=== PATIENT | male | born 1940 | race Caucasian/White ===

== ENCOUNTER 2020-05-03 16:42 | Inpatient (IN) | payer MEDICARE, SELFPAY ==
[2020-05-03] VITALS (8 sets, daily range): BP systolic 108–130; BP diastolic 54–67; PULSE 71–89; RESP 14–21; TEMP 37.1–37.6; O2SAT 90–99; BMI 26.6
--- NOTE | 2020-05-03 17:12 | W.ED.GENADLT ---
Documented by User: Matthew Schofield DO 05/03/20 18:02 HPI - General Adult General: Chief complaint: General Medical Stated complaint: kidney problems Time Seen by Provider: 05/03/20 17:11 History of Present Illness: HPI narrative: 80-year-old male presents the emergency room after seeing his primary care doctor today. He was seen a few days ago after a tick bite at an urgent care and started on clindamycin presumably for concern of staph infection in his groin. When he was seen in follow-up today he developed some diarrhea according his primary care doctor and he had also developed a large indurated area in the groin. They had ultrasounded it it looks solid did not see any fluid-filled hyperechoic mass or anything that looks like an abscess. Lab work done at his doctor's office showed an increased creatinine. Patient has had a little bit of shortness of breath but denies fever. He also had a diarrhea after he started the clindamycin. Patient also commented that he starting to get chest pain. Dr. Khan and mention to me he was getting shortness of breath but he evidently had not set anything about chest pain to miss to Dr. Khan. Patient has a known history of coronary artery disease he states that now since the swelling began in his groin if he walks several 100 feet he will begin to get chest pain associated with shortness of breath and feeling very clammy if he stops it will go away within 5 minutes. That had not been going on prior to this whole episode starting. Not having any chest pain while sitting at rest. Onset (ago): day(s) Location: lower extremity Associated symptoms: Reports chest pain and nausea; Deny dyspnea, malaise, rash or vomiting Review of Systems Const: Denies: fever(s), chills, body aches, change in appetite, fatigue or malaise ENMT: Denies: throat pain, ear or mastoid pain, nasal discharge or nasal congestion Card: Reports: chest pain and dyspnea on exertion; Denies: edema or orthopnea Resp: Denies: dyspnea, productive cough or non-productive cough GI: Reports: nausea; Denies: abdominal pain, vomiting, hematemesis, coffee ground emesis, diarrhea, constipation, bloating, hematochezia or melena : Denies: flank pain, dysuria, urinary frequency or urinary urgency Skin/Breast: Denies: rash or pruritus PFSH ED PFSH: Medical History (Updated 05/03/20 @ 22:40 by Leland Ram DO) Asthma Coronary artery disease stent years ago, here, maker Diabetes mellitus Hypertension Legionella infection 2008 Lung cancer chemotherapy and radiation, 1993 Surgical History (Updated 05/03/20 @ 17:34 by Matthew Schofield DO) History of arthroplasty of right knee 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 Family History (Updated 05/03/20 @ 22:12 by Ines Moreira MD) Brother Cancer brother Father Cancer Social History (Updated 05/03/20 @ 22:12 by Ines Moreira MD) Smoking and tobacco status: never smoked Alcohol intake: never Substance/Drug Use: never Household members: none Physical Exam Const: COMMON NORMALS: no acute distress GENERAL APPEARANCE: cooperative and comfortable ORIENTATION/CONSCIOUSNESS: Yes awake, Yes oriented to person, Yes oriented to place and Yes oriented to time HENMT: COMMON NORMALS: normocephalic, atraumatic, hearing grossly normal bilaterally, external ears normal, EAC's normal, TM's normal bilaterally, Normal nasal mucous membranes and turbinates present, moist oral mucous membranes and oropharynx normal HEAD & SCALP: normocephalic and atraumatic NOSE: Normal nasal mucous membranes and turbinates present EXTERNAL EAR: Yes external ears normal EXTERNAL AUDITORY CANAL: EAC's normal TYMPANIC MEMBRANE: TM's normal bilaterally Eye: COMMON NORMALS: Equal, round and reactive pupils present, EOMs intact bilaterally, conjunctivae normal and no scleral icterus CONJUNCTIVA: Yes conjunctivae normal PUPIL: Yes Equal, round and reactive pupils present Neck/C-Spine: COMMON NORMALS: full ROM, no lymphadenopathy, supple and no JVD Lymph: LYMPHATIC: no lymphadenopathy noted and no lymphedema noted Resp: COMMON NORMALS: normal respiratory effort, No retractions, No use of accessory muscles and clear to auscultation bilaterally AUSCULTATION: clear to auscultation bilaterally Cardio: COMMON NORMALS: no JVD, regular rate, regular rhythm and No murmurs present (Cardio) RATE: regular rate RHYTHM: regular rhythm GI: COMMON NORMALS: Soft to palpation and No hepatosplenomegaly present AUSCULTATION: Yes normoactive bowel sounds PALPATION: Yes Soft to palpation, No Tenderness to palpation present (GI), No Guarding due to palpation present (GI) and Yes No hepatosplenomegaly present : OTHER: Mass amount of swelling in the prepubic fat pad on the right extending into the right groin there is edematous changes. It is indurated and woody there is really little erythema. There is no skin breakdown. There is no drainage. It is exquisitely tender to touch. Extremity: COMMON NORMALS: normal to inspection, capillary refill normal, no clubbing, cyanosis or edema, no calf tenderness and no pedal edema Neuro: SENSORIUM/ORIENTATION: Yes oriented to person, Yes oriented to place and Yes oriented to time Skin: COMMON NORMALS: no rashes or lesions noted GENERAL SKIN EXAM: no rashes or lesions noted Course Vital Signs: Vital signs: Vital Signs Temperature 99.6 F 05/03/20 16:53 Pulse Rate 89 05/03/20 22:37 Respiratory Rate 21 H 05/03/20 22:37 Blood Pressure 108/62 05/03/20 22:37 Pulse Oximetry 92 05/03/20 22:37 MDM - General Adult MDM Narrative: Medical decision making narrative: Care transferred to Dr. Ram at change of shift. Please see his notes for final diagnosis and disposition. Lab Data: Labs: Lab Results 05/03/20 05/03/20 05/03/20 Range/Units 17:30 17:30 17:30 WBC 12.1 H (4.0-10.0) 10^3/ uL RBC 3.42 L (4.1-5.3) 10^6/u L Hgb 10.7 L (11.7-16.6) g/dL Hct 33.0 L (42.0-52.0) % MCV 96.5 H (80-94) fL MCH 31.3 (28.0-34.0) pg MCHC 32.4 (30.0-36.0) g/dL RDW 13.4 (12.1-15.1) % Plt Count 194 (130-400) 10^3/c mm MPV 10.8 H (7.4-10.4) fL Neut % (Auto) 82.0 % Lymph % (Auto) 8.0 % [place] % (Auto) 7.1 % Eos % (Auto) 2.0 % Baso % (Auto) 0.2 % Neut # (Auto) 9.9 H (1.8-7.7) 10^3/u L Lymph # (Auto) 1.0 (0.8-4.8) 10^3/u L [place] # (Auto) 0.9 (0.2-0.9) 10^3/u L Eos # (Auto) 0.2 (0.0-0.8) 10^3/u L Baso # (Auto) 0.0 (0.0-0.1) 10^3/u L Nucleated RBC % (a uto) 0 % Nucleated RBCs # 0.0 /100WBC Sodium 135 L (136-145) mmol/L Potassium 4.7 (3.5-5.1) mmol/L Chloride 97 L (98-107) mmol/L Carbon Dioxide 26 (22-29) mmol/L Anion Gap 16.7 (5-19) BUN 30 H (8-23) mg/dL Creatinine 2.0 H (0.7-1.2) mg/dL Glucose 217 H (65-115) mg/dL Calculated Osmolal ity 284 L (285-295) mOsm/k g Lactate 1.0 (0.5-2.2) mmol/L Calcium 10.0 (8.5-10.5) mg/dL Total Bilirubin 0.8 (0.15-1.2) mg/dL AST 11 (0-40) U/L ALT 8 (0-41) U/L Alkaline Phosphata se 79 (40-130) IU/L Creatine Kinase 64 (39-308) U/L Troponin T Baselin e (0-15) ng/L Troponin T 120 Min [place] (0-15) ng/L Delta Troponin T (0-10) ABS# Total Protein 7.0 (6.6-8.7) g/dL Albumin 4.0 (3.5-5.2) g/dL Globulin 3.0 (1.3-4.6) g/dL 05/03/20 05/03/20 Range/Units 17:30 19:00 WBC (4.0-10.0) 10^3/ uL RBC (4.1-5.3) 10^6/u L Hgb (11.7-16.6) g/dL Hct (42.0-52.0) % MCV (80-94) fL MCH (28.0-34.0) pg MCHC (30.0-36.0) g/dL RDW (12.1-15.1) % Plt Count (130-400) 10^3/c mm MPV (7.4-10.4) fL Neut % (Auto) % Lymph % (Auto) % [place] % (Auto) % Eos % (Auto) % Baso % (Auto) % Neut # (Auto) (1.8-7.7) 10^3/u L Lymph # (Auto) (0.8-4.8) 10^3/u L [place] # (Auto) (0.2-0.9) 10^3/u L Eos # (Auto) (0.0-0.8) 10^3/u L Baso # (Auto) (0.0-0.1) 10^3/u L Nucleated RBC % (a uto) % Nucleated RBCs # /100WBC Sodium (136-145) mmol/L Potassium (3.5-5.1) mmol/L Chloride (98-107) mmol/L Carbon Dioxide (22-29) mmol/L Anion Gap (5-19) BUN (8-23) mg/dL Creatinine (0.7-1.2) mg/dL Glucose (65-115) mg/dL Calculated Osmolal ity (285-295) mOsm/k g Lactate (0.5-2.2) mmol/L Calcium (8.5-10.5) mg/dL Total Bilirubin (0.15-1.2) mg/dL AST (0-40) U/L ALT (0-41) U/L Alkaline Phosphata se (40-130) IU/L Creatine Kinase (39-308) U/L Troponin T Baselin e 16 H (0-15) ng/L Troponin T 120 Min [place] 13.56 (0-15) ng/L Delta Troponin T -2.44 L (0-10) ABS# Total Protein (6.6-8.7) g/dL Albumin (3.5-5.2) g/dL Globulin (1.3-4.6) g/dL Discharge Plan Discharge Patient Disposition: Admitted As Inpatient Admit Provider: Ines Moreira Clinical Impression: Cellulitis of groin, right Condition: Stable Coding Level of Care Code ED 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 for 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 Fwd 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 Documented by User: Leland Ram DO 05/03/20 22:40 HPI - General Adult General: Chief complaint: General Medical Stated complaint: kidney problems Time Seen by Provider: 05/03/20 17:11 PFSH ED PFSH: Medical History (Updated 05/03/20 @ 22:40 by Leland Ram DO) Asthma Coronary artery disease stent years ago, here, maker Diabetes mellitus Hypertension Legionella infection 2007 Lung cancer chemotherapy and radiation, 1993 Surgical History (Updated 05/03/20 @ 17:34 by Matthew Schofield DO) History of arthroplasty of right knee 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 Family History (Updated 05/03/20 @ 22:12 by Ines Moreira MD) Brother Cancer brother Father Cancer Social History (Updated 05/03/20 @ 22:12 by Ines Moreira MD) Smoking and tobacco status: never smoked Alcohol intake: never Substance/Drug Use: never Household members: none Course Vital Signs: Vital signs: Vital Signs Temperature 99.6 F 05/03/20 16:53 Pulse Rate 89 05/03/20 22:37 Respiratory Rate 21 H 05/03/20 22:37 Blood Pressure 108/62 05/03/20 22:37 Pulse Oximetry 92 05/03/20 22:37 MDM - General Adult MDM Narrative: Medical decision making narrative: 80-year-old male with pain and swelling in his right groin. He was checked out to me by Dr. Schofield. White blood cell count of 12.1. Hemoglobin 10.7. No abscess by CT. There is localized swelling and induration consistent with cellulitis. He has been placed on Levaquin, vancomycin, and oral doxy in the ER. Tick titers have been sent. He will be given IV fluid, as he has had a significant bump in his creatinine. He will be admitted for treatment of cellulitis. Lab Data: Labs: Lab Results 05/03/20 05/03/20 05/03/20 Range/Units 17:30 17:30 17:30 WBC 12.1 H (4.0-10.0) 10^3/ uL RBC 3.42 L (4.1-5.3) 10^6/u L Hgb 10.7 L (11.7-16.6) g/dL Hct 33.0 L (42.0-52.0) % MCV 96.5 H (80-94) fL MCH 31.3 (28.0-34.0) pg MCHC 32.4 (30.0-36.0) g/dL RDW 13.4 (12.1-15.1) % Plt Count 194 (130-400) 10^3/c mm MPV 10.8 H (7.4-10.4) fL Neut % (Auto) 82.0 % Lymph % (Auto) 8.0 % [place] % (Auto) 7.1 % Eos % (Auto) 2.0 % Baso % (Auto) 0.2 % Neut # (Auto) 9.9 H (1.8-7.7) 10^3/u L Lymph # (Auto) 1.0 (0.8-4.8) 10^3/u L [place] # (Auto) 0.9 (0.2-0.9) 10^3/u L Eos # (Auto) 0.2 (0.0-0.8) 10^3/u L Baso # (Auto) 0.0 (0.0-0.1) 10^3/u L Nucleated RBC % (a uto) 0 % Nucleated RBCs # 0.0 /100WBC Sodium 135 L (136-145) mmol/L Potassium 4.7 (3.5-5.1) mmol/L Chloride 97 L (98-107) mmol/L Carbon Dioxide 26 (22-29) mmol/L Anion Gap 16.7 (5-19) BUN 30 H (8-23) mg/dL Creatinine 2.0 H (0.7-1.2) mg/dL Glucose 217 H (65-115) mg/dL Calculated Osmolal ity 284 L (285-295) mOsm/k g Lactate 1.0 (0.5-2.2) mmol/L Calcium 10.0 (8.5-10.5) mg/dL Total Bilirubin 0.8 (0.15-1.2) mg/dL AST 11 (0-40) U/L ALT 8 (0-41) U/L Alkaline Phosphata se 79 (40-130) IU/L Creatine Kinase 64 (39-308) U/L Troponin T Baselin e (0-15) ng/L Troponin T 120 Min [place] (0-15) ng/L Delta Troponin T (0-10) ABS# Total Protein 7.0 (6.6-8.7) g/dL Albumin 4.0 (3.5-5.2) g/dL Globulin 3.0 (1.3-4.6) g/dL 05/03/20 05/03/20 Range/Units 17:30 19:00 WBC (4.0-10.0) 10^3/ uL RBC (4.1-5.3) 10^6/u L Hgb (11.7-16.6) g/dL Hct (42.0-52.0) % MCV (80-94) fL MCH (28.0-34.0) pg MCHC (30.0-36.0) g/dL RDW (12.1-15.1) % Plt Count (130-400) 10^3/c mm MPV (7.4-10.4) fL Neut % (Auto) % Lymph % (Auto) % [place] % (Auto) % Eos % (Auto) % Baso % (Auto) % Neut # (Auto) (1.8-7.7) 10^3/u L Lymph # (Auto) (0.8-4.8) 10^3/u L [place] # (Auto) (0.2-0.9) 10^3/u L Eos # (Auto) (0.0-0.8) 10^3/u L Baso # (Auto) (0.0-0.1) 10^3/u L Nucleated RBC % (a uto) % Nucleated RBCs # /100WBC Sodium (136-145) mmol/L Potassium (3.5-5.1) mmol/L Chloride (98-107) mmol/L Carbon Dioxide (22-29) mmol/L Anion Gap (5-19) BUN (8-23) mg/dL Creatinine (0.7-1.2) mg/dL Glucose (65-115) mg/dL Calculated Osmolal ity (285-295) mOsm/k g Lactate (0.5-2.2) mmol/L Calcium (8.5-10.5) mg/dL Total Bilirubin (0.15-1.2) mg/dL AST (0-40) U/L ALT (0-41) U/L Alkaline Phosphata se (40-130) IU/L Creatine Kinase (39-308) U/L Troponin T Baselin e 16 H (0-15) ng/L Troponin T 120 Min [place] 13.56 (0-15) ng/L Delta Troponin T -2.44 L (0-10) ABS# Total Protein (6.6-8.7) g/dL Albumin (3.5-5.2) g/dL Globulin (1.3-4.6) g/dL Discharge Plan Discharge Patient Disposition: Admitted As Inpatient Admit Provider: Ines Moreira Clinical Impression: Cellulitis of groin, right Condition: Stable Coding Level of Care Code ED 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 for Chg Fwd 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
--- NOTE | 2020-05-03 17:24 | CTR_ITS ---
PROCEDURE INFORMATION: Exam: CT Abdomen And Pelvis With Contrast Exam date and time: 05/03/2020 6:35 PM Age: 80 years old Clinical indication: Patient HX: C/O body aches, L groin lump ? tick bite, and diarrhea; Additional info: Pelvic mass/swelling TECHNIQUE: Imaging protocol: Computed tomography of the abdomen and pelvis with intravenous contrast. Radiation optimization: All CT scans at this facility use at least one of these dose optimization techniques: automated exposure control; mA and/or kV adjustment per patient size (includes targeted exams where dose is matched to clinical indication); or iterative reconstruction. Contrast material: VISI 320; Contrast volume: 95 ml; Contrast route: INTRAVENOUS (IV); COMPARISON: No relevant prior studies available. RADIATION DOSE METRICS: Total DLP (mGy-cm): 907.08 FINDINGS: Liver: Unremarkable. No mass. Gallbladder and bile ducts: Normal. No calcified stones. No ductal dilation. Pancreas: Mild atrophy of the pancreas. No visible pancreatic ductal ectasia. Partial fatty replacement of the pancreas. Spleen: Normal. No splenomegaly. Adrenals: Normal. No mass. Kidneys and ureters: Normal. No hydronephrosis. Stomach and bowel: Diverticulosis coli but without evidence of acute diverticulitis. Markedly redundant colon. Nonobstructive bowel pattern. No visible evidence of adynamic or reactive ileus. Mild diffuse mucosal thickening of the visualized distal esophagus which may be secondary to chronic esophagitis. Appendix: The appendix is visualized appears noninflamed. Intraperitoneal space: Unremarkable. No free air. No significant fluid collection. Vasculature: Limited assessment lung bases reveals evidence of coronary artery disease. No visible pericardial effusion. No visible active interstitial or alveolar airspace disease within the field of view. The abdominal aorta is nonaneurysmal but demonstrates moderately advanced arterial sclerotic disease. Lymph nodes: No visible generalized lymphadenopathy. Bladder: Unremarkable as visualized. Reproductive: Unremarkable as visualized. Bones/joints: No visible active or acute osseous pathology. Age-appropriate degenerative disease. Mild scoliosis. Soft tissues: Examination reveals moderate right inguinal soft tissue edema. No underlying visible organized loculated fluid collection to suggest the presence of a abscess, seroma, or hematoma. Potential for cellulitis. No visible associated right inguinal lymphadenopathy/lymphadenitis. CT/CT abdomen pelvis w con* [id number] IMPRESSION: 1. Examination reveals moderate right inguinal soft tissue edema. No underlying visible organized loculated fluid collection to suggest the presence of a abscess, seroma, or hematoma. Potential for cellulitis. 2. No visible associated right inguinal lymphadenopathy/lymphadenitis. 3. Potential mild chronic esophagitis. Radiation Dose CTDIVOL = (mGy): DLP = 907.08 (mGy-cm)
--- NOTE | 2020-05-03 17:25 | ECG_ITS ---
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 Measurements Intervals [place] Rate: 75 P: 8 MI: 168 QRS: 11 QRSD: 90 T: 47 QT: 350 QTc: 392 Interpretive Statements SINUS RHYTHM No previous ECG available for comparison Electronically Signed On 05-03-2020 21:43:46 CDT by Breana Craft M.D. [id number]
[2020-05-03 17:42] LABS: Basophils % 0.2 %; Eosinophils # 0.2 10^3/uL (0.0-0.8); Hemoglobin 10.7 g/dL (11.7-16.6); Mean Corpuscular HGB Conc 32.4 g/dL (30.0-36.0); Mean Corpuscular Hemoglobin 31.3 pg (28.0-34.0); Mean Corpuscular Volume 96.5 fL (80-94); Mean Platelet Volume 10.8 fL (7.4-10.4); Monocytes # 0.9 10^3/uL (0.2-0.9); Monocytes % 7.1 %; Neutrophils # 9.9 10^3/uL (1.8-7.7); Nucleated Red Blood Cells % 0 %; Platelet Count 194 10^3/cmm (130-400); Red Blood Count 3.42 10^6/uL (4.1-5.3); Red Cell Distribution Width 13.4 % (12.1-15.1); White Blood Count 12.1 10^3/uL (4.0-10.0)
[2020-05-03] MEDS: sodium chloride 0.9% 1,000 ML 999 ML IV (18:01)
[2020-05-03] MEDS: morphine 4 mg/mL SDV 1 mL IVP ×2 (18:02→23:03)
[2020-05-03] MEDS: ondansetron 2 mg/ML SDV 2 mL 4 MG IVP (18:02)
[2020-05-03 18:18] LABS: Alanine Aminotransferase 8 U/L (0-41); Alkaline Phosphatase 79 IU/L (40-130); Anion Gap 16.7 (5-19); Aspartate Amino Transferase 11 U/L (0-40); Blood Urea Nitrogen 30 mg/dL (8-23); Carbon Dioxide 26 mmol/L (22-29); Chloride 97 mmol/L (98-107); Creatine Phosphokinase 64 U/L (39-308); Glucose 217 mg/dL (65-115); Osmolality Calculated 284 mOsm/kg (285-295); Potassium 4.7 mmol/L (3.5-5.1); Sodium 135 mmol/L (136-145); Total Bilirubin 0.8 mg/dL (0.15-1.2)
[2020-05-03 18:19] LABS: Troponin(5th) Baseline 16 ng/L (0-15)
[2020-05-03] MEDS: vancomycin 1,000 MG in sodium chloride 0.9% 250 ML 250 MG IV (18:30)
[2020-05-03] MEDS: iodixanol 320 mg/mL 100mL Btl IV (18:48)
--- NOTE | 2020-05-03 19:25 | ECG_ITS ---
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 Measurements Intervals [place] Rate: 78 P: 36 UT: 180 QRS: 1 QRSD: 97 T: 57 QT: 337 QTc: 385 Interpretive Statements SINUS RHYTHM NONSPECIFIC T-WAVE ABNORMALITY Compared to ECG 05/03/2020 17:33:43 T-wave abnormality now present Electronically Signed On 05-04-2020 16:56:04 CDT by Pedro Kaur M.D. [id number]
[2020-05-03] MEDS: HYDROmorphone 1 mg/mL INJ 1 mL IVP (19:37)
[2020-05-03 19:59] LABS: Troponin 5 2HR 13.56 ng/L (0-15)
[2020-05-03 20:02] LABS: Troponin 5 2HR Delta -2.44 ABS# (0-10)
[2020-05-03] MEDS: levofloxacin-dextrose 5 % 500 MG/100 ML PREMIX 100 MG IV (20:18)
--- NOTE | 2020-05-03 21:32 | PM.HP ---
Providers/Chief Complaint Admitting Physician: Ines Moreira MD Primary Care Provider: Gerry Khan MD Chief Complaint: kidney problems History of Present Illness Son Cisneros Sr is a 80 year old male who presented to the emergency room with chief complaint of pain and swelling in his groin. Around a week or so ago, he had gone [place] the race track in [place]. He was not feeling well while he was there. The following day he found a tick on himself right in his suprapubic area. He dug it out with a needle that he burned and soaked in alcohol. Over the next few days, patient started having pain in his shoulders, headaches, general malaise and slowly increasing pain and swelling in his groin. He was seen at walk-in clinic on Sunday and was given a prescription for clindamycin. Patient himself thought he might of developed a hernia. Pain was becoming progressively more significant. He was hurting so bad Sunday and Sunday that he was having dry heaves. Denies any reported fevers at home. He saw his primary care provider today. Antibiotics were changed from clindamycin which have been prescribed on Sunday to doxycycline. An ultrasound was done of the swollen area. No fluid collection was noted. He did have evidence of an elevated creatinine and some other abnormalities. In talking with him further, he has had several episodes of dry heaving and general malaise. This was bad enough when he was at the race track in [place] that his son went and got 1 of the paramedics there to check on him. A friend who is with him today also describes him being quite sick about a month ago. He does have a history of coronary artery disease with a prior stent placed maybe 30 years ago. He has diabetes and hypertension. He is being admitted for further evaluation and treatment. He received vancomycin in the emergency room. He also received morphine which help with the pain and some IV fluids. Blood cultures have been collected. CT of the abdomen and pelvis done in the emergency room showed soft tissue swelling with no visible loculated fluid collection identified. No mention of any lymphadenopathy or lymphadenitis visible in the right inguinal area. Review of Systems Const: Reports: chills, body aches, change in appetite, fatigue and malaise; Denies: fever(s) Eyes: Denies: change in vision ENMT: Denies: throat pain, dry mouth or nasal congestion Card: Denies: chest pain, palpitations or edema Resp: Denies: dyspnea, productive cough or non-productive cough GI: Reports: abdominal pain and other (Dry heaves on several occasions); Denies: nausea, diarrhea or constipation : Reports: other (Groin pain is noted, primarily in the right and central regions); Denies: difficulty urinating, testicular pain or scrotal swelling Musc: Reports: back pain, joint pain (Both shoulders) and muscle weakness; Denies: neck pain, extremity swelling, joint swelling, joint redness or joint warmth Skin/Breast: Reports: erythema, skin tenderness and skin swelling; Denies: pruritus Neuro: Reports: headache(s); Denies: numbness in extremities, weakness in extremities or dizziness Psych: Denies: anxiety or depression Nishant/Lymph: Denies: easy bruising or easy bleeding Medications/Allergies Home Medications Medication Instructions Recorded Confirmed Last Taken Type clindamycin HCl 300 mg capsule 300 mg PO TID 7 Days #21 cap 05/01/20 05/03/20 Unknown Rx atorvastatin 10 mg PO DAILY 05/03/20 05/03/20 05/02/20 History benazepril-hydrochlorothiazide 20 - 25 tab PO DAILY 05/03/20 05/03/20 05/02/20 History doxycycline hyclate 100 mg PO DAILY 05/03/20 05/03/20 05/03/20 History glimepiride 8 mg PO DAILY 05/03/20 05/03/20 05/03/20 History metformin 500 mg PO TID 05/03/20 05/03/20 Unknown History pioglitazone 30 mg PO DAILY 05/03/20 05/03/20 05/02/20 History sitagliptin [Januvia] 100 mg PO DAILY 05/03/20 05/03/20 05/02/20 History Allergies Allergy/AdvReac Type Severity Reaction Status Date / Time oxytetracycline Allergy ADR-Swelling Verified 05/03/20 21:38 [From Terramycin] of the Eye Penicillins Allergy ALGY-Difficulty Verified 05/03/20 18:27 Swallowing PFSH Acute PFSH: Medical History (Updated 05/04/20 @ 04:57 by Ines Moreira MD) Asthma Chronic kidney disease, stage III (moderate) Coronary artery disease stent years ago, here, maker Diabetes mellitus Hypertension Legionella infection 2008 Lung cancer chemotherapy and radiation, 1994 Surgical History (Updated 05/03/20 @ 17:34 by Matthew Schofield DO) History of arthroplasty of right knee 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 Family History (Updated 05/03/20 @ 22:12 by Ines Moreira MD) Brother Cancer brother Father Cancer Social History (Updated 05/03/20 @ 22:12 by Ines Moreira MD) Smoking and tobacco status: never smoked Alcohol intake: never Substance/Drug Use: never Household members: none Vitals/I&O/Wt Last Vital Signs Temp 99.6 F 05/03/20 16:53 Pulse 71 05/03/20 21:25 Resp 18 05/03/20 21:25 BP 126/54 05/03/20 21:25 Pulse Ox 99 05/03/20 21:25 Weight last 48 hrs Weight 78.925 kg Physical Exam Const: COMMON NORMALS: patient oriented x3 and alert HENMT: COMMON NORMALS: normocephalic and atraumatic Eye: COMMON NORMALS: Equal, round and reactive pupils present and EOMs intact bilaterally Neck/C-Spine: COMMON NORMALS: supple Lymph: LYMPHATIC: no lymphadenopathy noted Resp: COMMON NORMALS: normal respiratory effort, No use of accessory muscles and clear to auscultation bilaterally Cardio: COMMON NORMALS: negative for No murmurs present (Cardio) RATE: regular rate RHYTHM: regular rhythm GI: COMMON NORMALS: Soft to palpation and non-tender AUSCULTATION: Yes normoactive bowel sounds : OTHER: There is some minor swelling that extends to the base of the penis. The remainder the penis appears normal be no scrotal edema or testicular swelling or pain on examination. GENITAL IMAGES (MALE): 1. area of induration and swelling/redness Extremity: COMMON NORMALS: capillary refill normal, no clubbing, cyanosis or edema and no calf tenderness Neuro: COMMON NORMALS: moves all extremities and no sensory deficits noted Psych: COMMON NORMALS: Normal thought process present and cooperative Skin: NARRATIVE SKIN EXAM: Patient with approximately 5 to 6 inches diameter area of induration in the suprapubic area extending into the right inguinal area. There is a peau d'orange appearance in the region approximately 3 - 4 cm in diameter centrally. The entire area is erythematous but there is no well demarcated line of erythema nor any streaking beyond the areas that are indurated. No fluctuance is noted. No crepitus. No areas of ecchymoses, fluid-filled blisters, bleeding, skin breakdown. I am not able to see where he dug the tick out. No other open wounds or obviously infected hair follicles. Data : 05/03/20 17:30 05/03/20 17:30 Micro: Microbiology 05/03/20 17:32 Blood Culture - Preliminary Blood SPECIMEN COLLECTED 05/03/20 17:30 Blood Culture - Preliminary Blood SPECIMEN COLLECTED A&P Assessment and plan (1) Cellulitis of groin, right: Suspect from a combination of the effect of the tic and a sensitive area combined with significant possibility of a secondary infection given the method he used to remove the tick. No evidence of abscess formation presently. Status: Acute (2) Acute kidney injury: On top of what looks to be chronic kidney disease stage III. Could be progression since her last comparative available labs from a year ago however. Status: Acute (3) Multiple complaints: In talking with him he has had headaches, shoulder pains, other myalgias, general malaise, intermittent problems with dry heaving. This is all in addition to the pain in the groin area. Some of the symptoms have definitely been more prominent since he had the tick bite and development of cellulitis but in talking with him some of the symptoms were around before then. His friend who is here with him is quite concerned. His son at the races one time went and got sr vice president to check him out because he was so worried. Status: Acute (4) Tick bite: Removed a tick about a week ago. Status: Acute Qualifiers: Encounter type: subsequent encounter Qualified Code(s): W57.XXXD - Bitten or stung by nonvenomous insect and other nonvenomous arthropods, subsequent encounter (5) Diabetes mellitus: Gen-xeovebw-cvyyvqamt but on several oral medications, currently with hyperglycemia Status: Chronic Qualifiers: Diabetes mellitus type: type 2 Diabetes mellitus correction insulin use: without correction use Diabetes mellitus complication status: with kidney complications Diabetes mellitus complication detail: with chronic kidney disease Chronic kidney disease stage: stage 3 (moderate) Qualified Code(s): E11.22 - Type 2 diabetes mellitus with diabetic chronic kidney disease; N18.3 - Chronic kidney disease, stage 3 (moderate) (6) Hypertension: Status: Chronic Qualifiers: Hypertension type: essential hypertension Qualified Code(s): I10 - Essential (primary) hypertension (7) Coronary artery disease: Status: Chronic Qualifiers: Coronary Disease-Associated Artery/Lesion type: [place] artery [place] vs. transplanted heart: [place] heart Associated angina: without angina Qualified Code(s): I25.10 - Atherosclerotic heart disease of [place] coronary artery without angina pectoris (8) Chronic kidney disease, stage III (moderate): Status: Chronic Additional A&P Information Inpatient admission Continue vancomycin We will continue doxycycline Tick titers were checked at [facility] Monitor inguinal and suprapubic area closely for progressive changes. Did discuss with patient to let staff know if he is having increasing pain or worsening skin findings or extension to the penis or the scrotum. Continue serial cardiac enzymes started in the emergency room Check hemoglobin A1c Hold metformin secondary to both renal function and the fact that he received contrast Decrease the dose of glimepiride currently Pioglitazone and Januvia are currently held Insulin in the interim I have held benazepril/HCTZ secondary to renal function Pain control has been ordered Supportive care otherwise Lovenox for DVT prophylaxis Plans been discussed with patient and he and his friend have been given an opportunity to ask questions Full code Attestations Medical Necessity Statement*: Anticipated stay greater than 2 midnights in this patient with cellulitis in the groin and noted comorbid conditions and recent symptomology. In addition he has some acute kidney injury. Location of cellulitis is at high risk for progression to surrounding areas. Plans are as indicated. 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 transplanted heart: [place] heart Associated angina: without angina Chronic kidney disease, stage III (moderate) N18.3
--- NOTE | 2020-05-03 21:40 | PC.PHAR ---
Vancomycin is dosed at 1000mg IVPB every 24 hours to produce a predicted trough level of 18.22 (population based pharmacokinetic analysis). A trough level has been ordered from the lab to be obtained before the fourth dose to confirm and adjust if needed.
[2020-05-03 23:31] LABS: Glucose Point of Care 185 mg/dL (70-110)
[2020-05-03 23:32] LABS: Add Urine Microscopic? NO
[2020-05-03] MEDS: sodium chloride 0.9% 1,000 ML 125 ML IV (23:40)
[2020-05-03] MEDS: enoxaparin 40 mg/0.4 mL Syringe SUBCUT (23:41)
[2020-05-03] MEDS: doxycycline 100 mg Tablet PO (23:41)
[2020-05-03 23:43] LABS: Troponin 5 6HR 14.71 ng/L (0-15)
[2020-05-03 23:45] LABS: Urine Appearance Clear (CLEAR); Urine Color Yellow (Yellow); pH Urine 5 (5-7)
[2020-05-03 23:46] LABS: Bilirubin Urine Neg (NEGATIVE); Blood Urine Neg (Negative); Glucose Urine UA Norm (Normal); Ketones Urine Negative (Negative); Leukocyte Esterase Urine Negative (Negative); Nitrate Urine Negative (Negative); Protein Urine Neg (Negative); Urobilinogen Urine Norm (Negative)
[2020-05-03 23:46] LABS: Troponin 5 6HR Delta -1.29 ng/L (0-12)
[2020-05-04] VITALS: BP 125/58; PULSE 79; RESP 18; TEMP 37.1; O2SAT 90
[2020-05-04] MEDS: HYDROcodone-acetaminophen 5-325 mg Tablet 1 TAB PO ×3 (00:01→22:52)
[2020-05-04 04:00] VITALS: BP 108/53; PULSE 76; RESP 18; TEMP 37.1; O2SAT 93
[2020-05-04 04:27] LABS: Basophils % 0.4 %; Eosinophils # 0.2 10^3/uL (0.0-0.8); Eosinophils % 2.7 %; Hematocrit 28.9 % (42.0-52.0); Lymphocytes # 0.9 10^3/uL (0.8-4.8); Lymphocytes % 10.9 %; Mean Corpuscular HGB Conc 31.1 g/dL (30.0-36.0); Mean Corpuscular Hemoglobin 30.2 pg (28.0-34.0); Monocytes # 0.7 10^3/uL (0.2-0.9); Monocytes % 8.1 %; Neutrophils # 6.7 10^3/uL (1.8-7.7); Neutrophils % 77.5 %; Nucleated Red Blood Cells % 0 %; Platelet Count 168 10^3/cmm (130-400); Red Blood Count 2.98 10^6/uL (4.1-5.3); Red Cell Distribution Width 13.2 % (12.1-15.1); White Blood Count 8.6 10^3/uL (4.0-10.0)
[2020-05-04 05:24] LABS: Alanine Aminotransferase 6 U/L (0-41); Albumin Level 3.3 g/dL (3.5-5.2); Alkaline Phosphatase 74 IU/L (40-130); Anion Gap 13.3 (5-19); Aspartate Amino Transferase 10 U/L (0-40); Blood Urea Nitrogen 23 mg/dL (8-23); Calcium 9.1 mg/dL (8.5-10.5); Carbon Dioxide 25 mmol/L (22-29); Chloride 102 mmol/L (98-107); Globulin 2.7 g/dL (1.3-4.6); Glucose 142 mg/dL (65-115); Osmolality Calculated 281 mOsm/kg (285-295); Potassium 4.3 mmol/L (3.5-5.1); Sodium 136 mmol/L (136-145); Total Bilirubin 0.6 mg/dL (0.15-1.2)
[2020-05-04] MEDS: glimepiride 2 mg Tablet PO (06:10)
--- NOTE | 2020-05-04 06:21 | PC.NURSE ---
PATIENT RESTED WELL THROUGHOUT THE NIGHT. MINIMAL COMPLAINTS OF PAIN. URINE OUTPUT WNL.
[2020-05-04 06:54] LABS: Glucose Point of Care 152 mg/dL (70-110)
[2020-05-04 07:05] LABS: Estmated Average Glucose 209; Hemoglobin A1C 8.9 % (4.0-6.0)
[2020-05-04 07:40] VITALS: BP 159/55; PULSE 80; RESP 18; TEMP 37.1; O2SAT 92
--- NOTE | 2020-05-04 10:19 | PM.PN ---
Subjective Subjective: Interval history: History and physical reviewed. Son reports he feels about the same. Right suprapubic area is still swollen, and painful. Medications: Reviewed: Yes Vitals/I&O/Wt Last Vital Signs Temp 98.8 F 05/04/20 07:40 Pulse 80 05/04/20 07:40 Resp 18 05/04/20 07:40 BP 159/55 05/04/20 07:40 Pulse Ox 92 05/04/20 07:40 05/03/20 05/04/20 05/04/20 22:59 06:59 14:59 Intake Total 120 / 120 240 / 240 Output Total 600 / 600 300 / 300 Balance -480 / -480 -60 / -60 Weight last 48 hrs Weight 78.925 kg Physical Exam Narrative: EXAM NARRATIVE: General exam no apparent distress Cardiovascular regular in rhythm without murmur Lungs clear Abdomen is soft positive bowel sounds. Right suprapubic area with induration, erythema, tenderness to palpation Extremities no cyanosis clubbing or edema Data : 05/04/20 03:56 05/04/20 03:56 Micro: Microbiology 05/03/20 17:32 Blood Culture - Preliminary Blood SPECIMEN COLLECTED 05/03/20 17:30 Blood Culture - Preliminary Blood SPECIMEN COLLECTED A&P Assessment and plan (1) Cellulitis of groin, right: Etiology tick bite, with method used to remove tick. Continue vancomycin. Secondary to history of tick bite, continue doxycycline Status: Acute (2) Acute kidney injury: Renal function greatly improving. It is close to his baseline of 1.2, he has stage II renal failure. Status: Acute (3) Multiple complaints: Reports some generalized pain. We will see how this improves as well as headache with treatment of his infection. Status: Acute (4) Tick bite: Continue doxycycline Status: Acute Qualifiers: Encounter type: subsequent encounter Qualified Code(s): W57.XXXD - Bitten or stung by nonvenomous insect and other nonvenomous arthropods, subsequent encounter (5) Diabetes mellitus: Medication adjusted secondary to his renal failure. Continue to follow blood sugars. 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 We will continue to follow. Some medication was held secondary to renal failure. Will potentially restart YOBANI inhibitor tomorrow if blood pressure remains high, and renal function remained stable. Status: Chronic Qualifiers: Hypertension type: essential hypertension Qualified Code(s): I10 - Essential (primary) hypertension (7) Coronary artery disease: Stable, no complaints Status: Chronic Qualifiers: Coronary Disease-Associated Artery/Lesion type: [place] artery [place] vs. transplanted heart: [place] heart Associated angina: without angina Qualified Code(s): I25.10 - Atherosclerotic heart disease of [place] coronary artery without angina pectoris (8) Chronic kidney disease, stage III (moderate): Status: Chronic Additional A&P Information Tick titers done but, out outside lab([facility]) Full code Lovenox for DVT prophylaxis Reduce fluids to 75 cc an hour. Attestations Medical Necessity Statement*: Needs continued hospital stay for IV antibiotics related to cellulitis. Coding Level of Care Code Acute Stonemason Helper for [facility] Diagnoses Cellulitis of groin, right L03.314 Acute kidney injury N17.9 Multiple complaints R68.89 Tick bite W57.XXXD Encounter type: subsequent encounter Diabetes mellitus E11.22; N18.3 Diabetes mellitus type: type 2 Diabetes mellitus longterm insulin use: without longterm use Diabetes mellitus complication status: with kidney complications Diabetes mellitus complication detail: with chronic kidney disease Chronic kidney disease stage: stage 3 (moderate) Hypertension I10 Hypertension type: essential hypertension Coronary artery disease I25.10 Coronary Disease-Associated Artery/Lesion type: [place] artery [place] vs. transplanted heart: [place] heart Associated angina: without angina Chronic kidney disease, stage III (moderate) N18.3
[2020-05-04] MEDS: docusate sodium 100 mg Capsule PO ×2 (10:21→16:45)
[2020-05-04] MEDS: sitagliptin 100 mg Tablet PO (10:22)
[2020-05-04] MEDS: doxycycline 100 mg Tablet PO ×2 (10:22→22:49)
[2020-05-04] MEDS: sodium chloride 0.9% 1,000 ML 125 ML IV ×2 (10:24→16:42)
[2020-05-04 11:33] VITALS: BP 131/63; PULSE 97; RESP 18; TEMP 37.2; O2SAT 92
[2020-05-04 11:36] LABS: Glucose Point of Care 230 mg/dL (70-110)
--- NOTE | 2020-05-04 12:11 | PC.CHAP ---
Pastoral Care Encounter/Spiritual Assessment Type of Contact [] Declined recreational therapy technician visit [] Patient/Family/Request visit [] Outpatient visit [] Follow-up visit [] Physician referral [] Code/Alert [x] Routine visit [] Staff referral [] Actively dying [] Patient sleeping [] Family support [] [] Out of room [] Palliative care [] [x] Receiving care in room [] Pre-surgical visit [] Trauma [] Long length of stay [] ICU visit [] Other: Relational/Emotional Strength [x] Patient feels connected with others/family/visitors/staff [] Distress [] Loneliness/isolation [] Abandonment Spirituality of Patient [x] Person of Brigette [] Attends Muslim of their Brigette [x] Believes in Prayer [] Reads Bible or Methodist materials [] There are Spiritual issues to be addressed Potato Bucker Interventions [x] Prayer [x] Active listening [x] Non-anxious presence [x] Spiritual/emotional support [] Crisis/trauma care [x] Spiritual counseling [] Bereavement support [] Provided bereavement packet [] Provided Bible/devotional materials [] Provided toy/stuffed animal, coloring book to patient or family member [] Provided Communion [] Anointing/[place] [] Salvation [x] Completed spiritual assessment [] Other: Impact on Illness or Injury [] Angry [] Fearful [] Anxious [] Often cries [] Exhaustion [] Unable to work [] Unable to attend sikhism [] Unable to walk/stand [] Unable to read [] Unable to drive [] Unable to eat/drink [] Unable to sleep [] Unable to be with family [] Patient intubated [] Other: Summary Tick bit in pain has a good attitude Time spent with patient 10 mins
[2020-05-04 15:22] VITALS: BP 122/54; PULSE 82; RESP 16; TEMP 36.9; O2SAT 94
[2020-05-04] MEDS: vancomycin 1,000 MG in sodium chloride 0.9% 250 ML 250 MG IV (16:46)
[2020-05-04 16:53] LABS: Glucose Point of Care 206 mg/dL (70-110)
[2020-05-04 20:00] VITALS: BP 143/63; PULSE 78; RESP 18; TEMP 37; O2SAT 90
[2020-05-04 21:17] LABS: Glucose Point of Care 169 mg/dL (70-110)
[2020-05-04] MEDS: enoxaparin 40 mg/0.4 mL Syringe SUBCUT (22:49)
[2020-05-05] VITALS: BP 137/75; PULSE 63; RESP 18; TEMP 36.5; O2SAT 92
[2020-05-05] MEDS: sodium chloride 0.9% 1,000 ML 125 ML IV ×2 (03:14→18:16)
[2020-05-05 04:00] VITALS: BP 128/68; PULSE 74; RESP 18; TEMP 36.8; O2SAT 94
--- NOTE | 2020-05-05 05:10 | PC.NURSE ---
PATIENT RESTED WELL THROUGHOUT THE NIGHT. REPORTS OF SOME PAIN AT TIMES, WHICH WERE CONTROLLED WITH PAIN MEDICATIONS.
[2020-05-05 05:23] LABS: Basophils % 0.4 %; Eosinophils # 0.3 10^3/uL (0.0-0.8); Hemoglobin 8.9 g/dL (11.7-16.6); Lymphocytes % 15.1 %; Mean Corpuscular HGB Conc 31.8 g/dL (30.0-36.0); Mean Corpuscular Hemoglobin 30.2 pg (28.0-34.0); Mean Corpuscular Volume 94.9 fL (80-94); Mean Platelet Volume 10.8 fL (7.4-10.4); Monocytes # 0.6 10^3/uL (0.2-0.9); Monocytes % 8.8 %; Neutrophils # 4.9 10^3/uL (1.8-7.7); Neutrophils % 71.3 %; Nucleated Red Blood Cells % 0 %; Platelet Count 174 10^3/cmm (130-400); Red Blood Count 2.95 10^6/uL (4.1-5.3); Red Cell Distribution Width 13.1 % (12.1-15.1); White Blood Count 6.8 10^3/uL (4.0-10.0)
[2020-05-05 05:56] LABS: Alanine Aminotransferase 6 U/L (0-41); Albumin Level 2.9 g/dL (3.5-5.2); Alkaline Phosphatase 61 IU/L (40-130); Anion Gap 12.2 (5-19); Aspartate Amino Transferase 9 U/L (0-40); Blood Urea Nitrogen 22 mg/dL (8-23); Carbon Dioxide 25 mmol/L (22-29); Chloride 101 mmol/L (98-107); Globulin 2.5 g/dL (1.3-4.6); Glucose 159 mg/dL (65-115); Osmolality Calculated 278 mOsm/kg (285-295); Potassium 4.2 mmol/L (3.5-5.1); Sodium 134 mmol/L (136-145); Total Bilirubin 0.4 mg/dL (0.15-1.2); Total Protein 5.4 g/dL (6.6-8.7)
[2020-05-05] MEDS: glimepiride 2 mg Tablet PO (06:15)
[2020-05-05 06:39] LABS: Glucose Point of Care 173 mg/dL (70-110)
[2020-05-05 07:57] VITALS: BP 141/63; PULSE 73; RESP 16; TEMP 37.2; O2SAT 95
--- NOTE | 2020-05-05 09:06 | P.PN_ITS ---
Subjective Subjective: Interval history: Son reports he is still hurting in his groin. He states it is still swollen. Redness has improved significantly. He reports he is hurting all over. Medications: Reviewed: Yes Vitals/I&O/Wt Last Vital Signs Temp 98.9 F 05/05/20 07:57 Pulse 73 05/05/20 07:57 Resp 16 05/05/20 07:57 BP 141/63 05/05/20 07:57 Pulse Ox 95 05/05/20 07:57 05/04/20 05/05/20 05/05/20 22:59 06:59 14:59 Intake Total 1267.5 / 2627.5 1000 / 3627.5 Output Total 200 / 500 1470 / 1970 Balance 1067.5 / 2127.5 -470 / 1657.5 Weight last 48 hrs Weight 78.925 kg Physical Exam Narrative: EXAM NARRATIVE: General exam no apparent distress Cardiovascular regular in rhythm without murmur Lungs clear Abdomen is soft positive bowel sounds. Right suprapubic area with significant induration and some tenderness but no erythema currently. Extremities no cyanosis clubbing or edema Data : 05/05/20 04:10 05/05/20 04:10 Micro: Microbiology 05/03/20 17:32 Blood Culture - Preliminary Blood NEGATIVE TO DATE 05/03/20 17:30 Blood Culture - Preliminary Blood NEGATIVE TO DATE A&P Assessment and plan (1) Cellulitis of groin, right: Etiology tick bite, with method used to remove tick. Continue vancomycin. Secondary to history of tick bite, continue doxycycline. Erythema has significantly improved. He has significant local reaction and may benefit from steroid orally secondary to this. Risks and benefits discussed. Status: Acute (2) Acute kidney injury: This has resolved Status: Acute (3) Multiple complaints: Reports some generalized pain. He has a history of pseudogout in the past. He reports the discomfort is somewhat similar. We will see how this responds to prednisone. Status: Acute (4) Tick bite: Continue doxycycline Prednisone for local reaction Status: Acute Qualifiers: Encounter type: subsequent encounter Qualified Code(s): W57.XXXD - Bitten or stung by nonvenomous insect and other nonvenomous arthropods, subsequent encounter (5) Diabetes mellitus: Medication adjusted secondary to his renal failure. Continue to follow blood sugars. With addition of prednisone blood sugar may increase significantly. We will increase his Amaryl as his renal function has improved. Status: Chronic Qualifiers: Diabetes mellitus type: type 2 Diabetes mellitus fdc insulin use: without fdc use Diabetes mellitus complication status: with kidney complications Diabetes mellitus complication detail: with chronic kidney disease Chronic kidney disease stage: stage 3 (moderate) Qualified Code(s): E11.22 - Type 2 diabetes mellitus with diabetic chronic kidney disease; N18.3 - Chronic kidney disease, stage 3 (moderate) (6) Hypertension: 1 elevated blood pressure noted this morning. We will continue to follow. Some medication was held secondary to renal failure. Will potentially restart YOBANI inhibitor tomorrow if blood pressure remains high, and renal function remained stable. Status: Chronic Qualifiers: Hypertension type: essential hypertension Qualified Code(s): I10 - Essential (primary) hypertension (7) Coronary artery disease: Stable, no complaints Status: Chronic Qualifiers: Coronary Disease-Associated Artery/Lesion type: [place] artery [place] vs. transplanted heart: [place] heart Associated angina: without angina Qualified Code(s): I25.10 - Atherosclerotic heart disease of [place] coronary artery without angina pectoris (8) Chronic kidney disease, stage III (moderate): Status: Chronic Additional A&P Information Anemia. Check anemia panel, stool Hemoccult. He is normocytic. Tick titers done but, out outside lab([facility] [place]) Full code Lovenox for DVT prophylaxis Reduce fluids to 50cc an hour. No need for laboratory tomorrow Attestations Medical Necessity Statement*: Needs continued hospital stay for IV antibiotics related to cellulitis. 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 transplanted heart: [place] heart Associated angina: without angina Chronic kidney disease, stage III (moderate) N18.3
[2020-05-05] MEDS: docusate sodium 100 mg Capsule PO ×2 (09:55→18:16)
[2020-05-05] MEDS: sitagliptin 100 mg Tablet PO (09:55)
[2020-05-05] MEDS: doxycycline 100 mg Tablet PO ×2 (09:55→22:50)
[2020-05-05] MEDS: predniSONE 20 mg Tablet 40 MG PO (09:55)
[2020-05-05] MEDS: HYDROcodone-acetaminophen 5-325 mg Tablet 1 TAB PO ×2 (09:57→22:50)
[2020-05-05 10:51] LABS: Glucose Point of Care 257 mg/dL (70-110)
[2020-05-05 12:00] VITALS: BP 147/63; PULSE 75; RESP 18; TEMP 37.1; O2SAT 97
[2020-05-05 12:50] LABS: Lyme AB Screen <0.90 index
[2020-05-05 12:58] LABS: Ferritin 174 ng/mL (30-400); Iron 22 ug/dL (59-158); Percent Saturation 11.4 % (20-50); Total Iron Binding Capacity 192 mcg/dl; Unsaturated Iron Binding 170 ug/dL (112-347)
[2020-05-05 13:12] LABS: Vitamin B12 429 pg/mL (232-1245)
[2020-05-05 13:17] LABS: Folate Level 8.5 ng/mL (4.5-32.2)
[2020-05-05 16:00] VITALS: BP 158/69; PULSE 68; RESP 18; TEMP 37; O2SAT 95
[2020-05-05 17:04] LABS: Glucose Point of Care 299 mg/dL (70-110)
[2020-05-05] MEDS: vancomycin 1,000 MG in sodium chloride 0.9% 250 ML 250 MG IV (18:19)
[2020-05-05 20:00] VITALS: BP 148/65; PULSE 76; RESP 15; TEMP 37.1; O2SAT 93
[2020-05-05 21:12] LABS: Glucose Point of Care 399 mg/dL (70-110)
[2020-05-05] MEDS: enoxaparin 40 mg/0.4 mL Syringe SUBCUT (22:50)
[2020-05-06] VITALS: BP 155/66; PULSE 71; RESP 16; TEMP 37; O2SAT 94
[2020-05-06 04:00] VITALS: BP 150/72; PULSE 65; RESP 16; TEMP 37.1; O2SAT 97
[2020-05-06 06:36] LABS: Glucose Point of Care 233 mg/dL (70-110)
[2020-05-06] MEDS: glimepiride 2 mg Tablet 4 MG PO (06:45)
[2020-05-06 08:00] VITALS: BP 177/73; PULSE 74; RESP 18; TEMP 37.1; O2SAT 95
[2020-05-06] MEDS: predniSONE 20 mg Tablet 40 MG PO (08:34)
[2020-05-06] MEDS: docusate sodium 100 mg Capsule PO (08:35)
[2020-05-06] MEDS: sitagliptin 100 mg Tablet PO (08:35)
--- NOTE | 2020-05-06 08:44 | P.DS_ITS ---
Discharge Providers Date of Admission: 05/03/20 20:02 Date of Discharge: May 06, 2020 Attending Provider at Admission: Ines Moreira MD Attending Provider at Discharge: Niko Lewis MD Primary Care Provider: Gerry Khan MD Diagnoses at Discharge Discharge Diagnosis (1) Cellulitis of groin, right: Status: Acute Problem details: Significantly improved (2) Acute kidney injury: Status: Acute Problem details: Resolved (3) Multiple complaints: Status: Acute (4) Tick bite: Status: Acute Qualifiers: Encounter type: subsequent encounter Qualified Code(s): W57.XXXD - Bitten or stung by nonvenomous insect and other nonvenomous arthropods, subsequent encounter (5) Diabetes mellitus: Status: Chronic Qualifiers: Diabetes mellitus type: type 2 Diabetes mellitus half-way insulin use: without half-way use Diabetes mellitus complication status: with kidney complications Diabetes mellitus complication detail: with chronic kidney disease Chronic kidney disease stage: stage 3 (moderate) Qualified Code(s): E11.22 - Type 2 diabetes mellitus with diabetic chronic kidney disease; N18.3 - Chronic kidney disease, stage 3 (moderate) (6) Hypertension: Status: Chronic Qualifiers: Hypertension type: essential hypertension Qualified Code(s): I10 - Essential (primary) hypertension (7) Coronary artery disease: Status: Chronic Problem details: stent years ago, here, maker Qualifiers: Coronary Disease-Associated Artery/Lesion type: [place] artery [place] vs. transplanted heart: [place] heart Associated angina: without angina Qualified Code(s): I25.10 - Atherosclerotic heart disease of [place] coronary artery without angina pectoris (8) Chronic kidney disease, stage III (moderate): Status: Chronic Reason for Visit Reason for Visit: kidney problems Hospital Course Hospital Course: Son is a 80-year-old white male who presented to the emergency department with complaints of swelling in his right groin. He had had a tick bite there, removed a tick and had development of erythema and induration over about 1 week's time. He had had no fevers. He reported the pain was severe. In the emergency department he was diagnosed with cellulitis and admitted for IV antibiotics, vancomycin. He received both an abdominal pelvis CT and a pelvic ultrasound, which did not show any abscess. During this hospitalization he had persistent induration and there was concern of local reaction to the tick bite. Therefore prednisone was added. Following this he had significant improvement and was able to be discharged on May 06. He will finish up a course of doxycycline. Tick panel is pending at time of discharge. He will finish 3 more days of prednisone. Anemia was identified while he was in the hospital, with evidence of iron deficiency. This can be followed up with his primary care provider. Renal failure present on admission resolved by the time of discharge and he will resume his benazepril and hydrochlorothiazide and on follow-up with his primary care provider have recheck of his BMP. All questions were answered to the patient's satisfaction. Physical Exam Narrative: EXAM NARRATIVE: General exam no apparent distress Cardiovascular regular rate and rhythm without murmur Lungs clear Abdomen is soft with positive bowel sounds Right inguinal area, suprapubic, with mild amount of induration, no erythema, vastly improved from previous Extremities no cyanosis clubbing or edema Discharge Data Data Completed and Pending: Completed Studies During Hospitalization Category Date Time Status CT abdomen pelvis w con* [id number] Urge nt Cat Scan 05/03/20 17:24 Completed Pending at discharge Category Date Time Status Blood Culture Sta t Lab 05/03/20 17:32 Results Clostridioides Di fficile PCR Routin e Lab 05/04/20 10:34 Uncollected Immunochemical Fe jenna OCB Routine Lab 05/05/20 09:13 Uncollected Tick Panel Stat Lab 05/03/20 17:30 Results Labs from last 24 hours 05/06/20 05/05/20 05/05/20 06:33 21:08 17:00 POC Glucose 233 399 299 Iron TIBC % Saturation Unsat Iron Binding Ferritin Vitamin B12 Folate Lyme Ab (Western B lot) E. chaffeensis IgG Ab E. chaffeensis IgM Ab E. chaffeensis Int erp E. chaffeensis Com ment Rickettsia IgG Ab Rickettsia IgM Ab 05/05/20 05/05/20 05/05/20 10:47 04:10 04:10 POC Glucose 257 Iron 22 L TIBC 192 % Saturation 11.4 L Unsat Iron Binding 170 Ferritin 174 Vitamin B12 429 Folate 8.5 Lyme Ab (Western B lot) E. chaffeensis IgG Ab E. chaffeensis IgM Ab E. chaffeensis Int erp E. chaffeensis Com ment Rickettsia IgG Ab Rickettsia IgM Ab 05/04/20 03:56 POC Glucose Iron TIBC % Saturation Unsat Iron Binding Ferritin Vitamin B12 Folate Lyme Ab (Western B lot) <0.90 E. chaffeensis IgG Ab Pending E. chaffeensis IgM Ab Pending E. chaffeensis Int erp Pending E. chaffeensis Com ment Pending Rickettsia IgG Ab Pending Rickettsia IgM Ab Pending Vitals: Last Vital Signs Temp 98.7 F 05/06/20 08:00 Pulse 74 05/06/20 08:00 Resp 18 05/06/20 08:00 BP 177/73 05/06/20 08:00 Pulse Ox 95 05/06/20 08:00 Discharge Plan Discharge Patient Disposition: Home, Self-Care Condition: Stable Prescriptions: New hydrocodone-acetaminophen 5-325 mg Tablet 1 tab PO Q4H PRN (Reason: Moderate To Severe Pain) Qty: 20 RF: 0 doxycycline monohydrate 100 mg Tablet 100 mg PO Q12H Qty: 20 RF: 0 prednisone 20 mg Tablet 40 mg PO DAILY Qty: 6 RF: 0 polyethylene glycol 3350 [Miralax] 17 gram/dose powder 17 gm PO BID Qty: 119 RF: 0 sennosides-docusate sodium [Senna Plus] 8.6-50 mg tablet 1 tab-cap PO BID PRN (Reason: constipation) Qty: 10 RF: 0 Continued doxycycline hyclate 100 mg capsule 100 mg PO DAILY RF: 0 benazepril-hydrochlorothiazide 20-25 mg tablet 20 - 25 tab PO DAILY RF: 0 glimepiride 4 mg tablet 8 mg PO DAILY RF: 0 pioglitazone 30 mg tablet 30 mg PO DAILY RF: 0 metformin 500 mg tablet extended release 24 hr 500 mg PO TID RF: 0 Januvia 100 mg tablet 100 mg PO DAILY RF: 0 atorvastatin 10 mg tablet 10 mg PO DAILY RF: 0 Discontinued clindamycin HCl 300 mg capsule 300 mg PO TID 7 Days Qty: 21 RF: 0 Discharge Orders: Discharge Order (Routine); Ordered 05/06/20 Ordered By: Niko Lewis Referrals: Gerry Khan MD [Primary Care Provider] - 4-7 days Discharge Diet: Diabetic Discharge Activity: Increase activity as tolerated Activity Restrictions/Additional Instructions: Take all medicine as prescribed. Return for any concerns. 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 Diagnoses Cellulitis of groin, right L03.314 Acute kidney injury N17.9 Multiple complaints R68.89 Tick bite W57.XXXD Encounter type: subsequent encounter Diabetes mellitus E11.22; N18.3 Diabetes mellitus type: type 2 Diabetes mellitus director long term care insulin use: without director long term care use Diabetes mellitus complication status: with kidney complications Diabetes mellitus complication detail: with chronic kidney disease Chronic kidney disease stage: stage 3 (moderate) Hypertension I10 Hypertension type: essential hypertension Coronary artery disease I25.10 Coronary Disease-Associated Artery/Lesion type: [place] artery [place] vs. transplanted heart: [place] heart Associated angina: without angina Chronic kidney disease, stage III (moderate) N18.3
--- NOTE | 2020-05-06 10:00 | PC.SOCIAL ---
IMM Update Pg 2 of IMM updated with patient who verbalized understanding. Copy provided.
[2020-05-06 10:58] VITALS: BP 177/73; PULSE 74; RESP 18; TEMP 37.1; O2SAT 95
--- NOTE | 2020-05-06 11:15 | PC.NURSE ---
Discharge instructions given, voiced full understanding, meds to beds delivered. IV DC'd cath intact, bleeding controlled with 2x2's and coban.ambulated to main entrance with no difficulties.
[2020-05-07 17:20] LABS: RMSF IGG NOT DETECTED; RMSF IGM NOT DETECTED
[2020-05-07 22:00] LABS: E. Chaffeensis AB IGG <1:64; E. Chaffeensis AB IGM <1:20
== END 2020-05-06 11:15 | disposition home or self-care (01) | DRG 603 ==
LOC: ER 18:29 → MEDSURG 20:40
PROVIDERS: Emergency Medicine; Family Medicine; Admitting Provider Hospitalist; PCP Family Medicine; Visit Provider Internal Medicine
DX: L03.314 Cellulitis of groin (principal); N17.9 Acute kidney failure, unspecified; N18.3 Chronic kidney disease, stage 3 (moderate); E11.22 Type 2 diabetes mellitus with diabetic chronic kidney disease; I25.10 Atherosclerotic heart disease of native coronary artery without angina pectoris; W57.XXXA Bitten or stung by nonvenomous insect and other nonvenomous arthropods, initial encounter; Y93.9 Activity, unspecified; Z79.84 Long term (current) use of oral hypoglycemic drugs; I12.9 Hypertensive chronic kidney disease with stage 1 through stage 4 chronic kidney disease, or unspecified chronic kidney disease; Z85.118 Personal history of other malignant neoplasm of bronchus and lung; Z92.21 Personal history of antineoplastic chemotherapy; Z92.3 Personal history of irradiation
CPT/HCPCS: 12345; 36415; 36416; 74177; 80053; 81003; 82550; 82607; 82728; 82746; 82962; 83036; 83540; 83550; 83605; 84484; 85025; 86618; 86666; 86757; 87040; 93005; 96372; 96375; 99283; J1170; J1650; J1815; J1956; J2270; J2405; J3370; J7030; J7050; J7512; Q9967

== ENCOUNTER 2022-01-14 15:58 | Inpatient (IN) | payer MEDICARE, SELFPAY ==
[2022-01-14] VITALS (9 sets, daily range): BP systolic 112–119; BP diastolic 44–68; PULSE 60–85; RESP 13–21; TEMP 36.4–36.8; O2SAT 96–100; BMI 26.4
--- NOTE | 2022-01-14 16:51 | XRR_ITS ---
PROCEDURE INFORMATION: Exam: XR Chest Exam date and time: 01/14/2022 4:12 PM Age: 81 years old Clinical indication: Shortness of breath; Additional info: SOB TECHNIQUE: Imaging protocol: XR of the chest. Views: 1 view. COMPARISON: CR Chest 1 [place] [id number] 03/12/2019 2:32 AM FINDINGS: Lungs: Unremarkable. No consolidation. Pleural spaces: Unremarkable. No pleural effusion. No pneumothorax. Heart/Mediastinum: Unremarkable. No cardiomegaly. Vasculature: Calcification of the thoracic aorta and/or great vessels consistent with atherosclerotic vessel disease. Bones/joints: Mild right primary glenohumeral osteoarthritis. XR/XR chest 1V portable [id number] IMPRESSION: No acute findings.
--- NOTE | 2022-01-14 16:52 | ED_ITS ---
HPI - SOB/Dyspnea General: Chief Complaint: Shortness of Breath/Dyspnea Stated Complaint: Having a hard time breathing Time Seen by Provider: 01/14/22 16:22 Source: patient Mode of arrival: ambulatory Limitations: no limitations History of Present Illness: HPI Narrative: This patient comes to the emergency department by private vehicle. He states he was working in his shop today and felt more short of breath than usual. He denies any chest pain. He denies fevers. He states that he has a history of COPD. He is a non-smoker never did smoke but states he was around a lot of noxious fumes all his adult life. 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 He denies any known history of coronary artery disease. He states he had angiogram at one time and was told he had a very minimal amount of coronary artery disease and did not need to concern himself about that. He states he is not been exposed to COVID-19. He has had all his COVID-19 immunizations, his influenza vaccine. He states that he has been out of his Spiriva for a couple of months. He states he thinks he needs an inhaler and he will be all right. MD elicited complaint: shortness of breath and cough Pertinent past history: COPD Timing: intermittent Exacerbating factors: exertion Known history of: COPD Associated symptoms: Deny abdominal pain, chest pain, extremity pain, fever(s), hemoptysis, nausea, palpitations, syncope or vomiting Related Data: Home oxygen amount: none Review of Systems Const: Denies: fever(s), chills, body aches or change in appetite Eyes: Denies: change in vision ENMT: Denies: throat pain, odynophagia, change in hearing or nasal congestion Card: Denies: chest pain, palpitations, irregular heart rhythm, edema, swelling of feet/ankles, syncope or pre-syncope Resp: Reports: dyspnea, productive cough and wheezing; Denies: hemoptysis GI: Reports: hematemesis; Denies: abdominal pain, nausea, vomiting or change in bowel habits : Denies: flank pain, difficulty urinating, dysuria, urinary urgency or urinary hesitancy Musc: Denies: neck pain, back pain, extremity pain or extremity swelling Skin/Breast: Denies: rash Neuro: Denies: headache(s), numbness in extremities, weakness in extremities, confusion or Slurred speech present Psych: Denies: anxiety, depression or mood swings Nishant/Lymph: Denies: easy bruising or easy bleeding All/Imm: Denies: urticaria PFSH ED PFSH: Medical History Asthma Chronic kidney disease, stage III (moderate) Coronary artery disease stent years ago, here, maker Diabetes mellitus Hypertension Legionella infection 2007 Lung cancer chemotherapy and radiation, 1993 Surgical History History of arthroplasty of right knee 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 Completes full sentences without any dyspnea. Const: COMMON NORMALS: no acute distress, patient oriented x3, healthy appearing and alert HENMT: COMMON NORMALS: normocephalic, atraumatic, external ears normal, Normal external nose present, Normal nasal mucous membranes and turbinates present, moist oral mucous membranes, oropharynx normal and dentition normal HEAD & SCALP: normocephalic and atraumatic NOSE: Normal external nose present and Normal nasal mucous membranes and turbinates present EXTERNAL EAR: Yes external ears normal Eye: COMMON NORMALS: Equal, round and reactive pupils present, EOMs intact bilaterally, conjunctivae normal and no scleral icterus CONJUNCTIVA: Yes conjunctivae normal PUPIL: Yes Equal, round and reactive pupils present Neck/C-Spine: COMMON NORMALS: full ROM, no lymphadenopathy, no JVD, Thyroid normal and No carotid bruits THYROID: Thyroid normal Lymph: LYMPHATIC: no lymphadenopathy noted Chest: COMMONS NORMALS: normal inspection of the chest Resp: COMMON NORMALS: normal respiratory effort, No retractions and No use of accessory muscles AUSCULTATION: crackles Laterality: bilateral (Bases) and no wheezes Cardio: COMMON NORMALS: no JVD, regular rate, regular rhythm and Peripheral p ulses 2+ throughout RATE: regular rate RHYTHM: regular rhythm HEART SOUNDS: Murmur heart sound present (He has a 4/6 holosystolic murmur at the left sternal border.) PERIPHERAL PULSES: Peripheral pulses 2+ throughout GI: COMMON NORMALS: Normal to inspection, nondistended, normoactive bowel sounds present, Soft to palpation, non-tender and no masses PALPATION: Yes Soft to palpation : COMMON NORMALS: Yes no CVA tenderness BLADDER/KIDNEY EXAM: Yes no CVA tenderness Back/Pelvis: COMMON NORMALS: no CVA tenderness, thoracic and lumbar spine normal to inspection, no thoracic nor lumbar tenderness, thoraco-lumbar ROM normal and straight leg raise negative bilaterally Extremity: COMMON NORMALS: normal to inspection, full ROM, capillary refill normal, no joint enlargement, no calf tenderness and no pedal edema Neuro: COMMON NORMALS: patient oriented x3, moves all extremities, no focal motor deficits and no sensory deficits noted SENSORIUM/ORIENTATION: Yes alert CRANIAL NERVES: Yes CN normal except as noted SPEECH: speech normal Psych: COMMON NORMALS: mental status grossly normal Skin: COMMON NORMALS: no rashes or lesions noted, turgor normal and no jaundice GENERAL SKIN EXAM: no rashes or lesions noted and turgor normal Course Reevaluation(s): Reevaluation #1: Patient still complaining of some epigastric discomfort. His initial troponin slightly elevated. He has an elevated BNP. We will going proceed with aspirin, nitroglycerin, reevaluation of EKGs and serial troponins. Consultations: Consultation #1: I discussed with the attending hospitalist who agreed to place the patient in observation for further work-up. Time: 20:54 Vital Signs: Vital signs: Vital Signs Temperature 97.6 F 01/14/22 16:11 Pulse Rate 84 01/14/22 19:02 Respiratory Rate 16 01/14/22 19:02 Blood Pressure 112/48 01/14/22 19:02 Pulse Oximetry 100 01/14/22 19:02 MDM - SOB/Dyspnea Medical Decision Making This patient with known history of coronary disease with dyspnea with exertion that is progressively worsened over the past few weeks was evaluated and noted to have no acute EKG changes but did have a bump in his BNP as well as a slight bump in his troponin. He did have a history of what sounds like progressive angina as well. Is unclear whether this is a factor of his what clinically sounds like aortic stenosis or other underlying coronary artery disease. He also has an anemia which may be contributing to his findings as well. Is not clear why this is the case he has no history of weight loss, melena etc. I think it is prudent that the patient be continued under observation in the hospital for further evaluation serial troponins, echocardiogram and cardiology consultation. Differential Diagnosis Likely congestive heart failure; Unlikely community acquired pneumonia or asthma with exacerbation Medical Records I reviewed the patient's medical records. Lab Data I reviewed the patient's lab results. : 01/14/22 16:33 01/14/22 16:33 Labs/Radiology: Radiology Impressions Chest X-Ray 01/14/22 16:51 IMPRESSION: No acute findings. Laboratory Results WBC 6.5 10^3/uL (4.0-10.0) 01/14/22 16: RBC 2.64 10^6/uL (4.1-5.3) L 01/14/22 16:33 Hgb 7.0 g/dL (11.7-16.6) L 01/14/22 16:33 Hct 23.2 % (42.0-52.0) L 01/14/22 16:33 MCV 87.9 fl (80-94) 01/14/22 16:33 MCH 26.5 pg (28.0-34.0) L 01/14/22 16:33 MCHC 30.2 g/dL (30.0-36.0) 01/14/22 16:33 RDW 13.8 % (12.1-15.1) 01/14/22 16:33 Plt Count 224 10^3/cmm (130-400) 01/14/22 16:33 MPV 11.9 fL (7.4-10.4) H 01/14/22 16:33 Neut % (Auto) 77.6 % 01/14/22 16:33 Lymph % (Auto) 12.4 % 01/14/22 16:33 Louisa % (Auto) 7.1 % 01/14/22 16:33 Eos % (Auto) 1.9 % 01/14/22 16:33 Baso % (Auto) 0.8 % 01/14/22 16:33 Neut # (Auto) 5.02 10^3/uL (1.8-7.7) 01/14/22 16:33 Lymph # (Auto) 0.8 10^3/uL (0.8-4.8) 01/14/22 16:33 Louisa # (Auto) 0.5 10^3/uL (0.2-0.9) 01/14/22 16:33 Eos # (Auto) 0.1 10^3/uL (0.0-0.8) 01/14/22 16:33 Baso # (Auto) 0.1 10^3/uL (0.0-0.1) 01/14/22 16:33 Nucleated RBC % (auto) 0 % 01/14/22 16:33 Nucleated RBCs # 0.0 /100WBC 01/14/22 16:33 Sodium 139 mmol/L (136-145) 01/14/22 16:33 Potassium 4.6 mmol/L (3.5-5.1) 01/14/22 16:33 Chloride 101 mmol/L (98-107) 01/14/22 16:33 Carbon Dioxide 22 mmol/L (22-29) 01/14/22 16:33 Anion Gap 20.6 (5-19) H 01/14/22 16:33 BUN 39 mg/dL (8-23) H 01/14/22 16:33 Creatinine 1.6 mg/dL (0.7-1.2) H 01/14/22 16:33 GFR Calculation Not Reportable 01/14/22 16:33 Glucose 264 mg/dL (65-115) H 01/14/22 16:33 Calculated Osmolality 307 mOsm/kg (285-295) H 01/14/22 16:33 Calcium 10.0 mg/dL (8.5-10.5) 01/14/22 16:33 Troponin T Gen 5 ng/L 18 ng/L (0-15) H 01/14/22 16:33 Troponin T 120 Minute 19.52 ng/L (0-15) H 01/14/22 19:19 Delta Troponin T Not Reportable 01/14/22 19:19 NT-Pro-B Natriuret Pep 1570 pg/mL (0-450) H 01/14/22 16:33 EKG Data EKG 1: Interpretation: Patient has normal sinus rhythm does display occasional unifocal PVCs. Ventricular rate is 84 bpm. OK intervals normal QTC is normal. QRS S duration is normal. Normal axis. No acute ST-T wave changes noted. Essentially unchanged from prior tracings within the system EMR. EKG 2: EKG interpretation time: 20:55 Interpretation: Repeat electrocardiogram reveals sinus rhythm again with frequent unifocal PVCs. He does have normal intervals normal axis. Essentially no acute ST-T wave changes at this time. Discharge Plan Discharge Patient Disposition: Placed in Observation Clinical Impression: Congestive heart failure, Heart murmur, Angina pectoris, unspecified, Anemia Condition: Stable Prescriptions: No Action doxycycline hyclate 100 mg capsule 100 mg PO DAILY 0RF benazepril-hydrochlorothiazide 20-25 mg tablet 20 - 25 tab PO DAILY 0RF glimepiride 4 mg tablet 8 mg PO DAILY 0RF pioglitazone 30 mg tablet 30 mg PO DAILY 0RF metformin 500 mg tablet extended release 24 hr 500 mg PO TID 0RF Rx Instructions: pt states he is temporarily not taking this med due to testing Januvia 100 mg tablet 100 mg PO DAILY 0RF atorvastatin 10 mg tablet 10 mg PO DAILY 0RF hydrocodone-acetaminophen 5-325 mg Tablet 1 tab PO Q4H PRN (Reason: Moderate To Severe Pain) Qty: 20 0RF prednisone 20 mg Tablet 40 mg PO DAILY Qty: 6 0RF doxycycline monohydrate 100 mg Tablet 100 mg PO Q12H Qty: 20 0RF Senna Plus 8.6-50 mg tablet 1 tab-cap PO BID PRN (Reason: constipation) Qty: 10 0RF Miralax 17 gram/dose powder 17 gm PO BID Qty: 119 0RF Referrals: Gerry Kahn MD [Primary Care Provider] - Coding Level of Care Code 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
--- NOTE | 2022-01-14 17:08 | PC.NURSE ---
Pt placed on continuous cardiac, BP, and SpO2 monitoring.
[2022-01-14 17:10] LABS: Basophils # 0.1 10^3/uL (0.0-0.1); Basophils % 0.8 %; Eosinophils # 0.1 10^3/uL (0.0-0.8); Eosinophils % 1.9 %; Hematocrit 23.2 % (42.0-52.0); Lymphocytes # 0.8 10^3/uL (0.8-4.8); Lymphocytes % 12.4 %; Mean Corpuscular HGB Conc 30.2 g/dL (30.0-36.0); Mean Corpuscular Hemoglobin 26.5 pg (28.0-34.0); Mean Corpuscular Volume 87.9 fl (80-94); Mean Platelet Volume 11.9 fL (7.4-10.4); Monocytes # 0.5 10^3/uL (0.2-0.9); Monocytes % 7.1 %; Neutrophils # 5.02 10^3/uL (1.8-7.7); Neutrophils % 77.6 %; Nucleated Red Blood Cells % 0 %; Platelet Count 224 10^3/cmm (130-400); Red Blood Count 2.64 10^6/uL (4.1-5.3); Red Cell Distribution Width 13.8 % (12.1-15.1); White Blood Count 6.5 10^3/uL (4.0-10.0)
[2022-01-14] MEDS: ipratropium-albuterol 3 mL Neb INHALATION (17:31)
[2022-01-14 17:34] LABS: Anion Gap 20.6 (5-19); Blood Urea Nitrogen 39 mg/dL (8-23); Carbon Dioxide 22 mmol/L (22-29); Chloride 101 mmol/L (98-107); Glucose 264 mg/dL (65-115); Osmolality Calculated 307 mOsm/kg (285-295); Potassium 4.6 mmol/L (3.5-5.1); Sodium 139 mmol/L (136-145)
--- NOTE | 2022-01-14 17:40 | ECG_ITS ---
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 Measurements Intervals [place] Rate: 79 P: 75 [place]: 184 QRS: 55 QRSD: 88 T: 36 QT: 367 QTc: 421 Interpretive Statements SINUS RHYTHM MINIMAL ST DEPRESSION [0.025+ mV ST DEPRESSION] Compared to ECG 05/03/2020 23:39:29 ST (T wave) deviation now present T-wave abnormality no longer present Electronically Signed On 01-15-2022 17:25:50 CDT by Breana Craft M.D. [id number]
[2022-01-14 18:04] LABS: NT Pro B Type Natriuretic Pept 1570 pg/mL (0-450)
[2022-01-14 18:31] LABS: Troponin T (5th) Once 18 ng/L (0-15)
[2022-01-14] MEDS: aspirin 81 mg Chew Tablet 324 MG PO (19:20)
[2022-01-14 19:57] LABS: Troponin 5 2HR 19.52 ng/L (0-15)
[2022-01-14] MEDS: FUROsemide 10 mg/mL SDV 4mL 40 MG IVP (20:29)
--- NOTE | 2022-01-14 21:07 | ECG_ITS ---
[facility] Test Date: 2022-01-14 Pat Name: Son Cisneros Sr Department: Room: Gender: Male Canvas Baster Jumpbasting: : 1940 Requested By: Florentino Lord Order Number: [id number] Juventino MD: Breana Craft M.D. Measurements Intervals [place] Rate: 74 P: 41 SD: 194 QRS: 5 QRSD: 88 T: 37 QT: 373 QTc: 415 Interpretive Statements SINUS RHYTHM WITH FREQUENT VENTRICULAR PREMATURE COMPLEXES MINIMAL ST DEPRESSION [0.025+ mV ST DEPRESSION] ABNORMAL RHYTHM ECG Compared to ECG 01/14/2022 16:49:32 Ventricular premature complex(es) now present ST (T wave) deviation still present Electronically Signed On 01-15-2022 17:44:21 CDT by Breana Craft M.D. [id number]
--- NOTE | 2022-01-14 21:51 | PM.HP ---
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 Reports eating his primary doctor and they thought it was his asthma acting up. States that he had run out of inhalers, and that there was some difficulty in obtaining the inhaler that contains steroid that he had used in the past. He does not have a list of medications, and currently on the weekend the pharmacy is closed as well. The one that he can remember he takes his theophylline 3 times a day, but does not remember the dose. It is not entirely clear what inhalers he had been taking. However, he denies respiratory symptoms at rest, denies cough, denies any URTI or lower respiratory infection or flulike symptoms. He occasionally gets ankle edema. Recently the dyspnea exertion, angina on exertion have gotten very limiting, with symptoms recurring even with walking to the restroom and back. He remembers that he had had an intervention on maker but it was years ago, and he does not know for sure whether a stent was placed. He is not taking aspirin or Plavix due to easy bruising. He is also noted to have acute on chronic anemia, hemoglobin up to 7. He reports 2 years ago after hospitalization he had some blood in his stool but he states that had resolved. He had had several colonoscopies but none in a while. Does not report upper endoscopy. Creatinine also noted elevated 1.6, appears chronic kidney disease is recorded in the chart, but he was not aware of prior kidney issues. He occasionally takes ibuprofen. Review of Systems Const: Reports: fatigue; Denies: fever(s), chills, body aches or malaise Eyes: Denies: change in vision or eye redness ENMT: Denies: throat pain, oral sores or ear or mastoid pain Card: Reports: edema (occasional) and dyspnea on exertion; Denies: chest pain or pre-syncope Resp: Reports: dyspnea; Denies: productive cough, change in phlegm color or hemoptysis GI: Denies: abdominal pain, nausea, vomiting, diarrhea, constipation, hematochezia or melena : Denies: flank pain, difficulty urinating, urinary frequency or hematuria Musc: Denies: back pain, joint swelling or joint redness Skin/Breast: Denies: rash, sores or new lesions Neuro: Denies: headache(s), numbness in extremities, weakness in extremities, dizziness, confusion or seizure-like activity Endo: Denies: polyuria or polydipsia Nishant/Lymph: Denies: easy bleeding or purpura All/Imm: Denies: urticaria, throat swelling or tongue swelling Medications/Allergies Home Medications Medication Instructions Recorded Confirmed Last Taken Type atorvastatin 10 mg tablet 10 mg PO DAILY 05/03/20 05/03/20 05/02/20 History benazepril 20 20 - 25 tab PO DAILY 05/03/20 05/03/20 05/02/20 History mg-hydrochlorothiazide 25 mg tablet doxycycline hyclate 100 mg capsule 100 mg PO DAILY 05/03/20 05/03/20 05/03/20 History glimepiride 4 mg tablet 8 mg PO DAILY 05/03/20 05/03/20 05/03/20 History metformin 500 mg tablet,extended 500 mg PO TID 05/03/20 05/03/20 Unknown History release 24 hr pioglitazone 30 mg tablet 30 mg PO DAILY 05/03/20 05/03/20 05/02/20 History sitagliptin 100 mg tablet (Januvia) 100 mg PO DAILY 05/03/20 05/03/20 05/02/20 History doxycycline monohydrate 100 mg 100 mg PO Q12H #20 tab 05/06/20 Unknown Rx tablet hydrocodone 5 mg-acetaminophen 325 1 tab PO Q4H PRN #20 tab 05/06/20 Unknown Rx mg tablet polyethylene glycol 3350 17 17 gm PO BID #119 gm 05/06/20 Unknown Rx gram/dose oral powder (Miralax) prednisone 20 mg tablet 40 mg PO DAILY #6 tab 05/06/20 Unknown Rx sennosides 8.6 mg-docusate sodium 1 tab-cap PO BID PRN #10 tab 05/06/20 Unknown Rx 50 mg tablet (Senna Plus) Allergies Allergy/AdvReac Type Severity Reaction Status Date / Time oxytetracycline Allergy ADR-Swelling Verified 05/03/20 21:38 [From Terramycin] of the Eye Penicillins Allergy ALGY-Difficulty Verified 05/03/20 18:27 Swallowing PFSH Acute PFSH: Medical History (Updated 01/14/22 @ 22:05 by Rk Abad MD) Asthma Chronic kidney disease, stage III (moderate) Coronary artery disease stent years ago, here, maker Diabetes mellitus Hypertension Legionella infection 2007 Lung cancer chemotherapy and radiation, 1993 Pseudogout Surgical History History of arthroplasty of right knee S/P percutaneous transluminal angioplasty ([employer]IDENT[employer] DIRECTOR) with stent placement Family History Brother Cancer brother Father Cancer Social History Smoking and tobacco status: never smoked Alcohol intake: never Household members: none Vitals/I&O/Wt Last Vital Signs Temp 97.6 F 01/14/22 16:11 Pulse 84 01/14/22 19:02 Resp 16 01/14/22 19:02 BP 112/48 01/14/22 19:02 Pulse Ox 100 01/14/22 19:02 Weight last 48 hrs Weight 76.657 kg Physical Exam Narrative: Son and friend at bedside Const: COMMON NORMALS: no acute distress and patient oriented x3 HENMT: COMMON NORMALS: oropharynx normal Neck/C-Spine: COMMON NORMALS: no JVD GENERAL: Yes JVD (mild) Resp: COMMON NORMALS: normal respiratory effort and clear to auscultation bilaterally AUSCULTATION: clear to auscultation bilaterally Cardio: COMMON NORMALS: no JVD, regular rhythm, S1 normal heart sound present, S2 normal heart sound present and No murmurs present (Cardio) RHYTHM: regular rhythm HEART SOUNDS: S1 normal heart sound present, S2 normal heart sound present and Murmur heart sound present systolic Intensity: IV/ GI: COMMON NORMALS: Normal to inspection, nondistended, normoactive bowel sounds present, Soft to palpation and non-tender PALPATION: Yes Soft to palpation OTHER: large Extremity: COMMON NORMALS: no joint enlargement and no pedal edema Neuro: COMMON NORMALS: patient oriented x3 and moves all extremities Skin: COMMON NORMALS: no rashes or lesions noted GENERAL SKIN EXAM: no rashes or lesions noted Data : 01/14/22 16:33 01/14/22 16:33 A&P Assessment and plan (1) Angina pectoris, unspecified: Clinically with anginal symptoms with dyspnea on exertion and chest pain radiating to both arms on exertion, now debilitating to the point of symptoms with walking to and from the bathroom. No chest pain at rest. At least in part multifactorial does have underlying asthma, and did report some improvement from breathing treatment, states recently ran out of inhaler, however, even after breathing treatment still exertional dyspnea as per his son who is with him in ER. He will certainly need his inhalers refilled at discharge. With possible history of CAD, currently also with acute anemia, hemoglobin down to 7, will transfuse 1 unit PRBC given cardiac symptoms. Also noted new systolic heart murmur. Otherwise we are suspecting progression of coronary disease with recently worsening anginal symptoms. Complete assessment with troponin EKG series. Multiple elevation is noted, discussed with him and his son. Assess TTE. His heart risk score is high, would consider staying in the hospital until he can be further assessed by stress testing on Sunday morning. If he insists on leaving, would consider cardiac consultation prior to discharge. Aspirin, statin. Blood pressure soft, hold off on beta-gregorio for now. He reports that he had a procedure on his maker years ago. Reviewing old chart I do not see records of stenting, there is a mention of coronary angiogram done sometime before 2010 although sounds like there was no significantly obstructive coronary disease to require a stent. Status: Acute (2) Heart murmur: Newly noted heart murmur, he is not aware of having it before. Given his symptoms assessed by TTE. Status: Acute (3) Coronary artery disease: He reports that he had a procedure on his maker years ago, thinks he may have had a stent placed. Reviewing old chart I do not see records of stenting, there is a mention of coronary angiogram done sometime before 2010 although sounds like there was no significantly obstructive coronary disease to require a stent. Status: Chronic Qualifiers: Associated angina: without angina Coronary Disease-Associated Artery/Lesion type: [place] artery [place] vs. transplanted heart: [place] heart Qualified Code(s): I25.10 - Atherosclerotic heart disease of [place] coronary artery without angina pectoris (4) Anemia: Hemoglobin frequently down to 7. Lower than prior. Unclear cause. He reports hematochezia after hospitalization in 2020, however, states that that had resolved. Has had several colonoscopies in the past, but has been a while since last one. Does not mention upper endoscopy. Occasionally takes ibuprofen. Start PPI. Check Hemoccult. Check iron studies. Given hemoglobin is down to 7, as well as cardiac symptoms, will transfuse 1 unit PRBC. Please reassess. Also underlying CKD. Status: Acute (5) Asthma: Reports recently had run out of his inhalers, and there has been some difficulty obtaining the inhaler with a steroid . He does not remember what inhalers she is on. Did not have an updated medication list. Will request her medications to be reconciled, possibly through the office or pharmacy as his son states there are many different medication bottles at home, and he would not know where to start. I do not hear currently that he is in asthma exacerbation, although he is post breathing treatment. Son states despite some relief from breathing treatment exertional symptoms did persist afterward. Doubt symptoms are due to asthma alone. Nebulizer treatments with albuterol, budesonide. Need refills he will need refills on his asthma inhalers. At discharge please encourage him to create medication list. Status: Chronic (6) Chronic kidney disease, stage III (moderate): Discussed with him to avoid ibuprofen, other possibly nephrotoxic medications. Continue follow-up outpatient. Status: Chronic Plan DM2: CC diet. Insulin sliding scale. HTN Attestations Medical Necessity Statement*: Place in observation for additional assessment management of exertion limiting limiting progressive anginal symptoms in a gentleman with reported underlying coronary disease, elevated heart score. 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 transplanted heart: [place] heart Anemia D64.9 Chronic kidney disease, stage III (moderate) N18.3 Asthma J45.909
[2022-01-14 23:06] LABS: Ferritin 8 ng/mL (30-400); Iron 17 ug/dL (59-158); Percent Saturation 5.1 % (20-50); Thyroid Stimulating Hormone 2.78 uIU/mL (0.27-4.20); Total Iron Binding Capacity 329 mcg/dl; Unsaturated Iron Binding 312 ug/dL (112-347)
[2022-01-14] MEDS: atorvastatin 40 mg Tablet PO (23:59)
[2022-01-14] MEDS: pantoprazole DR 40 mg Tablet PO (23:59)
[2022-01-15] VITALS (30 sets, daily range): BP systolic 111–144; BP diastolic 41–72; PULSE 58–82; RESP 15–18; TEMP 36.5–37; O2SAT 94–100
--- NOTE | 2022-01-15 01:07 | ECG_ITS ---
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 Measurements Intervals [place] Rate: 73 P: 57 SD: 177 QRS: 12 QRSD: 93 T: 39 QT: 383 QTc: 423 Interpretive Statements SINUS RHYTHM WITH FREQUENT VENTRICULAR PREMATURE COMPLEXES POSSIBLE ANTERIOR MYOCARDIAL INFARCTION , PROBABLY OLD [30 ms Q WAVE IN V3/V4, OR R < 0.2 mV IN V4] ABNORMAL RHYTHM ECG Compared to ECG 01/14/2022 20:49:05 Myocardial infarct finding now present ST (T wave) deviation no longer present Electronically Signed On 01-15-2022 17:45:44 CDT by Breana Craft M.D. [email or web address] [email or web address] [facility] hospitalHealth Informaticsday[facility].[employer]/store/OM/[id number]
[2022-01-15 01:23] LABS: Basophils % 0.7 %; Eosinophils # 0.4 10^3/uL (0.0-0.8); Eosinophils % 7.6 %; Hematocrit 22.4 % (42.0-52.0); Hemoglobin 6.9 g/dL (11.7-16.6); Lymphocytes # 1.5 10^3/uL (0.8-4.8); Lymphocytes % 27.3 %; Mean Corpuscular HGB Conc 30.8 g/dL (30.0-36.0); Mean Corpuscular Volume 87.5 fl (80-94); Mean Platelet Volume 11.5 fL (7.4-10.4); Monocytes # 0.5 10^3/uL (0.2-0.9); Monocytes % 8.7 %; Neutrophils # 3.08 10^3/uL (1.8-7.7); Neutrophils % 55.5 %; Nucleated Red Blood Cells % 0 %; Platelet Count 199 10^3/cmm (130-400); Red Blood Count 2.56 10^6/uL (4.1-5.3); Red Cell Distribution Width 13.8 % (12.1-15.1); White Blood Count 5.5 10^3/uL (4.0-10.0)
[2022-01-15 01:50] LABS: Troponin 5 6HR 22.25 ng/L (0-15)
[2022-01-15 02:03] LABS: Anion Gap 17.2 (5-19); Blood Urea Nitrogen 38 mg/dL (8-23); Calcium 9.7 mg/dL (8.5-10.5); Carbon Dioxide 25 mmol/L (22-29); Chloride 103 mmol/L (98-107); Glucose 157 mg/dL (65-115); Osmolality Calculated 304 mOsm/kg (285-295); Potassium 4.2 mmol/L (3.5-5.1); Sodium 141 mmol/L (136-145)
[2022-01-15] MEDS: sodium chloride 0.9% (100 ml) 100 ML 50 ML (03:02)
--- NOTE | 2022-01-15 05:07 | PC.NURSE ---
TRANSFUSION COMPLETED AT THIS TIME. PATIENT TOLERATED WELL. VSS.
[2022-01-15 06:24] LABS: Hematocrit 27.6 % (42.0-52.0); Hemoglobin 8.7 g/dL (11.7-16.6)
[2022-01-15 07:44] LABS: Glucose Point of Care 196 mg/dL (70-110)
[2022-01-15 07:44] LABS: Glucose Point of Care 154 mg/dL (70-110)
[2022-01-15] MEDS: insulin lispro 100 unit/1 mL SUBCUT ×4 (08:00→21:31)
[2022-01-15] MEDS: pantoprazole DR 40 mg Tablet PO (08:00)
[2022-01-15] MEDS: aspirin 81 mg EC Tablet PO (08:00)
[2022-01-15] MEDS: budesonide 0.5 mg/2 mL Neb 0.25 MG INHALATION ×2 (08:54→20:18)
[2022-01-15 11:42] LABS: Glucose Point of Care 190 mg/dL (70-110)
--- NOTE | 2022-01-15 14:59 | P.CONIM_ITS ---
Providers/Reason For Consult Consulting Physician/Specialty*: ROSEANNA Craft MD/cardiology Reason for Consult*: Patient with chest pain and heart murmur, found to have severe aortic valve stenosis by echocardiogram Requesting Physician: Dr Bro Attending Physician: Rk Abad Primary Care Provider: Gerry Khan MD History of Present Illness History of Present Illness Son Cisneros Sr is a 81 year old male with a history of type 2 diabetes, high blood pressure and previous history of coronary artery disease by angiogram, is present with complaints of prolonged episode of chest pain. He also is complaining of shortness of breath. He is blood test revealed elevated BNP. Echocardiogram revealed a severe aortic valve stenosis. Cardiology consult is requested for further cardiac evaluation recommendations. 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 The pain was in the upper substernal region, radiating to both shoulders associated with shortness of breath. He had no nausea or vomiting. No blurring of vision. No other associated symptoms or radiation of pain. The intensity of the pain was 9/10. The pain was persistent with slow improvement. The intensity of the pain started subsiding after 4 hours or so. Currently at the time of my examination, the pain level is 1/10. He has no associated fever, chills or cough. No other specific complaints. According the patient, many years ago, he had an angiogram to evaluate the chest pain. He was found to have some plaque buildup but not bad enough to do any intervention. He is known to have type 2 diabetes and high blood pressure. Has been on medications. He has no history for myocardial infarction or congestive heart failure. History of type 2 diabetes which is under control. History of Tick fever and chronic kidney disease. Has a questionable history of anemia no fever or chills. No cough. Review of Systems Narrative: CONSTITUTIONAL: No fever or chills. EYES: No blurring of vision or other visual disturbances lately. ENT: No hoarseness of voice, auditory disturbances or sore throat. CARDIOVASCULAR: As mentioned above. Has been having exertional angina for the last year or so RESPIRATORY: Has a history of shortness of breath and? Reactive airway disease GASTROINTESTINAL: No hematemesis or melena. GENITOURINARY: No dysuria or hematuria. INTEGUMENTARY: No skin rashes or history of skin cancer. NEURO: No transient ischemic attacks or amaurosis. PSYCHIATRIC: No history of psychosis or major depression. HEMATOLOGIC: No bleeding disorders or significant anemia. ENDOCRINE: No history of polyuria or polydipsia. MUSCULOSKELETAL: No recent joint pain or swelling. ALLERGY/IMMUNOLOGY: As mentioned above. Medications/Allergies Home Medications Medication Instructions Recorded Confirmed Last Taken Type atorvastatin 10 mg tablet 10 mg PO DAILY 05/03/20 01/15/22 05/02/20 History benazepril 20 20 - 25 tab PO DAILY 05/03/20 01/15/22 05/02/20 History mg-hydrochlorothiazide 25 mg tablet glimepiride 4 mg tablet 8 mg PO DAILY 05/03/20 01/15/22 05/03/20 History metformin 500 mg tablet,extended 500 mg PO TID 05/03/20 01/15/22 Unknown History release 24 hr pioglitazone 30 mg tablet 30 mg PO DAILY 05/03/20 01/15/22 05/02/20 History sitagliptin 100 mg tablet (Januvia) 100 mg PO DAILY 05/03/20 01/15/22 05/02/20 History albuterol sulfate 90 mcg/actuation 1 - 2 puff INHALATION QID PRN 01/15/22 01/15/22 Unknown History aerosol inhaler Allergies Allergy/AdvReac Type Severity Reaction Status Date / Time oxytetracycline Allergy ADR-Swelling Verified 05/03/20 21:38 [From Terramycin] of the Eye Penicillins Allergy ALGY-Difficulty Verified 05/03/20 18:27 Swallowing Current Medications Generic Name Dose Route Start Last Admin Trade Name Freq PRN Reason Stop Dose Admin Albuterol Sulfate 2.5 mg 01/15/22 03:00 01/15/22 14:22 Albuterol 2.5 Mg/0.5 Ml Neb INHALATION 2.5 mg Q6H.RESPIRATORY KUSH Administration Aspirin 81 mg 01/15/22 09:00 01/15/22 08:00 Aspirin 81 Mg Ec Tablet PO 81 mg DAILY KUSH Administration Atorvastatin Calcium 40 mg 01/14/22 23:18 01/14/22 23:59 Atorvastatin 40 Mg Tablet PO 40 mg BEDTIME KUSH Administration Budesonide 0.25 mg 01/15/22 08:00 01/15/22 08:54 Budesonide 0.5 Mg/2 Ml Neb INHALATION 0.25 mg BID.RESPIRATORY KUSH Administration Insulin Human Lispro 0 unit 01/15/22 08:00 01/15/22 12:37 Insulin Lispro 100 Unit/1 Ml SUBCUT 4 unit WM&BEDTIME KUSH Administration Protocol Pantoprazole Sodium 40 mg 01/14/22 23:18 01/15/22 08:[address] 40 Mg Tablet PO 40 mg DAILY KUSH Administration PFSH Acute PFSH: Medical History Asthma Chronic kidney disease, stage III (moderate) Coronary artery disease stent years ago, here, maker Diabetes mellitus Hypertension Legionella infection 2007 Lung cancer chemotherapy and radiation, 1993 Pseudogout Surgical History History of arthroplasty of right knee 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 Not in any acute distress. HEENT: No significant pallor, icterus or lymphadenopathy. The pupils are reactant to light. Oral cavity: There are no mucous membrane lesions. Fund uscopic examination: The fundus is not visualized NECK: Trachea appears to be central. No masses noted. No JVD or thyromegaly appreciated. Carotid bruit bilaterally RESPIRATORY: Chest is symmetrical. No intercostals muscle retraction or any accessory muscle activation. There is no chest wall tenderness. Breath sounds are heard bilaterally. No rales or rhonchi heard. No evidence of any consolidati on. BREASTS: Deferred. HEART: First heart sound is normal. Second heart sound is muffled. Ejection systolic murmur grade 4/6 in the aortic area of the transverse to the carotids. No diastolic murmurs. No S3 or S4 heard. No pericardial rub or any click heard. ABDOMEN: No vessel pulsations or distention. No tenderness. No organomegaly appreciated. No abdominal bruit. Bowel sounds are normally heard. : Deferred. RECTAL: Deferred. LYMPHATIC: No lymphadenopathy noted in the neck or groin. EXTREMITIES: No edema or cyanosis. No clubbing. The pulses are symmetrical bilaterally. The radial, femoral, dorsalis pedis and the posterior tibial pulses are palpated and found to be in good volume and amplitude. MUSCULOSKELETAL: No acute joint deformities or swelling SKIN: There are no significant scars or skin rash noted. NEUROPSYCHIATRIC: The patient is alert and oriented x3. Appears to be in a good mood. The higher functions are grossly within normal limits. No tremors or rigidity noted. Data : 01/15/22 06:05 01/15/22 01:07 Other Labs: Laboratory Last Values WBC 5.5 10^3/uL (4.0-10.0) 01/15/22 01:07 RBC 2.56 10^6/uL (4.1-5.3) L 01/15/22 01:07 Hgb 8.7 g/dL (11.7-16.6) L 01/15/22 06:05 Hct 27.6 % (42.0-52.0) L 01/15/22 06:05 MCV 87.5 fl (80-94) 01/15/22 01:07 MCH 27.0 pg (28.0-34.0) L 01/15/22 01:07 MCHC 30.8 g/dL (30.0-36.0) 01/15/22 01:07 RDW 13.8 % (12.1-15.1) 01/15/22 01:07 Plt Count 199 10^3/cmm (130-400) 01/15/22 01:07 MPV 11.5 fL (7.4-10.4) H 01/15/22 01:07 Neut % (Auto) 55.5 % 01/15/22 01:07 Lymph % (Auto) 27.3 % 01/15/22 01:07 Phelps % (Auto) 8.7 % 01/15/22 01:07 Eos % (Auto) 7.6 % 01/15/22 01:07 Baso % (Auto) 0.7 % 01/15/22 01:07 Neut # (Auto) 3.08 10^3/uL (1.8-7.7) 01/15/22 01:07 Lymph # (Auto) 1.5 10^3/uL (0.8-4.8) 01/15/22 01:07 Phelps # (Auto) 0.5 10^3/uL (0.2-0.9) 01/15/22 01:07 Eos # (Auto) 0.4 10^3/uL (0.0-0.8) 01/15/22 01:07 Baso # (Auto) 0.0 10^3/uL (0.0-0.1) 01/15/22 01:07 Nucleated RBC % (auto) 0 % 01/15/22 01:07 Nucleated RBCs # 0.0 /100WBC 01/15/22 01:07 Sodium 141 mmol/L (136-145) 01/15/22 01:07 Sodium Cancelled 01/15/22 01:07 Potassium 4.2 mmol/L (3.5-5.1) 01/15/22 01:07 Potassium Cancelled 01/15/22 01:07 Chloride 103 mmol/L (98-107) 01/15/22 01:07 Chloride Cancelled 01/15/22 01:07 Carbon Dioxide 25 mmol/L (22-29) 01/15/22 01:07 Carbon Dioxide Cancelled 01/15/22 01:07 Anion Gap 17.2 (5-19) 01/15/22 01:07 Anion Gap Cancelled 01/15/22 01:07 BUN 38 mg/dL (8-23) H 01/15/22 01:07 BUN Cancelled 01/15/22 01:07 Creatinine 1.5 mg/dL (0.7-1.2) H 01/15/22 01:07 Creatinine Cancelled 01/15/22 01:07 GFR Calculation Cancelled 01/15/22 01:07 GFR Calculation Not Reportable 01/15/22 01:07 Glucose 157 mg/dL (65-115) H 01/15/22 01:07 Glucose Cancelled 01/15/22 01:07 POC Glucose 190 mg/dL (70-110) H 01/15/22 11:19 Calculated Osmolality 304 mOsm/kg (285-295) H 01/15/22 01:07 Calculated Osmolality Cancelled 01/15/22 01:07 Calcium 9.7 mg/dL (8.5-10.5) 01/15/22 01:07 Calcium Cancelled 01/15/22 01:07 Iron 17 ug/dL (59-158) L 01/14/22 19:19 TIBC 329 mcg/dl 01/14/22 19:19 % Saturation 5.1 % (20-50) L 01/14/22 19:19 Unsat Iron Binding 312 ug/dL (112-347) 01/14/22 19:19 Ferritin 8 ng/mL (30-400) L 01/14/22 19:19 Troponin T Gen 5 ng/L 18 ng/L (0-15) H 01/14/22 16:33 Troponin T 120 Minute 19.52 ng/L (0-15) H 01/14/22 19:19 Delta Troponin T Not Reportable 01/14/22 19:19 Troponin T Hi Sens 6Hr 22.25 ng/L (0-15) H 01/15/22 01:07 Troponin T Hi Sens 6Hr Delta Not Reportable 01/15/22 01:07 NT-Pro-B Natriuret Pep 1570 pg/mL (0-450) H 01/14/22 16:33 TSH 2.78 uIU/mL (0.27-4.20) 01/14/22 19:19 Blood Type A Positive 01/14/22 23:40 Rho(D) Type Positive 01/14/22 23:40 Antibody Screen Negative 01/14/22 23:40 Crossmatch See Detail 01/14/22 23:40 Echo: My impression: Done on 01/15/2022 Mild to moderate left ventricular hypertrophy. No regional wall ?motion abnormalities. Normal left ventricular size and systolic ?function, EF 75 %. Grade II/IV diastolic dysfunction, moderately ?elevated filling pressures. ?Severe low gradient aortic valve stenosis with a peak velocity ?of 3.9 m/s, peak gradient of 61 and a mean gradient of 32 mmHg ?Mild aortic regurgitation ?Thickened mitral valve. Mild-moderate mitral valve ?regurgitation. ?Mildly increased left atrial size. ?Trace of pulmonic and tricuspid regurgitation ?There is no pericardial effusion. ?There are no intracardiac masses. ?No previous study is available for comparison. EKG 1: My Interpretation: Normal sinus rhythm with a rate of 73 bpm. Frequent PVCs. No acute ST-T change s. EKG computer-generated impression: Chest X-Ray 01/14/22 16:51 IMPRESSION: No acute findings. A&P Assessment and plan (1) Atherosclerotic heart disease of [place] coronary artery with unstable angina pectoris: The patient symptoms are suggestive of unstable angina. Apparently he has a history of atherosclerotic heart disease. He has multiple risk factors for coronary artery disease. His echocardiogram does not reveal any significant wall motion abnormalities. His EKG is unremarkable. His baseline troponin T is slightly elevated with no significant delta. At this point, it may be appropriate to start him on a low-dose of beta-gregorio, Plavix and sublingual nitroglycerin on a as needed basis. Because of his severe , anemia and chronic renal disease, I may hold off on therapeutic Lovenox. Status: Acute (2) Aortic valve stenosis, acquired: Patient appears to have severe low gradient aortic valve stenosis. This may need to be further evaluated. Most likely he requires an aortic valve replacement. Status: Acute (3) Congestive heart failure: Patient has features of an acute on chronic diastolic heart failure. He may be carefully treated with IV diuretics, as needed. Status: Acute (4) Chronic kidney disease, stage III (moderate): The etiology of the kidney disease not known. Status: Chronic (5) Diabetes mellitus: Patient blood sugar need to be closely monitored. Status: Chronic Qualifiers: Chronic kidney disease stage: stage 3 (moderate) Diabetes mellitus complication detail: with chronic kidney disease Diabetes mellitus complication status: with kidney complications Diabetes mellitus care home insulin use: without termite control servicer use Diabetes mellitus type: type 2 Qualified Code(s): E11.22 - Type 2 diabetes mellitus with diabetic chronic kidney disease; N18.3 - Chronic kidney disease, stage 3 (moderate) (6) Hypertension: Currently he is normotensive. According the patient, he had intermittent high blood pressure. Status: Chronic Qualifiers: Hypertension type: essential hypertension Qualified Code(s): I10 - Essential (primary) hypertension (7) Reactive airway disease: Patient has a questionable history of reactive airway disease. May continue on the bronchodilator treatment as per the primary. Status: Acute (8) Anemia: The etiology of anemia is not clear. Stool for occult blood would be appropriate. Patient also may benefit from an upper and lower endoscopy. Status: Acute Plan In view of the patient's severe aortic valve stenosis and unstable anginal symptoms, may need to keep his hemoglobin close to 10. Once the hemoglobin is stabilized and also confirming that there is no active bleed in the GI tract, it may be appropriate to go ahead with the cardiac catheterization to decide on further management. Discussed these issues with the patient in detail which he understood well. Also discussed with the Dr Bro the recommendations. 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 [facility] Fwd Medical Decision Making High Complexity Diagnoses Aortic valve stenosis, acquired I35.0 Congestive heart failure I50.9 Chronic kidney disease, stage III (moderate) N18.3 Diabetes mellitus E11.22; N18.3 Chronic kidney disease stage: stage 3 (moderate) Diabetes mellitus complication detail: with chronic kidney disease Diabetes mellitus complication status: with kidney complications Diabetes mellitus care home insulin use: without termite control servicer use Diabetes mellitus type: type 2 Hypertension I10 Hypertension type: essential hypertension Reactive airway disease J45.909 Atherosclerotic heart disease of [place] coronary artery with unstable angina pectoris I25.110 Anemia D64.9
--- NOTE | 2022-01-15 16:59 | PM.PN ---
Subjective Subjective: Doing Okk today. However has not ambulated. Has a h/o Angina. Denied SOB. ECHO done showed severe . 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 No active source of bleed. R/O GI source. May be due to CKD Status: Acute (2) Atherosclerotic heart disease of [place] coronary artery with unstable angina pectoris: Has Angina like CP Status: Acute (3) Aortic valve stenosis, acquired: Severe on ECHO Status: Acute (4) Congestive heart failure: compensated Status: Acute (5) Chronic kidney disease, stage III (moderate): CKD Stage 4 Status: Chronic (6) Diabetes mellitus: Status: Chronic Qualifiers: Diabetes mellitus type: type 2 Diabetes mellitus watermelon inspector insulin use: without custodial use Diabetes mellitus complication status: with kidney complications Diabetes mellitus complication detail: with chronic kidney disease Chronic kidney disease stage: stage 3 (moderate) Qualified Code(s): E11.22 - Type 2 diabetes mellitus with diabetic chronic kidney disease; N18.3 - Chronic kidney disease, stage 3 (moderate) Plan PCardiogy consult Dr Craft appreciated. Will need cardiac cath. Concerned about low Hb and possible GI source of his Anemia. Spoke w/ Dr Park ([facility]) they dont feel comfortable doing any EGD/Colonoscopye w/ a h/o ongoing ACS, . Will do after cardiac cath. Relayed this to Dr Craft. Will transfuse 2 U PRBC F/U H/H Stool Occult blood Avoid Metformin, HCTZ from home meds. Attestations Medical Necessity Statement*: Pt has severe Aortic Stenoses w/ Angina Pectoris and severe Anemia making him high risk for morbidity and mortality. 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
[2022-01-15 17:17] LABS: Glucose Point of Care 208 mg/dL (70-110)
[2022-01-15] MEDS: enoxaparin 40 mg/0.4 mL Syringe SUBCUT (17:45)
[2022-01-15 18:42] LABS: Basophils # 0.1 10^3/uL (0.0-0.1); Basophils % 0.9 %; Eosinophils # 0.5 10^3/uL (0.0-0.8); Eosinophils % 7.7 %; Hematocrit 25.7 % (42.0-52.0); Hemoglobin 8.6 g/dL (11.7-16.6); Lymphocytes # 1.2 10^3/uL (0.8-4.8); Lymphocytes % 18.2 %; Mean Corpuscular HGB Conc 33.5 g/dL (30.0-36.0); Mean Corpuscular Hemoglobin 27.2 pg (28.0-34.0); Mean Corpuscular Volume 81.3 fl (80-94); Mean Platelet Volume 11.2 fL (7.4-10.4); Monocytes # 0.5 10^3/uL (0.2-0.9); Monocytes % 7.7 %; Neutrophils # 4.23 10^3/uL (1.8-7.7); Neutrophils % 65.2 %; Nucleated Red Blood Cells % 0 %; Platelet Count 213 10^3/cmm (130-400); Red Blood Count 3.16 10^6/uL (4.1-5.3); Red Cell Distribution Width 13.8 % (12.1-15.1); White Blood Count 6.5 10^3/uL (4.0-10.0)
[2022-01-15 19:09] LABS: Anion Gap 16.5 (5-19); Blood Urea Nitrogen 36 mg/dL (8-23); Calcium 9.6 mg/dL (8.5-10.5); Carbon Dioxide 22 mmol/L (22-29); Chloride 102 mmol/L (98-107); Glucose 193 mg/dL (65-115); Osmolality Calculated 296 mOsm/kg (285-295); Potassium 4.5 mmol/L (3.5-5.1); Sodium 136 mmol/L (136-145)
--- NOTE | 2022-01-15 19:50 | PC.NURSE ---
SECOND NURSE VERIFIED WITH WAYNE MCLEAN RN.
[2022-01-15] MEDS: atorvastatin 40 mg Tablet PO (21:32)
[2022-01-15] MEDS: metoprolol tartrate 25 mg Tablet 12.5 MG PO (21:32)
--- NOTE | 2022-01-15 23:18 | USCV_ITS ---
Amelia Son Age: 81 Gender: M : 1940 Exam Date: 01/15/2022 06:13 Ordering Phys: Rk Abad MD Technologist: Nette Mireles Exam Location: [facility] Indication: ANGINA BP: 124 / 51 HR: 67 Rhythm: Sinus Technical Quality: Adequate MEASUREMENTS (Male / Female) Normal Values 2D ECHO LV Diastolic Diameter PLAX 3.9 cm 4.2 - 5.9 / 3.9 - 5.3 cm LV Systolic Diameter PLAX 2.2 cm LV Chamber Size 3.7 cm IVS Diastolic Thickness 1.5 cm 0.6 - 1.0 / 0.6 - 0.9 cm IVS Systolic Thickness 1.6 cm LVPW Diastolic Thickness 1.1 cm 0.6 - 1.0 / 0.6 - 0.9 cm LVPW Systolic Thickness 1.5 cm RV Chamber Size 3.0 cm LVOT Diameter 2.0 cm LV Ejection Fraction 2D Teich 76.9 % LV Ejection Fraction MOD 2C 55.9 % LV Ejection Fraction 2C AL 55.6 % LA Diameter 4.6 cm LA Width 4.2 cm LA Height 4.6 cm RA Width 3.5 cm RA Height 3.3 cm Aorta at Sinotubular Diameter 3.2 cm M-MODE Aortic Annulus Diameter 3.0 cm LA Ao Ratio MM 1.8 MV E Point Septal Separation 0.8 cm DOPPLER AV Peak Velocity 389.7 cm/s LVOT Peak Velocity 97.0 cm/s AV Area Cont Eq vti 0.8 cm squared AV Area Cont Eq pk 0.8 cm squared MV Area PHT 3.7 cm squared Mitral E to A Ratio 1.1 MV E' Velocity 63.0 cm/s Mitral E to MV E' Ratio 13.7 Mitral E to LV E' Lateral Ratio 14.1 Mitral E to LV E' Septal Ratio 13.6 TR Peak Velocity 231.6 cm/s TR Peak Gradient 21.5 mmHg TR Mean Velocity 143.8 cm/s TR Mean Gradient 10.4 mmHg TR Velocity Time Integral 47.9 cm TV Peak E Velocity 68.0 cm/s Right Atrial Pressure 3.0 mmHg Pulmonary Artery Systolic Pressu 24.5 mmHg PV Peak Velocity 96.0 cm/s RV Acceleration Time 0.2 s RV Ejection Time 0.4 s RV AcT/ET 0.5 FINDINGS Left Ventricle Mild to moderate left ventricular hypertrophy. No regional wall motion abnormalities. Normal left ventricular size and systolic function, EF 75 %. Grade II/IV diastolic dysfunction, moderately elevated filling pressures. Right Ventricle The right ventricle is normal in size and function. Right Atrium The right atrium is normal in size. Left Atrium Mildly increased left atrial size. Mitral Valve Thickened mitral valve. Mild-moderate mitral valve regurgitation. Aortic Valve Moderate aortic valve calcification. Mild aortic valve regurgitation. Severe aortic valve stenosis, mean gradient 32.1 mmHg, ARON 0.83 cm squared. Peak gradient of 61 mmHg Tricuspid Valve Trace tricuspid valve regurgitation. Pulmonic Valve Trace pulmonary valve regurgitation. Pericardium Normal pericardium without effusion. Aorta Normal ascending aorta dimension. CONCLUSIONS Mild to moderate left ventricular hypertrophy. No regional wall motion abnormalities. Normal left ventricular size and systolic function, EF 75 %. Grade II/IV diastolic dysfunction, moderately elevated filling pressures. Severe low gradient aortic valve stenosis with a peak velocity of 3.9 m/s, peak gradient of 61 and a mean gradient of 32 mmHg Mild aortic regurgitation Thickened mitral valve. Mild-moderate mitral valve regurgitation. Mildly increased left atrial size. Trace of pulmonic and tricuspid regurgitation There is no pericardial effusion. There are no intracardiac masses. No previous study is available for comparison. Dr Breana Craft MD [facility] (Electronically Signed) Final Date: 15 January 2022 10:36 S
[2022-01-16] VITALS (18 sets, daily range): BP systolic 111–166; BP diastolic 41–91; PULSE 55–94; RESP 13–22; TEMP 36.6–37.1; O2SAT 90–99
[2022-01-16 04:55] LABS: Basophils # 0.1 10^3/uL (0.0-0.1); Basophils % 0.7 %; Eosinophils # 0.4 10^3/uL (0.0-0.8); Eosinophils % 4.2 %; Hemoglobin 11.5 g/dL (11.7-16.6); Lymphocytes # 1.2 10^3/uL (0.8-4.8); Mean Corpuscular HGB Conc 31.1 g/dL (30.0-36.0); Mean Corpuscular Hemoglobin 27.1 pg (28.0-34.0); Mean Corpuscular Volume 87.1 fl (80-94); Mean Platelet Volume 11.8 fL (7.4-10.4); Monocytes # 0.6 10^3/uL (0.2-0.9); Monocytes % 6.5 %; Neutrophils # 6.69 10^3/uL (1.8-7.7); Nucleated Red Blood Cells % 0 %; Platelet Count 198 10^3/cmm (130-400); Red Blood Count 4.25 10^6/uL (4.1-5.3); Red Cell Distribution Width 14.3 % (12.1-15.1); White Blood Count 8.9 10^3/uL (4.0-10.0)
[2022-01-16 05:15] LABS: Anion Gap 13.4 (5-19); Blood Urea Nitrogen 35 mg/dL (8-23); Calcium 9.8 mg/dL (8.5-10.5); Carbon Dioxide 24 mmol/L (22-29); Chloride 100 mmol/L (98-107); Glucose 198 mg/dL (65-115); Osmolality Calculated 290 mOsm/kg (285-295); Potassium 4.4 mmol/L (3.5-5.1); Sodium 133 mmol/L (136-145)
[2022-01-16] MEDS: budesonide 0.5 mg/2 mL Neb 0.25 MG INHALATION ×2 (07:36→20:24)
[2022-01-16 07:40] LABS: Glucose Point of Care 170 mg/dL (70-110)
[2022-01-16] MEDS: insulin lispro 100 unit/1 mL SUBCUT ×4 (08:33→20:45)
[2022-01-16] MEDS: pantoprazole DR 40 mg Tablet PO (08:34)
[2022-01-16] MEDS: metoprolol tartrate 25 mg Tablet 12.5 MG PO (08:34)
[2022-01-16] MEDS: aspirin 81 mg EC Tablet PO (08:34)
[2022-01-16 11:11] LABS: Glucose Point of Care 287 mg/dL (70-110)
--- NOTE | 2022-01-16 13:21 | P.PN_ITS ---
Subjective Subjective: There is plan for cardiac angiogram tomorrow No active chest pain or shortness of breath hemoglobin 11.5 No active chest pain shortness of breath or presyncopal symptoms Patient was walking in the hallway Vitals/I&O/Wt Last Vital Signs Temp 98.8 F 01/16/22 12:00 Pulse 57 L 01/16/22 12:00 Resp 14 01/16/22 12:00 BP 146/63 01/16/22 12:00 Pulse Ox 99 01/16/22 12:00 01/15/22 01/16/22 01/16/22 22:59 06:59 14:59 Intake Total 480 / 840 800 / 1640 Output Total 350 / 500 0 / 500 Balance 130 / 340 800 / 1140 Weight last 48 hrs Weight 76.657 kg Weight 76.657 kg Physical Exam Narrative: No active chest pain Systolic murmur Abdomen soft Saturating well on room air Cooperative Neuro exam normal Nonfocal exam Abdomen soft Saturating well on room air Data : 01/16/22 04:20 01/16/22 04:20 A&P Assessment and plan (1) Anemia: Status: Acute (2) Reactive airway disease: Status: Acute (3) Atypical chest pain: Status: Acute (4) Aortic valve stenosis, acquired: Status: Acute Plan Severe aortic valve stenosis Plan for coronary angiogram tomorrow morning N.p.o. after midnight No active chest pain shortness of breath or presyncopal events Status post 2 units PRBC for anemia, FOBT results are pending hemodynamically stable no active bleed noted, normocytic anemia DANI improved with blood transfusion N.p.o. 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
[2022-01-16 14:43] LABS: Ferritin 32 ng/mL (30-400)
[2022-01-16] MEDS: iron sucrose 200 MG in sodium chloride 0.9% (100 ml) 100 ML 220 MG IV (14:43)
[2022-01-16 17:41] LABS: Glucose Point of Care 175 mg/dL (70-110)
[2022-01-16] MEDS: enoxaparin 40 mg/0.4 mL Syringe SUBCUT (18:12)
--- NOTE | 2022-01-16 18:32 | P.PN_ITS ---
Subjective Subjective: The patient is feeling okay. He already had 2 units of blood transfusion. Hemoglobin is around 11.5. He does not have any chest pain or shortness of breath. Vital signs are stable. Remains afebrile. Medications: Medication Review Details: Current Medications Acetaminophen (Acetaminophen 325 Mg Tablet) 650 mg PO Q6H PRN PRN Reason: Mild/Mod Pain Or Temp >/= 101 Albuterol Sulfate (Albuterol 2.5 Mg/0.5 Ml Neb) 2.5 mg INHALATION Q6H.RESPIRATORY KUSH Last Admin: 01/16/22 14:24 Dose: 2.5 mg Documented by: Albuterol Sulfate (Albuterol 2.5 Mg/0.5 Ml Neb) 2.5 mg INHALATION Q6H.RESPIRATORY PRN PRN Reason: SHORTNESS OF BREATH Aspirin (Aspirin 81 Mg Ec Tablet) 81 mg PO DAILY [facility] Last Admin: 01/16/22 08:34 Dose: 81 mg Documented by: Atorvastatin Calcium (Atorvastatin 40 Mg Tablet) 40 mg PO BEDTIME [facility] Last Admin: 01/15/22 21:32 Dose: 40 mg Documented by: Budesonide (Budesonide 0.5 Mg/2 Ml Neb) 0.25 mg INHALATION BID.RESPIRATORY KUSH Last Admin: 01/16/22 07:36 Dose: 0.25 mg Documented by: Dextrose (Dextrose 50% Syringe 50 Ml) 25 ml IVP ONCE PRN; Protocol PRN Reason: hypoglycemia protocol Dextrose (Dextrose 50% Syringe 50 Ml) 50 ml IVP PRN PRN; Protocol PRN Reason: hypoglycemia protocol Enoxaparin Sodium (Enoxaparin 40 Mg/0.4 Ml Syringe) 40 mg SUBCUT Q24H [facility] Last Admin: 01/16/22 18:12 Dose: 40 mg Documented by: Glucagon (Glucagon 1 Mg/Ml Inj 1 Ml) 1 mg IM ONCE PRN; Protocol PRN Reason: Adult Acute Hypoglycemia Prot. Dextrose (D5w) 500 mls @ 100 mls/hr IV ONCE PRN; Protocol PRN Reason: Adult Acute Hypoglycemia Prot Insulin Human Lispro (Insulin Lispro 100 Unit/1 Ml) 0 unit SUBCUT WM&BEDTIME KUSH; Protocol Last Admin: 01/16/22 18:12 Dose: 2 unit Documented by: Metoprolol Tartrate (Metoprolol Tartrate 25 Mg Tablet) 12.5 mg PO BID@0900,2100 K[facility] Last Admin: 01/16/22 08:34 Dose: 12.5 mg Documented by: Nitroglycerin (Nitroglycerin 0.4 Mg Sublingual Tablet) 0.4 mg SUBLINGUAL Q5M PRN PRN Reason: CHEST PAIN Pantoprazole Sodium (Pantoprazole Dr 40 Mg Tablet) 40 mg PO DAILY [facility] Last Admin: 01/16/22 08:34 Dose: 40 mg Documented by: Vitals/I&O/Wt Last Vital Signs Temp 98.8 F 01/16/22 12:00 Pulse 63 01/16/22 14:29 Resp 18 01/16/22 14:24 BP 146/63 01/16/22 12:00 Pulse Ox 98 01/16/22 14:24 01/16/22 01/16/22 01/16/22 06:59 14:59 22:59 Intake Total 800 / 1640 360 / 360 110 / 470 Output Total 0 / 500 Balance 800 / 1140 360 / 360 110 / 470 Weight last 48 hrs Weight 169 lb Physical Exam Narrative: GENERAL: The patient is alert and oriented times three. Not in any acute distress. HEENT: No significant pallor, icterus or lymphadenopathy. The pupils are symmetrical NECK: Trachea appears to be central. No masses noted. No JVD or thyromegaly appreciated. Carotid bruit bilaterally RESPIRATORY: Chest is symmetrical. No intercostals muscle retraction or any accessory muscle activation. There is no chest wall tenderness. Breath sounds are heard bilaterally. No rales or rhonchi heard. No evidence of any consolidation. BREASTS: Deferred. HEART: First heart sound is normal. Second heart sound is muffled. Ejection systolic murmur grade 4/6 in the aortic area of the transverse to the carotids. No diastolic murmurs. No S3 or S4 heard. No pericardial rub or any click heard. ABDOMEN: No vessel pulsations or distention. No tenderness. No organomegaly appreciated. No abdominal bruit. Bowel sounds are normally heard. : Deferred. RECTAL: Deferred. LYMPHATIC: No lymphadenopathy noted in the neck or groin. EXTREMITIES: No edema or cyanosis. No clubbing. The pulses are symmetrical bilaterally. The radial, femoral, dorsalis pedis and the posterior tibial pulses are palpated and found to be in good volume and amplitude. MUSCULOSKELETAL: No acute joint deformities or swelling SKIN: There are no significant scars or skin rash noted. NEUROPSYCHIATRIC: The patient is alert and oriented x3. Appears to be in a good mood. The higher functions are grossly within normal limits. No tremors or rigidity noted. Data : 01/17/22 07:50 01/17/22 05:15 Other Labs: Laboratory Last Values WBC 8.9 10^3/uL (4.0-10.0) 01/16/22 04:20 RBC 4.25 10^6/uL (4.1-5.3) 01/16/22 04:20 Hgb 11.5 g/dL (11.7-16.6) L D 01/16/22 04:20 Hct 37.0 % (42.0-52.0) L D 01/16/22 04:20 MCV 87.1 fl (80-94) D 01/16/22 04:20 MCH 27.1 pg (28.0-34.0) L 01/16/22 04:20 MCHC 31.1 g/dL (30.0-36.0) D 01/16/22 04:20 RDW 14.3 % (12.1-15.1) 01/16/22 04:20 Plt Count 198 10^3/cmm (130-400) 01/16/22 04:20 MPV 11.8 fL (7.4-10.4) H 01/16/22 04:20 Neut % (Auto) 75.0 % 01/16/22 04:20 Lymph % (Auto) 13.0 % 01/16/22 04:20 [place] % (Auto) 6.5 % 01/16/22 04:20 Eos % (Auto) 4.2 % 01/16/22 04:20 Baso % (Auto) 0.7 % 01/16/22 04:20 Neut # (Auto) 6.69 10^3/uL (1.8-7.7) 01/16/22 04:20 Lymph # (Auto) 1.2 10^3/uL (0.8-4.8) 01/16/22 04:20 [place] # (Auto) 0.6 10^3/uL (0.2-0.9) 01/16/22 04:20 Eos # (Auto) 0.4 10^3/uL (0.0-0.8) 01/16/22 04:20 Baso # (Auto) 0.1 10^3/uL (0.0-0.1) 01/16/22 04:20 Nucleated RBC % (auto) 0 % 01/16/22 04:20 Nucleated RBCs # 0.0 /100WBC 01/16/22 04:20 Sodium 133 mmol/L (136-145) L 01/16/22 04:20 Potassium 4.4 mmol/L (3.5-5.1) 01/16/22 04:20 Chloride 100 mmol/L (98-107) 01/16/22 04:20 Carbon Dioxide 24 mmol/L (22-29) 01/16/22 04:20 Anion Gap 13.4 (5-19) 01/16/22 04:20 BUN 35 mg/dL (8-23) H 01/16/22 04:20 Creatinine 1.2 mg/dL (0.7-1.2) 01/16/22 04:20 GFR Calculation Not Reportable 01/16/22 04:20 Glucose 198 mg/dL (65-115) H 01/16/22 04:20 POC Glucose 175 mg/dL (70-110) H 01/16/22 17:37 Calculated Osmolality 290 mOsm/kg (285-295) 01/16/22 04:20 Calcium 9.8 mg/dL (8.5-10.5) 01/16/22 04:20 Iron 17 ug/dL (59-158) L 01/14/22 19:19 TIBC 329 mcg/dl 01/14/22 19:19 % Saturation 5.1 % (20-50) L 01/14/22 19:19 Unsat Iron Binding 312 ug/dL (112-347) 01/14/22 19:19 Ferritin 32 ng/mL (30-400) 01/16/22 04:20 Troponin T Gen 5 ng/L 18 ng/L (0-15) H 01/14/22 16:33 Troponin T 120 Minute 19.52 ng/L (0-15) H 01/14/22 19:19 Delta Troponin T Not Reportable 01/14/22 19:19 Troponin T Hi Sens 6Hr 22.25 ng/L (0-15) H 01/15/22 01:07 Troponin T Hi Sens 6Hr Delta Not Reportable 01/15/22 01:07 NT-Pro-B Natriuret Pep 1570 pg/mL (0-450) H 01/14/22 16:33 TSH 2.78 uIU/mL (0.27-4.20) 01/14/22 19:19 Blood Type A Positive 01/14/22 23:40 Rho(D) Type Positive 01/14/22 23:40 Antibody Screen Negative 01/14/22 23:40 Crossmatch See Detail 01/14/22 23:40 A&P Assessment and plan (1) Atherosclerotic heart disease of [place] coronary artery with unstable angina pectoris: The patient symptoms may suggest unstable angina. However it is not convincing. But in view of his history and multiple risk factors, in order to further evaluate his coronary status, he requires a cardiac catheterization. He has no evidence of any active GI bleed. GI service does not feel comfortable in doing an endoscopic study, in view of his occasional presentation and objective findings. So at this point, we may consider going ahead with cardiac catheterization to evaluate the coronary arteries and then decide on further management. Status: Acute (2) Aortic valve stenosis, acquired: Patient appears to have severe low gradient aortic valve stenosis. This may need to be further evaluated. Most likely he requires an aortic valve replacement. We may consider doing a right and left heart catheterization both coronary angiogram tomorrow Status: Acute (3) Congestive heart failure: Patient has features of an acute on chronic diastolic heart failure. The heart failure seems to be fairly compensated. I may start him on Lasix 40 mg p.o. now and daily along with potassium 20 mg p.o. daily Status: Acute (4) Chronic kidney disease, stage III (moderate): BUN/creatinine seems to have improved. Repeat BMP in the morning Status: Chronic (5) Diabetes mellitus: Patient blood sugar need to be closely monitored. Status: Chronic Qualifiers: Chronic kidney disease stage: stage 3 (moderate) Diabetes mellitus complication detail: with chronic kidney disease Diabetes mellitus complication status: with kidney complications Diabetes mellitus intermediate insulin use: without extermination inspector use Diabetes mellitus type: type 2 Qualified Code(s): E11.22 - Type 2 diabetes mellitus with diabetic chronic kidney disease; N18.3 - Chronic kidney disease, stage 3 (moderate) (6) Hypertension: Currently he is normotensive. According the patient, he had intermittent high blood pressure. I may also start him on amlodipine 2.5 mg p.o. daily Status: Chronic Qualifiers: Hypertension type: essential hypertension Qualified Code(s): I10 - Essential (primary) hypertension (7) Reactive airway disease: Patient has a questionable history of reactive airway disease. May continue on the bronchodilator treatment as per the primary. Status: Acute (8) Anemia: The etiology of anemia is not clear. Stool for occult blood would be appropriate. Apparently the patient has not had any bowel movements. Status: Acute Plan For further evaluation of the patient's coronary status as well as a valve status, a cardiac catheterization would be appropriate. This was discussed with the patient in detail with risks and benefits. The risk of bleeding, hematoma, vascular injury, myocardial infarction, CVA, renal failure and other concomitant complications were explained in detail. Patient understood this well and consented to proceed. We may go ahead and schedule the procedure tomorrow. We will repeat the BMP, BNP and CBC in the morning. Based on the results, further recommendations will be made. Attestations Medical Necessity Statement*: Patient requires continued hospital stay for close monitoring and further management Coding Level of Care Code Acute Precision Assembly Inspector for Chg Fwd History Detailed Exam Detailed Medical Decision Making Moderate Complexity Diagnoses Atherosclerotic heart disease of [place] coronary artery with unstable angina pe ctoris I25.110 Aortic valve stenosis, acquired I35.0 Congestive heart failure I50.9 Chronic kidney disease, stage III (moderate) N18.3 Diabetes mellitus E11.22; N18.3 Chronic kidney disease stage: stage 3 (moderate) Diabetes mellitus complication detail: with chronic kidney disease Diabetes mellitus complication status: with kidney complications Diabetes mellitus intermediate insulin use: without intermediate use Diabetes mellitus type: type 2 Hypertension I10 Hypertension type: essential hypertension Reactive airway disease J45.909 Anemia D64.9
[2022-01-16] MEDS: amlodipine 5 mg Tablet 2.5 MG PO (19:41)
[2022-01-16 20:36] LABS: Glucose Point of Care 249 mg/dL (70-110)
[2022-01-16] MEDS: atorvastatin 40 mg Tablet PO (20:45)
[2022-01-16] MEDS: sodium chloride 0.9% 1,000 ML 50 ML IV (23:53)
[2022-01-17] VITALS (28 sets, daily range): BP systolic 127–168; BP diastolic 52–119; PULSE 60–125; RESP 15–25; TEMP 36.4–36.9; O2SAT 91–97
[2022-01-17 05:40] LABS: Basophils # 0.1 10^3/uL (0.0-0.1); Eosinophils # 0.5 10^3/uL (0.0-0.8); Eosinophils % 7.6 %; Hematocrit 33.4 % (42.0-52.0); Hemoglobin 10.5 g/dL (11.7-16.6); Lymphocytes # 1.4 10^3/uL (0.8-4.8); Lymphocytes % 20.5 %; Mean Corpuscular HGB Conc 31.4 g/dL (30.0-36.0); Mean Corpuscular Hemoglobin 27.3 pg (28.0-34.0); Mean Platelet Volume 11.5 fL (7.4-10.4); Monocytes # 0.7 10^3/uL (0.2-0.9); Monocytes % 10.2 %; Neutrophils # 4.14 10^3/uL (1.8-7.7); Neutrophils % 60.3 %; Nucleated Red Blood Cells % 0 %; Platelet Count 197 10^3/cmm (130-400); Red Blood Count 3.84 10^6/uL (4.1-5.3); Red Cell Distribution Width 14.6 % (12.1-15.1); White Blood Count 6.9 10^3/uL (4.0-10.0)
[2022-01-17 05:56] LABS: Blood Urea Nitrogen 34 mg/dL (8-23); Calcium 9.3 mg/dL (8.5-10.5); Carbon Dioxide 24 mmol/L (22-29); Chloride 103 mmol/L (98-107); Glucose 180 mg/dL (65-115); Osmolality Calculated 294 mOsm/kg (285-295); Sodium 136 mmol/L (136-145)
[2022-01-17 08:17] LABS: Hematocrit 35.3 % (42.0-52.0); Hemoglobin 11.3 g/dL (11.7-16.6)
[2022-01-17] MEDS: insulin lispro 100 unit/1 mL SUBCUT ×3 (08:47→21:26)
[2022-01-17] MEDS: pantoprazole DR 40 mg Tablet PO (08:48)
[2022-01-17] MEDS: aspirin 81 mg EC Tablet PO (08:48)
[2022-01-17] MEDS: amlodipine 5 mg Tablet 2.5 MG PO (08:48)
[2022-01-17] MEDS: budesonide 0.5 mg/2 mL Neb 0.25 MG INHALATION (09:01)
--- NOTE | 2022-01-17 09:34 | PM.PN ---
Subjective Subjective: Patient is awaiting angiogram today He can have light breakfast this was checked with cardiology today His angiogram is around 4 PM Vitals/I&O/Wt Last Vital Signs Temp 98.2 F 01/17/22 07:06 Pulse 63 01/17/22 09:08 Resp 20 H 01/17/22 09:04 BP 140/62 01/17/22 07:06 Pulse Ox 92 01/17/22 09:04 01/16/22 01/17/22 01/17/22 22:59 06:59 14:59 Intake Total 260 / 620 0 / 620 360 / 360 Output Total 250 / 250 350 / 600 Balance 10 / 370 -350 / 20 360 / 360 Physical Exam Narrative: Pleasant cooperative No active chest pain shortness of breath or syncopal events Patient has been walking down the hallway S1, S2 Systolic murmur Abdomen is soft Looks euvolemic No active signs of heart failure Data : 01/17/22 07:50 01/17/22 05:15 A&P Assessment and plan (1) Anemia: Status: Acute (2) Atherosclerotic heart disease of [place] coronary artery with unstable angina pectoris: Status: Acute (3) Reactive airway disease: Status: Acute (4) Heart murmur: Status: Acute (5) Congestive heart failure: Status: Acute (6) Aortic valve stenosis, acquired: Status: Acute Plan Severe aortic stenosis Aortic valve evaluation outpatient in [place] Rule out coronary ischemia, angiogram today He is n.p.o. Normocytic anemia: Improved after blood transfusion Repeat H&H is 11.3 No hemodynamic instability Target hemoglobin around 10 No active GI bleed, FOBT is pending Patient is not reporting any dark stools Status post 2 units PRBC Diastolic congestive heart failure without acute exacerbation, currently is compensated, Patient can have cardiac consistent carb diet after his procedure Patient is full code DVT prophylaxis on board Chronic kidney stage IV without acute exacerbation, DANI: Improved Attestations Medical Necessity Statement*: Angiogram today Time Spent in Patient Care: 15min Coding Level of Care Code Acute Microbiology Supervisor for Jose Ahmadi Diagnoses Anemia D64.9 Atherosclerotic heart disease of [place] coronary artery with unstable angina pectoris I25.110 Reactive airway disease J45.909 Heart murmur R01.1 Congestive heart failure I50.9 Aortic valve stenosis, acquired I35.0
[2022-01-17] MEDS: sennosides-docusate Tablet 1 TAB PO (10:46)
[2022-01-17] MEDS: polyethylene glycol 3350 Pkt 17 gm PO (10:47)
[2022-01-17 11:15] LABS: Glucose Point of Care 354 mg/dL (70-110)
[2022-01-17] MEDS: diphenhydrAMINE 50 mg Capsule PO (15:33)
[2022-01-17] MEDS: sodium chloride 0.9% 1,000 ML 50 ML IV (15:34)
--- NOTE | 2022-01-17 16:30 | XACV_ITS ---
Exam Room: [facility] Ht: 170 cm Wt: 77 kg BSA: 1.92 m2 Gender: Male : 1940 Exam Priority: Routine Procedure(s): Procedure Description: Diagnostic procedure Procedure Description: PCI procedure Procedure Description: Left Heart Catheterization Procedure Description: Drug Eluting Coronary Stent Procedure Description: PTCA Procedure Description: Miscellaneous Procedure Description: ACT Procedure Description: Coronary Angiography Procedure Description: Pressure Wire Venancio GARCIA; Diagnostic Cath Status: Urgent Diagnostic Findings * The left main is a medium caliber vessel which he was found to have around 20% distal narrowing. * Left anterior descending artery was found to be a medium caliber vessel which appears to wrap around the LV apex minimally. The proximal LAD was found to have 20 to 30% diffuse narrowing with moderate calcification. Right at the origin of the second septal walking dragline oiler, there was a 60 to 70% segmental narrowing followed by a small ectasia in the LAD. The mid to distal LAD was found to have mild diffuse disease. The first diagonal branch also was found to have moderate to severe diffuse stenosis proximally. * The left circumflex artery is a medium caliber vessel which he was found to have around 20 to 30% narrowing at the ostium. It gives of a moderate to large caliber first obtuse marginal artery. Then the AV groove branch appears to be bifurcating. One of the bifurcate branches appears to bifurcate again. Both the bifurcation branches were found to have around 60 to 70% narrowing proximally involving the ostium. * Right coronary artery is a medium to large caliber dominant vessel which has extensive calcification in the proximal to mid segment. There are couple of areas of filling defects in the proximal segment before the takeoff of the first RV branch, suggesting thrombus versus calcification. The first RV branch was found to have an ostial around 60% stenosis. The distal RCA also was found to have a mild to moderate diffuse calcification. The PLV and PDA branches were found to have mild diffuse disease. One of the PLV branches was found to have around 60 to 70% segmental narrowing. The PDA branch also was found to have 20 to 30% diffuse narrowing. No other significant stenotic lesions were seen. PCI Status: Urgent PCI Indication: Other Interventional Findings * Mid Left Anterior Descendin% stenosis treated with a AB TREK 2.50X15 RX BALLOON, and GIGI Penaloza ABA 3.0X30 REMY. * Procedure detail: We engaged left main artery with XB 3.5 guide catheter. IV heparin was administered to maintain ACT over 250 S. After normalization pressure wire was advanced into distal LAD. An IFR value of 0.55 was obtained. Pullback was performed that showed gradient was across mid LAD stenosis. We performed predilation with a 2.5 x 15 mm semicompliant balloon. This was followed by placement of 3.0 x 30 mm resolute Aba drug-eluting stent. At this point we performed a final angiogram that showed excellent stent expansion, no residual stenosis and JUAN DANIEL-3 flow. Guidewire and guide catheter were removed. Patient left the Social Science Teacher in a stable condition.. Conclusions 1. 81-year-old white male with a history of high blood pressure, type 2 diabetes and kidney disease scented with complaints of chest pain and shortness of breath. Myocardial infarction was ruled out. Patient was found to have severe low gradient aortic valve stenosis. Normal LV ejection fraction by echocardiogram. For further evaluation of the coronary status as well as the valve status, a right and left heart catheterization with right and left coronary angiogram and LV angiogram is recommended. Patient underwent this procedure yesterday. The findings are as follows. 2. The right atrial pressure was 9 RV pressure was 45 the PA pressure was 56/15 with a mean of 27. The pulmonary capillary wedge pressure was 16 mmHg. Cardiac output was 5 and index of 3.0, based on Amanda's principle. The peak gradient across the aortic valve was 39 with a mean gradient of 31 millimeters of mercury.The LVEDP was 18 mmHg. The coronary angiogram revealed moderately severe disease in the mid LAD, in a relatively small caliber obtuse marginal branch and in a small to medium caliber branch of the PLV. Other vessels were found to have mild diffuse disease. Extensive calcification was noted in the proximal to mid LAD and right coronary artery. Possible calcification versus thrombus in the proximal RCA. 3. Based on the above findings, it was thought to be appropriate to consider IFR of the mid LAD lesion and then decide about PCI. This was discussed with Dr. Mayes. Dr. Mayes to call for further management of this patient at this point. 4. Mid Left Anterior Descending was treated with a Balloon, and Drug Eluting Stent. 5. Severe mid LAD stenosis confirmed with IFR value of 0.55. S/p successful revascularization with REMY x1. Recommendations * Transfer to [facility]. * Aspirin and Plavix for at least 1 year. * High intensity statin therapy. * Outpatient cardiology follow-up in 4 weeks. Interventional RX Recommendation: PCI w/o planned CABG Diagnostic RX Recommendation: PCI w/o planned CABG Anticoagulation: Heparin Pressures Phase:Rest AO : 149 / 59 ( 92 ) @ 2:22:58 PM 102 / 29 ( 58 ) @ 2:22:58 PM 133 / 52 ( 80 ) @ 2:22:58 PM 110 / 61 ( 83 ) @ 6:15:00 PM 107 / 62 ( 84 ) @ 6:18:00 PM 138 / 53 ( 89 ) @ 6:25:00 PM 142 / 53 ( 89 ) @ 6:25:00 PM 138 / 56 ( 89 ) @ 6:57:00 PM LV : 175 / -6 / 18 @ 6:25:00 PM 172 / -6 / 18 @ 6:25:00 PM RV : 45 / 0 / 10 @ 5:57:00 PM PA : 56 / 15 ( 27 ) @ 5:55:00 PM RA : a wave = 12 v wave = 11 mean = 9 @ 5:59:00 PM PCW : a wave = 22 v wave = 21 mean = 16 @ 5:54:00 PM O2 Content Phase:Rest PA : O2 Content O2: 64.5 @ 6:25:00 PM Saturations Phase:Rest AO : 91 @ 6:15:00 PM RA : 63 @ 6:25:00 PM RV : 63 @ 6:18:00 PM PA : 65 @ 6:25:00 PM Cardiac Output Phase:Rest Amanda : 5 @ 7:22:58 PM Amanda Cardiac Index: 3 @ 7:22:58 PM Flow Phase:Rest Qp : 5 @ 7:22:58 PM Qs : 5 @ 7:22:58 PM Valves Phase:DefaultPhase AV : 39.0 @ 7:22:58 PM AV Mean Gradient: 31.0 @ 7:22:58 PM 31.0 @ 7:22:58 PM AV Flow: 229 @ 7:22:58 PM AV Area: 0.9 @ 7:22:58 PM AV Area Index: 0.49 @ 7:22:58 PM Clinical Evaluation EBL: 5mL-10mL Procedural Details Procedure Consent Obtained. Admit Source: In Patient. Pre-Procedure Time Out. Identified patient by full name and date of as verbalized by the patient/guarantor. Does the consent match the physician's order: Yes. Accurate & Complete Informed Consent: Yes. Inpatient/Outpatient History & Physical on Chart: Yes. If H&P is completed, is and addenduem needed: N/A; If yes, is the addendum complete: N/A. The risks, benefits, and alternatives of sedation and/or procedure were discussed by physician. The patient agrees to continue. Visualize and Verify Site with Patient/Guarantor: N/A. Relevant Radiology Images available: N/A. Procedure started. [facility] Clinical Fraility Score: 3: Managing Well. Social Science Teacher Indications: New Onset Angina. Chest Pain Symptom Assessment: Atypical Angina. Correct patient, site and procedure confirmed by cath team. Current diagnosis: Chest Pain. PERRLA. Strong, equal hand manager purchasing bilaterally. Lungs clear x 5 lobes. IV Site on Arrival: 20 gauge in the left anticubital. IV Fluids: 0.9% NaCl at KVO. 0 mL infused prior to microbiology lab assistant. Pre Procedural Pulses: bilateral radial was 2+. Pre Procedural Pulses: bilateral dorsalis pedis was 2+. Oxygen started at 2liters/min via nasal canula. right radial was prepped with chloroprep then draped in the usual sterile fashion. right groin was prepped with chloroprep then draped in the usual sterile fashion. Physician notified. Baseline sample Acquired. HR: 62 BPM. Physician arrived. Physician scrubbed in. Immediate Pre-Procedure Time Out. Correct Patient: Yes; Correct Procedure: Yes; Correct Site: Yes; Correct Patient Position: Yes; Correct Supplies: Yes; Dried Flammable Prep: Yes; Blood Products Available: N/A. Lidocaine 1% infiltrated to the right brachial. [place]-Gucci MON catheter inserted. Oximetry samples were obtained. Normal venous range: 60-85%. Normal arterial range: 95-100%. Pressure measurements obtained. [place]-Gucci out. Lidocaine 1% infiltrated to the right radial. Arterial access obtained. A 5 guinean Miles catheter in over wire. Multiple views taken of right coronary artery. Catheter redirected to the LCA. Multiple views taken of left coronary artery. Standard wire inserted. Standard wire removed. EDP Sample taken: LV 175/-7,18; HR: 72 BPM; SpO2: 96%. Pullback taken: LV 172/-7,18; AO 138/53(89); Mean: 31mmHg, Peak to Peak: 39mmHg, SEP: 24sec/min; HR: 72 BPM; SpO2: 96%. Dr Mayes notified to review films. Catheter out. Physician scrubbed out. Dr. Mayes scrubbed in to perform intervention. Patient's family updated. 6 guinean XB 3 guide catheter was inserted over the wire. Standard wire removed. Guide catheter out. 6 guinean XB 3.5 guide catheter was inserted over the wire. IFR guidewire was advanced through the guide catheter to lesion in the mid LAD. Fractional flow reserve measurements obtained. Guide catheter and wire out. A Manual Compression was successful obtaining hemostatsis at the Right Brachial Vein insertion site. A TR Band was successful obtaining hemostatsis at the Right Radial artery insertion site. Arterial access site switched to groin at this time due to difficut anatomy. Lidocaine 1% infiltrated to the right groin. Arterial access obtained with micropuncture set. Needle and wire removed, manual compression held. Arterial access obtained with micropuncture set. 6 guinean XB 3 guide catheter was inserted over the wire. IFR guidewire was advanced through the guide catheter to lesion in the distal left main. Fractional flow reserve measurements obtained. IFR wire removed. ACT drawn. Results 321 seconds. Therapeutic limits - pre-heparin administration 90-150 seconds and monitoring heparin during a vascular procedure >250 seconds. Runthrough repositioned to mid LAD. Balloon inserted to lesion in the mid LAD. Inflation number : 1 A AB TREK 2.50X15 RX BALLOON was prepped and advanced across the Mid LAD , then inflated to 12 MERCEDEZ for 0:18 seconds. Inflation number: 2 The AB TREK 2.50X15 RX BALLOON was reinflated across the Mid LAD, to 12 MERCEDEZ for 0:15 seconds. Inflation number: 3 The AB TREK 2.50X15 RX BALLOON was reinflated across the Mid LAD, to 12 MERCEDEZ for 0:17 seconds. Balloon out. Stent inserted to lesion in the mid LAD. Inflation Number : 4 A GIGI Penaloza ABA 3.0X30 REMY -Lot Number# [id number] Exp 10/30/2024 was prepped and advanced across the Mid LAD. The stent was deployed at 12 MERCEDEZ for 0:25 seconds. Stent balloon out over wire. Results checked. Guide catheter and wire removed. A Suture was successful obtaining hemostatsis at the Right Femoral artery insertion site. ACT drawn. Results 230 seconds. Therapeutic limits - pre-heparin administration 90-150 seconds and monitoring heparin during a vascular procedure >250 seconds. Post Procedure: Pulses reassessed and unchanged. PERRLA. Strong, equal hand manager purchasing bilaterally. No VTE prophylaxis required. Medication's Wasted: Lidocaine 1% = 10 mL. Medication's Wasted: Nitro = 49.8 mg. Total IV fluids: 431 mL. PCI Indication: CAD. Post-op diagnosis: Severe CAD. Complications: none. Estimated blood loss: 5mL-10mL. Responsiveness - Normal response to verbal stimuli; alert and oriented, PERRLA. Airway - Unaffected, no intervention required; spontaneous ventilation. Circulation: W/N/L, pulses unchanged. Nausea/Vomiting: No. Procedure completed. Patient transferred by bed to 1st floor. Medication's Wasted: Other = Versed 1 mg. Medication's Wasted: Heparin = 1000 u. Vital chart was stopped. Access Site Site: Right Brachial Vein Sheath Size: 6 Fr Hemostasis Method: Manual Compression Hemostasis Success: Successful Site: Right Radial artery Sheath Size: 6 Fr Hemostasis Method: TR Band Hemostasis Success: Successful Site: Right Femoral artery Sheath Size: 6 Fr Hemostasis Method: Suture Hemostasis Success: Successful Procedure Medications Start: 4:49 PM Stop: 4:49 PM Medication: Versed Amount: 1 mg Route: I.V. Start: 4:49 PM Stop: 4:49 PM Medication: Fentanyl Amount: 50 mcg Route: I.V. Start: 5:03 PM Stop: 5:03 PM Medication: Versed Amount: 1 mg Route: I.V. Start: 5:12 PM Stop: 5:12 PM Medication: Verapamil Amount: 5 mg Route: I.A. Start: 5:13 PM Stop: 5:13 PM Medication: 0.9% Saline Amount: 250 ml Start: 5:13 PM Stop: 5:13 PM Medication: Nitrogylcerin Amount: 200 mcg Route: I.A. Start: 5:14 PM Stop: 5:14 PM Medication: Heparin Amount: 5000 units Route: I.V. Start: 5:38 PM Stop: 5:38 PM Medication: Fentanyl Amount: 50 mcg Route: I.V. Start: 5:38 PM Stop: 5:38 PM Medication: Heparin Amount: 2000 units Route: I.V. Start: 5:49 PM Stop: 5:49 PM Medication: Versed Amount: 1 mg Route: I.V. Start: 6:07 PM Stop: 6:07 PM Medication: Versed Amount: 1 mg Route: I.V. Start: 6:12 PM Stop: 6:12 PM Medication: Heparin Amount: 1000 units Route: I.V. Start: 6:23 PM Stop: 6:23 PM Medication: Heparin Amount: 1000 units Route: I.V. Start: 6:23 PM Stop: 6:23 PM Medication: Versed Amount: 1 mg Route: I.V. Start: 6:23 PM Stop: 6:23 PM Medication: Fentanyl Amount: 50 mcg Route: I.V. Start: 6:47 PM Stop: 6:47 PM Medication: Heparin Amount: 1000 units Route: I.V. Start: 7:04 PM Stop: 7:04 PM Medication: Heparin Amount: 1000 units Route: I.V. Start: 7:05 PM Stop: 7:05 PM Medication: Fentanyl Amount: 50 mcg Route: I.V. Start: 7:11 PM Stop: 7:11 PM Medication: Plavix Amount: 600 mg Route: P.O. Start: 7:21 PM Stop: 7:21 PM Medication: Heparin Amount: 1000 units Route: I.V. I, the attending physician, have reviewed and verified all procedure medications. Yes, all medications given per verbal order History/Risk Factors Hypertension: Yes Dyslipidemia: No Peripheral Arterial Disease (PAD): No Myocardial Infarction (PR): No Obesity: No Renal Disease: Yes Tobacco Use: Never Prior Interventions PCI: No CABG: No Valve Surgery: No Report Signatures Interventional Workflow Finalized by Deandre Mayes MD on 01/26/2022 10:[address] Breana Craft MD [facility] on 01/20/2022 05:44 PM Diagnostic Workflow Finalized by Dr Breana Craft MD [facility] on 01/17/2022 11:59 PM
--- NOTE | 2022-01-17 16:43 | W.PM.OPSUD ---
Surgery/Procedure H&P Update DATE OF PROCEDURE: January 17, 2022 DATE H&P PERFORMED: 01/15/22 H&P UPDATE INFORMATION: I have reviewed H&P completed within last 30 days, I have examined patient prior to procedure and No changes to prior documentation (lungs are clear) PREOP DIAGNOSIS: / chest pain PLANNED PROCEDURE: Operation Date: 01/17/22 16:30 Proposed Procedures p Cardiac Catheterization(Bilateral) - Breana Craft MD PHYSICAL EXAM: alert, oriented x 3, clear to auscultation bilaterally and regular rate & rhythm AIRWAY EVAL/ANESTHESIA PLAN: normal airway, see other exam findings, ASA II, ASA III, Monitored Anesthesia, Local Anesthesia, Risks, benefits & alternatives of sedation and/or procedure discussed and Patient agrees to continue as planned
--- NOTE | 2022-01-17 18:00 | PM.PN ---
Subjective Subjective: Patient is feeling okay. Has not had any significant chest pain. Hemoglobin seems to be stable. Still has no bowel movements. Vital signs are remaining stable. Medications: Medication Review Details: Current Medications Acetaminophen (Acetaminophen 325 Mg Tablet) 650 mg PO Q6H PRN PRN Reason: Mild/Mod Pain Or Temp >/= 101 Albuterol Sulfate (Albuterol 2.5 Mg/0.5 Ml Neb) 2.5 mg INHALATION Q6H.RESPIRATORY KUSH Last Admin: 01/17/22 14:17 Dose: 2.5 mg Documented by: Albuterol Sulfate (Albuterol 2.5 Mg/0.5 Ml Neb) 2.5 mg INHALATION Q6H.RESPIRATORY PRN PRN Reason: SHORTNESS OF BREATH Amlodipine Besylate (Amlodipine 5 Mg Tablet) 2.5 mg PO DAILY KUSH Last Admin: 01/17/22 08:48 Dose: 2.5 mg Documented by: Aspirin (Aspirin 81 Mg Ec Tablet) 81 mg PO DAILY KUSH Last Admin: 01/17/22 08:48 Dose: 81 mg Documented by: Atorvastatin Calcium (Atorvastatin 40 Mg Tablet) 40 mg PO BEDTIME KUSH Last Admin: 01/16/22 20:45 Dose: 40 mg Documented by: Budesonide (Budesonide 0.5 Mg/2 Ml Neb) 0.25 mg INHALATION BID.RESPIRATORY KUSH Last Admin: 01/17/22 09:01 Dose: 0.25 mg Documented by: Dextrose (Dextrose 50% Syringe 50 Ml) 25 ml IVP ONCE PRN; Protocol PRN Reason: hypoglycemia protocol Dextrose (Dextrose 50% Syringe 50 Ml) 50 ml IVP PRN PRN; Protocol PRN Reason: hypoglycemia protocol Enoxaparin Sodium (Enoxaparin 40 Mg/0.4 Ml Syringe) 40 mg SUBCUT Q24H KUSH Last Admin: 01/16/22 18:12 Dose: 40 mg Documented by: Glucagon (Glucagon 1 Mg/Ml Inj 1 Ml) 1 mg IM ONCE PRN; Protocol PRN Reason: Adult Acute Hypoglycemia Prot. Dextrose (D5w) 500 mls @ 100 mls/hr IV ONCE PRN; Protocol PRN Reason: Adult Acute Hypoglycemia Prot Sodium Chloride (Sodium Chloride 0.9%) 1,000 mls @ 50 mls/hr IV .Q20H ONE Stop: 01/18/22 11:29 Last Admin: 01/17/22 15:34 Dose: 50 mls/hr Documented by: Insulin Human Lispro (Insulin Lispro 100 Unit/1 Ml) 0 unit SUBCUT WM&BEDTIME [facility]; Protocol Last Admin: 01/17/22 11:42 Dose: 8 unit Documented by: Metoprolol Tartrate (Metoprolol Tartrate 25 Mg Tablet) 12.5 mg PO BID@0900,2100 [facility] Last Admin: 01/16/22 08:34 Dose: 12.5 mg Documented by: Nitroglycerin (Nitroglycerin 0.4 Mg Sublingual Tablet) 0.4 mg SUBLINGUAL Q5M PRN PRN Reason: CHEST PAIN Pantoprazole Sodium (Pantoprazole Dr 40 Mg Tablet) 40 mg PO DAILY [facility] Last Admin: 01/17/22 08:48 Dose: 40 mg Documented by: Senna/Docusate Sodium (Sennosides-Docusate Tablet) 1 tab PO DAILY [facility] Last Admin: 01/17/22 10:46 Dose: 1 tab Documented by: Vitals/I&O/Wt Last Vital Signs Temp 97.6 F 01/17/22 15:30 Pulse 64 01/17/22 15:30 Resp 18 01/17/22 15:30 BP 135/70 01/17/22 15:30 Pulse Ox 93 01/17/22 15:30 01/17/22 01/17/22 01/17/22 06:59 14:59 22:59 Intake Total 0 / 620 360 / 360 Output Total 350 / 600 Balance -350 / 20 360 / 360 Physical Exam Narrative: GENERAL: The patient is alert and oriented times three. Not in any acute distress. HEENT: No significant pallor, icterus or lymphadenopathy.Oral cavity: There are no mucous membrane lesions. NECK: Trachea appears to be central. No masses noted. No JVD or thyromegaly appreciated. RESPIRATORY: Chest is symmetrical. No intercostals muscle retraction or any accessory muscle activation. There is no chest wall tenderness. Breath sounds are heard bilaterally. No rales or rhonchi heard. No evidence of any consolidation. BREASTS: Deferred. HEART: The first heart sound is normal. Second heart sound is somewhat muffled. Ejection systolic murmur grade 4/6 in the aortic area. No diastolic murmurs ABDOMEN: No vessel pulsations or distention. No tenderness. No organomegaly appreciated. Bowel sounds are normally heard. : Deferred. RECTAL: Deferred. LYMPHATIC: No lymphadenopathy noted in the neck or groin. EXTREMITIES: No edema or cyanosis. No clubbing. Peripheral pulses are palpated in fairly good volume and amplitude MUSCULOSKELETAL: No acute joint deformities or swelling SKIN: There are no significant rashes or ecchymosis NEUROPSYCHIATRIC: The patient is alert and oriented x3. Appears to be in a good mood. No tremors or rigidity noted. Data : 01/17/22 07:50 01/17/22 05:15 Other Labs: Laboratory Last Values WBC 6.9 10^3/uL (4.0-10.0) 01/17/22 05:15 RBC 3.84 10^6/uL (4.1-5.3) L 01/17/22 05:15 Hgb 11.3 g/dL (11.7-16.6) L 01/17/22 07:50 Hct 35.3 % (42.0-52.0) L 01/17/22 07:50 MCV 87.0 fl (80-94) 01/17/22 05:15 MCH 27.3 pg (28.0-34.0) L 01/17/22 05:15 MCHC 31.4 g/dL (30.0-36.0) 01/17/22 05:15 RDW 14.6 % (12.1-15.1) 01/17/22 05:15 Plt Count 197 10^3/cmm (130-400) 01/17/22 05:15 MPV 11.5 fL (7.4-10.4) H 01/17/22 05:15 Neut % (Auto) 60.3 % 01/17/22 05:15 Lymph % (Auto) 20.5 % 01/17/22 05:15 [place] % (Auto) 10.2 % 01/17/22 05:15 Eos % (Auto) 7.6 % 01/17/22 05:15 Baso % (Auto) 1.0 % 01/17/22 05:15 Neut # (Auto) 4.14 10^3/uL (1.8-7.7) 01/17/22 05:15 Lymph # (Auto) 1.4 10^3/uL (0.8-4.8) 01/17/22 05:15 [place] # (Auto) 0.7 10^3/uL (0.2-0.9) 01/17/22 05:15 Eos # (Auto) 0.5 10^3/uL (0.0-0.8) 01/17/22 05:15 Baso # (Auto) 0.1 10^3/uL (0.0-0.1) 01/17/22 05:15 Nucleated RBC % (auto) 0 % 01/17/22 05:15 Nucleated RBCs # 0.0 /100WBC 01/17/22 05:15 Sodium 136 mmol/L (136-145) 01/17/22 05:15 Potassium 5.0 mmol/L (3.5-5.1) 01/17/22 05:15 Chloride 103 mmol/L (98-107) 01/17/22 05:15 Carbon Dioxide 24 mmol/L (22-29) 01/17/22 05:15 Anion Gap 14.0 (5-19) 01/17/22 05:15 BUN 34 mg/dL (8-23) H 01/17/22 05:15 Creatinine 1.1 mg/dL (0.7-1.2) 01/17/22 05:15 GFR Calculation Not Reportable 01/17/22 05:15 Glucose 180 mg/dL (65-115) H 01/17/22 05:15 POC Glucose 354 mg/dL (70-110) H 01/17/22 10:44 Calculated Osmolality 294 mOsm/kg (285-295) 01/17/22 05:15 Calcium 9.3 mg/dL (8.5-10.5) 01/17/22 05:15 Iron 17 ug/dL (59-158) L 01/14/22 19:19 TIBC 329 mcg/dl 01/14/22 19:19 % Saturation 5.1 % (20-50) L 01/14/22 19:19 Unsat Iron Binding 312 ug/dL (112-347) 01/14/22 19:19 Ferritin 32 ng/mL (30-400) 01/16/22 04:20 Troponin T Gen 5 ng/L 18 ng/L (0-15) H 01/14/22 16:33 Troponin T 120 Minute 19.52 ng/L (0-15) H 01/14/22 19:19 Delta Troponin T Not Reportable 01/14/22 19:19 Troponin T Hi Sens 6Hr 22.25 ng/L (0-15) H 01/15/22 01:07 Troponin T Hi Sens 6Hr Delta Not Reportable 01/15/22 01:07 NT-Pro-B Natriuret Pep 1570 pg/mL (0-450) H 01/14/22 16:33 TSH 2.78 uIU/mL (0.27-4.20) 01/14/22 19:19 Blood Type A Positive 01/14/22 23:40 Rho(D) Type Positive 01/14/22 23:40 Antibody Screen Negative 01/14/22 23:40 Crossmatch See Detail 01/14/22 23:40 Micro: Microbiology 01/17/22 14:25 Occult Blood (FIT) - Final Stool Routine Collection A&P Assessment and plan (1) Atherosclerotic heart disease of [place] coronary artery with unstable angina pectoris: Patient is scheduled for a cardiac catheterization this afternoon. Based on the results, further management decisions will be made Status: Acute (2) Aortic valve stenosis, acquired: Patient appears to have severe low gradient aortic valve stenosis. We will try to do the left heart catheterization Status: Acute (3) Congestive heart failure: Patient has features of an acute on chronic diastolic heart failure. The heart failure seems to be fairly compensated. We will continue on the current medications Status: Acute (4) Chronic kidney disease, stage III (moderate): BUN/creatinine seems to have improved. Status: Chronic (5) Diabetes mellitus: Continue with close monitoring and management Status: Chronic Qualifiers: Diabetes mellitus type: type 2 Diabetes mellitus salvage determiner insulin use: without group home use Diabetes mellitus complication status: with kidney complications Diabetes mellitus complication detail: with chronic kidney disease Chronic kidney disease stage: stage 3 (moderate) Qualified Code(s): E11.22 - Type 2 diabetes mellitus with diabetic chronic kidney disease; N18.3 - Chronic kidney disease, stage 3 (moderate) (6) Hypertension: Currently he is normotensive. We will continue on the current medications Status: Chronic Qualifiers: Hypertension type: essential hypertension Qualified Code(s): I10 - Essential (primary) hypertension (7) Reactive airway disease: Patient has a questionable history of reactive airway disease. May continue on the bronchodilator treatment as per the primary. Status: Acute (8) Anemia: The etiology of anemia is not clear. Still trying to get a stool sample. Does not seem to have any active bleeding since the hemoglobin is remained stable Status: Acute Plan Based on the cardiac catheterization findings, further management decisions will be made. Continue current medications for the time being. Attestations Medical Necessity Statement*: Patient requires continued hospital stay for close monitoring and further management Coding Level of Care Code Acute Environmental Services Manager for [facility] Fwd Diagnoses Atherosclerotic heart disease of [place] coronary artery with unstable angina pectoris I25.110 Aortic valve stenosis, acquired I35.0 Congestive heart failure I50.9 Chronic kidney disease, stage III (moderate) N18.3 Diabetes mellitus E11.22; N18.3 Diabetes mellitus type: type 2 Diabetes mellitus group home insulin use: without salvage determiner use Diabetes mellitus complication status: with kidney complications Diabetes mellitus complication detail: with chronic kidney disease Chronic kidney disease stage: stage 3 (moderate) Hypertension I10 Hypertension type: essential hypertension Reactive airway disease J45.909 Anemia D64.9
--- NOTE | 2022-01-17 19:38 | PC.NURSE ---
Patient received to CSU room 103 from geoscience laboratory technician via bed. Report received from JOSE DE JESUS Michaels. Patient is s/p left and right heart cath. Sheath remains in place attached to pressure bag to right groin. TR Band in place to right radial. Pressure dressing to right brachial. All sites without s/s of bleeding or hematoma formation observed. Patient c/o only of being hungry. Food provided. Instructed patient on site care and restrictions. Patient verbalized complete understanding. Family at bedside.
--- NOTE | 2022-01-17 21:12 | PC.NURSE ---
Patient restless and unable to lie still. AAOx4. Sheath remain in place to right groin with no s/s of bleeding or hematoma formation observed. Reinforced site care and restrictions. Patient stated, I forgot I can't move this leg but verbalized understanding. Spoke with Dr Craft and received order for Restoril 15mg PO PRN at bedtime. RBVO
[2022-01-17] MEDS: metoprolol tartrate 25 mg Tablet 12.5 MG PO (21:26)
[2022-01-17] MEDS: atorvastatin 40 mg Tablet PO (21:26)
[2022-01-17] MEDS: temazepam 15 mg Capsule PO (21:26)
[2022-01-17 21:44] LABS: Glucose Point of Care 225 mg/dL (70-110)
[2022-01-17 22:48] LABS: Partial Thromboplastin Time 138.3 SECONDS (23.9-36.7)
--- NOTE | 2022-01-17 22:50 | PC.NURSE ---
Pressure dressing removed from right brachial. No s/s of bleeding or hematoma formation observed. TR band in remains in place with 4ml of air removed at this time. No swelling or bleeding noted. Waiting for pending PTT to remove sheath removal.
--- NOTE | 2022-01-17 23:28 | PC.NURSE ---
Discussed with patient on need to wait for second PTT due to last being >45. Patient verbalized understanding. Patient still restless and has to have constant reminders to keep his right leg straight. Patient expressed understanding but did state, i just forget sometimes. Will continue to monitor.
[2022-01-18] VITALS (24 sets, daily range): BP systolic 116–160; BP diastolic 45–90; PULSE 60–70; RESP 15–26; TEMP 36.6–36.8; O2SAT 94–97
[2022-01-18 00:53] LABS: Basophils # 0.1 10^3/uL (0.0-0.1); Basophils % 0.8 %; Eosinophils # 0.4 10^3/uL (0.0-0.8); Eosinophils % 6.1 %; Hematocrit 33.5 % (42.0-52.0); Hemoglobin 10.6 g/dL (11.7-16.6); Lymphocytes # 1.3 10^3/uL (0.8-4.8); Lymphocytes % 20.8 %; Mean Corpuscular HGB Conc 31.6 g/dL (30.0-36.0); Mean Corpuscular Hemoglobin 27.7 pg (28.0-34.0); Mean Corpuscular Volume 87.7 fl (80-94); Mean Platelet Volume 10.9 fL (7.4-10.4); Monocytes # 0.6 10^3/uL (0.2-0.9); Monocytes % 9.6 %; Neutrophils # 3.97 10^3/uL (1.8-7.7); Neutrophils % 62.2 %; Nucleated Red Blood Cells % 0 %; Platelet Count 210 10^3/cmm (130-400); Red Blood Count 3.82 10^6/uL (4.1-5.3); Red Cell Distribution Width 14.6 % (12.1-15.1); White Blood Count 6.4 10^3/uL (4.0-10.0)
[2022-01-18 01:04] LABS: Partial Thromboplastin Time 43.3 SECONDS (23.9-36.7)
[2022-01-18 01:19] LABS: Anion Gap 12.3 (5-19); Blood Urea Nitrogen 31 mg/dL (8-23); Calcium 9.6 mg/dL (8.5-10.5); Carbon Dioxide 26 mmol/L (22-29); Chloride 103 mmol/L (98-107); Glucose 187 mg/dL (65-115); Osmolality Calculated 295 mOsm/kg (285-295); Potassium 4.3 mmol/L (3.5-5.1); Sodium 137 mmol/L (136-145)
--- NOTE | 2022-01-18 02:19 | PC.NURSE ---
Initiated sheath removal at 0124 per protocol. Hemostasis achieved immediately. Maintained pressure for 20min. No s/s of bleeding or hematoma formation observed. Covered site with 2x2 and bio-occlusive dressing. Removed TR band at 0150. No s/s fo bleeding or hematoma formation observed. Covered site with 2x2 and coban. Instructed patient on site care and restrictions. Patient verbalized understanding however with need gentle reminding to keep right leg still. Patient denies pain or needs. Will continue to monitor.
[2022-01-18 06:43] LABS: Glucose Point of Care 179 mg/dL (70-110)
[2022-01-18] MEDS: amlodipine 5 mg Tablet 2.5 MG PO (07:58)
[2022-01-18] MEDS: insulin lispro 100 unit/1 mL SUBCUT (07:58)
[2022-01-18] MEDS: metoprolol tartrate 25 mg Tablet 12.5 MG PO (07:59)
[2022-01-18] MEDS: pantoprazole DR 40 mg Tablet PO (07:59)
[2022-01-18] MEDS: sennosides-docusate Tablet 1 TAB PO (07:59)
[2022-01-18] MEDS: aspirin 81 mg EC Tablet PO (07:59)
[2022-01-18] MEDS: clopidogrel 75 mg Tablet PO (07:59)
[2022-01-18] MEDS: budesonide 0.5 mg/2 mL Neb 0.25 MG INHALATION (08:12)
--- NOTE | 2022-01-18 09:06 | PC.SOCIAL ---
IMM Update Pg. 2 of IMM updated and reviewed with patient, who verbalized understanding. Copy provided.
--- NOTE | 2022-01-18 10:22 | PM.DCS ---
Discharge Providers Date of Admission: 01/15/22 16:39 Date of Discharge: January 18, 2022 Attending Provider at Admission: Rk Abad Attending Provider at Discharge: Hilary Ulloa MD Primary Care Provider: Gerry Khan MD Diagnoses at Discharge Discharge Diagnosis (1) Atherosclerotic heart disease of [place] coronary artery with unstable angina pectoris: Status: Acute (2) Aortic valve stenosis, acquired: Status: Acute (3) Congestive heart failure: Status: Acute (4) Chronic kidney disease, stage III (moderate): Status: Chronic (5) Diabetes mellitus: Status: Chronic Qualifiers: Chronic kidney disease stage: stage 3 (moderate) Diabetes mellitus complication detail: with chronic kidney disease Diabetes mellitus complication status: with kidney complications Diabetes mellitus retirement insulin use: without retirement use Diabetes mellitus type: type 2 Qualified Code(s): E11.22 - Type 2 diabetes mellitus with diabetic chronic kidney disease; N18.3 - Chronic kidney disease, stage 3 (moderate) (6) Hypertension: Status: Chronic Qualifiers: Hypertension type: essential hypertension Qualified Code(s): I10 - Essential (primary) hypertension (7) Reactive airway disease: Status: Acute (8) Anemia: Status: Acute Reason for Visit Reason for Visit: Having a hard time breathing Hospital Course Hospital Course Admitting note by Dr. 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 Reports eating his primary doctor and they thought it was his asthma acting up.? States that he had run out of inhalers, and that there was some difficulty in obtaining the inhaler that contains steroid that he had used in the past.? He does not have a list of medications, and currently on the weekend the pharmacy is closed as well.? The one that he can remember he takes his theophylline 3 times a day, but does not remember the dose.? It is not entirely clear what inhalers he had been taking.? However, he denies respiratory symptoms at rest, denies cough, denies any URTI or lower respiratory infection or flulike symptoms.? He occasionally gets ankle edema. Recently the dyspnea exertion, angina on exertion have gotten very limiting, with symptoms recurring even with walking to the restroom and back. He remembers that he had had an intervention on maker but it was years ago, and he does not know for sure whether a stent was placed.? He is not taking aspirin or Plavix due to easy bruising. He is also noted to have acute on chronic anemia, hemoglobin up to 7.? He reports 2 years ago after hospitalization he had some blood in his stool but he states that had resolved.? He had had several colonoscopies but none in a while.? Does not report upper endoscopy. Creatinine also noted elevated 1.6, appears chronic kidney disease is recorded in the chart, but he was not aware of prior kidney issues. He occasionally takes ibuprofen. Hospital course Patient was admitted for management of angina pectoris, for systolic murmur echo was obtained, which showed severe aortic stenosis, patient went for coronary angiogram with stent in his LAD. He was started on aspirin, Plavix high-dose statin along lisinopril and metoprolol. To follow-up with cardiology after his discharge for severe aortic stenosis evaluation and outpatient management/TAVR. Patient was found to have anemia globin of 7, required 2 unit PRBC which improved his H&H. No active GI bleed noted during hospitalization. FOBT negative. He was also given 1 bag of iron. Low normal iron level. Normal B12 and TSH. Exact etiology of this anemia is unknown. Might benefit from an EGD and colonoscopy outpatient for diagnostic purposes. hemoglobin A1c 6.1. He takes Metformin. Patient symptoms resolved he was not experience any chest pain syncope or shortness of breath on exertion anymore. He was able to ambulate in the hallway on his own. Physical Exam Narrative: Pleasant cooperative No active chest pain shortness of breath or syncopal events Patient has been walking down the hallway S1, S2 Systolic murmur Abdomen is soft Looks euvolemic No active signs of heart failure Discharge Data Studies Completed and Pending Completed Studies During Hospitalization Category Date Time Status XR chest 1V portable [id number] Urgent Exams 01/14/22 16:51 Completed CV. echo complete* [id number] Routine Ultrasound 01/15/22 23:18 Completed Pending at discharge Category Date Time Status GROUP LEADER request for service Routine Exams 01/17/22 16:30 Taken Hemoglobin A1C Routine Lab 01/18/22 10:21 Ordered Occult Blood Stool [Immunochemical Fecal OCB] Routine Lab 01/14/22 23:18 Uncollected PRBC [Leukocyte Reduced RBC] Routine Lab 01/14/22 23:40 Results Type and Screen Routine Lab 01/14/22 23:40 Results Radiology Impressions Chest X-Ray 01/14/22 16:51 IMPRESSION: No acute findings. Laboratory Results WBC 6.4 10^3/uL (4.0-10.0) 01/18/22 00:30 RBC 3.82 10^6/uL (4.1-5.3) L 01/18/22 00:30 Hgb 10.6 g/dL (11.7-16.6) L 01/18/22 00:30 Hct 33.5 % (42.0-52.0) L 01/18/22 00:30 MCV 87.7 fl (80-94) 01/18/22 00:30 MCH 27.7 pg (28.0-34.0) L 01/18/22 00:30 MCHC 31.6 g/dL (30.0-36.0) 01/18/22 00:30 RDW 14.6 % (12.1-15.1) 01/18/22 00:30 Plt Count 210 10^3/cmm (130-400) 01/18/22 00:30 MPV 10.9 fL (7.4-10.4) H 01/18/22 00:30 Neut % (Auto) 62.2 % 01/18/22 00:30 Lymph % (Auto) 20.8 % 01/18/22 00:30 [place] % (Auto) 9.6 % 01/18/22 00:30 Eos % (Auto) 6.1 % 01/18/22 00:30 Baso % (Auto) 0.8 % 01/18/22 00:30 Neut # (Auto) 3.97 10^3/uL (1.8-7.7) 01/18/22 00:30 Lymph # (Auto) 1.3 10^3/uL (0.8-4.8) 01/18/22 00:30 [place] # (Auto) 0.6 10^3/uL (0.2-0.9) 01/18/22 00:30 Eos # (Auto) 0.4 10^3/uL (0.0-0.8) 01/18/22 00:30 Baso # (Auto) 0.1 10^3/uL (0.0-0.1) 01/18/22 00:30 Nucleated RBC % (auto) 0 % 01/18/22 00:30 Nucleated RBCs # 0.0 /100WBC 01/18/22 00:30 APTT 43.3 SECONDS (23.9-36.7) H D 01/18/22 00:30 Sodium 137 mmol/L (136-145) 01/18/22 00:30 Potassium 4.3 mmol/L (3.5-5.1) 01/18/22 00:30 Chloride 103 mmol/L (98-107) 01/18/22 00:30 Carbon Dioxide 26 mmol/L (22-29) 01/18/22 00:30 Anion Gap 12.3 (5-19) 01/18/22 00:30 BUN 31 mg/dL (8-23) H 01/18/22 00:30 Creatinine 1.2 mg/dL (0.7-1.2) 01/18/22 00:30 GFR Calculation Not Reportable 01/18/22 00:30 Glucose 187 mg/dL (65-115) H 01/18/22 00:30 POC Glucose 179 mg/dL (70-110) H 01/18/22 06:39 Calculated Osmolality 295 mOsm/kg (285-295) 01/18/22 00:30 Calcium 9.6 mg/dL (8.5-10.5) 01/18/22 00:30 Iron 17 ug/dL (59-158) L 01/14/22 19:19 TIBC 329 mcg/dl 01/14/22 19:19 % Saturation 5.1 % (20-50) L 01/14/22 19:19 Unsat Iron Binding 312 ug/dL (112-347) 01/14/22 19:19 Ferritin 32 ng/mL (30-400) 01/16/22 04:20 Troponin T Gen 5 ng/L 18 ng/L (0-15) H 01/14/22 16:33 Troponin T 120 Minute 19.52 ng/L (0-15) H 01/14/22 19:19 Delta Troponin T Not Reportable 01/14/22 19:19 Troponin T Hi Sens 6Hr 22.25 ng/L (0-15) H 01/15/22 01:07 Troponin T Hi Sens 6Hr Delta Not Reportable 01/15/22 01:07 NT-Pro-B Natriuret Pep 1570 pg/mL (0-450) H 01/14/22 16:33 TSH 2.78 uIU/mL (0.27-4.20) 01/14/22 19:19 Blood Type A Positive 01/14/22 23:40 Rho(D) Type Positive 01/14/22 23:40 Antibody Screen Negative 01/14/22 23:40 Crossmatch See Detail 01/14/22 23:40 Vitals Last Vital Signs Temp 97.9 F 01/18/22 07:09 Pulse 67 01/18/22 07:52 Resp 18 01/18/22 07:52 BP 132/45 01/18/22 07:09 Pulse Ox 96 01/18/22 07:52 Discharge Plan Discharge Patient Disposition: Home Condition: Stable Prescriptions: New atorvastatin 40 mg Tablet 40 mg PO BEDTIME Qty: 60 4RF Stool Softener-Laxative 8.6-50 mg Tablet 1 tab PO DAILY Qty: 5 0RF clopidogrel 75 mg Tablet 75 mg PO DAILY Qty: 60 4RF aspirin 81 mg Tablet,Delayed Release (Dr/Ec) 81 mg PO DAILY Qty: 90 3RF metoprolol tartrate 25 mg Tablet 12.5 mg PO BID@0900,2100 Qty: 60 3RF lisinopril 5 mg tablet 5 mg PO DAILY Qty: 30 3RF Continued glimepiride 4 mg tablet 8 mg PO DAILY 0RF pioglitazone 30 mg tablet 30 mg PO DAILY 0RF metformin 500 mg tablet extended release 24 hr 500 mg PO TID 0RF Januvia 100 mg tablet 100 mg PO DAILY 0RF atorvastatin 10 mg tablet 10 mg PO DAILY 0RF albuterol sulfate 90 mcg/actuation HFA aerosol inhaler 1 - 2 puff INHALATION QID PRN (Reason: Shortness Of Breath) 0RF Discontinued benazepril-hydrochlorothiazide 20-25 mg tablet 20 - 25 tab PO DAILY 0RF Discharge Orders: Discharge Order (Routine); Ordered 01/18/22 Ordered By: Hilary Ulloa Referrals: Breana Craft MD [Physician] - 4-7 days (Please follow-up with Charley Flores on Sunday, January 25 at 10:45A.M. Also, please follow-up with Dr. Craft on March 01 at 10:45P.M. If you have any questions or need to reschedule either appointment. Please call ([phone]) Gerry Khan MD [Primary Care Provider] - 1 week (Please follow-up with Dr. Khan on January 24 at 10:15A.M. If you have any questions or need to reschedule. Please call ) Discharge Diet: Diabetic Discharge Activity: Increase activity as tolerated Patient Instructions: Metoprolol (By mouth), Lisinopril (By mouth) (Prinivil, Zestril), Aspirin (By mouth), Laxative, Stool Softeners (By mouth) (Doculax, Colace, Colace Clear, DSS), Atorvastatin (By mouth) (Lipitor), Clopidogrel (By mouth) (Plavix), Aortic Stenosis (DC), Coronary Intravascular Stent Placement (DC), Aortic Valve Replacement (DC), CHF Stoplight, Chest Pain Stoplight, Post Angiogram Home Care Instructions Discharge Attestations Time Spent in Discharge Care*: less than 30 min Quality Metrics Clinical Quality Measures [ No reported AMI, CVA or VTE this stay] Coding Level of Care Code Acute Chg FW DC note Diagnoses Atherosclerotic heart disease of [place] coronary artery with unstable angina pectoris I25.110 Aortic valve stenosis, acquired I35.0 Congestive heart failure I50.9 Chronic kidney disease, stage III (moderate) N18.3 Diabetes mellitus E11.22; N18.3 Chronic kidney disease stage: stage 3 (moderate) Diabetes mellitus complication detail: with chronic kidney disease Diabetes mellitus complication status: with kidney complications Diabetes mellitus termite exterminator helper insulin use: without termite exterminator helper use Diabetes mellitus type: type 2 Hypertension I10 Hypertension type: essential hypertension Reactive airway disease J45.909 Anemia D64.9
--- NOTE | 2022-01-18 10:42 | PC.CHAP ---
Pastoral Care Encounter/Spiritual Assessment Type of Contact [] Declined weapons and tactics instructor visit [] Patient/Family/Request visit [] Outpatient visit [] Follow-up visit [] Physician referral [] Code/Alert [x] Routine visit [] Staff referral [] Actively dying [] Patient sleeping [] Family support [] [] Out of room [] Palliative care [] [] Receiving care in room [] Pre-surgical visit [] Trauma [] Long length of stay [] ICU visit [] Other: Relational/Emotional Strength [] Patient feels connected with others/family/visitors/staff [] Distress [] Loneliness/isolation [] Abandonment Spirituality of Patient [] Person of Brigette [] Attends Protestant of their Brigette [] Believes in Prayer [] Reads Bible or Episcopalian materials [] There are Spiritual issues to be addressed Cloth Bleaching Range Tender Interventions [x] Prayer [x] Active listening [x] Non-anxious presence [x] Spiritual/emotional support [] Crisis/trauma care [] Spiritual counseling [] Bereavement support [] Provided bereavement packet [] Provided Bible/devotional materials [] Provided toy/stuffed animal, coloring book to patient or family member [] Provided Communion [] Anointing/Hope [] Salvation [x] Completed spiritual assessment [] Other: Impact on Illness or Injury [] Angry [] Fearful [] Anxious [] Often cries [] Exhaustion [] Unable to work [] Unable to attend spiritism [] Unable to walk/stand [] Unable to read [] Unable to drive [] Unable to eat/drink [] Unable to sleep [] Unable to be with family [] Patient intubated [] Other: Summary feeling much stronger Time spent with patient 5 min
[2022-01-18 10:45] LABS: Estmated Average Glucose 128; Hemoglobin A1C 6.1 % (4.0-6.0)
--- NOTE | 2022-01-18 11:19 | PC.NURSE ---
Called [facility] pharmacy pt's preferred pharmacy. called new Rx order.
[2022-01-18 21:19] LABS: Glucose Point of Care 186 mg/dL (70-110)
== END 2022-01-18 12:55 | disposition home or self-care (01) | DRG 247 ==
LOC: ER 22:06 → MEDSURG 22:36 → CSU 01-17 18:28
PROVIDERS: Internal Medicine; Internal Medicine Cardiovascular Disease; Admitting Provider Internal Medicine; Emergency Provider Emergency Medicine; PCP Family Medicine; Visit Provider Internal Medicine
PROC: 027034Z Dilation of Coronary Artery, One Artery with Drug-eluting Intraluminal Device, Percutaneous Approach (ICD-10-PCS; 2022-01-17 16:30)
DX: I25.110 Atherosclerotic heart disease of native coronary artery with unstable angina pectoris (principal); I13.0 Hypertensive heart and chronic kidney disease with heart failure and stage 1 through stage 4 chronic kidney disease, or unspecified chronic kidney disease; I50.32 Chronic diastolic (congestive) heart failure; J45.909 Unspecified asthma, uncomplicated; E11.22 Type 2 diabetes mellitus with diabetic chronic kidney disease; N18.30 Chronic kidney disease, stage 3 unspecified; Z85.118 Personal history of other malignant neoplasm of bronchus and lung; Z92.3 Personal history of irradiation; Z96.651 Presence of right artificial knee joint; D50.9 Iron deficiency anemia, unspecified; R01.1 Cardiac murmur, unspecified; I35.0 Nonrheumatic aortic (valve) stenosis; Z79.84 Long term (current) use of oral hypoglycemic drugs; Z79.51 Long term (current) use of inhaled steroids
CPT/HCPCS: 36415; 36416; 36430; 71045; 80048; 82274; 82728; 82962; 83036; 83540; 83550; 83880; 84443; 84484; 85014; 85018; 85025; 85347; 85730; 86850; 86900; 86920; 93005; 93306; 93453; 93460; 93571; 94640; 96372; C1725; C1751; C1769; C1874; C1887; C1894; C9600; G0378; J1644; J1650; J1756; J1815; J1940; J2250; J3010; J3490; J7030; J7611; J7626; P9016; Q0163; Q9967

== ENCOUNTER → 2022-01-25 10:39 | Outpatient (BNVA) | payer MEDICARE, SELFPAY | PROVIDERS: PCP Family Medicine; Visit Provider Nurse Practitioner Family | DX: D64.9 Anemia, unspecified (principal); I25.118 Atherosclerotic heart disease of native coronary artery with other forms of angina pectoris; I35.0 Nonrheumatic aortic (valve) stenosis; I10 Essential (primary) hypertension | CPT/HCPCS: 36415; 80048; 85025; 99214 ==

== ENCOUNTER 2022-02-11 16:24 | Inpatient (IN) | payer MEDICARE, SELFPAY ==
[2022-02-11] VITALS (16 sets, daily range): BP systolic 106–137; BP diastolic 40–60; PULSE 82–128; RESP 11–21; TEMP 37.1–37.2; O2SAT 97–100; BMI 21.1
--- NOTE | 2022-02-11 16:28 | XRR_ITS ---
PROCEDURE INFORMATION: Exam: XR Chest Exam date and time: 02/11/2022 5:38 PM Age: 81 years old Clinical indication: Pain; Prior surgery; Surgery type: Heart stents; Patient HX: History of cad, status post tr to lad on 01/17 presented to er due to progressively worse fatigue, lightheadedness with walking, also reports since discharge has been having intermittent left-sided chest discomfort; Additional info: Chest pain TECHNIQUE: Imaging protocol: XR of the chest. Views: 1 view. Total images: 1 COMPARISON: CR (CHEST, ) 01/14/2022 4:12 PM FINDINGS: Lungs: Unremarkable. No consolidation. Pleural spaces: Unremarkable. No pleural effusion. No pneumothorax. Heart/Mediastinum: Coronary stent noted. Vasculature: Atherosclerosis is evident. Bones/joints: Osseous structures are unchanged from the prior exam. XR/XR chest 1V portable [id number] IMPRESSION: No acute cardiopulmonary process.
--- NOTE | 2022-02-11 16:28 | ECG_ITS ---
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 Measurements Intervals [place] Rate: 86 P: 60 NC: 166 QRS: 16 QRSD: 84 T: 63 QT: 347 QTc: 417 Interpretive Statements SINUS RHYTHM NONSPECIFIC ST & T-WAVE ABNORMALITY Compared to ECG 01/15/2022 00:19:10 T-wave abnormality now present Ventricular premature complex(es) no longer present Myocardial infarct finding no longer present Electronically Signed On 02-12-2022 16:13:07 CDT by Mikayla Amezcua M.D. [id number]
--- NOTE | 2022-02-11 16:48 | ED_ITS ---
Documented by User: Florentino Lord DO 02/11/22 17:42 HPI - Chest Pain General: Chief Complaint: Weakness Stated Complaint: Cp, SOB Time Seen by Provider: 02/11/22 16:31 Source: patient and family (son) Mode of arrival: ambulatory Limitations: no limitations History of Present Illness: This patient returns to the emergency department because of progressive weakness over the past 7 to 10 days. He had recent hospitalization and received blood transfusion for anemia and will subcu as well as subsequent LAD stenting. He states over the period of time since being discharged he has had increasing weakness with fatigue. He states he has almost continuous chest pain in his left chest. When further investigated he states he feels an occasional thump in his chest. He denies any fevers or chills. He denies any blood in his stools or melanotic stools. He has known aortic stenosis and has a follow-up appointment scheduled in [place] for that condition. Pertinent past history: coronary artery disease Onset: during exertion Pain radiation: none Relieving factors: rest Exacerbating factors: exertion Context: recent surgery Associated symptoms: Reports dyspnea and palpitations; Deny abdominal pain, fever(s), nausea or vomiting Review of Systems Const: Reports: fatigue; Denies: fever(s), chills or body aches Eyes: Denies: change in vision or blurry vision ENMT: Denies: throat pain or odynophagia Card: Reports: palpitations and pre-syncope; Denies: swelling of feet/ankles Resp: Reports: dyspnea; Denies: productive cough or non-productive cough GI: Denies: abdominal pain, nausea, vomiting, diarrhea, change in bowel habits, hematochezia or melena : Denies: flank pain, difficulty urinating, dysuria or urinary frequency Musc: Denies: neck pain, back pain, extremity pain or extremity swelling Skin/Breast: Denies: rash, pruritus or erythema Neuro: Denies: headache(s) or numbness in extremities Endo: Denies: polyuria or polydipsia Nishant/Lymph: Reports: easy bruising; Denies: petechiae or purpura PFSH ED 2 PFSH: Medical History Anemia Angina pectoris, unspecified Aortic valve stenosis, acquired Asthma Atypical chest pain Chronic kidney disease, stage III (moderate) Congestive heart failure Coronary artery disease stent years ago, here, maker Diabetes mellitus Heart murmur Hypertension Legionella infection 2007 Lung cancer chemotherapy and radiation, 1993 Pseudogout Reactive airway disease Surgical History History of arthroplasty of right knee 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 He is somewhat pale appearing. Speech is goal- directed. Const: COMMON NORMALS: no acute distress, patient oriented x3 and alert GENERAL APPEARANCE: cooperative HENMT: COMMON NORMALS: normocephalic, atraumatic, Normal nasal mucous membranes and turbinates present and moist oral mucous membranes HEAD & SCALP: normocephalic and atraumatic NOSE: Normal nasal mucous membranes and turbinates present Eye: COMMON NORMALS: Equal, round and reactive pupils present, EOMs intact bilaterally and no scleral icterus PUPIL: Yes Equal, round and reactive pupils present Neck/C-Spine: COMMON NORMALS: full ROM, no lymphadenopathy, supple, no JVD and No carotid bruits Chest: COMMONS NORMALS: normal inspection of the chest and normal palpation of entire chest wall Resp: COMMON NORMALS: normal respiratory effort, No retractions, No use of accessory muscles and clear to auscultation bilaterally AUSCULTATION: clear to auscultation bilaterally Cardio: COMMON NORMALS: no JVD, regular rate, regular rhythm and Peripheral pulses 2+ throughout RATE: regular rate RHYTHM: regular rhythm HEART SOUNDS: Murmur heart sound present (/) systolic PERIPHERAL PULSES: Peripheral pulses 2+ throughout GI: COMMON NORMALS: Normal to inspection, nondistended, normoactive bowel sounds present, Soft to palpation and non-tender PALPATION: Yes Soft to palpation Back/Pelvis: COMMON NORMALS: thoracic and lumbar spine normal to inspection, no thoracic nor lumbar tenderness, thoraco-lumbar ROM normal and straight leg raise negative bilaterally Extremity: COMMON NORMALS: normal to inspection, full ROM, capillary refill normal, no calf tenderness and no pedal edema Neuro: COMMON NORMALS: patient oriented x3, moves all extremities, no focal motor deficits and no sensory deficits noted SENSORIUM/ORIENTATION: Yes alert Psych: COMMON NORMALS: mental status grossly normal Skin: COMMON NORMALS: turgor normal and no petechiae GENERAL SKIN EXAM: turgor normal and pallor Course Reevaluation(s): Reevaluation #1: Bedside ultrasound was used to visualize the myocardium. A limited parasternal long axis and parasternal short axis view was obtained. It appears to have small amount of pericardial fluid. Adequate cardiac activity and grossly normal ejection fraction was noted. Vital Signs: Vital signs: Vital Signs Temperature 99.0 F 02/11/22 18:30 Pulse Rate 88 02/11/22 18:30 Respiratory Rate 19 H 02/11/22 18:30 Blood Pressure 106/50 02/11/22 18:30 Pulse Oximetry 100 02/11/22 18:30 MDM - Chest Pain Lab Data : 02/11/22 16:48 02/11/22 16:48 Laboratory Results WBC 8.6 10^3/uL (4.0-10.0) 02/11/22 16:48 RBC 1.84 10^6/uL (4.1-5.3) L 02/11/22 16:48 Hgb 5.3 g/dL (11.7-16.6) L* 02/11/22 16:48 Hct 17.3 % (42.0-52.0) L* 02/11/22 16:48 MCV 94.0 fl (80-94) 02/11/22 16:48 MCH 28.8 pg (28.0-34.0) 02/11/22 16:48 MCHC 30.6 g/dL (30.0-36.0) 02/11/22 16:48 RDW 17.5 % (12.1-15.1) H 02/11/22 16:48 Plt Count 244 10^3/cmm (130-400) 02/11/22 16:48 MPV 11.5 fL (7.4-10.4) H 02/11/22 16:48 Neut % (Auto) 69.9 % 02/11/22 16:48 Lymph % (Auto) 20.5 % 02/11/22 16:48 [place] % (Auto) 6.2 % 02/11/22 16:48 Eos % (Auto) 2.2 % 02/11/22 16:48 Baso % (Auto) 0.5 % 02/11/22 16:48 Neut # (Auto) 5.98 10^3/uL (1.8-7.7) 02/11/22 16:48 Lymph # (Auto) 1.8 10^3/uL (0.8-4.8) 02/11/22 16:48 [place] # (Auto) 0.5 10^3/uL (0.2-0.9) 02/11/22 16:48 Eos # (Auto) 0.2 10^3/uL (0.0-0.8) 02/11/22 16:48 Baso # (Auto) 0.0 10^3/uL (0.0-0.1) 02/11/22 16:48 Nucleated RBC % (auto) 0 % 02/11/22 16:48 Nucleated RBCs # 0.0 /100WBC 02/11/22 16:48 PT 14.30 SECONDS (12.1-14.9) 02/11/22 14:48 INR 1.08 (0.8-1.2) 02/11/22 14:48 Sodium 135 mmol/L (136-145) L 02/11/22 16:48 Potassium 5.6 mmol/L (3.5-5.1) H 02/11/22 16:48 Chloride 100 mmol/L (98-107) 02/11/22 16:48 Carbon Dioxide 21 mmol/L (22-29) L 02/11/22 16:48 Anion Gap 19.6 (5-19) H 02/11/22 16:48 BUN 39 mg/dL (8-23) H 02/11/22 16:48 Creatinine 1.3 mg/dL (0.7-1.2) H 02/11/22 16:48 GFR Calculation Not Reportable 02/11/22 16:48 Glucose 249 mg/dL (65-115) H 02/11/22 16:48 Calculated Osmolality 298 mOsm/kg (285-295) H 02/11/22 16:48 Calcium 7.8 mg/dL (8.5-10.5) L 02/11/22 16:48 Troponin T Baseline 16 ng/L (0-15) H 02/11/22 16:48 NT-Pro-B Natriuret Pep 999 pg/mL (0-450) H 02/11/22 16:48 Blood Type A Positive 02/11/22 16:48 Rho(D) Type Positive 02/11/22 16:48 Antibody Screen Negative 02/11/22 16:48 Crossmatch See Detail 02/11/22 16:48 Discharge Plan Discharge Patient Disposition: Placed in Observation Clinical Impression: Anemia Coding Level of Care Code ED Fur Operator for Chg Fwd 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 Documented by User: Qasim Moran MD 02/11/22 18:40 HPI - Chest Pain General: Chief Complaint: Weakness Stated Complaint: Cp, SOB Time Seen by Provider: 02/11/22 16:31 PFSH ED PFSH: Medical History Anemia Angina pectoris, unspecified Aortic valve stenosis, acquired Asthma Atypical chest pain Chronic kidney disease, stage III (moderate) Congestive heart failure Coronary artery disease stent years ago, here, maker Diabetes mellitus Heart murmur Hypertension Legionella infection 2007 Lung cancer chemotherapy and radiation, 1993 Pseudogout Reactive airway disease Surgical History History of arthroplasty of right knee 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 Lab Data : 02/11/22 16:48 02/11/22 16:48 Laboratory Results WBC 8.6 10^3/uL (4.0-10.0) 02/11/22 16:48 RBC 1.84 10^6/uL (4.1-5.3) L 02/11/22 16:48 Hgb 5.3 g/dL (11.7-16.6) L* 02/11/22 16:48 Hct 17.3 % (42.0-52.0) L* 02/11/22 16:48 MCV 94.0 fl (80-94) 02/11/22 16:48 MCH 28.8 pg (28.0-34.0) 02/11/22 16:48 MCHC 30.6 g/dL (30.0-36.0) 02/11/22 16:48 RDW 17.5 % (12.1-15.1) H 02/11/22 16:48 Plt Count 244 10^3/cmm (130-400) 02/11/22 16:48 MPV 11.5 fL (7.4-10.4) H 02/11/22 16:48 Neut % (Auto) 69.9 % 02/11/22 16:48 Lymph % (Auto) 20.5 % 02/11/22 16:48 [place] % (Auto) 6.2 % 02/11/22 16:48 Eos % (Auto) 2.2 % 02/11/22 16:48 Baso % (Auto) 0.5 % 02/11/22 16:48 Neut # (Auto) 5.98 10^3/uL (1.8-7.7) 02/11/22 16:48 Lymph # (Auto) 1.8 10^3/uL (0.8-4.8) 02/11/22 16:48 [place] # (Auto) 0.5 10^3/uL (0.2-0.9) 02/11/22 16:48 Eos # (Auto) 0.2 10^3/uL (0.0-0.8) 02/11/22 16:48 Baso # (Auto) 0.0 10^3/uL (0.0-0.1) 02/11/22 16:48 Nucleated RBC % (auto) 0 % 02/11/22 16:48 Nucleated RBCs # 0.0 /100WBC 02/11/22 16:48 PT 14.30 SECONDS (12.1-14.9) 02/11/22 14:48 INR 1.08 (0.8-1.2) 02/11/22 14:48 Sodium 135 mmol/L (136-145) L 02/11/22 16:48 Potassium 5.6 mmol/L (3.5-5.1) H 02/11/22 16:48 Chloride 100 mmol/L (98-107) 02/11/22 16:48 Carbon Dioxide 21 mmol/L (22-29) L 02/11/22 16:48 Anion Gap 19.6 (5-19) H 02/11/22 16:48 BUN 39 mg/dL (8-23) H 02/11/22 16:48 Creatinine 1.3 mg/dL (0.7-1.2) H 02/11/22 16:48 GFR Calculation Not Reportable 02/11/22 16:48 Glucose 249 mg/dL (65-115) H 02/11/22 16:48 Calculated Osmolality 298 mOsm/kg (285-295) H 02/11/22 16:48 Calcium 7.8 mg/dL (8.5-10.5) L 02/11/22 16:48 Troponin T Baseline 16 ng/L (0-15) H 02/11/22 16:48 NT-Pro-B Natriuret Pep 999 pg/mL (0-450) H 02/11/22 16:48 Blood Type A Positive 02/11/22 16:48 Rho(D) Type Positive 02/11/22 16:48 Antibody Screen Negative 02/11/22 16:48 Crossmatch See Detail 02/11/22 16:48 Discharge Plan Discharge Patient Disposition: Placed in Observation Clinical Impression: Anemia Coding Level of Care Code ED Fur Operator for Chg Fwd 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
--- NOTE | 2022-02-11 16:49 | PC.NURSE ---
PT PLACED ON CONTINUOUS SPO2, NIBP, AND CM.
[2022-02-11 17:06] LABS: Basophils % 0.5 %; Eosinophils # 0.2 10^3/uL (0.0-0.8); Eosinophils % 2.2 %; Lymphocytes # 1.8 10^3/uL (0.8-4.8); Lymphocytes % 20.5 %; Mean Corpuscular HGB Conc 30.6 g/dL (30.0-36.0); Mean Corpuscular Hemoglobin 28.8 pg (28.0-34.0); Mean Platelet Volume 11.5 fL (7.4-10.4); Monocytes # 0.5 10^3/uL (0.2-0.9); Monocytes % 6.2 %; Neutrophils # 5.98 10^3/uL (1.8-7.7); Neutrophils % 69.9 %; Nucleated Red Blood Cells % 0 %; Platelet Count 244 10^3/cmm (130-400); Red Blood Count 1.84 10^6/uL (4.1-5.3); Red Cell Distribution Width 17.5 % (12.1-15.1); White Blood Count 8.6 10^3/uL (4.0-10.0)
[2022-02-11 17:31] LABS: Hemoglobin 5.3 g/dL (11.7-16.6)
[2022-02-11 17:32] LABS: Hematocrit 17.3 % (42.0-52.0)
[2022-02-11 17:39] LABS: Troponin(5th) Baseline 16 ng/L (0-15)
[2022-02-11 17:44] LABS: Blood Urea Nitrogen 39 mg/dL (8-23); Calcium 7.8 mg/dL (8.5-10.5); Carbon Dioxide 21 mmol/L (22-29); Chloride 100 mmol/L (98-107); Glucose 249 mg/dL (65-115); NT Pro B Type Natriuretic Pept 999 pg/mL (0-450); Osmolality Calculated 298 mOsm/kg (285-295); Sodium 135 mmol/L (136-145)
[2022-02-11 18:01] LABS: Anion Gap 19.6 (5-19); Potassium 5.6 mmol/L (3.5-5.1)
[2022-02-11 18:14] LABS: INR 1.08 (0.8-1.2)
--- NOTE | 2022-02-11 18:28 | ECG_ITS ---
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 Measurements Intervals [place] Rate: 89 P: 60 NH: 157 QRS: 3 QRSD: 86 T: 60 QT: 355 QTc: 433 Interpretive Statements SINUS RHYTHM MODERATE ST DEPRESSION [0.05+ mV ST DEPRESSION] Compared to ECG 02/11/2022 16:25:13 ST (T wave) deviation now present T-wave abnormality no longer present Electronically Signed On 02-12-2022 16:22:51 CDT by Mikayla Amezcua M.D. [id number]
--- NOTE | 2022-02-11 19:03 | PC.NURSE ---
REPORT GIVEN TO MARIA T Feldamn RN ASSUMED CARE.
--- NOTE | 2022-02-11 19:10 | PM.HP ---
Providers/Chief Complaint Admitting Physician: Rk Abad Primary Care Provider: Gerry Khan MD Chief Complaint: Cp, SOB History of Present Illness Pleasant 81-year-old gentleman with history of CAD, status post REMY to LAD on 01/17 presented to ER due to progressively worse fatigue, lightheadedness with walking, also reports since discharge has been having intermittent left-sided chest discomfort, on and off dark stools. He reports that after the hospitalization his right knee had swelled up and he was given a course of prednisone for 2 weeks for pseudogout. He states that has resolved. In ER he is found to have hemoglobin of 5.3. During last hospitalization he was also noted to have anemia, required transfusion of 2 units PRBC, last admission hemoglobin was 6.9 on presentation. Hemoccult at the time was negative. He was noted to be iron deficient. Anemia remains normocytic. He has not missed his aspirin Plavix, last dose was this morning. Denies NSAIDs. He reports severe aortic stenosis with consideration of TAVR. He also reports mild suprapubic discomfort like he is having urge to urinate. Review of Systems Const: Reports: fatigue; Denies: fever(s), chills, body aches or malaise Eyes: Denies: change in vision, eye discomfort or eye redness ENMT: Denies: throat pain, oral sores or ear or mastoid pain Card: Reports: chest pain (exertional) and lightheadedness; Denies: edema, pre-syncope or dyspnea on exertion Resp: Denies: dyspnea, productive cough, change in phlegm color or hemoptysis GI: Reports: other (Intermittent dark stools); Denies: nausea, vomiting, diarrhea, constipation or hematochezia : Denies: flank pain, difficulty urinating, urinary frequency or hematuria Musc: Denies: back pain, joint swelling or joint redness Skin/Breast: Denies: rash or new lesions Neuro: Denies: headache(s), numbness in extremities, weakness in extremities, dizziness, confusion or seizure-like activity Endo: Denies: polyuria or polydipsia Nishant/Lymph: Denies: easy bleeding or tender lymph nodes All/Imm: Denies: urticaria or tongue swelling Medications/Allergies Home Medications Medication Instructions Recorded Confirmed Last Taken Type glimepiride 4 mg tablet 8 mg PO DAILY 05/03/20 01/25/22 05/03/20 History metformin 500 mg tablet,extended 500 mg PO TID 05/03/20 01/25/22 Unknown History release 24 hr sitagliptin 100 mg tablet (Januvia) 100 mg PO DAILY 05/03/20 01/25/22 05/02/20 History albuterol sulfate 90 mcg/actuation 1 - 2 puff INHALATION QID PRN 01/15/22 01/25/22 Unknown History aerosol inhaler aspirin 81 mg tablet,delayed 81 mg PO DAILY #90 tab 01/18/22 01/25/22 Unknown Rx release atorvastatin 40 mg tablet 40 mg PO BEDTIME #60 tab 01/18/22 01/25/22 Unknown Rx clopidogrel 75 mg tablet 75 mg PO DAILY #60 tab 01/18/22 01/25/22 Unknown Rx lisinopril 5 mg tablet 5 mg PO DAILY #30 tab 01/18/22 01/25/22 Unknown Rx metoprolol tartrate 25 mg tablet 12.5 mg PO BID@0900,2100 #60 tab 01/18/22 01/25/22 Unknown Rx sennosides 8.6 mg-docusate sodium 1 tab PO DAILY #5 tab 01/18/22 01/25/22 Unknown Rx 50 mg tablet (Stool Softener-Laxative) fluticasone fur. 100 mcg-umeclid 1 ea INHALATION DAILY 02/11/22 02/11/22 02/11/22 History 62.5 mcg-vilant 25 mcg inhalat.powder (Trelegy Ellipta) pantoprazole 40 mg tablet,delayed 40 mg PO DAILY 02/11/22 02/11/22 02/11/22 History release Allergies Allergy/AdvReac Type Severity Reaction Status Date / Time oxytetracycline Allergy ADR-Swelling Verified 02/11/22 16:29 [From Terramycin] of the Eye Penicillins Allergy ALGY-Difficulty Verified 02/11/22 16:29 Swallowing PFSH Acute PFSH: Medical History (Updated 02/11/22 @ 19:17 by Rk Abad MD) Anemia Angina pectoris, unspecified Aortic valve stenosis, acquired Asthma Atypical chest pain Chronic kidney disease, stage III (moderate) Congestive heart failure Coronary artery disease stent years ago, here, maker Diabetes mellitus Heart murmur Hypertension Legionella infection 2008 Lung cancer chemotherapy and radiation, 1994 Pseudogout Reactive airway disease Surgical History History of arthroplasty of right knee 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 Const: COMMON NORMALS: alert GENERAL APPEARANCE: cooperative and other (Pale) ORIENTATION/CONSCIOUSNESS: Yes awake HENMT: COMMON NORMALS: normocephalic, EAC's normal, Normal external nose present and moist oral mucous membranes HEAD & SCALP: normocephalic NOSE: Normal external nose present EXTERNAL AUDITORY CANAL: EAC's normal Neck/C-Spine: COMMON NORMALS: no meningeal signs Chest: CHEST: Yes Symmetrical chest wall rise Resp: COMMON NORMALS: clear to auscultation bilaterally AUSCULTATION: clear to auscultation bilaterally Cardio: COMMON NORMALS: regular rate, regular rhythm and No murmurs present (Cardio) RATE: regular rate RHYTHM: regular rhythm GI: COMMON NORMALS: Normal to inspection, nondistended, normoactive bowel sounds present, Soft to palpation and non-tender PALPATION: Yes Soft to palpation Extremity: COMMON NORMALS: no pedal edema Neuro: COMMON NORMALS: moves all extremities SENSORIUM/ORIENTATION: Yes alert MENINGEAL SIGNS: Yes no meningeal signs Psych: COMMON NORMALS: mental status grossly normal Skin: COMMON NORMALS: no wounds RASHES: no rashes Data : 02/11/22 16:48 02/11/22 16:48 A&P Assessment and plan (1) Anemia: Acute anemia, symptomatic, hemoglobin down to 5.3 while on DAPT. MCV normal. Noted negative Hemoccult last admit. Iron deficient. Completed 2 weeks of prednisone therapy after discharge from the hospital last time. Discussed with him and his family possible upper GI bleed, although given he has had no vamsi stools, no vamsi melanotic stools, more likely slower bleed rather than acute, but cannot definitively tell. However, discussed other possible sources of blood loss, including possible lower GI bleed with Heyde syndrome with severe aortic stenosis, or perhaps low was from shear stress and stenosis. Will request liver parameters, LDH, haptoglobin, reticulocyte. Needs to continue dual antiplatelet if possible. Discussed with him and his family risks involved including risk of worsening bleeding with continuation of therapy given antiplatelet action, however, discussed risk of thrombosis and recently placed LAD stent. At the current point determine severity of bleed. As he has not had vamsi hematochezia, vamsi melena, blood loss appeared to be more gradual over the last several weeks, but certainly explained to them it is difficult to tell. His blood pressure certainly softer than usual, 100/60, mild sinus tachycardia up into the low 90s but mostly staying in the 80s. Discussed since he had already taken his antiplatelet doses today, will transfuse blood, reassess blood counts, in case of good response the would like to continue antiplatelet medications, in case of poor response, consideration may be given to stopping one or both antiplatelets depending on further condition. Discussed with him also consultation for endoscopic evaluation given need for continued DAPT. PPI IV twice daily. NPO Hold lisinopril, metoprolol for now. Monitor blood pressure. Discussed also closer monitoring of blood pressure with possibility of adrenal insufficiency given recurrent steroid therapy. In case decreasing blood pressures consider cortisol assessment, stress dose steroid. Decline in blood pressure, tachycardia, severe anemia, CAD with stenting LAD, severe aortic stenosis, requesting to start his admission in the ICU. Status: Acute (2) Aortic valve stenosis, acquired: Reported severe aortic stenosis with plans for TAVR Status: Acute (3) Hyperkalemia: Hold lisinopril Status: Acute (4) History of steroid therapy: Monitor for adrenal insufficiency. Status: Acute (5) Chronic kidney disease, stage III (moderate): Status: Acute Plan CAD, recent stenting of LAD on 01/17 with REMY, on DAPT. Troponin EKG series is pending. Suprapubic discomfort, urinary urge, requested UA Iron deficiency anemia Chronic kidney disease CHF DM2: Hold oral hypoglycemics. SSI HTN Pseudogout Attestations Medical Necessity Statement*: Admission of over 2 midnights is anticipated for assessment of management of acute symptomatic anemia with CAD, with recent REMY placement to LAD on DAPT Coding Level of Care Code Acute Field Cane Scaler for Chg Fwd Diagnoses Anemia D64.9 Aortic valve stenosis, acquired I35.0 Hyperkalemia E87.5 History of steroid therapy Z92.241 Chronic kidney disease, stage III (moderate) N18.3
[2022-02-11 19:38] LABS: Retic Production Index 1.97; Reticulocyte % 4.5 % (0.5-2.0)
[2022-02-11 19:43] LABS: Hematocrit 17.5 % (42.0-52.0)
--- NOTE | 2022-02-11 19:44 | PC.NURSE ---
Critical Hct reported to Dr. Moran of 17.5. No new orders received, pt currently receiving blood products.
[2022-02-11 20:01] LABS: Alanine Aminotransferase 8 U/L (0-41); Albumin Level 3.3 g/dL (3.5-5.2); Alkaline Phosphatase 57 IU/L (40-130); Globulin 2.6 g/dL (1.3-4.6); Total Bilirubin 0.2 mg/dL (0.15-1.2); Total Protein 5.9 g/dL (6.6-8.7)
[2022-02-11 20:04] LABS: Aspartate Amino Transferase 19 U/L (0-40); Lactate Dehydrogenase 182 U/L (135-225)
[2022-02-11 21:20] LABS: Glucose Point of Care 242 mg/dL (70-110)
[2022-02-11] MEDS: insulin lispro 100 unit/1 mL SUBCUT (21:21)
[2022-02-11] MEDS: atorvastatin 40 mg Tablet PO (21:22)
[2022-02-11] MEDS: pantoprazole 40 mg SDV IVP (21:22)
[2022-02-11 22:26] LABS: Add Urine Microscopic? NO; Charge for UA Resulting for Rev
--- NOTE | 2022-02-11 22:28 | ECG_ITS ---
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 Measurements Intervals [place] Rate: 80 P: 189 IA: 179 QRS: 213 QRSD: 94 T: 120 QT: 380 QTc: 439 Interpretive Statements SINUS RHYTHM WITH OCCASIONAL VENTRICULAR PREMATURE COMPLEXES LEFT POSTERIOR FASCICULAR BLOCK [QRS AXIS > 109, INFERIOR Q] MODERATE ST DEPRESSION [0.05+ mV ST DEPRESSION] Compared to ECG 02/11/2022 18:19:05 Ventricular premature complex(es) now present Left posterior fascicular block now present ST (T wave) deviation still present Electronically Signed On 02-12-2022 16:20:26 CDT by Mikayla Amezcua M.D. [id number]
[2022-02-11 22:30] LABS: Bilirubin Urine Neg (Negative); Blood Urine Neg (Negative); Glucose Urine UA 1+ (Normal); Ketones Urine Negative (Negative); Leukocyte Esterase Urine Negative (Negative); Nitrate Urine Negative (Negative); Protein Urine Neg (Negative); Urine Appearance Clear (CLEAR); Urine Color Yellow (Yellow); Urobilinogen Urine Norm (Negative); pH Urine 5 (5-7)
[2022-02-11 23:23] LABS: Troponin 5 6HR 15.28 ng/L (0-15)
[2022-02-11 23:24] LABS: Troponin 5 6HR Delta -0.72 ng/L (0-12)
[2022-02-12] VITALS (144 sets, daily range): BP systolic 88–141; BP diastolic 35–81; PULSE 75–101; RESP 0–22; TEMP 36.3–37.5; O2SAT 85–99; BMI 23.8
[2022-02-12] MEDS: sodium chloride 0.9% (100 ml) 100 ML 25 ML ×2 (01:46→06:31)
[2022-02-12] MEDS: ondansetron 2 mg/ML SDV 2 mL 4 MG IVP (01:51)
[2022-02-12 03:58] LABS: Basophils % 0.5 %; Eosinophils # 0.2 10^3/uL (0.0-0.8); Eosinophils % 2.7 %; Hematocrit 21.3 % (42.0-52.0); Hemoglobin 6.6 g/dL (11.7-16.6); Lymphocytes # 1.4 10^3/uL (0.8-4.8); Lymphocytes % 17.1 %; Mean Corpuscular Hemoglobin 27.4 pg (28.0-34.0); Mean Corpuscular Volume 88.4 fl (80-94); Mean Platelet Volume 11.2 fL (7.4-10.4); Monocytes # 0.7 10^3/uL (0.2-0.9); Monocytes % 8.7 %; Neutrophils # 5.86 10^3/uL (1.8-7.7); Nucleated Red Blood Cells % 0 %; Platelet Count 179 10^3/cmm (130-400); Red Blood Count 2.41 10^6/uL (4.1-5.3); Red Cell Distribution Width 17.1 % (12.1-15.1); White Blood Count 8.4 10^3/uL (4.0-10.0)
[2022-02-12 04:20] LABS: Alanine Aminotransferase 6 U/L (0-41); Albumin Level 2.7 g/dL (3.5-5.2); Alkaline Phosphatase 44 IU/L (40-130); Anion Gap 13.4 (5-19); Aspartate Amino Transferase 8 U/L (0-40); Blood Urea Nitrogen 45 mg/dL (8-23); Calcium 7.4 mg/dL (8.5-10.5); Carbon Dioxide 24 mmol/L (22-29); Chloride 106 mmol/L (98-107); Globulin 1.6 g/dL (1.3-4.6); Glucose 101 mg/dL (65-115); Osmolality Calculated 300 mOsm/kg (285-295); Potassium 4.4 mmol/L (3.5-5.1); Sodium 139 mmol/L (136-145); Total Bilirubin 1.1 mg/dL (0.15-1.2); Total Protein 4.3 g/dL (6.6-8.7)
[2022-02-12] MEDS: morphine 4 mg/mL SDV 1 mL 2 MG IVP (04:48)
[2022-02-12 05:11] LABS: Glucose Point of Care 165 mg/dL (70-110)
[2022-02-12 06:16] LABS: Troponin T (5th) Once 16 ng/L (0-15)
[2022-02-12 08:15] LABS: Glucose Point of Care 217 mg/dL (70-110)
[2022-02-12] MEDS: pantoprazole 40 mg SDV IVP ×2 (08:18→19:33)
[2022-02-12] MEDS: clopidogrel 75 mg Tablet PO (08:18)
--- NOTE | 2022-02-12 12:18 | CTR_ITS ---
PROCEDURE INFORMATION: Exam: CT Abdomen And Pelvis Without Contrast Exam date and time: 02/12/2022 1:42 PM Age: 81 years old Clinical indication: Abdominal pain; Localized; Left lower quadrant (llq); Additional info: Llq pain TECHNIQUE: Imaging protocol: Computed tomography of the abdomen and pelvis without contrast. Radiation optimization: All CT scans at this facility use at least one of these dose optimization techniques: automated exposure control; mA and/or kV adjustment per patient size (includes targeted exams where dose is matched to clinical indication); or iterative reconstruction. COMPARISON: CT abdomen pelvis w con* [id number] 05/03/2020 6:39 PM RADIATION DOSE METRICS: Total DLP (mGy-cm): 1063.72 FINDINGS: Heart: Multivessel atherosclerotic disease which involves the coronary arteries. Liver: Normal. No mass. Gallbladder and bile ducts: Normal. No calcified stones. No ductal dilation. Pancreas: Mild fatty atrophy of the pancreas. Spleen: Normal. No splenomegaly. Adrenal glands: Normal. No mass. Kidneys and ureters: Normal. No hydronephrosis. Stomach and bowel: Colonic constipation is present. Normal variant interposition of the colon anterior to the liver. This can be associated with abdominal pain. Appendix: A normal appendix is identified. Intraperitoneal space: Unremarkable. No free air. No significant fluid collection. Arteries: Unremarkable. No abdominal aortic aneurysm. Lymph nodes: Unremarkable. No enlarged lymph nodes. Urinary bladder: Unremarkable as visualized. Reproductive: There are calcifications in the prostate gland. Bones/joints: Unremarkable. No acute fracture. Soft tissues: Unremarkable. CT/CT abdomen pelvis wo con [id number] IMPRESSION: 1. Colonic constipation is present. 2. Normal variant interposition of the colon anterior to the liver. This can be associated with abdominal pain.
[2022-02-12 12:21] LABS: Glucose Point of Care 200 mg/dL (70-110)
[2022-02-12] MEDS: insulin lispro 100 unit/1 mL SUBCUT ×2 (12:21→20:10)
[2022-02-12 12:47] LABS: Hematocrit 21.4 % (42.0-52.0); Hemoglobin 6.9 g/dL (11.7-16.6)
--- NOTE | 2022-02-12 14:47 | P.PN_ITS ---
Subjective Subjective: States he is not feeling much better today. He is having left lower quadrant abdominal discomfort. No bowel movement. No outward bleeding. Vitals/I&O/Wt Last Vital Signs Temp 97.5 F L 02/12/22 08:51 Pulse 88 02/12/22 14:45 Resp 16 02/12/22 12:25 BP 128/60 02/12/22 12:25 Pulse Ox 97 02/12/22 12:25 02/11/22 02/12/22 02/12/22 22:59 06:59 14:59 Intake Total 550 / 550 450 / 1000 350 / 350 Output Total 500 / 500 200 / 700 Balance 50 / 50 250 / 300 350 / 350 Weight last 48 hrs Weight 68.946 kg Weight 61.235 kg Physical Exam Narrative: Family at bedside. Const: COMMON NORMALS: alert GENERAL APPEARANCE: cooperative and other (Less pale) ORIENTATION/CONSCIOUSNESS: Yes awake HENMT: COMMON NORMALS: normocephalic, EAC's normal, Normal external nose present and moist oral mucous membranes HEAD & SCALP: normocephalic NOSE: Normal external nose present EXTERNAL AUDITORY CANAL: EAC's normal Neck/C-Spine: COMMON NORMALS: no meningeal signs Chest: CHEST: Yes Symmetrical chest wall rise Resp: COMMON NORMALS: clear to auscultation bilaterally AUSCULTATION: clear to auscultation bilaterally Cardio: COMMON NORMALS: regular rate, regular rhythm and No murmurs present (Cardio) RATE: regular rate RHYTHM: regular rhythm GI: COMMON NORMALS: Normal to inspection, nondistended, normoactive bowel sounds present, Soft to palpation and non-tender PALPATION: Yes Soft to palpation Extremity: COMMON NORMALS: no pedal edema Neuro: COMMON NORMALS: moves all extremities SENSORIUM/ORIENTATION: Yes alert MENINGEAL SIGNS: Yes no meningeal signs Psych: COMMON NORMALS: mental status grossly normal Skin: COMMON NORMALS: no wounds RASHES: no rashes Data : 02/12/22 12:35 02/12/22 02:35 A&P Assessment and plan (1) Anemia: Hemoglobin with partial spots this morning, up to 6.6 after 2 units. Additional 1 unit RBC requested, subsequently again partial response up to 6.9. Hemodynamically has been doing well, however, not hypotensive, with heart rates in the 80s even while off metoprolol. Discussed with him and family regarding holding aspirin, continuing Plavix. Additional unit RBC requested. Continue PPI. With left lower quadrant abdominal tenderness. Requested CT abdomen pelvis. He is also being prepped for endoscopic evaluation in the morning. 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 So far no stools, appears he is also constipated. No signs of hemolysis. However, discussed other possible sources of blood loss, including possible lower GI bleed with Heyde syndrome with severe aortic stenosis, or perhaps low was from shear stress and stenosis. Needs to continue dual antiplatelet if possible. Discussed with him and his family risks involved including risk of worsening bleeding with continuation of therapy given antiplatelet action, however, discussed risk of thrombosis and recently placed LAD stent. Hold lisinopril, metoprolol for now. Monitor blood pressure. Discussed also closer monitoring of blood pressure with possibility of adrenal insufficiency given recurrent steroid therapy. In case decreasing blood pressures consider cortisol assessment, stress dose steroid. Status: Acute (2) Aortic valve stenosis, acquired: Reported severe aortic stenosis with plans for TAVR Status: Acute (3) Hyperkalemia: Hold lisinopril Status: Acute (4) History of steroid therapy: Monitor for adrenal insufficiency. Status: Acute (5) Chronic kidney disease, stage III (moderate): Status: Acute Plan CAD, recent stenting of LAD on 01/17 with REMY, on DAPT. Troponin with minimal elevation, not suggestive of acute OK. Likely some demand secondary to acute anemia. Suprapubic discomfort, urinary urge, requested UA Iron deficiency anemia Chronic kidney disease CHF DM2: Hold oral hypoglycemics. SSI HTN Pseudogout Attestations Medical Necessity Statement*: Continue admission for assessment of management of acute anemia while on antiplatelet medication. 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
--- NOTE | 2022-02-12 17:00 | PC.NURSE ---
Pt has had complaints of abd pain and tenderness in left quadrants. No bowel movement this shift but flatulence is present.
[2022-02-12] MEDS: sodium chloride 0.9% (100 ml) 100 ML (18:42)
[2022-02-12 20:03] LABS: Glucose Point of Care 235 mg/dL (70-110)
[2022-02-12] MEDS: atorvastatin 40 mg Tablet PO (20:11)
[2022-02-12 20:45] LABS: Hematocrit 23.2 % (42.0-52.0); Hemoglobin 7.5 g/dL (11.7-16.6)
[2022-02-13] VITALS (52 sets, daily range): BP systolic 103–163; BP diastolic 44–106; PULSE 58–107; RESP 13–23; TEMP 36.7–36.9; O2SAT 89–99
[2022-02-13] MEDS: sodium chloride 0.9% 1,000 ML 30 ML IV ×2 (04:08→09:18)
[2022-02-13] MEDS: morphine 4 mg/mL SDV 1 mL 2 MG IVP (04:09)
[2022-02-13 04:34] LABS: Glucose Point of Care 165 mg/dL (70-110)
[2022-02-13 05:27] LABS: Basophils # 0.1 10^3/uL (0.0-0.1); Basophils % 0.5 %; Eosinophils # 0.4 10^3/uL (0.0-0.8); Eosinophils % 3.9 %; Hematocrit 25.5 % (42.0-52.0); Hemoglobin 7.8 g/dL (11.7-16.6); Lymphocytes # 1.1 10^3/uL (0.8-4.8); Lymphocytes % 10.6 %; Mean Corpuscular HGB Conc 30.6 g/dL (30.0-36.0); Mean Corpuscular Hemoglobin 27.6 pg (28.0-34.0); Mean Corpuscular Volume 90.1 fl (80-94); Mean Platelet Volume 11.1 fL (7.4-10.4); Monocytes # 0.8 10^3/uL (0.2-0.9); Neutrophils # 7.63 10^3/uL (1.8-7.7); Neutrophils % 76.2 %; Nucleated Red Blood Cells % 0 %; Platelet Count 161 10^3/cmm (130-400); Red Blood Count 2.83 10^6/uL (4.1-5.3); Red Cell Distribution Width 17.3 % (12.1-15.1)
[2022-02-13 05:44] LABS: Alanine Aminotransferase 6 U/L (0-41); Albumin Level 2.8 g/dL (3.5-5.2); Alkaline Phosphatase 51 IU/L (40-130); Anion Gap 12.4 (5-19); Aspartate Amino Transferase 9 U/L (0-40); Blood Urea Nitrogen 40 mg/dL (8-23); Calcium 7.6 mg/dL (8.5-10.5); Carbon Dioxide 24 mmol/L (22-29); Chloride 103 mmol/L (98-107); Globulin 1.8 g/dL (1.3-4.6); Glucose 150 mg/dL (65-115); Osmolality Calculated 293 mOsm/kg (285-295); Potassium 4.4 mmol/L (3.5-5.1); Sodium 135 mmol/L (136-145); Total Bilirubin 1.4 mg/dL (0.15-1.2); Total Protein 4.6 g/dL (6.6-8.7)
[2022-02-13] MEDS: pantoprazole 40 mg SDV IVP ×2 (07:55→19:58)
--- NOTE | 2022-02-13 08:07 | PM.CONSULT ---
Providers/Reason For Consult Consulting Physician/Specialty*: Endoscopy Reason for Consult*: Presumed blood loss anemia Attending Physician: Gurpreet White MD Primary Care Provider: Gerry Khan MD History of Present Illness History of Present Illness Son Cisneros Sr is a 81 year old male who recently underwent stenting. He presented to the emergency department with profound weakness and was noted to be particularly anemic. His primary team is admitted him to the ICU with proton pump inhibitor therapy and blood transfusions. Of note he was placed on double antiplatelet therapy after stenting with high-dose aspirin. I was notified of his admission and spoke with his attending physician and agreed that we should do an upper and lower endoscopy. I ordered an upper and lower endoscopy, as well as the colonoscopy prep. There was some confusion and the prep was not done. He complains of some lower abdomen pain. Denies any hematochezia, or melena. His CT of his abdomen reveals a fair amount of stool. Review of Systems General: Reports: 10 or more systems reviewed and unremarkable except in HPI and below Medications/Allergies Home Medications Medication Instructions Recorded Confirmed Last Taken Type glimepiride 4 mg tablet 4 mg PO BID 05/03/20 02/11/22 02/11/22 History metformin 500 mg tablet,extended 500 mg PO TID 05/03/20 02/11/22 02/11/22 History release 24 hr sitagliptin 100 mg tablet (Januvia) 100 mg PO DAILY 05/03/20 02/11/22 02/11/22 History albuterol sulfate 90 mcg/actuation 1 - 2 puff INHALATION QID PRN 01/15/22 02/11/22 Unknown History aerosol inhaler aspirin 81 mg tablet,delayed 81 mg PO DAILY #90 tab 01/18/22 02/11/22 02/11/22 Rx release atorvastatin 40 mg tablet 40 mg PO BEDTIME #60 tab 01/18/22 02/11/22 02/10/22 Rx clopidogrel 75 mg tablet 75 mg PO DAILY #60 tab 01/18/22 02/11/22 02/11/22 Rx lisinopril 5 mg tablet 5 mg PO DAILY #30 tab 01/18/22 02/11/22 02/11/22 Rx metoprolol tartrate 25 mg tablet 12.5 mg PO BID@0900,2100 #60 tab 01/18/22 02/11/22 02/11/22 Rx sennosides 8.6 mg-docusate sodium 1 tab PO DAILY #5 tab 01/18/22 02/11/22 02/11/22 Rx 50 mg tablet (Stool Softener-Laxative) fluticasone fur. 100 mcg-umeclid 1 ea INHALATION DAILY 02/11/22 02/11/22 02/11/22 History 62.5 mcg-vilant 25 mcg inhalat.powder (Trelegy Ellipta) pantoprazole 40 mg tablet,delayed 40 mg PO DAILY 02/11/22 02/11/22 02/11/22 History release Allergies Allergy/AdvReac Type Severity Reaction Status Date / Time oxytetracycline Allergy ADR-Swelling Verified 02/11/22 16:29 [From Terramycin] of the Eye Penicillins Allergy ALGY-Difficulty Verified 02/11/22 16:29 Swallowing Current Medications Generic Name Dose Route Start Last Admin Trade Name Freq PRN Reason Stop Dose Admin Atorvastatin Calcium 40 mg 02/11/22 21:00 02/12/22 20:11 Atorvastatin 40 Mg Tablet PO 40 mg BEDTIME KUSH Administration Clopidogrel Bisulfate 75 mg 02/12/22 09:00 02/12/22 08:18 Clopidogrel 75 Mg Tablet PO 75 mg DAILY KUSH Administration Sodium Chloride 1,000 mls @ 30 mls/hr 02/12/22 11:24 02/13/22 04:08 Sodium Chloride 0.9% IV 02/13/22 11:23 30 mls/hr .Q24H ONE Administration Insulin Human Lispro 0 unit 02/11/22 20:58 02/13/22 04:29 Insulin Lispro 100 Unit/1 Ml SUBCUT Not Given Q8H KUSH Protocol Morphine Sulfate 2 mg 02/11/22 20:58 02/13/22 04:09 Morphine 4 Mg/Ml Sdv 1 Ml IVP 2 mg Q4H PRN Administration SEVERE PAIN Ondansetron HCl 4 mg 02/11/22 20:58 02/12/22 01:51 Ondansetron 2 Mg/Ml Sdv 2 Ml IVP 4 mg Q8H PRN Administration vomiting, or N/V if npo Pantoprazole Sodium 40 mg 02/11/22 19:15 02/13/22 07:55 Pantoprazole 40 Mg Sdv IVP 40 mg Q12H KUSH Administration PFSH Acute PFSH: Medical History (Updated 02/11/22 @ 19:17 by Rk Abad MD) Anemia Angina pectoris, unspecified Aortic valve stenosis, acquired Asthma Atypical chest pain Chronic kidney disease, stage III (moderate) Congestive heart failure Coronary artery disease stent years ago, here, maker Diabetes mellitus Heart murmur Hypertension Legionella infection 2007 Lung cancer chemotherapy and radiation, 1993 Pseudogout Reactive airway disease Surgical History History of arthroplasty of right knee S/P percutaneous transluminal angioplasty ([employer]) with stent placement Family History Brother Cancer brother Father Cancer Social History Smoking and tobacco status: never smoked Alcohol intake: never Household members: none Vitals/I&O/Wt Last Vital Signs Temp 98.4 F 02/13/22 04:00 Pulse 86 02/13/22 07:40 Resp 16 02/13/22 07:39 BP 132/66 02/13/22 04:00 Pulse Ox 96 02/13/22 07:40 02/12/22 02/13/22 02/13/22 22:59 06:59 14:59 Intake Total 1050 / 1500 400 / 1900 Output Total 700 / 700 850 / 1550 Balance 350 / 800 -450 / 350 Weight last 48 hrs Weight 152 lb Weight 135 lb Physical Exam Narrative: Exam he has no distress at current. He does complain of being hungry and thirsty. His abdominal exam reveals a soft abdomen with a bit of lower abdominal pain. Good bowel sounds. Data : 02/13/22 04:47 02/13/22 04:47 A&P Assessment and plan (1) Anemia: For reasons unclear to me he did not receive his colonoscopy prep last night. That being said, it is likely that his bleeding source is of an upper GI nature. I will proceed with his upper endoscopy this morning, and we will likely make his abdominal pain better with some laxative therapy. We could can pleat the endoscopic exam as an outpatient, as I believe he does need a colonoscopy as well. The likelihood of a significant lower bleed is low, since he did bleed down to a fairly low hemoglobin and has not seen any blood in his stool. Status: Acute Coding Level of Care Code Acute Fruit Ii Farmworker for g Fwd Diagnoses Anemia D64.9
--- NOTE | 2022-02-13 08:58 | P.ANESASSM_ITS ---
Pre-Anesthetic Assessment Height/Weight: Height 1.7 m Weight 68.946 kg Temp Pulse Resp BP Pulse Ox 98.4 F 93 20 H 131/67 95 02/13/22 04:00 02/13/22 08:30 02/13/22 08:30 02/13/22 08:30 02/13/22 08:30 Preop Diagnosis: / chest pain Operation Date: 02/13/22 09:00 Proposed Procedures p EGD(Not Applicable) - Chuckie Garrett MD Familial anesthetic complications: None Was Beta Chuck taken within 24 hours: N/A (Beta chuck held during admission ) Was Clonidine taken within 24 hours: N/A Last intake: 02/12/22 Social No alcohol and No tobacco Exam alert, oriented x 3, clear to auscultation bilaterally and regular rate & rhythm Airway Submandibular: within normal limits Cervical ROM: within normal limits Mallampati: Class II Dentition: chipped Pulmonary Asthma Lung cancer hx CXR 02/11 XR/XR chest 1V portable [id number] IMPRESSION: No acute cardiopulmonary process. ? 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 ? 103 Ht: ? ? 170 cm Wt: ? ? 77 kg BSA: ? ? 1.92 m2 Gender: ? ? Male : ? ? 1940 Accession #: ? ? [id number] Account #: ? ? [id number] Exam Priority: ? ? Routine Procedure(s): Procedure Description: ? ? Diagnostic procedure Procedure Description: ? ? PCI procedure Procedure Description: ? ? Left Heart Catheterization Procedure Description: ? ? Drug Eluting Coronary Stent Procedure Description: ? ? PTCA Procedure Description: ? ? Miscellaneous Procedure Description: ? ? ACT Procedure Description: ? ? Coronary Angiography Procedure Description: ? ? Pressure Wire Venancio GARCIA; Diagnostic Cath Status: ? ? Urgent Diagnostic Findings ? * The left main is a medium caliber vessel which he was found to have around 20% distal narrowing. ? * Left anterior descending artery was found to be a medium caliber vessel which appears to wrap around the LV apex minimally.? The proximal LAD was found to have 20 to 30% diffuse narrowing with moderate calcification. Right at the origin of the second septal actuarial trainee, there was a 60 to 70% segmental narrowing followed by a small ectasia in the LAD. The mid to distal LAD was found to have mild diffuse disease. The first diagonal branch also was found to have moderate to severe diffuse stenosis proximally. ? * The left circumflex artery is a medium caliber vessel which he was found to have around 20 to 30% narrowing at the ostium.? It gives of a moderate to large caliber first obtuse marginal artery.? Then the AV groove branch appears to be bifurcating. One of the bifurcate? branches appears to bifurcate again. Both the bifurcation branches were found to have around 60 to 70% narrowing proximally involving the ostium. ? * Right coronary artery is a medium to large caliber dominant vessel which has extensive calcification in the proximal to mid segment. There are couple of areas of filling defects in the proximal segment before the takeoff of the first RV branch, suggesting thrombus versus calcification. The first RV branch was found to have an ostial around 60% stenosis.? The distal RCA also was found to have a mild to moderate diffuse calcification.? The PLV and PDA branches were found to have mild diffuse disease.? One of the PLV branches was found to have around 60 to 70% segmental narrowing. The PDA branch also was found to have 20 to 30% diffuse narrowing. No other significant stenotic lesions were seen. PCI Status: ? ? Urgent PCI Indication: ? ? Other Interventional Findings ? * Mid Left Anterior Descending:? 70% stenosis treated with a AB TREK 2.50X15 RX BALLOON, and GIGI Penaloza ABA 3.0X30 REMY. ? * Procedure detail: We engaged left main artery with XB 3.5 guide catheter. IV heparin was administered to maintain ACT over 250 S. After normalization pressure wire was advanced into distal LAD. An IFR value of 0.55 was obtained. Pullback was performed that showed gradient was across mid LAD stenosis. We performed predilation with a 2.5 x 15 mm semicompliant balloon.? This was followed by placement of 3.0 x 30 mm resolute Dennis drug-eluting stent. At this point we performed a final angiogram that showed excellent stent expansion, no residual stenosis and JUAN DANIEL-3 flow. Guidewire and guide catheter were removed. 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 Conclusions ? 1. 81-year-old white male with a history of high blood pressure, type 2 diabetes and kidney disease scented with complaints of chest pain and shortness of breath.? Myocardial infarction was ruled out.? Patient was found to have severe low gradient aortic valve stenosis.? Normal LV ejection fraction by echocardiogram.? For further evaluation of the coronary status as well as the valve status, a right and left heart catheterization with right and left coronary angiogram and LV angiogram is recommended.? Patient underwent this procedure yesterday.? The findings are as follows. ? 2. The right atrial pressure was 9 RV pressure was 45 the PA pressure was 56/15 with a mean of 27.? The pulmonary capillary wedge pressure was 16 mmHg. Cardiac output was 5 and index of 3.0, based on Amanda's principle. The peak gradient across the aortic valve was 39 with a mean gradient of 31 millimeters of mercury.The LVEDP was 18 mmHg.? The coronary angiogram revealed moderately severe disease in the mid LAD, in a relatively small caliber obtuse marginal branch and in a small to medium caliber branch of the PLV. Other vessels were found to have mild diffuse disease. Extensive calcification was noted in the proximal to mid LAD and right coronary artery. Possible calcification versus thrombus in the proximal RCA. ? 3. Based on the above findings, it was thought to be appropriate to consider IFR of the mid LAD lesion and then decide about PCI.? This was discussed with Dr. Mayes.? Dr. Mayes to call for further management of this patient at this point. ? 4. Mid Left Anterior Descending was treated with a Balloon, and Drug Eluting Stent. ? 5. Severe mid LAD stenosis confirmed with IFR value of 0.55.? S/p successful revascularization with REMY x1. EKG 02/11 ? Interpretive Statements SINUS RHYTHM WITH OCCASIONAL VENTRICULAR PREMATURE COMPLEXES LEFT POSTERIOR FASCICULAR BLOCK? [QRS AXIS > 109, INFERIOR Q] MODERATE ST DEPRESSION? [0.05+ mV ST DEPRESSION] Compared to ECG 02/11/2022 18:19:05 Ventricular premature complex(es) now present Left posterior fascicular block now present ST (T wave) deviation still present Electronically Signed On 02-12-2022 16:20:26 CDT by Mikayla Amezcua M.D. [id number] TTE 01/15/22 CONCLUSIONS ?Mild to moderate left ventricular hypertrophy. No regional wall ?motion abnormalities. Normal left ventricular size and systolic ?function, EF 75 %. Grade II/IV diastolic dysfunction, moderately ?elevated filling pressures. ?Severe low gradient aortic valve stenosis with a peak velocity ?of 3.9 m/s, peak gradient of 61 and a mean gradient of 32 mmHg ?Mild aortic regurgitation ?Thickened mitral valve. Mild-moderate mitral valve ?regurgitation. ?Mildly increased left atrial size. ?Trace of pulmonic and tricuspid regurgitation ?There is no pericardial effusion. ?There are no intracardiac masses. ?No previous study is available for comparison. Chronic Renal Insufficiency Na 135 Hepatic None reported GI CT A/P 02/12 CT/CT abdomen pelvis wo con [id number] IMPRESSION: 1. Colonic constipation is present. 2. Normal variant interposition of the colon anterior to the liver. This can be associated with abdominal pain. ? Metabolic Diabetes Mellitus Musc/skel Lower Back Pain Pseudogout Anesthetic Plan ASA status: 4 (81 year old male with severe , CKD, DM , HTN, pseudogout now with acute anemia. ) Anesthesia: Anesthesia Evaluation and MAC Other: I discussed with the patient risks, goals, and benefits of MAC and general anesthesia. We discussed spectrum of MAC anesthesia including conversion to gene ral as well as possibility of recall of intraoperative stimuli including discomfort/pain. Patient agrees to proceed with MAC. Risk of > 500 ml blood loss (7ml/kg in children): No Medications/Allergies Home Medications Medication Instructions Recorded Confirmed Last Taken Type glimepiride 4 mg tablet 4 mg PO BID 05/03/20 02/11/22 02/11/22 History metformin 500 mg tablet,extended 500 mg PO TID 05/03/20 02/11/22 02/11/22 History release 24 hr sitagliptin 100 mg tablet (Januvia) 100 mg PO DAILY 05/03/20 02/11/22 02/11/22 History albuterol sulfate 90 mcg/actuation 1 - 2 puff INHALATION QID PRN 01/15/22 02/11/22 Unknown History aerosol inhaler aspirin 81 mg tablet,delayed 81 mg PO DAILY #90 tab 01/18/22 02/11/22 02/11/22 Rx release atorvastatin 40 mg tablet 40 mg PO BEDTIME #60 tab 01/18/22 02/11/22 02/10/22 Rx clopidogrel 75 mg tablet 75 mg PO DAILY #60 tab 01/18/22 02/11/22 02/11/22 Rx lisinopril 5 mg tablet 5 mg PO DAILY #30 tab 01/18/22 02/11/22 02/11/22 Rx metoprolol tartrate 25 mg tablet 12.5 mg PO BID@0900,2100 #60 tab 01/18/22 02/11/22 02/11/22 Rx sennosides 8.6 mg-docusate sodium 1 tab PO DAILY #5 tab 01/18/22 02/11/22 02/11/22 Rx 50 mg tablet (Stool Softener-Laxative) fluticasone fur. 100 mcg-umeclid 1 ea INHALATION DAILY 02/11/22 02/11/22 02/11/22 History 62.5 mcg-vilant 25 mcg inhalat.powder (Trelegy Ellipta) pantoprazole 40 mg tablet,delayed 40 mg PO DAILY 02/11/22 02/11/22 02/11/22 History release Allergies Allergy/AdvReac Type Severity Reaction Status Date / Time oxytetracycline Allergy ADR-Swelling Verified 02/11/22 16:29 [From Terramycin] of the Eye Penicillins Allergy ALGY-Difficulty Verified 02/11/22 16:29 Swallowing Current Medications Generic Name Dose Route Start Last Admin Trade Name Freq PRN Reason Stop Dose Admin Atorvastatin Calcium 40 mg 02/11/22 21:00 02/12/22 20:11 Atorvastatin 40 Mg Tablet PO 40 mg BEDTIME KUSH Administration Clopidogrel Bisulfate 75 mg 02/12/22 09:00 02/12/22 08:18 Clopidogrel 75 Mg Tablet PO 75 mg DAILY KUSH Administration Sodium Chloride 1,000 mls @ 30 mls/hr 02/12/22 11:24 02/13/22 04:08 Sodium Chloride 0.9% IV 02/13/22 11:23 30 mls/hr .Q24H ONE Administration Insulin Human Lispro 0 unit 02/11/22 20:58 02/13/22 04:29 Insulin Lispro 100 Unit/1 Ml SUBCUT Not Given Q8H KUSH Protocol Morphine Sulfate 2 mg 02/11/22 20:58 02/13/22 04:09 Morphine 4 Mg/Ml Sdv 1 Ml IVP 2 mg Q4H PRN Administration SEVERE PAIN Ondansetron HCl 4 mg 02/11/22 20:58 02/12/22 01:51 Ondansetron 2 Mg/Ml Sdv 2 Ml IVP 4 mg Q8H PRN Administration vomiting, or N/V if npo Pantoprazole Sodium 40 mg 02/11/22 19:15 02/13/22 07:55 Pantoprazole 40 Mg Sdv IVP 40 mg Q12H KUSH Administration PFSH Anesthesia Medical History Anemia Angina pectoris, unspecified Aortic valve stenosis, acquired Asthma Atypical chest pain Chronic kidney disease, stage III (moderate) Congestive heart failure Coronary artery disease stent years ago, here, maker Diabetes mellitus Heart murmur Hypertension Legionella infection 2007 Lung cancer chemotherapy and radiation, 1993 Pseudogout Reactive airway disease Surgical History History of arthroplasty of right knee S/P percutaneous transluminal angioplasty (EVISCERATOR) with stent placement Family History Brother Cancer brother Father Cancer Social History Smoking and tobacco status: never smoked Alcohol intake: never Household members: none Data Anesthesia : 02/13/22 04:47 02/13/22 04:47 Short CBC 02/11/22 02/11/22 02/12/22 Range/Units 16:48 16:48 02:35 WBC 8.6 8.4 (4.0-10.0) 10^3/uL Hgb 5.3 L* 6.6 L (11.7-16.6) g/dL Hct 17.3 L* 17.5 L* 21.3 L (42.0-52.0) % MCV 94.0 88.4 D (80-94) fl Plt Count 244 179 (130-400) 10^3/cmm Neut % (Auto) 69.9 70.0 % Neut # (Auto) 5.98 5.86 (1.8-7.7) 10^3/uL 02/12/22 02/12/22 02/13/22 Range/Units 12:35 20:35 04:47 WBC 10.0 (4.0-10.0) 10^3/uL Hgb 6.9 L 7.5 L 7.8 L (11.7-16.6) g/dL Hct 21.4 L 23.2 L 25.5 L (42.0-52.0) % MCV 90.1 (80-94) fl Plt Count 161 (130-400) 10^3/cmm Neut % (Auto) 76.2 % Neut # (Auto) 7.63 (1.8-7.7) 10^3/uL BMP 02/11/22 02/12/22 02/13/22 16:48 02:35 04:47 Sodium 135 L 139 135 L Potassium 5.6 H 4.4 4.4 Chloride 100 106 103 Carbon Dioxide 21 L 24 24 BUN 39 H 45 H 40 H Creatinine 1.3 H 1.1 1.1 Glucose 249 H 101 150 H Calcium 7.8 L 7.4 L 7.6 L Cardiac Enzymes 02/11/22 02/11/22 02/11/22 Range/Units 16:48 16:48 22:39 Troponin T Gen 5 ng/L (0-15) ng/L Troponin T Baseline 16 H (0-15) ng/L Troponin T Hi Sens 6Hr 15.28 H (0-15) ng/L Troponin T Hi Sens 6Hr Delta -0.72 L (0-12) ng/L NT-Pro-B Natriuret Pep 999 H (0-450) pg/mL 02/12/22 Range/Units 02:35 Troponin T Gen 5 ng/L 16 H (0-15) ng/L Troponin T Baseline (0-15) ng/L Troponin T Hi Sens 6Hr (0-15) ng/L Troponin T Hi Sens 6Hr Delta (0-12) ng/L NT-Pro-B Natriuret Pep (0-450) pg/mL Liver Function 02/11/22 02/12/22 02/13/22 Range/Units 16:48 02:35 04:47 Total Bilirubin 0.2 1.1 1.4 H (0.15-1.2) mg/dL Direct Bilirubin 0.20 (0.00-0.30) mg/dL AST 19 8 9 (0-40) U/L ALT 8 6 6 (0-41) U/L Alkaline Phosphatase 57 44 51 (40-130) IU/L Albumin 3.3 L 2.7 L 2.8 L (3.5-5.2) g/dL Urine 02/11/22 Range/Units 22:10 Urine Color Yellow (Yellow) Urine Appearance Clear (CLEAR) Urine pH 5 (5-7) Ur Specific [place] 1.020 (1.005-1.030) Urine Protein Neg (Negative) Urine Glucose (UA) 1+ H (Normal) Urine Ketones Negative (Negative) Urine Nitrate Negative (Negative) Urine Bilirubin Neg (Negative) Ur Leukocyte Esterase Negative (Negative) Blood Bank 02/11/22 16:48 Blood Type A Positive Rho(D) Type Positive Antibody Screen Negative Coags 02/11/22 14:48 PT 14.30 INR 1.08 Cardiac Studies: Echocardiogram 01/15/22
--- NOTE | 2022-02-13 09:58 | PC.CHAP ---
x Pastoral Care Encounter/Spiritual Assessment Type of Contact [] Declined circular knitter visit [] Patient/Family/Request visit [] Outpatient visit [] Follow-up visit [] Physician referral [] Code/Alert [x] Routine visit [] Staff referral [] Actively dying [] Patient sleeping [] Family support [] [] Out of room [] Palliative care [] [] Receiving care in room [] Pre-surgical visit [] Trauma [] Long length of stay [x] ICU visit [] Other: Relational/Emotional Strength [] Patient feels connected with others/family/visitors/staff [] Distress [] Loneliness/isolation [] Abandonment Spirituality of Patient [] Person of Brigette [] Attends Latter Day of their Brigette [] Believes in Prayer [] Reads Bible or Baptist materials [] There are Spiritual issues to be addressed Fondant Puff Maker Interventions [x] Prayer [] Active listening [] Non-anxious presence [] Spiritual/emotional support [] Crisis/trauma care [] Spiritual counseling [] Bereavement support [] Provided bereavement packet [] Provided Bible/devotional materials [] Provided toy/stuffed animal, coloring book to patient or family member [] Provided Communion [] Anointing/[place] [] Salvation [x] Completed spiritual assessment [] Other: Impact on Illness or Injury [] Angry [] Fearful [] Anxious [] Often cries [] Exhaustion [] Unable to work [] Unable to attend quaker [] Unable to walk/stand [] Unable to read [] Unable to drive [] Unable to eat/drink [] Unable to sleep [] Unable to be with family [] Patient intubated [] Other: Summary Time spent with patient
[2022-02-13] MEDS: bisacodyl 5 mg Tablet 10 MG PO ×2 (10:43→12:37)
[2022-02-13] MEDS: clopidogrel 75 mg Tablet PO (10:43)
[2022-02-13] MEDS: magnesium citrate Btl 296 mL PO ×2 (10:44→12:37)
[2022-02-13 12:35] LABS: Glucose Point of Care 234 mg/dL (70-110)
[2022-02-13] MEDS: insulin lispro 100 unit/1 mL SUBCUT ×2 (12:37→20:02)
--- NOTE | 2022-02-13 14:47 | P.PN_ITS ---
Subjective Medications: Medication Review Details: Patient was seen this morning, before his colonoscopy, had a uneventful night, did have large bowel movements overnight, was told that they smelled like a person with a GI bleed, denies any lightheadedness, no dizziness,, he does report bilateral extremity weakness, he tells that he might be developing a gout flare in his lower extremity Vitals/I&O/Wt Last Vital Signs Temp 98.2 F 02/13/22 09:10 Pulse 98 02/13/22 13:00 Resp 18 02/13/22 13:00 BP 145/57 02/13/22 13:00 Pulse Ox 96 02/13/22 13:00 02/12/22 02/13/22 02/13/22 22:59 06:59 14:59 Intake Total 1050 / 1500 400 / 1900 840 / 840 Output Total 700 / 700 850 / 1550 1150 / 1150 Balance 350 / 800 -450 / 350 -310 / -310 Weight last 48 hrs Weight 68.946 kg Weight 61.235 kg Physical Exam Const: COMMON NORMALS: no acute distress and patient oriented x3 Resp: COMMON NORMALS: normal respiratory effort, No retractions, No use of accessory muscles and clear to auscultation bilaterally AUSCULTATION: clear to auscultation bilaterally Cardio: COMMON NORMALS: regular rate, regular rhythm, S1 normal heart sound present and S2 normal heart sound present RATE: regular rate RHYTHM: reg ular rhythm HEART SOUNDS: S1 normal heart sound present and S2 normal heart sound present GI: COMMON NORMALS: Normal to inspection, nondistended, normoactive bowel sounds present, Soft to palpation and non-tender PALPATION: Yes Soft to palpation Extremity: COMMON NORMALS: no pedal edema Neuro: COMMON NORMALS: patient oriented x3 Psych: COMMON NORMALS: mental status grossly normal Data : 02/13/22 04:47 02/13/22 04:47 A&P Assessment and plan (1) Anemia: Hemoglobin as low as 6.6 status post 3 units PRBC did have evidence of lower blood pressures Now hemoglobin 7.8, not hemodynamically unstable, alert oriented x3 Discussed with him and family regarding holding aspirin, continuing Plavix. Continue PPI. With left lower quadrant abdominal tenderness. Will undergo EGD today, did not take bowel prep, possible colonoscopy tomorrow . 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 So far no stools, appears he is also constipated. No signs of hemolysis. However, discussed other possible sources of blood loss, including possible lower GI bleed with Heyde syndrome with severe aortic stenosis, or perhaps low was from shear stress and stenosis. Needs to continue dual antiplatelet if possible. Discussed with him and his fam kenroy risks involved including risk of worsening bleeding with continuation of therapy given antiplatelet action, however, discussed risk of thrombosis and recently placed LAD stent. Hold lisinopril, metoprolol for now. Monitor blood pressure. Discussed also closer monitoring of blood pressure with possibility of adrenal insufficiency given recurrent steroid therapy. In case decreasing blood pr essures consider cortisol assessment, stress dose steroid. Status: Acute (2) Aortic valve stenosis, acquired: Reported severe aortic stenosis with plans for TAVR Status: Acute (3) Hyperkalemia: Hold lisinopril Status: Acute (4) History of steroid therapy: Monitor for adrenal insufficiency. Status: Acute (5) Chronic kidney disease, stage III (moderate): Status: Acute Plan CAD, recent stenting of LAD on 01/17 with REMY, on DAPT. Troponin with minimal elevation, not suggestive of acute [place]. Likely some demand secondary to acute anemia. Suprapubic discomfort, urinary urge, requested UA Gouty flare, will start Solu-Medrol Iron deficiency anemia Chronic kidney disease CHF DM2: Hold oral hypoglycemics. SSI HTN Pseudogout Attestations Medical Necessity Statement*: Patient requires hospitalization for GI bleed Coding Level of Care Code Acute Coroner'S Juror for [facility] Fwd Diagnoses Anemia D64.9 Aortic valve stenosis, acquired I35.0 Hyperkalemia E87.5 History of steroid therapy Z92.241 Chronic kidney disease, stage III (moderate) N18.3
--- NOTE | 2022-02-13 16:22 | PC.NURSE ---
Pt had large, formed, black stool on bedside commode. No sample needed at this time. Dr. sommer
[2022-02-13 18:48] LABS: Basophils % 0.1 %; Hematocrit 24.9 % (42.0-52.0); Hemoglobin 7.9 g/dL (11.7-16.6); Lymphocytes # 0.3 10^3/uL (0.8-4.8); Lymphocytes % 2.8 %; Mean Corpuscular HGB Conc 31.7 g/dL (30.0-36.0); Mean Corpuscular Hemoglobin 27.6 pg (28.0-34.0); Mean Corpuscular Volume 87.1 fl (80-94); Mean Platelet Volume 11.3 fL (7.4-10.4); Monocytes # 0.2 10^3/uL (0.2-0.9); Monocytes % 1.5 %; Neutrophils % 94.6 %; Nucleated Red Blood Cells % 0 %; Platelet Count 176 10^3/cmm (130-400); Red Blood Count 2.86 10^6/uL (4.1-5.3); Red Cell Distribution Width 16.7 % (12.1-15.1); White Blood Count 9.7 10^3/uL (4.0-10.0)
[2022-02-13] MEDS: atorvastatin 40 mg Tablet PO (20:03)
[2022-02-13 20:06] LABS: Glucose Point of Care 422 mg/dL (70-110)
[2022-02-13 22:05] LABS: Glucose Point of Care 352 mg/dL (70-110)
--- NOTE | 2022-02-13 23:40 | PC.NURSE ---
New Orders Received Informed hospitalist that patient bowel movements are still dark and tarry after receiving Dulcolax and Magnesium Citrate. He put in orders to administer Golytely.
[2022-02-14] VITALS (38 sets, daily range): BP systolic 104–153; BP diastolic 44–94; PULSE 51–112; RESP 11–20; TEMP 36.4–37.1; O2SAT 77–100; BMI 21.9
[2022-02-14] MEDS: peg /e-lyte soln 4,000 mL Btl 1500 ML PO (00:12)
[2022-02-14 03:16] LABS: Basophils % 0.1 %; Hematocrit 26.1 % (42.0-52.0); Hemoglobin 8.4 g/dL (11.7-16.6); Lymphocytes # 0.7 10^3/uL (0.8-4.8); Lymphocytes % 5.8 %; Mean Corpuscular HGB Conc 32.2 g/dL (30.0-36.0); Mean Platelet Volume 10.9 fL (7.4-10.4); Monocytes # 0.7 10^3/uL (0.2-0.9); Monocytes % 5.8 %; Neutrophils # 10.03 10^3/uL (1.8-7.7); Neutrophils % 87.6 %; Nucleated Red Blood Cells % 0 %; Platelet Count 216 10^3/cmm (130-400); Red Cell Distribution Width 16.6 % (12.1-15.1); White Blood Count 11.5 10^3/uL (4.0-10.0)
[2022-02-14 03:39] LABS: Alanine Aminotransferase 7 U/L (0-41); Albumin Level 3.4 g/dL (3.5-5.2); Alkaline Phosphatase 63 IU/L (40-130); Anion Gap 14.8 (5-19); Aspartate Amino Transferase 11 U/L (0-40); Blood Urea Nitrogen 27 mg/dL (8-23); Calcium 9.3 mg/dL (8.5-10.5); Carbon Dioxide 25 mmol/L (22-29); Chloride 101 mmol/L (98-107); Globulin 2.3 g/dL (1.3-4.6); Glucose 239 mg/dL (65-115); Osmolality Calculated 295 mOsm/kg (285-295); Potassium 4.8 mmol/L (3.5-5.1); Sodium 136 mmol/L (136-145); Total Bilirubin 1.1 mg/dL (0.15-1.2); Total Protein 5.7 g/dL (6.6-8.7)
--- NOTE | 2022-02-14 04:59 | PC.NURSE ---
Shift Summary Patient has had an eventful shift, gotten up to bedside commode with assistance from staff. Has had roughly 12 bowel movements overnight, all tarry and loose. Voided 380 mls with urinal overnight. Remains on room air, is alert/oriented x4, no wounds are noted at this time.
[2022-02-14] MEDS: insulin lispro 100 unit/1 mL SUBCUT ×2 (05:28→20:43)
[2022-02-14 05:39] LABS: Glucose Point of Care 267 mg/dL (70-110)
[2022-02-14] MEDS: pantoprazole 40 mg SDV IVP ×2 (08:08→19:45)
[2022-02-14 09:29] LABS: Glucose Point of Care 170 mg/dL (70-110)
--- NOTE | 2022-02-14 11:59 | P.PN_ITS ---
Subjective Subjective: Patient was seen this morning, he tells me that he he was up all night drinking his GoLytely, he did have large volume as bowel movements, I was told by nursing staff that they were black and tarry Vitals/I&O/Wt Last Vital Signs Temp 98.7 F 02/14/22 07:30 Pulse 66 02/14/22 09:33 Resp 17 02/14/22 09:33 BP 108/65 02/14/22 09:00 Pulse Ox 98 02/14/22 09:33 02/13/22 02/14/22 02/14/22 22:59 06:59 14:59 Output Total 380 / 1530 Balance -380 / -690 Weight last 48 hrs Weight 63.503 kg Physical Exam Const: COMMON NORMALS: no acute distress and patient oriented x3 Resp: COMMON NORMALS: normal respiratory effort, No retractions, No use of accessory muscles and clear to auscultation bilaterally AUSCULTATION: clear to auscultation bilaterally Cardio: COMMON NORMALS: regular rate, regular rhythm, S1 normal heart sound present and S2 normal heart sound present RATE: regular rate RHYTHM: regular rhythm HEART SOUNDS: S1 normal heart sound present and S2 normal heart sound present GI: COMMON NORMALS: Normal to inspection, nondistended, normoactive bowel sounds present, Soft to palpation and non-tender PALPATION: Yes Soft to palpation Extremity: COMMON NORMALS: no pedal edema Neuro: COMMON NORMALS: patient oriented x3 Psych: COMMON NORMALS: mental status grossly normal Data : 02/14/22 02:36 02/14/22 02:36 A&P Assessment and plan (1) Anemia: Hemoglobin as low as 6.6 status post 3 units PRBC did have evidence of lower blood pressures Now hemoglobin 8.4, not hemodynamically unstable, alert oriented x3 Discussed with him and family regarding holding aspirin, continuing Plavix. Status post EGD with no acute findings Will undergo colonoscopy today Continue PPI. With left lower quadrant abdominal tenderness. 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 Has complaints of black tarry stools, appears he is also constipated. No signs of hemolysis. However, discussed other possible sources of blood loss, including possible lower GI bleed with Heyde syndrome with severe aortic stenosis, or perhaps low was from shear stress and stenosis. Needs to continue dual antiplatelet if possible. Discussed with him and his family risks involved including risk of worsening bleeding with continuation of therapy given antiplatelet action, however, discussed risk of thrombosis and recently placed LAD stent. Hold lisinopril, metoprolol for now. Monitor blood pressure. Discussed also closer monitoring of blood pressure with possibility of adrenal insufficiency given recurrent steroid therapy. In case decreasing blood pre ssures consider cortisol assessment, stress dose steroid. Status: Acute (2) Aortic valve stenosis, acquired: Reported severe aortic stenosis with plans for TAVR Status: Acute (3) Hyperkalemia: Hold lisinopril Status: Acute (4) History of steroid therapy: Monitor for adrenal insufficiency. Status: Acute (5) Chronic kidney disease, stage III (moderate): Status: Acute Plan CAD, recent stenting of LAD on 01/17 with REMY, on DAPT. Troponin with minimal elevation, not suggestive of acute [place]. Likely some demand secondary to acute anemia. Suprapubic discomfort, urinary urge, requested UA Gouty flare, will start Solu-Medrol Iron deficiency anemia Chronic kidney disease CHF DM2: Hold oral hypoglycemics. 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
[2022-02-14] MEDS: sodium chloride 0.9% 1,000 ML 30 ML IV (12:31)
--- NOTE | 2022-02-14 12:33 | P.HP_ITS ---
Same Day Surgery H&P Indication for Procedure/HPI DATE OF PROCEDURE: February 14, 2022 CHIEF COMPLAINT/INDICATIONFOR SURGICAL PROCEDURE: Blood loss anemia. PREOP DIAGNOSIS: / chest pain PLANNED PROCEDURE: Operation Date: 02/13/22 09:00 Proposed Procedures p EGD(Not Applicable) - Chuckie Garrett MD Operation Date: 02/14/22 11:00 Proposed Procedures p Colonoscopy(Not Applicable) - Chuckie Garrett MD Medications/Allergies* Home Medications Medication Instructions Recorded Confirmed Type glimepiride 4 mg tablet 4 mg PO BID 05/03/20 02/11/22 History metformin 500 mg tablet,extended 500 mg PO TID 05/03/20 02/11/22 History release 24 hr sitagliptin 100 mg tablet (Januvia) 100 mg PO DAILY 05/03/20 02/11/22 History albuterol sulfate 90 mcg/actuation 1 - 2 puff INHALATION QID PRN 01/15/22 02/11/22 History aerosol inhaler fluticasone fur. 100 mcg-umeclid 1 ea INHALATION DAILY 02/11/22 02/11/22 History 62.5 mcg-vilant 25 mcg inhalat.powder (Trelegy Ellipta) pantoprazole 40 mg tablet,delayed 40 mg PO DAILY 02/11/22 02/11/22 History release Allergies/Adverse Reactions Allergy/AdvReac Type Severity Reaction Status Date / Time oxytetracycline Allergy ADR-Swelling Verified 02/11/22 16:29 [From Terramycin] of the Eye Penicillins Allergy ALGY-Difficulty Verified 02/11/22 16:29 Swallowing Current Medications: Generic Name Dose Route Start Last Admin Trade Name Viktorq PRN Reason Stop Dose Admin Atorvastatin Calcium 40 mg 02/11/22 21:00 02/13/22 20:03 Atorvastatin 40 Mg Tablet PO 40 mg BEDTIME KUSH Administration Clopidogrel Bisulfate 75 mg 02/12/22 09:00 02/14/22 09:22 Clopidogrel 75 Mg Tablet PO Not Given DAILY KUSH Sodium Chloride 1,000 mls @ 30 mls/hr 02/14/22 12:30 02/14/22 12:31 Sodium Chloride 0.9% IV 02/15/22 12:29 30 mls/hr .Q24H KUSH Administration Insulin Human Lispro 0 unit 02/11/22 20:58 02/14/22 05:28 Insulin Lispro 100 Unit/1 Ml SUBCUT 8 unit Q8H KUSH Administration Protocol Ondansetron HCl 4 mg 02/11/22 20:58 02/12/22 01:51 Ondansetron 2 Mg/Ml Sdv 2 Ml IVP 4 mg Q8H PRN Administration vomiting, or N/V if npo Pantoprazole Sodium 40 mg 02/11/22 19:15 02/14/22 08:08 Pantoprazole 40 Mg Sdv IVP 40 mg Q12H KUSH Administration Pertinent History/Comorbid Conditions* Medical History (Updated 02/11/22 @ 19:17 by Rk Abad MD) Anemia Angina pectoris, unspecified Aortic valve stenosis, acquired Asthma Atypical chest pain Chronic kidney disease, stage III (moderate) Congestive heart failure Coronary artery disease stent years ago, here, maker Diabetes mellitus Heart murmur Hypertension Legionella infection 2007 Lung cancer chemotherapy and radiation, 1993 Pseudogout Reactive airway disease Surgical History (Updated 05/03/20 @ 17:34 by Matthew Schofield DO) History of arthroplasty of right knee S/P percutaneous transluminal angioplasty ([employer]) with stent placement Family History (Updated 05/03/20 @ 22:12 by Ines Moreira MD) Cancer Brother brother Father Social History Smoking and tobacco status: never smoked Alcohol intake: never Household members: none Pertinent Exam Findings alert, oriented x 3, clear to auscultation bilaterally, regular rate & rhythm, operative site marked and procedure specific exam findings Recommendations Surgery/Procedure today Coding Level of Care Code Acute Checkroom Chief for Jose Ahmadi
--- NOTE | 2022-02-14 12:44 | ANES.PAUD2 ---
Documented by User: Kaden Thornton Jr, NITRIC ACID CONCENTRATOR OPERATOR 02/14/22 12:45 Pre-Anesthetic Update Pre-Anesthetic Assessment: Date of Surgery/Procedure: 02/14/22 Preop Diagnosis: / chest pain Proposed Procedure: Operation Date: 02/13/22 09:00 Proposed Procedures p EGD(Not Applicable) - Chuckie Garrett MD Operation Date: 02/14/22 11:00 Proposed Procedures p Colonoscopy(Not Applicable) - Chuckie Garrett MD Any changes to Pre-Anesthetic Assessment?: No Last Intake: 06:00 Labs Last 48hrs: Short CBC 02/12/22 02/12/22 02/13/22 Range/Units 12:35 20:35 04:47 WBC 10.0 (4.0-10.0) 10^3/ uL Hgb 6.9 L 7.5 L 7.8 L (11.7-16.6) g/dL Hct 21.4 L 23.2 L 25.5 L (42.0-52.0) % MCV 90.1 (80-94) fl Plt Count 161 (130-400) 10^3/c mm Neut % (Auto) 76.2 % Neut # (Auto) 7.63 (1.8-7.7) 10^3/u L 02/13/22 02/14/22 Range/Units 18:30 02:36 WBC 9.7 11.5 H (4.0-10.0) 10^3/ uL Hgb 7.9 L 8.4 L (11.7-16.6) g/dL Hct 24.9 L 26.1 L (42.0-52.0) % MCV 87.1 87.0 (80-94) fl Plt Count 176 216 (130-400) 10^3/c mm Neut % (Auto) 94.6 87.6 % Neut # (Auto) 9.20 H 10.03 H (1.8-7.7) 10^3/u L BMP 02/13/22 02/14/22 04:47 02:36 Sodium 135 L 136 Potassium 4.4 4.8 Chloride 103 101 Carbon Dioxide 24 25 BUN 40 H 27 H Creatinine 1.1 1.0 Glucose 150 H 239 H Calcium 7.6 L 9.3 Liver Function 02/13/22 02/14/22 Range/Units 04:47 02:36 Total Bilirubin 1.4 H 1.1 (0.15-1.2) mg/dL AST 9 11 (0-40) U/L ALT 6 7 (0-41) U/L Alkaline Phosphata se 51 63 (40-130) IU/L Albumin 2.8 L 3.4 L (3.5-5.2) g/dL Blood Bank 02/11/22 16:48 Blood Type A Positive Rho(D) Type Positive Antibody Screen Negative Vitals: Temperature 98.2 F 02/14/22 12:33 Temperature Source Temporal Artery S can 02/14/22 12:33 Pulse Rate 112 H 02/14/22 12:33 Pulse Rhythm 02/12/22 17:40 Pulse Strength 2+ Slightly Dimin ished 02/11/22 22:45 Respiratory Rate 18 02/14/22 12:33 Respiratory Effort Non-Labored 02/14/22 08:02 Respiratory Depth Normal 02/14/22 08:02 Respiratory Patter n 02/12/22 16:40 Blood Pressure 128/65 02/14/22 12:33 Blood Pressure Humera n 86 02/14/22 12:33 Blood Pressure Pos ition Semi Fowlers 02/14/22 09:00 Pulse Oximetry 97 02/14/22 12:33 Oxygen Delivery Me thod 02/14/22 12:33 Sepsis Recent Feve r Within 48 Hours No 02/11/22 19:45 Exam: Pre-Anes Outpt Exam: alert, oriented x 3, clear to auscultation bilaterally and regular rate & rhythm Cardiac Studies: Echocardiogram 01/15/22 Documented by User: Sanford Leon 02/14/22 13:21 Pre-Anesthetic Update Pre-Anesthetic Assessment: Date of Surgery/Procedure: 02/14/22 Cardiac Studies: Echocardiogram 01/15/22
--- NOTE | 2022-02-14 13:21 | ANE.PACU2 ---
Inpatient post-anesthesia follow up: Airway intact: Yes Vital signs: Temperature 98.7 F Pulse Rate 112 Respiratory Rate 18 Blood Pressure 108/51 Pulse Oximetry 97 Oxygen Delivery Me thod Room Air Oxygen Flow Rate Fraction of Inspir ed Oxygen Hydration adequate: Yes Nausea and vomiting: No Pain level: 1 Mental status: Baseline
[2022-02-14] MEDS: predniSONE 20 mg Tablet 40 MG PO (14:24)
[2022-02-14] MEDS: clopidogrel 75 mg Tablet PO (14:24)
--- NOTE | 2022-02-14 15:24 | PC.SOCIAL ---
IMM update IMM updated with patient. Copy Pg 2 provided. Verbalized an understanding. Initialled, dated, timed, and placed in chart.
[2022-02-14 15:56] LABS: Glucose Point of Care 253 mg/dL (70-110)
--- NOTE | 2022-02-14 20:27 | PC.NURSE ---
TRANSFER FROM ICU Pt received to room from ICU at 201. Is alert and oriented. Pleasant. Denies any pain or discomfort. Says the Dr told him he thinks bleeding was from blood thinners. Abdomen is soft with minimal generalized tenderness present. Says sure feels better than when he came to the hospital. Denies dizziness or SOB. Minimal weakness. property assessment monitor applied. VS check done.
[2022-02-14] MEDS: atorvastatin 40 mg Tablet PO (20:32)
[2022-02-14 20:49] LABS: Glucose Point of Care 455 mg/dL (70-110)
[2022-02-15] VITALS (9 sets, daily range): BP systolic 117–147; BP diastolic 44–62; PULSE 56–78; RESP 14–18; TEMP 36.3–37.1; O2SAT 94–99
[2022-02-15] MEDS: insulin lispro 100 unit/1 mL SUBCUT (05:35)
[2022-02-15] MEDS: pantoprazole 40 mg SDV IVP (06:22)
[2022-02-15 06:23] LABS: Basophils % 0.1 %; Eosinophils % 0.1 %; Hemoglobin 6.9 g/dL (11.7-16.6); Lymphocytes # 0.8 10^3/uL (0.8-4.8); Lymphocytes % 10.5 %; Mean Corpuscular Hemoglobin 28.5 pg (28.0-34.0); Monocytes # 0.4 10^3/uL (0.2-0.9); Monocytes % 4.9 %; Neutrophils # 5.96 10^3/uL (1.8-7.7); Nucleated Red Blood Cells % 0 %; Platelet Count 164 10^3/cmm (130-400); Red Blood Count 2.42 10^6/uL (4.1-5.3); Red Cell Distribution Width 16.6 % (12.1-15.1); White Blood Count 7.1 10^3/uL (4.0-10.0)
[2022-02-15 06:45] LABS: Alanine Aminotransferase 6 U/L (0-41); Albumin Level 2.7 g/dL (3.5-5.2); Alkaline Phosphatase 51 IU/L (40-130); Anion Gap 13.8 (5-19); Aspartate Amino Transferase 8 U/L (0-40); Blood Urea Nitrogen 23 mg/dL (8-23); Carbon Dioxide 23 mmol/L (22-29); Chloride 101 mmol/L (98-107); Globulin 2.1 g/dL (1.3-4.6); Glucose 259 mg/dL (65-115); Magnesium 2.4 mg/dL (1.7-2.3); Osmolality Calculated 289 mOsm/kg (285-295); Phosphorus 2.9 mg/dL (2.5-4.5); Potassium 4.8 mmol/L (3.5-5.1); Sodium 133 mmol/L (136-145); Total Bilirubin 0.5 mg/dL (0.15-1.2); Total Protein 4.8 g/dL (6.6-8.7)
--- NOTE | 2022-02-15 10:32 | PM.DCS ---
Discharge Providers Date of Admission: 02/11/22 20:57 Date of Discharge: February 15, 2022 Attending Provider at Admission: Rk Abad Attending Provider at Discharge: Gurpreet White MD Primary Care Provider: Gerry Khan MD Diagnoses at Discharge Discharge Diagnosis (1) Anemia: Status: Acute (2) Aortic valve stenosis, acquired: Status: Acute (3) Hyperkalemia: Status: Acute (4) History of steroid therapy: Status: Acute (5) Chronic kidney disease, stage III (moderate): Status: Acute Reason for Visit Reason for Visit: Cp, SOB Brief History: This is a 81-year-old male with a past medical history of CAD status post drug-eluting stent to [facility] 01/17, who presents [facility] due to fatigue, lightheadedness, in the emergency room he was found to have a hemoglobin of 5.3. Patient presented to [facility] for acute anemia, hemoglobin down to 5.3 -Patient was transfused status post 4 units PBC -Managed with Protonix, Carafate -No significant hemodynamic compromise -Has had evidence of black stools -Dr. Garrett was consulted -Underwent EGD with no acute findings -Underwent colonoscopy with no acute findings -Likely patient has GI bleed associate with his severe aortic stenosis -However I have referred him to [facility] gastroenterology for capsule endoscopy -He is following up with frame maker at [facility] for his aortic valve replacement -He is status post stenting to [facility], for now we have stopped aspirin, continue Plavix -Discussed risks and benefits of holding aspirin, risk including but not limited to morbidity mortality associated CAD and recent stent placement, he voices understanding, agreed to proceed -If he has worsening chest pain go to the emergency room -We will have Dr. Khan recheck his hemoglobin in 48 hours -He might have transfusion dependent anemia, will have him follow with Dr. Ashby next week -Advised that if he were to have recurrent lightheadedness, dizziness, weakness go to emergency room Physical Exam Const: COMMON NORMALS: no acute distress and patient oriented x3 Resp: COMMON NORMALS: normal respiratory effort, No retractions, No use of accessory muscles and clear to auscultation bilaterally AUSCULTATION: clear to auscultation bilaterally Cardio: COMMON NORMALS: regular rate, regular rhythm, S1 normal heart sound present and S2 normal heart sound present RATE: regular rate RHYTHM: regular rhythm HEART SOUNDS: S1 normal heart sound present and S2 normal heart sound present GI: COMMON NORMALS: Normal to inspection, nondistended, normoactive bowel sounds present, Soft to palpation and non-tender PALPATION: Yes Soft to palpation Extremity: COMMON NORMALS: no pedal edema Neuro: COMMON NORMALS: patient oriented x3 Psych: COMMON NORMALS: mental status grossly normal Discharge Data Studies Completed and Pending Completed Studies During Hospitalization Category Date Time Status CT abdomen pelvis wo con [id number] Routine Cat Scan 02/12/22 12:18 Completed XR chest 1V portable [id number] Urgent Exams 02/11/22 16:28 Completed Pending at discharge Category Date Time Status Complete Blood Count w/Auto AM LABS Lab 02/16/22 04:00 Ordered Complete Blood Count w/Auto AM LABS Lab 02/17/22 04:00 Ordered Comprehensive Metabolic Panel AM LABS Lab 02/16/22 04:00 Ordered Comprehensive Metabolic Panel AM LABS Lab 02/17/22 04:00 Ordered Leukocyte Reduced RBC Stat Lab 02/15/22 08:30 Results Magnesium AM LABS Lab 02/16/22 04:00 Ordered Magnesium AM LABS Lab 02/17/22 04:00 Ordered PACKED CELLS [Leukocyte Reduced RBC] Routine Lab 02/11/22 16:48 Results Phosphorus AM LABS Lab 02/16/22 04:00 Ordered Phosphorus AM LABS Lab 02/17/22 04:00 Ordered Type and Screen Routine Lab 02/11/22 16:48 Results Type and Screen Stat Lab 02/15/22 08:30 Results Radiology Impressions Chest X-Ray 02/11/22 16:28 IMPRESSION: No acute cardiopulmonary process. Abdomen/Pelvis CT 02/12/22 12:18 IMPRESSION: 1. Colonic constipation is present. 2. Normal variant interposition of the colon anterior to the liver. This can be associated with abdominal pain. Laboratory Results WBC 7.1 10^3/uL (4.0-10.0) 02/15/22 05:54 RBC 2.42 10^6/uL (4.1-5.3) L 02/15/22 05:54 Hgb 6.9 g/dL (11.7-16.6) L 02/15/22 05:54 Hct 23.0 % (42.0-52.0) L 02/15/22 05:54 MCV 95.0 fl (80-94) H D 02/15/22 05:54 MCH 28.5 pg (28.0-34.0) 02/15/22 05:54 MCHC 30.0 g/dL (30.0-36.0) D 02/15/22 05:54 RDW 16.6 % (12.1-15.1) H 02/15/22 05:54 Plt Count 164 10^3/cmm (130-400) 02/15/22 05:54 MPV 11.0 fL (7.4-10.4) H 02/15/22 05:54 Neut % (Auto) 84.0 % 02/15/22 05:54 Lymph % (Auto) 10.5 % 02/15/22 05:54 [place] % (Auto) 4.9 % 02/15/22 05:54 Eos % (Auto) 0.1 % 02/15/22 05:54 Baso % (Auto) 0.1 % 02/15/22 05:54 Reticulocyte % (Auto) 4.5 % (0.5-2.0) H 02/11/22 16:48 Neut # (Auto) 5.96 10^3/uL (1.8-7.7) 02/15/22 05:54 Lymph # (Auto) 0.8 10^3/uL (0.8-4.8) 02/15/22 05:54 [place] # (Auto) 0.4 10^3/uL (0.2-0.9) 02/15/22 05:54 Eos # (Auto) 0.0 10^3/uL (0.0-0.8) 02/15/22 05:54 Baso # (Auto) 0.0 10^3/uL (0.0-0.1) 02/15/22 05:54 Nucleated RBC % (auto) 0 % 02/15/22 05:54 Nucleated RBCs # 0.0 /100WBC 02/15/22 05:54 Retic Production Index 1.97 02/11/22 16:48 Haptoglobin 277.0 mg/L (30-200) H 02/11/22 16:48 PT 14.30 SECONDS (12.1-14.9) 02/11/22 14:48 INR 1.08 (0.8-1.2) 02/11/22 14:48 Sodium 133 mmol/L (136-145) L 02/15/22 05:54 Potassium 4.8 mmol/L (3.5-5.1) 02/15/22 05:54 Chloride 101 mmol/L (98-107) 02/15/22 05:54 Carbon Dioxide 23 mmol/L (22-29) 02/15/22 05:54 Anion Gap 13.8 (5-19) 02/15/22 05:54 BUN 23 mg/dL (8-23) 02/15/22 05:54 Creatinine 1.1 mg/dL (0.7-1.2) 02/15/22 05:54 GFR Calculation Not Reportable 02/15/22 05:54 Glucose 259 mg/dL (65-115) H 02/15/22 05:54 POC Glucose 455 mg/dL (70-110) H 02/14/22 20:34 Calculated Osmolality 289 mOsm/kg (285-295) 02/15/22 05:54 Calcium 9.0 mg/dL (8.5-10.5) 02/15/22 05:54 Phosphorus 2.9 mg/dL (2.5-4.5) 02/15/22 05:54 Magnesium 2.4 mg/dL (1.7-2.3) H 02/15/22 05:54 Total Bilirubin 0.5 mg/dL (0.15-1.2) 02/15/22 05:54 Direct Bilirubin 0.20 mg/dL (0.00-0.30) 02/11/22 16:48 AST 8 U/L (0-40) 02/15/22 05:54 ALT 6 U/L (0-41) 02/15/22 05:54 Alkaline Phosphatase 51 IU/L (40-130) 02/15/22 05:54 Lactate Dehydrogenase 182 U/L (135-225) 02/11/22 16:48 Troponin T Gen 5 ng/L 16 ng/L (0-15) H 02/12/22 02:35 Troponin T Baseline 16 ng/L (0-15) H 02/11/22 16:48 Troponin T Hi Sens 6Hr 15.28 ng/L (0-15) H 02/11/22 22:39 Troponin T Hi Sens 6Hr Delta -0.72 ng/L (0-12) L 02/11/22 22:39 NT-Pro-B Natriuret Pep 999 pg/mL (0-450) H 02/11/22 16:48 Total Protein 4.8 g/dL (6.6-8.7) L 02/15/22 05:54 Albumin 2.7 g/dL (3.5-5.2) L 02/15/22 05:54 Globulin 2.1 g/dL (1.3-4.6) 02/15/22 05:54 Urine Color Yellow (Yellow) 02/11/22 22:10 Urine Appearance Clear (CLEAR) 02/11/22 22:10 Urine pH 5 (5-7) 02/11/22 22:10 Ur Specific [place] 1.020 (1.005-1.030) 02/11/22 22:10 Urine Protein Neg (Negative) 02/11/22 22:10 Urine Glucose (UA) 1+ (Normal) H 02/11/22 22:10 Urine Ketones Negative (Negative) 02/11/22 22:10 Urine Blood Neg (Negative) 02/11/22 22:10 Urine Nitrate Negative (Negative) 02/11/22 22:10 Urine Bilirubin Neg (Negative) 02/11/22 22:10 Urine Urobilinogen Norm mg/dL (Negative) 02/11/22 22:10 Ur Leukocyte Esterase Negative (Negative) 02/11/22 22:10 Blood Type A Positive 02/15/22 08:30 Rho(D) Type Positive 02/15/22 08:30 Antibody Screen Negative 02/15/22 08:30 Crossmatch See Detail 02/15/22 08:30 Vitals Last Vital Signs Temp 97.5 F L 02/15/22 03:36 Pulse 78 02/15/22 06:00 Resp 18 02/15/22 03:36 BP 123/58 02/15/22 03:36 Pulse Ox 95 02/15/22 03:36 Discharge Plan Discharge Patient Disposition: Home Condition: Stable Prescriptions: New prednisone 20 mg Tablet 40 mg PO Q24H 3 Days Qty: 6 0RF sucralfate [Carafate] 1 gram tablet 1 g PO BID 28 Days Qty: 56 0RF Continued glimepiride 4 mg tablet 4 mg PO BID 0RF metformin 500 mg tablet extended release 24 hr 500 mg PO TID 0RF Januvia 100 mg tablet 100 mg PO DAILY 0RF albuterol sulfate 90 mcg/actuation HFA aerosol inhaler 1 - 2 puff INHALATION QID PRN (Reason: Shortness Of Breath) 0RF atorvastatin 40 mg Tablet 40 mg PO BEDTIME Qty: 60 4RF sennosides-docusate sodium [Stool Softener-Laxative] 8.6-50 mg Tablet 1 tab PO DAILY Qty: 5 0RF clopidogrel 75 mg Tablet 75 mg PO DAILY Qty: 60 4RF lisinopril 5 mg tablet 5 mg PO DAILY Qty: 30 3RF Trelegy Ellipta 100-62.5-25 mcg blister with device 1 ea INHALATION DAILY 0RF Changed pantoprazole 40 mg Tablet,Delayed Release (Dr/Ec) 40 mg PO BIDWM 30 Days Qty: 60 0RF Discontinued aspirin 81 mg Tablet,Delayed Release (Dr/Ec) 81 mg PO DAILY Qty: 90 3RF metoprolol tartrate 25 mg Tablet 12.5 mg PO BID@0900,2100 Qty: 60 3RF Discharge Orders: Discharge Order (Routine); Ordered 02/15/22 Ordered By: Gurpreet White Referrals: Gerry Khan MD [Primary Care Provider] - 1-3 days Ashvin Ashby MD [Hospitalist] - 2 weeks Discharge Diet: Cardiac Discharge Activity: Resume usual activity Activity Restrictions/Additional Instructions: - If you feel lightheaded or dizzy go to the emergency room -Please continue Plavix, hold aspirin -Please follow-up with [facility] gastroenterology for consideration of capsule endoscopy -Please follow-up with Dr. Khan on or Sunday for recheck hemoglobin -Follow-up with Dr. Ashby -Follow-up with cardiology and [facility] Discharge Attestations Time Spent in Discharge Care*: less than 30 min Quality Metrics Clinical Quality Measures [ No reported AMI, CVA or VTE this stay] Coding Level of Care Code Acute Chg FW DC note Diagnoses Anemia D64.9 Aortic valve stenosis, acquired I35.0 Hyperkalemia E87.5 History of steroid therapy Z92.241 Chronic kidney disease, stage III (moderate) N18.3
--- NOTE | 2022-02-15 14:01 | PC.NURSE ---
Unable to get a hold of the [facility] to make follow up appointment for patient. Pt states he is ready to go and will make the appointment for himself. Information was also faxed to [facility] gastroenterology for a referral. [phone]
[2022-02-15] MEDS: predniSONE 20 mg Tablet 40 MG PO (14:24)
[2022-02-16 06:29] LABS: Glucose Point of Care 302 mg/dL (70-110)
== END 2022-02-15 14:30 | disposition home or self-care (01) | DRG 812 ==
LOC: ER 18:00 → ICU 21:49 → CSU 02-12 06:04 → MEDSURG 02-14 20:09
PROVIDERS: Emergency Medicine; Internal Medicine; Admitting Provider Internal Medicine; Emergency Provider Emergency Medicine; PCP Family Medicine; Visit Provider Family Medicine
PROC: 0DJ08ZZ Inspection of Upper Intestinal Tract, Via Natural or Artificial Opening Endoscopic (ICD-10-PCS; CPT 43235; principal; 2022-02-13 09:00)
PROC: 0DJD8ZZ Inspection of Lower Intestinal Tract, Via Natural or Artificial Opening Endoscopic (ICD-10-PCS; CPT 45378; principal; 2022-02-14 11:00)
DX: D50.0 Iron deficiency anemia secondary to blood loss (chronic) (principal); K92.2 Gastrointestinal hemorrhage, unspecified; I13.0 Hypertensive heart and chronic kidney disease with heart failure and stage 1 through stage 4 chronic kidney disease, or unspecified chronic kidney disease; I35.0 Nonrheumatic aortic (valve) stenosis; E87.5 Hyperkalemia; Z92.241 Personal history of systemic steroid therapy; N18.30 Chronic kidney disease, stage 3 unspecified; I25.10 Atherosclerotic heart disease of native coronary artery without angina pectoris; Z95.5 Presence of coronary angioplasty implant and graft; E11.9 Type 2 diabetes mellitus without complications; I50.9 Heart failure, unspecified; Z79.84 Long term (current) use of oral hypoglycemic drugs; Z79.82 Long term (current) use of aspirin; Z79.02 Long term (current) use of antithrombotics/antiplatelets; M10.9 Gout, unspecified
CPT/HCPCS: 36415; 36416; 36430; 45378; 71045; 74176; 80048; 80053; 80076; 81003; 82962; 83010; 83615; 83735; 83880; 84100; 84484; 85014; 85018; 85025; 85045; 85610; 86850; 86900; 86920; 93005; 96372; 97110; 97161; 97165; 99285; C9113; J1815; J2270; J2405; J2704; J2920; J7030; J7512; P9016; P9040

== ENCOUNTER 2022-02-22 11:59 | Outpatient (CLI) | payer MEDICARE, SELFPAY ==
[2022-02-22 12:09] LABS: Absolute Eosinophils 0.3 10^3/cmm (0.0-0.7); Absolute Segmented Neutrophil 6.2 10/cmm (1.6-7.1); Band Neutrophils Absolute 0.2 10^3/cmm (0.0-1.2); Eosinophils 4 %; Hematocrit 29.8 % (42.0-52.0); Hemoglobin 9.1 g/dL (11.7-16.6); Lymphocytes 7 %; Lymphocytes Absolute 0.5 10^3/cmm (1.2-3.4); Mean Corpuscular HGB Conc 30.5 g/dL (30.0-36.0); Mean Corpuscular Hemoglobin 27.9 pg (28.0-34.0); Mean Corpuscular Volume 91.4 fl (80-94); Mean Platelet Volume 10.3 fL (7.4-10.4); Monocytes Absolute 0.4 10^3/cmm (0.1-0.6); Platelet Count 276 10^3/cmm (130-400); Red Blood Count 3.26 10^6/uL (4.1-5.3); Red Cell Distribution Width 16.4 % (12.1-15.1); Segmented Neutrophils 81 %; Total Cells Counted 100 (0-100); White Blood Count 7.6 10^3/uL (4.0-10.0)
[2022-02-22 12:10] LABS: Absolute Neutrophil 6.3 10^3/cmm (1.4-6.5); Platelet Estimate Normal (Normal)
== END 2022-02-22 12:00 | disposition home or self-care (01) ==
PROVIDERS: PCP Family Medicine; Visit Provider Family Medicine
DX: D64.9 Anemia, unspecified (principal)
CPT/HCPCS: 85007; 85027

== ENCOUNTER → 2022-03-06 09:49 | Day surgery (SDC) | payer MEDICARE, SELFPAY ==
[2022-03-06 10:15] VITALS: BP 126/46; PULSE 61; RESP 18; TEMP 36.3; O2SAT 100
[2022-03-06] MEDS: ferric carboxy (IVPB) 750 MG in sodium chloride 0.9% (100 ml) 100 ML 345 MG IV (10:27)
== END ==
PROVIDERS: PCP Family Medicine; Visit Provider Family Medicine
DX: D50.9 Iron deficiency anemia, unspecified (principal)
CPT/HCPCS: 96365; J1439

== ENCOUNTER → 2022-03-14 09:47 | Day surgery (SDC) | payer MEDICARE, SELFPAY ==
[2022-03-14] MEDS: ferric carboxy (IVPB) 750 MG in sodium chloride 0.9% (100 ml) 100 ML 345 MG IV (10:05)
[2022-03-14 10:08] VITALS: BP 109/47; PULSE 65; RESP 18; TEMP 36.6; O2SAT 96
== END ==
PROVIDERS: PCP Family Medicine; Visit Provider Family Medicine
DX: D50.9 Iron deficiency anemia, unspecified (principal)
CPT/HCPCS: 96365; J1439

== ENCOUNTER → 2022-05-16 07:52 | Day surgery (SDC) | payer MEDICARE, SELFPAY ==
[2022-05-16 08:09] VITALS: BP 132/47; PULSE 64; RESP 18; TEMP 36.4; O2SAT 98
[2022-05-16] MEDS: ferric carboxy (IVPB) 750 MG in sodium chloride 0.9% (100 ml) 100 ML 345 MG IV (08:09)
== END ==
PROVIDERS: PCP Family Medicine; Visit Provider Family Medicine
DX: K92.2 Gastrointestinal hemorrhage, unspecified (principal)
CPT/HCPCS: 96365; J1439

== ENCOUNTER → 2022-05-23 07:37 | Day surgery (SDC) | payer MEDICARE, SELFPAY ==
[2022-05-23 07:40] VITALS: BP 128/44; PULSE 66; RESP 18; TEMP 36.4; O2SAT 97
[2022-05-23] MEDS: ferric carboxy (IVPB) 750 MG in sodium chloride 0.9% (100 ml) 100 ML 345 MG IV (07:54)
== END ==
PROVIDERS: PCP Family Medicine; Visit Provider Family Medicine
DX: K92.2 Gastrointestinal hemorrhage, unspecified (principal)
CPT/HCPCS: 96365; J1439

== ENCOUNTER 2022-09-04 16:26 | Emergency (ER) | payer MEDICARE, SELFPAY ==
[2022-09-04] VITALS (8 sets, daily range): BP systolic 161–174; BP diastolic 68–78; PULSE 76–82; RESP 16–18; TEMP 36.9; O2SAT 92–95
--- NOTE | 2022-09-04 16:42 | ED_ITS ---
HPI - General Adult General: Chief complaint: General Medical Stated complaint: High fever and too sick to walk Time Seen by Provider: 09/04/22 16:42 History of Present Illness: Mr. Cisneros is an 82-year-old gentleman with history of hypertension, valvular heart disease, CAD, CKD, reported history of gout presenting to the emergency department due to generalized symptoms. He reports about 2 days ago noticing increased pain in his back, hips, and left foot associated with swelling. He has previously had pain in his feet and lower joints as well as hands before but never in his hips and back. Intensity symptoms is severe. Course is worsened. Otherwise feels similar to prior episodes of gout. Has had associated fevers and hyperglycemia. No other specific changes in health, exacerbating, or alleviating factors identified. Onset (ago): day(s) Location: back, pelvis and lower extremity Severity: severe Quality: aching and sharp Pain Consistency: constant Relieving factors: none Exacerbating factors: movement Review of Systems General: Reports: 10 or more systems reviewed and unremarkable except in HPI and below PFSH ED PFSH: Medical History Anemia Angina pectoris, unspecified Aortic valve stenosis, acquired Asthma Atypical chest pain Chronic kidney disease, stage III (moderate) Congestive heart failure Coronary artery disease stent years ago, here, maker Diabetes mellitus Heart murmur Hypertension Legionella infection 2007 Lung cancer chemotherapy and radiation, 1993 Pseudogout Reactive airway disease Surgical History History of arthroplasty of right knee S/P percutaneous transluminal angioplasty (SUPERINTENDENT REFUSE DISPOSAL) with stent placement Family History Brother Cancer brother Father Cancer Social History Smoking and tobacco status: never smoked Alcohol intake: never Household members: none Physical Exam Const: COMMON NORMALS: alert GENERAL APPEARANCE: cooperative and well developed HENMT: COMMON NORMALS: normocephalic and atraumatic HEAD & SCALP: normocephalic and atraumatic Eye: COMMON NORMALS: conjunctivae normal CONJUNCTIVA: Yes conjunctivae normal SCLERA: sclerae normal Neck/C-Spine: COMMON NORMALS: supple GENERAL: Yes trachea midline Resp: COMMON NORMALS: clear to auscultation bilaterally EFFORT & INSPECTION: Yes able to speak in complete sentences AUSCULTATION: clear to auscultation bilaterally Cardio: COMMON NORMALS: regular rate and regular rhythm RATE: regular rate RHYTHM: regular rhythm GI: COMMON NORMALS: Soft to palpation PALPATION: Yes Soft to palpation, Yes Tenderness to palpation present (GI), No Guarding due to palpation present (GI) and No Rigid due to palpation PERCUSSION: normal to percussion Extremity: NARRATIVE EXTREMITY EXAM: ttp generalized LE and hips/back. Mild swelling specific joint focality noted on foot, CMS intact, no overlying skin lesions. GENERAL: Yes normal exam except as noted and No edema Neuro: COMMON NORMALS: moves all extremities SENSORIUM/ORIENTATION: Yes alert and No Orientation impaired Psych: COMMON NORMALS: mental status grossly normal and Normal thought process present THOUGHT PROCESS: Normal thought process present Course Vital Signs: Vital signs: Vital Signs Temperature 98.5 F 09/04/22 16:38 Pulse Rate 82 09/04/22 20:30 Respiratory Rate 18 09/04/22 20:30 Blood Pressure 166/68 09/04/22 20:30 Pulse Oximetry 93 09/04/22 20:30 [facility] - General Adult Medical Decision Making 82-year-old male presenting with generalized arthralgias and weakness. Reports similar feeling to prior gout however different joint distribution. No leukocytosis, normal hemoglobin. Metabolic panel with mild evidence of dehydration. No UTI. CT abdomen and pelvis without acute pathology identified. Patient somewhat improved with analgesia, fluids, steroids. Most likely cause of patient symptoms is unclear though may be related to gout. No evidence of septic joints on exam. The results of ED evaluation were discussed with the patient including prescriptions and/or symptomatic cares (if applicable) including appropriate and responsible use, followup plan, and return precautions. The patient verbalized understanding and felt safe for discharge. Medical Records I reviewed the patient's medical records. Lab Data I reviewed the patient's lab results. : 09/04/22 16:30 09/04/22 16:30 Radiology Impressions Abdomen/Pelvis CT 09/04/22 17:26 IMPRESSION: No acute findings. No urinary tract calculi are identified. Laboratory Results WBC 9.7 10^3/uL (4.0-10.0) 09/04/22 16:30 RBC 4.18 10^6/uL (4.1-5.3) 09/04/22 16:30 Hgb 12.4 g/dL (11.7-16.6) 09/04/22 16: Hct 37.5 % (42.0-52.0) L 09/04/22 16: MCV 89.7 fl (80-94) 09/04/22 16:30 MCH 29.7 pg (28.0-34.0) 09/04/22 16: MCHC 33.1 g/dL (30.0-36.0) 09/04/22 16: RDW 12.8 % (12.1-15.1) 09/04/22 16: Plt Count 249 10^3/cmm (130-400) 09/04/22 16: MPV 10.0 fL (7.4-10.4) 09/04/22 16:30 Neut % (Auto) 72.1 % 09/04/22 16:30 Lymph % (Auto) 15.4 % 09/04/22 16:30 [place] % (Auto) 9.6 % 09/04/22 16:30 Eos % (Auto) 2.0 % 09/04/22 16:30 Baso % (Auto) 0.4 % 09/04/22 16: Neut # (Auto) 6.99 10^3/uL (1.8-7.7) 09/04/22 16:30 Lymph # (Auto) 1.5 10^3/uL (0.8-4.8) 09/04/22 16:30 [place] # (Auto) 0.9 10^3/uL (0.2-0.9) 09/04/22 16:30 Eos # (Auto) 0.2 10^3/uL (0.0-0.8) 09/04/22 16:30 Baso # (Auto) 0.0 10^3/uL (0.0-0.1) 09/04/22 16: Nucleated RBC % (auto) 0 % 09/04/22 16: Nucleated RBCs # 0.0 /100WBC 09/04/22 16: Sodium 128 mmol/L (136-145) L 09/04/22 16: Potassium 4.7 mmol/L (3.5-5.1) 09/04/22 16:30 Chloride 92 mmol/L (98-107) L 09/04/22 16:30 Carbon Dioxide 27 mmol/L (22-29) 09/04/22 16:30 Anion Gap 13.7 (5-19) 09/04/22 16:30 BUN 16 mg/dL (8-23) 09/04/22 16:30 Creatinine 0.9 mg/dL (0.7-1.2) 09/04/22 16: GFR Calculation Not Reportable 09/04/22 16: Glucose 303 mg/dL (65-115) H 09/04/22 16:30 Calculated Osmolality 279 mOsm/kg (285-295) L 09/04/22 16: Lactic Acid 2.5 mmol/L (0.5-2.2) H 09/04/22 16:30 Lactic Acid (Sepsis) 1.1 mmol/L (0.5-2.2) 09/04/22 19: Calcium 9.8 mg/dL (8.5-10.5) 09/04/22 16: Total Bilirubin 1.9 mg/dL (0.15-1.2) H 09/04/22 16:30 AST 10 U/L (0-40) 09/04/22 16:30 ALT 10 U/L (0-41) 09/04/22 16:30 Alkaline Phosphatase 118 U/L (40-130) 09/04/22 16:30 Total Protein 7.2 g/dL (6.6-8.7) 09/04/22 16: Albumin 3.8 g/dL (3.5-5.2) 09/04/22 16:30 Globulin 3.4 g/dL (1.3-4.6) 09/04/22 16:30 Urine Color Yellow (Yellow) 09/04/22 19: Urine Appearance Clear (CLEAR) 09/04/22 19: Urine pH 5 (5-7) 09/04/22 19: Ur Specific [place] 1.015 (1.005-1.030) 09/04/22 19: Urine Protein Neg (Negative) 09/04/22 19: Urine Glucose (UA) 4+ (Normal) H 09/04/22 19:01 Urine Ketones Negative (Negative) 09/04/22 19:01 Urine Blood Neg (Negative) 09/04/22 19: Urine Nitrate Negative (Negative) 09/04/22 19:01 Urine Bilirubin Neg (Negative) 09/04/22 19:01 Urine Urobilinogen Norm mg/dL (Negative) 09/04/22 19:01 Ur Leukocyte Esterase Negative (Negative) 09/04/22 19:01 Discharge Plan Discharge Patient Disposition: Home Clinical Impression: Gout, Hyperglycemia, Malaise and fatigue Condition: Stable Prescriptions: New oxycodone 5 mg tablet 5 mg PO Q4H PRN (Reason: pain) Qty: 20 0RF prednisone 10 mg tablet See Taper PO DAILY Qty: 42 0RF Taper: predniSONE 60-10 60 mg Daily for 2 Days and 0 Hour 50 mg Daily for 2 Days and 0 Hour 40 mg Daily for 2 Days and 0 Hour 30 mg Daily for 2 Days and 0 Hour 20 mg Daily for 2 Days and 0 Hour 10 mg Daily for 2 Days and 0 Hour Rx Instructions: Taper 60 mg x 2 day, then 50 mg x 2 days, continuing to decrease following this pattern No Action glimepiride 4 mg tablet 4 mg PO BID metformin 500 mg tablet extended release 24 hr 500 mg PO TID Januvia 100 mg tablet 100 mg PO DAILY atorvastatin 40 mg Tablet 40 mg PO BEDTIME Qty: 60 4RF clopidogrel 75 mg Tablet 75 mg PO DAILY Qty: 60 4RF nitroglycerin [Nitrostat] 0.3 mg Tablet, Sublingual 0.3 mg SUBLINGUAL Q5M PRN (Reason: Pain) Rx Instructions: do not exceed 3 doses per episode metoprolol tartrate 25 mg tablet 12.5 mg PO BID Discharge Orders: Discharge ED (Routine); Ordered 09/04/22 Ordered By: Ritesh Miles Referrals: Gerry Khan MD [Primary Care Provider] - Discharge Diet: Diabetic Discharge Activity: Increase activity as tolerated Patient Instructions: Gout (ED), Opioid Safety, Pain Management Activity Restrictions/Additional Instructions: Thank you for visiting the emergency department. You were seen and evaluated for generalized symptoms. The most likely cause of your symptoms is gout. Given history of GI bleeding the typical treatment of NSAIDs is likely not ideal. I will prescribe oxycodone. Please use this cautiously as it is an o pioid and can cause respiratory and central nervous system depression, gait problems, and a common side effect is constipation. You should use kyyc-osm-kinujmb MiraLAX or other stool softeners while taking this. Additionally, I will prescribe steroids which given your high blood sugar may cause worsening. Please switch your metformin while taking the steroid taper from your current dosage to 1000 mg twice daily. Please follow-up with your primary care provider. I would expect improvement in the next few days however if symptoms persist or worsen please return to the emergency department. Also return to the emergency department for anything else that you are concerned about a feel needs emergency department evaluation. Coding Level of Care Code ED Assistant [employer] for [employer] Ahmadi
[2022-09-04 16:59] LABS: Basophils % 0.4 %; Eosinophils # 0.2 10^3/uL (0.0-0.8); Hematocrit 37.5 % (42.0-52.0); Hemoglobin 12.4 g/dL (11.7-16.6); Lymphocytes # 1.5 10^3/uL (0.8-4.8); Lymphocytes % 15.4 %; Mean Corpuscular HGB Conc 33.1 g/dL (30.0-36.0); Mean Corpuscular Hemoglobin 29.7 pg (28.0-34.0); Mean Corpuscular Volume 89.7 fl (80-94); Monocytes # 0.9 10^3/uL (0.2-0.9); Monocytes % 9.6 %; Neutrophils # 6.99 10^3/uL (1.8-7.7); Neutrophils % 72.1 %; Nucleated Red Blood Cells % 0 %; Platelet Count 249 10^3/cmm (130-400); Red Blood Count 4.18 10^6/uL (4.1-5.3); Red Cell Distribution Width 12.8 % (12.1-15.1); White Blood Count 9.7 10^3/uL (4.0-10.0)
--- NOTE | 2022-09-04 17:26 | CTR_ITS ---
PROCEDURE INFORMATION: Exam: CT Abdomen And Pelvis Without Contrast Exam date and time: 09/04/2022 5:34 PM Age: 82 years old Clinical indication: Pain; Other: Back; Additional info: Flank and back pain, pelvic pain TECHNIQUE: Imaging protocol: Computed tomography of the abdomen and pelvis without contrast. Radiation optimization: All CT scans at this facility use at least one of these dose optimization techniques: automated exposure control; mA and/or kV adjustment per patient size (includes targeted exams where dose is matched to clinical indication); or iterative reconstruction. COMPARISON: CT abdomen pelvis wo con [id number] 02/12/2022 1:42 PM RADIATION DOSE METRICS: Total DLP (mGy-cm): 518.48 FINDINGS: Limitations: The absence of intravenous contrast lessens the sensitivity of this study for solid organ abnormalities. Lungs: There is calcified granuloma in the left lower lobe. Small 4 mm perifissural nodule series 4, image number 24 unchanged since at least 05/03/2020. No further evaluation or follow-up necessary. Heart: There are findings of TAVR. Diaphragm: There is a small hiatal hernia. Liver: There is no focal abnormality within the liver. Gallbladder and bile ducts: The gallbladder is normal. Pancreas: Pancreas is mildly atrophic. Calcifications associated with the pancreas are likely vascular such as in the splenic artery. Spleen: The spleen is normal. Adrenal glands: The adrenal glands are normal. Kidneys and ureters: The kidneys are normal. There is no evidence of hydronephrosis. There is no evidence of renal or ureteral calcifications. Stomach and bowel: There is no evidence of colitis/diverticulitis. There is no evidence of intestinal obstruction. Appendix: A normal appendix is identified. Intraperitoneal space: There is no evidence of free intraperitoneal fluid. Vasculature: The aorta demonstrates moderate atherosclerotic calcification. Lymph nodes: There is no evidence of lymphadenopathy. Urinary bladder: Unremarkable as visualized. Reproductive: The prostate gland demonstrates nonspecific parenchymal calcifications. Bones/joints: The lumbar spine demonstrates mild degenerative changes at multiple levels. Soft tissues: Unremarkable. CT/CT kidney stone [id number] IMPRESSION: No acute findings. No urinary tract calculi are identified.
[2022-09-04] MEDS: morphine 4 mg/mL SDV 1 mL IVP ×2 (18:12→19:16)
[2022-09-04 18:24] LABS: Lactic Sepsis W/Reflex 2.5 mmol/L (0.5-2.2)
[2022-09-04 18:25] LABS: Alanine Aminotransferase 10 U/L (0-41); Albumin Level 3.8 g/dL (3.5-5.2); Alkaline Phosphatase 118 U/L (40-130); Anion Gap 13.7 (5-19); Aspartate Amino Transferase 10 U/L (0-40); Blood Urea Nitrogen 16 mg/dL (8-23); Calcium 9.8 mg/dL (8.5-10.5); Carbon Dioxide 27 mmol/L (22-29); Chloride 92 mmol/L (98-107); Globulin 3.4 g/dL (1.3-4.6); Glucose 303 mg/dL (65-115); Osmolality Calculated 279 mOsm/kg (285-295); Potassium 4.7 mmol/L (3.5-5.1); Sodium 128 mmol/L (136-145); Total Bilirubin 1.9 mg/dL (0.15-1.2); Total Protein 7.2 g/dL (6.6-8.7)
[2022-09-04 18:44] LABS: Reflex Lactate Order REFLEX LACTIC ORDERD
[2022-09-04] MEDS: sodium chloride 0.9% 1,000 ML 999 ML IV (18:58)
[2022-09-04 19:11] LABS: Add Urine Microscopic? NO; Charge for UA Resulting for Rev
[2022-09-04 19:58] LABS: Bilirubin Urine Neg (Negative); Blood Urine Neg (Negative); Glucose Urine UA 4+ (Normal); Ketones Urine Negative (Negative); Leukocyte Esterase Urine Negative (Negative); Nitrate Urine Negative (Negative); Protein Urine Neg (Negative); Specific Gravity, Urine 1.015 (1.005-1.030); Urine Appearance Clear (CLEAR); Urine Color Yellow (Yellow); Urobilinogen Urine Norm (Negative); pH Urine 5 (5-7)
[2022-09-04 20:26] LABS: Lactic Acid level (Lactate) 1.1 mmol/L (0.5-2.2)
== END 2022-09-04 20:34 | disposition home or self-care (01) ==
PROVIDERS: Emergency Provider Emergency Medicine; PCP Family Medicine
DX: M10.9 Gout, unspecified (principal); E11.65 Type 2 diabetes mellitus with hyperglycemia; R53.81 Other malaise; R53.83 Other fatigue; Z79.84 Long term (current) use of oral hypoglycemic drugs; Z79.02 Long term (current) use of antithrombotics/antiplatelets; I13.0 Hypertensive heart and chronic kidney disease with heart failure and stage 1 through stage 4 chronic kidney disease, or unspecified chronic kidney disease; E11.22 Type 2 diabetes mellitus with diabetic chronic kidney disease; N18.30 Chronic kidney disease, stage 3 unspecified; I50.9 Heart failure, unspecified; I25.10 Atherosclerotic heart disease of native coronary artery without angina pectoris; Z85.118 Personal history of other malignant neoplasm of bronchus and lung; Z92.21 Personal history of antineoplastic chemotherapy; Z92.3 Personal history of irradiation
CPT/HCPCS: 74176; 80053; 81003; 83605; 85025; 96361; 96374; 96375; 96376; 99285; J2270; J2930; J7030

== ENCOUNTER 2023-12-14 11:50 | Outpatient (CLI) | payer MEDICARE, SELFPAY ==
--- NOTE | 2023-12-14 12:13 | CT_ITS ---
WS: [id number] CT chest wo con [id number] HISTORY: PULMONARY GRANDULOMA/ASTHMA/CHRONIC COUGH/DYSPNEA TECHNIQUE: Axial imaging performed through the thorax. Coronal and sagittal reformats are submitted. All CT scans at [facility] use at least one of these dose optimization techniques: automated exposure control; mA and/or kV adjustment per patient size (includes targeted exams where dose is mat ched to clinical indication); or iterative reconstruction. CONTRAST: None DLP: 72.70 mGy.cm COMPARISON: 12/24/2010, chest radiograph 11/30/2023 Lungs and central airway: There are 2 nodules which are noncalcified in the RIGHT upper lobe. The lar gest is 4 mm, image 121 of series 4. There is a smaller micronodule more superiorly at the apex on im age 70 of series 4. No additional nodules or masses are appreciated. No pneumonia. No groundglass att enuation. Pleura: Normal. No pleural effusion. Heart and pericardium: Heart is not enlarged. Prior aortic valve replacement. There is extensive arjun nary artery calcification. Mediastinum and ashley: No mediastinum or hilar adenopathy. Vessels: Mild atherosclerosis aorta. Small moderate calcification extends into the great vessels. Nor mal pulmonary artery. Chest wall and lower neck: No soft tissue masses. Upper abdomen: Small hiatal hernia. Mild suprarenal aortic calcification. No adrenal mass. Mild pancr eatic atrophy. Osseous structures: No destructive process. IMPRESSION: 1. There are 2 very small noncalcified nodules in the RIGHT upper lobe. The largest is 4 mm. Patient denies history of smoking. If patient is not high risk for lung cancer no additional follow-up flako kumar. These nodules were not definitely present in 2010. 2. No adenopathy. 3. Prior aortic valve replacement. 4. Mild atherosclerosis aorta.
== END 2023-12-14 11:51 | disposition home or self-care (01) ==
LOC: RAD 11:53
PROVIDERS: PCP Family Medicine; Visit Provider Family Medicine
DX: J84.10 Pulmonary fibrosis, unspecified (principal); J45.909 Unspecified asthma, uncomplicated; R05.3 Chronic cough; R06.00 Dyspnea, unspecified; R91.8 Other nonspecific abnormal finding of lung field; Z95.2 Presence of prosthetic heart valve; I70.0 Atherosclerosis of aorta
CPT/HCPCS: 71250

== ENCOUNTER → 2024-01-08 14:04 | Outpatient (BNVA) | payer MEDICARE, SELFPAY | PROVIDERS: PCP Family Medicine; Referring Provider Family Medicine; Visit Provider Internal Medicine Pulmonary Disease | DX: J45.909 Unspecified asthma, uncomplicated (principal); C34.90 Malignant neoplasm of unspecified part of unspecified bronchus or lung | CPT/HCPCS: 99204 ==

== ENCOUNTER → 2024-03-11 14:54 | Outpatient (BNVA) | payer MEDICARE, SELFPAY | PROVIDERS: PCP Family Medicine; Visit Provider Internal Medicine Pulmonary Disease | DX: J45.909 Unspecified asthma, uncomplicated (principal); C34.90 Malignant neoplasm of unspecified part of unspecified bronchus or lung | CPT/HCPCS: 99214 ==

== ENCOUNTER 2024-06-28 16:48 | Emergency (ER) | payer MEDICARE, SELFPAY ==
[2024-06-28 17:14] VITALS: BP 169/77; PULSE 101; RESP 18; TEMP 36.7; O2SAT 95
--- NOTE | 2024-06-28 17:32 | CTR_ITS ---
PROCEDURE INFORMATION: Exam: CT Cervical Spine Without Contrast Exam date and time: 06/28/2024 6:09 PM Age: 84 years old Clinical indication: Injury or trauma; Blunt trauma; Patient HX: C/O persistent head pain after hitting head from a fall last night. Contusion to left orbit. History of lung cancer. ; Additional info: Fall/hit head TECHNIQUE: Imaging protocol: Computed tomography of the cervical spine without contrast. Radiation optimization: All CT scans at this facility use at least one of these dose optimization techniques: automated exposure control; mA and/or kV adjustment per patient size (includes targeted exams where dose is matched to clinical indication); or iterative reconstruction. COMPARISON: CT head wo con* [id number] 06/28/2024 6:09 PM RADIATION DOSE METRICS: Total DLP (mGy-cm): 1090.1 FINDINGS: Bones/joints: No evidence of acute fracture or subluxation of the cervical spine. The craniocervical junction including the atlantoaxial and atlantooccipital articulations are intact. There is ankylosis of the C3-C4 facets. C2-C3: Mild uncovertebral hypertrophy without central or foraminal stenosis. C3-C4: Uncovertebral hypertrophy results in mild left-sided foraminal stenosis. No central stenosis. C4-C5: Uncovertebral hypertrophy results in moderate-severe left-sided and moderate right-sided foraminal stenosis. No central stenosis. C5-C6: Uncovertebral hypertrophy and facet arthrosis results in mild bilateral foraminal stenosis. No central stenosis. C6-C7: Uncovertebral hypertrophy without central or foraminal stenosis. C7-T1: No central or foraminal stenosis. Lungs: The visualized lung apices are clear. Soft tissues: No gross soft tissue abnormality. No significant prevertebral edema. No evidence of fluid collection or hematoma. Dense atherosclerotic calcifications of the carotid bulbs, [id number]. CT/CT cervical spin wo con* [id number] IMPRESSION: 1. No evidence of fracture or subluxation of the cervical spine.
--- NOTE | 2024-06-28 17:32 | XRR_ITS ---
PROCEDURE INFORMATION: Exam: XR Right Hip Exam date and time: 06/28/2024 5:48 PM Age: 84 years old Clinical indication: Right hip pain status post fall. TECHNIQUE: Imaging protocol: Radiologic exam of the right hip. Views: 1 view hip with pelvis when performed. COMPARISON: CT kidney stone [id number] 09/04/2022 5:34 PM FINDINGS: Bones/joints: There are small marginal osteophytes and subchondral cystic changes across the hip joints. Mild to moderate degenerative changes extend across the sacroiliac joints and pubic symphysis. Mild narrowing of the hip joint spaces. Soft tissues: Unremarkable. XR/XR hip RT 2-3V wo/w pel* [id number] IMPRESSION: There are degenerative changes across the hip joints. No evidence for acute fracture.
--- NOTE | 2024-06-28 17:32 | XRR_ITS ---
PROCEDURE INFORMATION: Exam: XR Right Knee Exam date and time: 06/28/2024 5:48 PM Age: 84 years old Clinical indication: Right; Prior surgery; Surgery date: 6+ months; Surgery type: RT knee replacement; Patient HX: RT knee pain post fall TECHNIQUE: Imaging protocol: Radiologic exam of the right knee. Views: 3 views. COMPARISON: CR XR foot RT min 3V* [id number] 06/28/2024 5:48 PM FINDINGS: Bones/joints: Right total knee replacement. Distal femoral and proximal tibial components appear intact without obvious complication. Enthesophytes are present off the superior aspect of the patella. Soft tissues: There is prepatellar and pretibial soft tissue edema. XR/XR knee RT 3V* [id number] IMPRESSION: Prepatellar/pretibial soft tissue edema.
--- NOTE | 2024-06-28 17:32 | XRR_ITS ---
PROCEDURE INFORMATION: Exam: XR Right Foot Exam date and time: 06/28/2024 5:48 PM Age: 84 years old Clinical indication: Right foot pain post fall; TECHNIQUE: Imaging protocol: Radiologic exam of the right foot. Views: 3 or more views. COMPARISON: CR XR knee RT 3V* [id number] 06/28/2024 5:48 PM FINDINGS: Bones/joints: Multi articular [id number] joint space narrowing. Enthesophytes are present off the os calcis at the Achilles insertion and plantar fascia origin. There is a benign os peroneus accessory ossicle. Soft tissues: See Bones/joints finding. Vasculature: There are peripheral vascular calcifications. XR/XR foot RT min 3V* [id number] IMPRESSION: No acute findings.Non acute findings as described above.
--- NOTE | 2024-06-28 17:32 | CTR_ITS ---
PROCEDURE INFORMATION: Exam: CT Head Without Contrast Exam date and time: 06/28/2024 6:09 PM Age: 84 years old Clinical indication: Injury or trauma; Blunt trauma (contusions or hematomas); Patient HX: C/O persistent head pain after hitting head from a fall last night. Contusion to left orbit. ; Additional info: Fall/hit head TECHNIQUE: Imaging protocol: Computed tomography of the head without contrast. Radiation optimization: All CT scans at this facility use at least one of these dose optimization techniques: automated exposure control; mA and/or kV adjustment per patient size (includes targeted exams where dose is matched to clinical indication); or iterative reconstruction. COMPARISON: CT cervical spin wo con* [id number] 06/28/2024 6:09 PM RADIATION DOSE METRICS: Total DLP (mGy-cm): 1103.3 FINDINGS: Brain: Sequela of mild chronic microvascular ischemic changes. Phillips-white differentiation is otherwise maintained. No evidence of intra-axial or extra-axial hemorrhage. No mass effect or midline shift. Basilar cisterns are patent. Cerebral ventricles: No hydrocephalus. Paranasal sinuses: The visualized paranasal sinuses are well aerated. Moderate right maxillary sinus mucosal thickening. Mastoid air cells: The visualized mastoids and middle ears are clear. Bones: Calvarium is intact. No evidence of acute fracture. Soft tissues: No gross soft tissue abnormality. CT/CT head wo con* [id number] IMPRESSION: 1. No acute intracranial abnormality.
--- NOTE | 2024-06-28 17:33 | ECG_ITS ---
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 Measurements Intervals [place] Rate: 97 P: 23 WI: 165 QRS: -52 QRSD: 112 T: 85 QT: 323 QTc: 412 Interpretive Statements SINUS RHYTHM LEFT AXIS DEVIATION [QRS AXIS < -30] POSSIBLE ANTERIOR MYOCARDIAL INFARCTION , OF INDETERMINATE AGE [30 ms Q WAVE IN V3/V4, OR R < 0.2 mV IN V4] No previous ECG available for comparison Electronically Signed On 06-28-2024 21:54:39 CDT by Deandre Mayes M.D. [id number]
--- NOTE | 2024-06-28 17:40 | ED_ITS ---
Documented by User: BO Hill 06/28/24 20:08 HPI - Extremity Problem 2 General: Chief complaint: Extremity Injury, Lower Stated complaint: Fell right side knee, ankle--Left eye Time Seen by Provider: 06/28/24 17:23 Source: patient and family Mode of arrival: ambulatory Limitations: no limitations History of Present Illness: Patient is an 84-year-old male with past medical history of diabetes who presents to the emergency department for multiple falls. 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 He additionally fell last night while at a racetrack, states that he slipped on wet ground, and injured his right knee, ankle, and hip in the process. He has a history of knee replacement on the right side, and is currently stating the pain is from toes to hip. He was also able to get up by himself yesterday, had no symptoms prior to falling. He again fell today in the shower, also states that this was a slip and fall. With last night's fall he did hit the left side of his face, and states he does take a baby aspirin. There is bruising noticeable to patient's left periorbital region. He states he has fallen multiple times over the last 6 months, and he thinks it may be due to his blood sugar getting too low as he sometimes forgets to eat. Currently at this time he is still reporting the pain to his right lower extremity and to left face, but is not having any chest pain or shortness of breath or any other symptoms. He is not reporting any neurological deficits. Family in the room also states that he has been at baseline mentation. He states that 2 years ago he had open heart surgery to have a valve replaced. Has not taken anything for pain and does want something for pain at this time. MD Complaint: joint pain (right knee, hip, ankle) Onset (ago): day(s) Pain Consistency: constant Location: right Radiation: proximal Exacerbating factors: range of motion, weight bearing and palpation Associated symptoms: Deny chest pain, fever(s) or rash Related Data Home Medications Medication Instructions Recorded Confirmed glimepiride 4 mg tablet 4 mg PO BID 05/03/20 03/11/24 metformin 500 mg tablet,extended 500 mg PO TID 05/03/20 03/11/24 release 24 hr sitagliptin phosphate 100 mg 100 mg PO DAILY 05/03/20 03/11/24 tablet (Januvia) nitroglycerin 0.3 mg sublingual 0.3 mg sublingual Q5M PRN Pain 03/06/22 03/11/24 tablet (Nitrostat) metoprolol tartrate 25 mg tablet 12.5 mg PO BID 09/04/22 03/11/24 Previous Rx's Medication Instructions Recorded atorvastatin 40 mg tablet 40 mg PO BEDTIME #60 tabs 01/18/22 clopidogrel 75 mg tablet 75 mg PO DAILY #60 tabs 01/18/22 oxycodone 5 mg tablet 5 mg PO Q4H PRN pain #20 tabs 09/04/22 prednisone 10 mg tablet See Taper PO DAILY #42 tabs 09/04/22 umeclidinium 62.5 mcg/actuation 1 inh inhalation DAILY #30 ea 01/08/24 blister powder for inhalation (Incruse Ellipta) Allergies Allergy/AdvReac Type Severity Reaction Status Date / Time aspirin Allergy Unknown Verified 03/11/24 15:10 oxytetracycline Allergy ADR-Swelling Verified 03/11/24 15:10 [From Terramycin] of the Eye Penicillins Allergy ALGY-Difficulty Verified 03/11/24 15:10 Swallowing Review of Systems 2 General: Reports: 10 or more systems reviewed and unremarkable except in HPI and below Const: Reports: other (fall); Denies: fever(s), chills or fatigue Eyes: Denies: change in vision ENMT: Reports: sinus pain (left periorbital); Denies: throat pain, ear or mastoid pain or nasal discharge Card: Denies: chest pain, palpitations, swelling of feet/ankles or lightheadedness Resp: Denies: dyspnea, productive cough or wheezing GI: Denies: abdominal pain, nausea, vomiting, diarrhea or constipation : Denies: flank pain, difficulty urinating, dysuria or urinary frequency Musc: Reports: joint pain; Denies: neck pain or back pain Skin/Breast: Denies: rash Neuro: Denies: headache(s), numbness in extremities or weakness in extremities PFSH ED 2 PFSH: Medical History Reactive airway disease Atypical chest pain Aortic valve stenosis, acquired Pseudogout Anemia Angina pectoris, unspecified Heart murmur Congestive heart failure Chronic kidney disease, stage III (moderate) Legionella infection 2007 Lung cancer chemotherapy and radiation, 1993 Asthma Hypertension Coronary artery disease stent years ago, here, maker Diabetes mellitus Surgical History S/P percutaneous transluminal angioplasty ([employer]) with stent placement History of arthroplasty of right knee Family History Brother Cancer brother Father Cancer Social History Smoking and tobacco/nicotine status: never used tobacco/nicotine Alcohol intake: never Substance/Drug Use: never Household members: none Physical Exam 2 Const: COMMON NORMALS: no acute distress, patient oriented x3 and no limitations GENERAL APPEARANCE: cooperative, comfortable and well developed ORIENTATION/CONSCIOUSNESS: Yes awake, Yes oriented to person, Yes oriented to place and Yes oriented to time HENMT: COMMON NORMALS: normocephalic, atraumatic and hearing grossly normal bilaterally HEAD & SCALP: normocephalic and atraumatic Eye: COMMON NORMALS: Equal, round and reactive pupils present, EOMs intact bilaterally and conjunctivae normal PERIORBITAL: periorbital findings abnormal positive left periorbital tenderness and periorbital ecchymosis C ONJUNCTIVA: Yes conjunctivae normal PUPIL: Yes Equal, round and reactive pupils present Neck/C-Spine: COMMON NORMALS: full ROM, supple and no JVD GENERAL: Yes normal visual inspection CERVICAL SPINE: Yes cervical ROM normal Chest: COMMONS NORMALS: normal inspection of the chest Resp: COMMON NORMALS: normal respiratory effort, No retractions, No use of accessory muscles and clear to auscultation bilaterally AUSCULTATION: clear to auscultation bilaterally Cardio: COMMON NORMALS: no JVD, regular rate, regular rhythm, No clicks present (Cardio), No murmurs present (Cardio) and No rub (Cardio) RATE: r egular rate RHYTHM: regular rhythm GI: COMMON NORMALS: Normal to inspection, nondistended, normoactive bowel sounds present, Soft to palpation and non-tender AUSCULTATION: Yes normoactive bowel sounds PALPATION: Yes Soft to palpation RECTAL EXAM: Yes deferred Extremity: COMMON NORMALS: capillary refill normal NARRATIVE EXTREMITY EXAM: Postoperative scar to anterior right knee. Endorses diffuse tenderness of the right knee joint, has moderate amount of pain extending the right extremity at the knee. Also endorses tenderness to palpation of the dorsal right foot as well as to the medial and lateral aspect. Distal sensations intact, he does have mild diminished strength of the right lower extremity. Pain with range of motion at the right hip as well. Mild swelling noted diffusely to the right knee. No ecchymosis or obvious signs of trauma or deformity. Neuro: COMMON NORMALS: patient oriented x3, CN's II-XII intact bilaterally, moves all extremities and no sensory deficits noted SENSORIUM/ORIENTATION: Y es oriented to person, Yes oriented to place and Yes oriented to time Psych: COMMON NORMALS: mental status grossly normal and Normal thought process present THOUGHT PROCESS: Normal thought process present Skin: COMMON NORMALS: no rashes or lesions noted GENERAL SKIN EXAM: no rashes or lesions noted Course 2 Vital Signs: Vital signs: Vital Signs Temperature 98.1 F 06/28/24 20:26 Pulse Rate 86 06/28/24 20:26 Respiratory Rate 16 06/28/24 20:26 Blood Pressure 151/80 06/28/24 20:26 Pulse Oximetry 97 06/28/24 20:26 Oxygen Delivery Me thod Room Air 06/28/24 17:14 MDM - Extremity (Nontraumatic) Medical Decision Making Patient was seen here in the emergency department after a few falls over the past 3 days. On arrival his vitals were unremarkable. His primary complaint was pain to his right lower extremity, however states he did hit his head with his fall yesterday and suffered ecchymosis to his left eye. Upon review of his medications it does appear that he is on Plavix. A CT of his head and neck were negative. Imaging of his right lower extremity, hip down to the ankle were all negative for any acute findings. Conservative therapy was discussed for treatment of contusion to his right knee and likely a sprain to his right ankle, and proper rest and recovery techniques were discussed. He started dry heaving prior to discharging him, labs were obtained and due to his cardiac history order troponin set with EKG. His troponin was nondiagnostic, and EKGs that were reviewed with physician did not demonstrate any acute abnormality from baseline, did find him to be in normal sinus rhythm initially with no acute STEMI. Heart rate was noted to be slightly elevated with his second EKG but this is obtained after his dry heaving spell and likely secondary to pain as well. He was given morphine for pain, states this somewhat helped and will be given a [place] to take home. Chest x-ray obtained did not demonstrate any acute abnormalities. His CBC and CMP ultimately were unremarkable as well. For the causation of his fall, he states he has had them in the past with hypoglycemia, and this could likely be a cause for his initial fall. His second and third fall were stated to be trip and falls, however cannot fully rule out that this is cardiac in nature and this would probably warrant an outpatient cardiac workup. Patient's family is present in the room and states she lives just adjacent to the patient and can keep an eye on him and monitor him closely and make sure that he treats conservatively and avoid any further falls until he is able to get with primary care to decide where to go from here. With imaging all being negative, and plan to monitor the patient at home and return with any new or worsening whatsoever, patient discharged home at this time. Patient agrees with this plan and states he is ready to go home. Lab Data 06/28/24 17:43 06/28/24 17:43 Radiology Impressions Cervical Spine CT 06/28/24 17:32 IMPRESSION: 1. No evidence of fracture or subluxation of the cervical spine. Foot X-Ray 06/28/24 17:32 IMPRESSION: No acute findings.Non acute findings as described above. Head CT 06/28/24 17:32 IMPRESSION: 1. No acute intracranial abnormality. Hip/Pelvis X-Ray 06/28/24 17:32 IMPRESSION: There are degenerative changes across the hip joints. No evidence for acute fracture. Knee X-Ray 06/28/24 17:32 IMPRESSION: Prepatellar/pretibial soft tissue edema. Chest X-Ray 06/28/24 19:30 IMPRESSION: 1. No acute cardiopulmonary abnormality. Laboratory Results WBC 9.82 10^3/uL (3.29-11.43) 06/28/24 17:43 RBC 4.52 10^6/uL (3.85-5.65) 06/28/24 17:43 Hgb 13.50 g/dL (11.27-16.99) 06/28/24 17:43 Hct 41.0 % (37-53) 06/28/24 17:43 MCV 90.7 fl (82-101) 06/28/24 17:43 MCH 29.9 pg (27-33) 06/28/24 17:43 MCHC 32.9 g/dL (30-55) 06/28/24 17:43 RDW 13.1 % (12.1-15.1) 06/28/24 17:43 Plt Count 231 10^3/cmm (157-399) 06/28/24 17:43 MPV 9.9 fL (7.4-10.4) 06/28/24 17:43 Neut % (Auto) 70.6 % 06/28/24 17:43 Lymph % (Auto) 14.4 % 06/28/24 17:43 [place] % (Auto) 7.9 % 06/28/24 17:43 Eos % (Auto) 6.1 % 06/28/24 17:43 Baso % (Auto) 0.6 % 06/28/24 17:43 Neut # (Auto) 6.93 10^3/uL (1.8-7.7) 06/28/24 17:43 Lymph # (Auto) 1.4 10^3/uL (0.8-4.8) 06/28/24 17:43 [place] # (Auto) 0.8 10^3/uL (0.2-0.9) 06/28/24 17:43 Eos # (Auto) 0.6 10^3/uL (0.0-0.8) 06/28/24 17:43 Baso # (Auto) 0.1 10^3/uL (0.0-0.1) 06/28/24 17:43 Nucleated RBC % (auto) 0 % 06/28/24 17:43 Nucleated RBCs # 0.0 /100WBC 06/28/24 17:43 Sodium 136 mmol/L (136-145) 06/28/24 17:43 Potassium 4.9 mmol/L (3.5-5.1) 06/28/24 17:43 Chloride 98 mmol/L (98-107) 06/28/24 17:43 Carbon Dioxide 24 mmol/L (22-29) 06/28/24 17:43 Anion Gap 18.9 (5-19) 06/28/24 17:43 BUN 27 mg/dL (8-23) H 06/28/24 17:43 Creatinine 1.0 mg/dL (0.7-1.2) 06/28/24 17:43 GFR Calculation Not Reportable 06/28/24 17:43 Glucose 225 mg/dL (65-115) H 06/28/24 17:43 Calculated Osmolality 294 mOsm/kg (285-295) 06/28/24 17:43 Calcium 9.9 mg/dL (8.5-10.5) 06/28/24 17:43 Total Bilirubin 1.5 mg/dL (0.15-1.2) H 06/28/24 17:43 AST 17 U/L (0-40) 06/28/24 17:43 ALT 13 U/L (0-41) 06/28/24 17:43 Alkaline Phosphatase 114 U/L (40-130) 06/28/24 17:43 Troponin T Baseline 17 ng/L (0-15) H 06/28/24 17:43 Troponin T 120 Minute 14.13 ng/L (0-15) 06/28/24 19:42 Delta Troponin T -2.87 ABS# (0-10) L 06/28/24 19:42 Total Protein 7.4 g/dL (6.6-8.7) 06/28/24 17:43 Albumin 4.2 g/dL (3.5-5.2) 06/28/24 17:43 Globulin 3.2 g/dL (1.3-4.6) 06/28/24 17:43 All radiology interpretation(s) finalized by discharge Discharge Plan Discharge Patient Disposition: Home Clinical Impression: Falls Contusion of right knee Qualifiers: Encounter type: initial encounter Qualified Code(s): S80.01XA - Contusion of right knee, initial encounter Right ankle sprain Qualifiers: Encounter type: initial encounter Involved ligament of ankle: unspecified ligament Qualified Code(s): S93.401A - Sprain of unspecified ligament of right ankle, initial encounter CHI (closed head injury) Qualifiers: Encounter type: initial encounter Qualified Code(s): S09.90XA - Unspecified injury of head, initial encounter Condition: Stable Prescriptions: No Action Incruse Ellipta 62.5 mcg/actuation blister with device 1 inh inhalation DAILY Qty: 30 3RF glimepiride 4 mg tablet 4 mg PO BID metformin 500 mg tablet extended release 24 hr 500 mg PO TID Januvia 100 mg tablet 100 mg PO DAILY atorvastatin 40 mg Tablet 40 mg PO BEDTIME Qty: 60 4RF clopidogrel 75 mg Tablet 75 mg PO DAILY Qty: 60 4RF nitroglycerin [Nitrostat] 0.3 mg Tablet, Sublingual 0.3 mg SUBLINGUAL Q5M PRN (Reason: Pain) Rx Instructions: do not exceed 3 doses per episode metoprolol tartrate 25 mg tablet 12.5 mg PO BID oxycodone 5 mg tablet 5 mg PO Q4H PRN (Reason: pain) Qty: 20 0RF prednisone 10 mg tablet See Taper PO DAILY Qty: 42 0RF Taper: predniSONE 60-10 60 mg Daily for 2 Days and 0 Hour 50 mg Daily for 2 Days and 0 Hour 40 mg Daily for 2 Days and 0 Hour 30 mg Daily for 2 Days and 0 Hour 20 mg Daily for 2 Days and 0 Hour 10 mg Daily for 2 Days and 0 Hour Rx Instructions: Taper 60 mg x 2 day, then 50 mg x 2 days, continuing to decrease following this pattern Discharge Orders: Discharge ED (Routine); Ordered 06/28/24 Ordered By: Shawn Russell Referrals: Gerry Khan MD [Primary Care Provider] - Discharge Diet: As Directed Discharge Activity: Limit activity as instructed Patient Instructions: Fall Prevention for Older Adults (ED), Head Injury (ED), Contusion in Adults (ED) Activity Restrictions/Additional Instructions: Follow-up with your primary doctor early next week as discussed. Prop your right leg up, take Tylenol for pain, apply ice, and use compression devices as discussed. Please return with any recurrence of falls, chest pain, or worsening of any symptoms you may have. Continue monitoring your blood sugars at home and take your prescribed medications as normal. Gently increase your weightbearing as tolerated. Coding Level of Care Code ED Band Shover for Jose Ahmadi Documented by User: Lelandronald Ram, 06/29/24 22:43 HPI - Extremity Problem 2 General: Chief complaint: Extremity Injury, Lower Stated complaint: Fell right side knee, ankle--Left eye Time Seen by Provider: 06/28/24 17:23 Related Data Home Medications Medication Instructions Recorded Confirmed glimepiride 4 mg tablet 4 mg PO BID 05/03/20 03/11/24 metformin 500 mg tablet,extended 500 mg PO TID 05/03/20 03/11/24 release 24 hr sitagliptin phosphate 100 mg 100 mg PO DAILY 05/03/20 03/11/24 tablet (Januvia) nitroglycerin 0.3 mg sublingual 0.3 mg sublingual Q5M PRN Pain 03/06/22 03/11/24 tablet (Nitrostat) metoprolol tartrate 25 mg tablet 12.5 mg PO BID 09/04/22 03/11/24 Previous Rx's Medication Instructions Recorded atorvastatin 40 mg tablet 40 mg PO BEDTIME #60 tabs 01/18/22 clopidogrel 75 mg tablet 75 mg PO DAILY #60 tabs 01/18/22 oxycodone 5 mg tablet 5 mg PO Q4H PRN pain #20 tabs 09/04/22 prednisone 10 mg tablet See Taper PO DAILY #42 tabs 09/04/22 umeclidinium 62.5 mcg/actuation 1 inh inhalation DAILY #30 ea 01/08/24 blister powder for inhalation (Incruse Ellipta) Allergies Allergy/AdvReac Type Severity Reaction Status Date / Time aspirin Allergy Unknown Verified 03/11/24 15:10 oxytetracycline Allergy ADR-Swelling Verified 03/11/24 15:10 [From Terramycin] of the Eye Penicillins Allergy ALGY-Difficulty Verified 03/11/24 15:10 Swallowing PFSH ED 2 PFSH: Medical History Reactive airway disease Atypical chest pain Aortic valve stenosis, acquired Pseudogout Anemia Angina pectoris, unspecified Heart murmur Congestive heart failure Chronic kidney disease, stage III (moderate) Legionella infection 2007 Lung cancer chemotherapy and radiation, 1993 Asthma Hypertension Coronary artery disease stent years ago, here, maker Diabetes mellitus Surgical History S/P percutaneous transluminal angioplasty ([employer] AD[employer]) with stent placement History of arthroplasty of right knee Family History Brother Cancer brother Father Cancer Social History Smoking and tobacco/nicotine status: never used tobacco/nicotine Alcohol intake: never Substance/Drug Use: never Household members: none Course 2 Vital Signs: Vital signs: Vital Signs Temperature 98.1 F 06/28/24 20:26 Pulse Rate 86 06/28/24 20:26 Respiratory Rate 16 06/28/24 20:26 Blood Pressure 151/80 06/28/24 20:26 Pulse Oximetry 97 06/28/24 20:26 Oxygen Delivery Me thod Room Air 06/28/24 17:14 MDM - Extremity (Nontraumatic) Medical Decision Making Patient was seen here in the emergency department after a few falls over the past 3 days. On arrival his vitals were unremarkable. His primary complaint was pain to his right lower extremity, however states he did hit his head with his fall yesterday and suffered ecchymosis to his left eye. Upon review of his medications it does appear that he is on Plavix. A CT of his head and neck were negative. Imaging of his right lower extremity, hip down to the ankle were all negative for any acute findings. Conservative therapy was discussed for treatment of contusion to his right knee and likely a sprain to his right ankle, and proper rest and recovery techniques were discussed. He started dry heaving prior to discharging him, labs were obtained and due to his cardiac history order troponin set with EKG. His troponin was nondiagnostic, and EKGs that were reviewed with physician did not demonstrate any acute abnormality from baseline, did find him to be in normal sinus rhythm initially with no acute STEMI. Heart rate was noted to be slightly elevated with his second EKG but this is obtained after his dry heaving spell and likely secondary to pain as well. He was given morphine for pain, states this somewhat helped and will be given a [place] to take home. Chest x-ray obtained did not demonstrate any acute abnormalities. His CBC and CMP ultimately were unremarkable as well. For the causation of his fall, he states he has had them in the past with hypoglycemia, and this could likely be a cause for his initial fall. His second and third fall were stated to be trip and falls, however cannot fully rule out that this is cardiac in nature and this would probably warrant an outpatient cardiac workup. Patient's family is present in the room and states she lives just adjacent to the patient and can keep an eye on him and monitor him closely and make sure that he treats conservatively and avoid any further falls until he is able to get with primary care to decide where to go from here. With imaging all being negative, and plan to monitor the patient at home and return with any new or worsening whatsoever, patient discharged home at this time. Patient agrees with this plan and states he is ready to go home. This patient was originally seen by Mr. Drew PA-C.? I agree with his history, evaluation, and treatment. Lab Data 06/28/24 17:43 06/28/24 17:43 Radiology Impressions Cervical Spine CT 06/28/24 17:32 IMPRESSION: 1. No evidence of fracture or subluxation of the cervical spine. Foot X-Ray 06/28/24 17:32 IMPRESSION: No acute findings.Non acute findings as described above. Head CT 06/28/24 17:32 IMPRESSION: 1. No acute intracranial abnormality. Hip/Pelvis X-Ray 06/28/24 17:32 IMPRESSION: There are degenerative changes across the hip joints. No evidence for acute fracture. Knee X-Ray 06/28/24 17:32 IMPRESSION: Prepatellar/pretibial soft tissue edema. Chest X-Ray 06/28/24 19:30 IMPRESSION: 1. No acute cardiopulmonary abnormality. Laboratory Results WBC 9.82 10^3/uL (3.29-11.43) 06/28/24 17:43 RBC 4.52 10^6/uL (3.85-5.65) 06/28/24 17:43 Hgb 13.50 g/dL (11.27-16.99) 06/28/24 17:43 Hct 41.0 % (37-53) 06/28/24 17:43 MCV 90.7 fl (82-101) 06/28/24 17:43 MCH 29.9 pg (27-33) 06/28/24 17:43 MCHC 32.9 g/dL (30-55) 06/28/24 17:43 RDW 13.1 % (12.1-15.1) 06/28/24 17:43 Plt Count 231 10^3/cmm (157-399) 06/28/24 17:43 MPV 9.9 fL (7.4-10.4) 06/28/24 17:43 Neut % (Auto) 70.6 % 06/28/24 17:43 Lymph % (Auto) 14.4 % 06/28/24 17:43 [place] % (Auto) 7.9 % 06/28/24 17:43 Eos % (Auto) 6.1 % 06/28/24 17:43 Baso % (Auto) 0.6 % 06/28/24 17:43 Neut # (Auto) 6.93 10^3/uL (1.8-7.7) 06/28/24 17:43 Lymph # (Auto) 1.4 10^3/uL (0.8-4.8) 06/28/24 17:43 [place] # (Auto) 0.8 10^3/uL (0.2-0.9) 06/28/24 17:43 Eos # (Auto) 0.6 10^3/uL (0.0-0.8) 06/28/24 17:43 Baso # (Auto) 0.1 10^3/uL (0.0-0.1) 06/28/24 17:43 Nucleated RBC % (auto) 0 % 06/28/24 17:43 Nucleated RBCs # 0.0 /100WBC 06/28/24 17:43 Sodium 136 mmol/L (136-145) 06/28/24 17:43 Potassium 4.9 mmol/L (3.5-5.1) 06/28/24 17:43 Chloride 98 mmol/L (98-107) 06/28/24 17:43 Carbon Dioxide 24 mmol/L (22-29) 06/28/24 17:43 Anion Gap 18.9 (5-19) 06/28/24 17:43 BUN 27 mg/dL (8-23) H 06/28/24 17:43 Creatinine 1.0 mg/dL (0.7-1.2) 06/28/24 17:43 GFR Calculation Not Reportable 06/28/24 17:43 Glucose 225 mg/dL (65-115) H 06/28/24 17:43 Calculated Osmolality 294 mOsm/kg (285-295) 06/28/24 17:43 Calcium 9.9 mg/dL (8.5-10.5) 06/28/24 17:43 Total Bilirubin 1.5 mg/dL (0.15-1.2) H 06/28/24 17:43 AST 17 U/L (0-40) 06/28/24 17:43 ALT 13 U/L (0-41) 06/28/24 17:43 Alkaline Phosphatase 114 U/L (40-130) 06/28/24 17:43 Troponin T Baseline 17 ng/L (0-15) H 06/28/24 17:43 Troponin T 120 Minute 14.13 ng/L (0-15) 06/28/24 19:42 Delta Troponin T -2.87 ABS# (0-10) L 06/28/24 19:42 Total Protein 7.4 g/dL (6.6-8.7) 06/28/24 17:43 Albumin 4.2 g/dL (3.5-5.2) 06/28/24 17:43 Globulin 3.2 g/dL (1.3-4.6) 06/28/24 17:43 Discharge Plan Discharge Patient Disposition: Home Clinical Impression: Falls Contusion of right knee Qualifiers: Encounter type: initial encounter Qualified Code(s): S80.01XA - Contusion of right knee, initial encounter Right ankle sprain Qualifiers: Encounter type: initial encounter Involved ligament of ankle: unspecified ligament Qualified Code(s): S93.401A - Sprain of unspecified ligament of right ankle, initial encounter CHI (closed head injury) Qualifiers: Encounter type: initial encounter Qualified Code(s): S09.90XA - Unspecified injury of head, initial encounter Condition: Stable Prescriptions: No Action Incruse Ellipta 62.5 mcg/actuation blister with device 1 inh inhalation DAILY Qty: 30 3RF glimepiride 4 mg tablet 4 mg PO BID metformin 500 mg tablet extended release 24 hr 500 mg PO TID Januvia 100 mg tablet 100 mg PO DAILY atorvastatin 40 mg Tablet 40 mg PO BEDTIME Qty: 60 4RF clopidogrel 75 mg Tablet 75 mg PO DAILY Qty: 60 4RF nitroglycerin [Nitrostat] 0.3 mg Tablet, Sublingual 0.3 mg SUBLINGUAL Q5M PRN (Reason: Pain) Rx Instructions: do not exceed 3 doses per episode metoprolol tartrate 25 mg tablet 12.5 mg PO BID oxycodone 5 mg tablet 5 mg PO Q4H PRN (Reason: pain) Qty: 20 0RF prednisone 10 mg tablet See Taper PO DAILY Qty: 42 0RF Taper: predniSONE 60-10 60 mg Daily for 2 Days and 0 Hour 50 mg Daily for 2 Days and 0 Hour 40 mg Daily for 2 Days and 0 Hour 30 mg Daily for 2 Days and 0 Hour 20 mg Daily for 2 Days and 0 Hour 10 mg Daily for 2 Days and 0 Hour Rx Instructions: Taper 60 mg x 2 day, then 50 mg x 2 days, continuing to decrease following this pattern Discharge Orders: Discharge ED (Routine); Ordered 06/28/24 Ordered By: Shawn Russell Referrals: Gerry Khan MD [Primary Care Provider] - Discharge Diet: As Directed Discharge Activity: Limit activity as instructed Patient Instructions: Fall Prevention for Older Adults (ED), Head Injury (ED), Contusion in Adults (ED) Activity Restrictions/Additional Instructions: Follow-up with your primary doctor early next week as discussed. Prop your right leg up, take Tylenol for pain, apply ice, and use compression devices as discussed. Please return with any recurrence of falls, chest pain, or worsening of any symptoms you may have. Continue monitoring your blood sugars at home and take your prescribed medications as normal. Gently increase your weightbearing as tolerated. Coding Level of Care Code ED Band Shover for Jose Ahmadi
[2024-06-28 17:49] LABS: Basophils # 0.1 10^3/uL (0.0-0.1); Basophils % 0.6 %; Eosinophils # 0.6 10^3/uL (0.0-0.8); Eosinophils % 6.1 %; Lymphocytes # 1.4 10^3/uL (0.8-4.8); Lymphocytes % 14.4 %; Mean Corpuscular HGB Conc 32.9 g/dL (30-55); Mean Corpuscular Hemoglobin 29.9 pg (27-33); Mean Corpuscular Volume 90.7 fl (82-101); Mean Platelet Volume 9.9 fL (7.4-10.4); Monocytes # 0.8 10^3/uL (0.2-0.9); Monocytes % 7.9 %; Neutrophils # 6.93 10^3/uL (1.8-7.7); Neutrophils % 70.6 %; Nucleated Red Blood Cells % 0 %; Platelet Count 231 10^3/cmm (157-399); Red Blood Count 4.52 10^6/uL (3.85-5.65); Red Cell Distribution Width 13.1 % (12.1-15.1); White Blood Count 9.82 10^3/uL (3.29-11.43)
[2024-06-28 18:06] LABS: Alanine Aminotransferase 13 U/L (0-41); Albumin Level 4.2 g/dL (3.5-5.2); Alkaline Phosphatase 114 U/L (40-130); Anion Gap 18.9 (5-19); Aspartate Amino Transferase 17 U/L (0-40); Blood Urea Nitrogen 27 mg/dL (8-23); Calcium 9.9 mg/dL (8.5-10.5); Carbon Dioxide 24 mmol/L (22-29); Chloride 98 mmol/L (98-107); Globulin 3.2 g/dL (1.3-4.6); Glucose 225 mg/dL (65-115); Osmolality Calculated 294 mOsm/kg (285-295); Potassium 4.9 mmol/L (3.5-5.1); Sodium 136 mmol/L (136-145); Total Bilirubin 1.5 mg/dL (0.15-1.2); Total Protein 7.4 g/dL (6.6-8.7)
[2024-06-28 18:36] VITALS: O2SAT 98
[2024-06-28] MEDS: morphine 4 mg/mL SDV 1 mL IM (18:36)
--- NOTE | 2024-06-28 19:25 | ECG_ITS ---
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 Measurements Intervals [place] Rate: 120 P: 45 MO: 167 QRS: -59 QRSD: 110 T: 89 QT: 295 QTc: 418 Interpretive Statements SINUS TACHYCARDIA LEFT AXIS DEVIATION [QRS AXIS < -30] ANTEROSEPTAL MYOCARDIAL INFARCTION , OF INDETERMINATE AGE [40+ ms Q WAVE IN V1-V4] Compared to ECG 06/28/2024 18:58:40 Sinus rhythm no longer present Myocardial infarct finding still present Electronically Signed On 06-28-2024 21:53:37 CDT by Deandre Mayes M.D. [id number] f
--- NOTE | 2024-06-28 19:30 | XRR_ITS ---
PROCEDURE INFORMATION: Exam: XR Chest Exam date and time: 06/28/2024 7:47 PM Age: 84 years old Clinical indication: Cough TECHNIQUE: Imaging protocol: Radiologic exam of the chest. Views: 1 view. COMPARISON: CR XR chest 2V* [id number] 12/20/2023 8:31 AM FINDINGS: Lungs: No focal consolidation. Pleural spaces: No evidence of pneumothorax. No evidence of pleural effusion. Heart/Mediastinum: Cardiomediastinal silhouette is within normal limits. Aortic valve replacement noted. Bones/joints: No evidence of acute osseous abnormality. XR/XR chest 1V portable [id number] IMPRESSION: 1. No acute cardiopulmonary abnormality.
[2024-06-28 19:50] LABS: Troponin(5th) Baseline 17 ng/L (0-15)
[2024-06-28 20:04] LABS: Troponin 5 2HR 14.13 ng/L (0-15)
[2024-06-28 20:06] LABS: Troponin 5 2HR Delta -2.87 ABS# (0-10)
[2024-06-28 20:26] VITALS: BP 151/80; PULSE 86; RESP 16; TEMP 36.7; O2SAT 97
[2024-06-28] MEDS: HYDROcodone-acetaminophen 7.5-325 mg Tablet 1 TAB PO (20:26)
== END 2024-06-28 20:27 | disposition home or self-care (01) ==
PROVIDERS: Emergency Provider Physician Assistant; PCP Family Medicine
DX: S09.8XXA Other specified injuries of head, initial encounter (principal); S80.01XA Contusion of right knee, initial encounter; S93.401A Sprain of unspecified ligament of right ankle, initial encounter; Z79.84 Long term (current) use of oral hypoglycemic drugs; Z79.02 Long term (current) use of antithrombotics/antiplatelets; I13.0 Hypertensive heart and chronic kidney disease with heart failure and stage 1 through stage 4 chronic kidney disease, or unspecified chronic kidney disease; E11.22 Type 2 diabetes mellitus with diabetic chronic kidney disease; N18.30 Chronic kidney disease, stage 3 unspecified; I50.9 Heart failure, unspecified; Z85.118 Personal history of other malignant neoplasm of bronchus and lung; Z92.21 Personal history of antineoplastic chemotherapy; Z92.3 Personal history of irradiation; I25.10 Atherosclerotic heart disease of native coronary artery without angina pectoris; Z79.82 Long term (current) use of aspirin; W01.0XXA Fall on same level from slipping, tripping and stumbling without subsequent striking against object, initial encounter; Y92.39 Other specified sports and athletic area as the place of occurrence of the external cause
CPT/HCPCS: 36415; 70450; 71045; 72125; 73502; 73562; 73630; 80053; 84484; 85025; 93005; 96372; 99285; J2270

== ENCOUNTER → 2024-07-10 08:52 | Outpatient (BNVA) | payer MEDICARE, SELFPAY | PROVIDERS: PCP Family Medicine; Visit Provider Podiatrist Foot & Ankle Surgery | DX: S82.891A Other fracture of right lower leg, initial encounter for closed fracture; S82.401A Unspecified fracture of shaft of right fibula, initial encounter for closed fracture; W17.81XA Fall down embankment (hill), initial encounter | CPT/HCPCS: 99203 ==

== ENCOUNTER → 2024-07-30 14:38 | Outpatient (BNVA) | payer MEDICARE, SELFPAY | PROVIDERS: PCP Family Medicine; Visit Provider Podiatrist Foot & Ankle Surgery | DX: S82.401A Unspecified fracture of shaft of right fibula, initial encounter for closed fracture (principal); S82.891A Other fracture of right lower leg, initial encounter for closed fracture; X58.XXXA Exposure to other specified factors, initial encounter | CPT/HCPCS: 73610; 99213 ==

== ENCOUNTER 2025-01-05 14:35 | Emergency (ER) | payer MEDICARE, SELFPAY ==
[2025-01-05] VITALS (7 sets, daily range): BP systolic 151–184; BP diastolic 73–114; PULSE 90–98; RESP 16–21; TEMP 36.7; O2SAT 90–94; BMI 30.5
--- NOTE | 2025-01-05 14:41 | ECG_ITS ---
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1940 Requested By: Qasim Moran Order Number: [id number] Reading MD: KARTIK VELÁZQUEZ Measurements Intervals [facility] Rate: 103 P: 44 MS: 179 QRS: -46 QRSD: 113 T: 79 QT: 323 QTc: 424 Interpretive Statements SINUS TACHYCARDIA LEFT AXIS DEVIATION [QRS AXIS < -30] POSSIBLE ANTERIOR MYOCARDIAL INFARCTION , OF INDETERMINATE AGE [30 ms Q WAVE IN V3/V4, OR R < 0.2 mV IN V4] Compared to ECG 06/28/2024 19:25:19 No significant changes Electronically Signed On 01-05-2025 22:13:24 CDT by KARTIK VELÁZQUEZ [email or web address] [id number]
--- NOTE | 2025-01-05 14:54 | XRR_ITS ---
PROCEDURE INFORMATION: Exam: XR Chest Exam date and time: 01/05/2025 3:05 PM Age: 84 years old Clinical indication: Cough and dyspnea; Cp that radiates down the left side causing tingling in the left hand. HX of lung cancer; Additional info: Dyspnea/cough TECHNIQUE: Imaging protocol: Radiologic exam of the chest. Views: 1 view. COMPARISON: CR XR chest 1V portable [id number] 06/28/2024 7:47 PM FINDINGS: Lungs: Unremarkable. No consolidation. Pleural spaces: Unremarkable. No pleural effusion. No pneumothorax. Heart/Mediastinum: Status post TAVR. Vasculature: Atherosclerotic aortic calcifications. Bones/joints: Unremarkable. XR/XR chest 1V portable [id number] IMPRESSION: No acute findings.
[2025-01-05 15:10] LABS: ABG PCO2 38.2 mmHg (35-45); ABG PH Result 7.39 (7.35-7.45); Alveolar-Arterial Oxygen Gradi 4.9 mmHg (5-10); Arterial Blood Gas Hematocrit 41.5 % (42-52); Base Excess ABG -1.7 mmol/L (-2.0-2.0); Blood Gas Allen Test Pos; Blood Gas Operator Identificat CAK; Blood Gas Sample Site Brachial, left; Blood Gas Sample Type Arterial; Carboxyhemoglobin 1.6 %THgb (0.4-20.1); Ionized Calcium Level - ABG 1.2 mmol/L (1.1-1.4); Methemoglobin 0.1 % (0.4-1.5); Oxygen Device ROOM AIR; Oxygen Saturation ABG 92.6; PO2 FiO2 Ratio Arterial Blood 304; Potassium Level - ABG 4.4 mmol/L (3.5-5.0); Total Hemoglobin 13.5 g/dL (14-18)
--- NOTE | 2025-01-05 15:20 | ED_ITS ---
Documented by User: Matthew Schofield, 01/06/25 06:11 HPI - SOB/Dyspnea 2 General: Chief Complaint: Shortness of Breath/Dyspnea Stated Complaint: chest pains, sob, L side tingling, states has gout Time Seen by Provider: 01/05/25 14:54 History of Present Illness: HPI Narrative: 84-year-old male presents emergency room with complaints of chest discomfort when he describes as tingling on his left side. He tells me he has pseudogout and that all of the symptoms were related to this he denies any chest pain he does have some shortness of breath he has not had any productive cough. He particularly complains of pain in his left shoulder with any movement of the left knee. To lesser extent of the smaller joints of the foot and the hand he has discomfort he denies any fever denies productive cough. Associated symptoms: Deny abdominal pain, chest pain or fever(s) Related Data Home Medications ?Medication ?Instructions ?Recorded ?Confirmed glimepiride 4 mg tablet 4 mg PO BID 05/03/20 5 metformin 500 mg tablet,extended 500 mg PO TID 0 01/05/25 release 24 hr sitagliptin phosphate 100 mg 100 mg PO DAILY 05/03/20 01/05/25 tablet (Januvia) insulin glargine 100 unit/mL (3 10 unit SUBCUT DAILY 0 01/05/25 01/05/25 mL) subcutaneous pen (Lantus Solostar U-100 Insulin) lisinopril 5 mg tablet 5 mg PO DAILY 01/05/2501/05 Previous Rx's ?Medication ?Instructions ?Recorded atorvastatin 40 mg tablet 40 mg PO BEDTIME #60 tabs dexamethasone 6 mg tablet 6 mg PO DAILY 5 days #5 tabs 01/05/25 tramadol 50 mg tablet 50 mg PO Q8H PRN pain #10 ta bs 01/05/25 Allergies Allergy/AdvReac Type Severity Reaction Status Date / Time aspirin Allergy Unknown Verified 01/05/25 14:51 oxytetracycline (From Allergy ADR-Swelling Verified 01/05/25 14:51 Terramycin) of the Eye Penicillins Allergy ALGY-Difficulty Verified 01/05/25 14:51 Swallowing Review of Systems 2 Const: Denies: fever(s) or chills Card: Denies: chest pain Resp: Denies: dyspnea GI: Denies: abdominal pain : Denies: dysuria, urinary frequency or urinary urgency Musc: Reports: joint pain and joint warmth; Denies: neck pain or back pain Skin/Breast: Denies: rash PFSH ED 2 PFSH: Medical History Reactive airway disease Atypical chest pain Aortic valve stenosis, acquired Pseudogout Anemia Angina pectoris, unspecified Heart murmur Congestive heart failure Chronic kidney disease, stage III (moderate) Legionella infection 2007 Lung cancer chemotherapy and radiation, 1993 Asthma Hypertension Coronary artery disease stent years ago, here, maker Diabetes mellitus Surgical History S/P percutaneous transluminal angioplasty ([employer]) with stent placement History of arthroplasty of right knee Family History Brother Cancer brother Father Cancer Social History Smoking and tobacco/nicotine status: unknown if used tobacco/nicotine Alcohol intake: never Substance/Drug Use: never Household members: none Physical Exam 2 Const: GENERAL APPEARANCE: cooperative ORIENTATION/CONSCIOUSNESS: Yes awake, Yes oriented to person, Yes oriented to place and Yes oriented to time HENMT: COMMON NORMALS: normocephalic, atraumatic and hearing grossly normal bilaterally HEAD & SCALP: normocephalic and atraumatic Resp: COMMON NORMALS: normal respiratory effort, No retractions, No use of accessory muscles and clear to auscultation bilaterally AUSCULTATION: clear to auscultation bilaterally Cardio: COMMON NORMALS: regular rate, regular rhythm and No murmurs present (Cardio) RATE: regular rate RHYTHM: regular rhythm GI: COMMON NORMALS: Soft to palpation and No hepatosplenomegaly present A USCULTATION: Yes normoactive bowel sounds PALPATION: Yes Soft to palpation, No Tenderness to palpation present (GI), No Guarding due to palpation present (GI) and Yes No hepatosplenomegaly present Extremity: COMMON NORMALS: normal to inspection, capillary refill normal, no clubbing, cyanosis or edema, no calf tenderness and no pedal edema OTHER: Mild discomfort with palpation and range of motion at the left knee and left shoulder Neuro: SENSORIUM/ORIENTATION: Yes oriented to person, Yes oriented to place and Yes oriented to time Skin: COMMON NORMALS: no rashes or lesions noted GENERAL SKIN EXAM: no rashes or lesions noted Course 2 Vital Signs: Vital signs: Vital Signs Temperature 98.1 F 01/05/25 14:43 Pulse Rate 92 01/05/25 20:20 Respiratory Rate 18 01/05/25 20:20 Blood Pressure 165/83 01/05/25 20:20 Pulse Oximetry 93 01/05/25 20:20 Oxygen Delivery Me thod Room Air 01/05/25 18:58 MDM - SOB/Dyspnea Medical Decision Making Care signed out to Dr. Asif at change of shift. See final notes for diagnosis and disposition. Patient care was transitioned me at shift change. Awaiting final troponin. No leukocytosis. No anemia. No renal failure. Serial troponins are negative. He is RSV positive. Patient is has no oxygen requirements. No other abnormal findings. He is complaining of malaise. Assessment and plan: RSV bronchiolitis Pseudogout ? IV Tylenol, IV Decadron in the emergency room. - Discharged home - Discussed plan with patient. Answered any questions. - Evaluation and treatment of this problem were appropriate in the emergency setting. Lab Data 01/05/25 15:16 01/05/25 15:16 Labs/Radiology: Radiology Impressions Chest X-Ray 01/05/25 14:54 IMPRESSION: No acute findings. Laboratory Results WBC 9.50 10^3/uL (3.29-11.43) 01/05/25 15:16 RBC 4.41 10^6/uL (3.85-5.65) 01/05/25 15:16 Hgb 13.10 g/dL (11.27-16.99) 01/05/25 15:16 Hct 40.9 % (37-53) 01/05/25 15:16 MCV 92.7 fl (82-101) 01/05/25 15:16 MCH 29.7 pg (27-33) 01/05/25 15:16 MCHC 32.0 g/dL (30-55) 01/05/25 15:16 RDW 13.2 % (12.1-15.1) 01/05/25 15:16 Plt Count 219 10^3/cmm (157-399) 01/05/25 15:16 MPV 9.8 fL (7.4-10.4) 01/05/25 15:16 Neut % (Auto) 79.6 % 01/05/25 15:16 Lymph % (Auto) 11.3 % 01/05/25 15:16 Lipscomb % (Auto) 8.1 % 01/05/25 15:16 Eos % (Auto) 0.1 % 01/05/25 15:16 Baso % (Auto) 0.2 % 01/05/25 15:16 Neut # (Auto) 7.56 10^3/uL (1.8-7.7) 01/05/25 15:16 Lymph # (Auto) 1.1 10^3/uL (0.8-4.8) 01/05/25 15:16 Lipscomb # (Auto) 0.8 10^3/uL (0.2-0.9) 01/05/25 15:16 Eos # (Auto) 0.0 10^3/uL (0.0-0.8) 01/05/25 15:16 Baso # (Auto) 0.0 10^3/uL (0.0-0.1) 01/05/25 15:16 Nucleated RBC % (auto) 0 % 01/05/25 15:16 Nucleated RBCs # 0.0 /100WBC 01/05/25 15:16 ESR 41 mm/hr (0-10) H 01/05/25 15:16 Specimen Type Arterial 01/05/25 14:58 Sample Site Brachial, left 01/05/25 14:58 ABG pH 7.39 (7.35-7.45) 01/05/25 14:58 ABG pCO2 38.2 mmHg (35-45) 01/05/25 14:58 ABG pO2 64.0 mmHg (80.0-100.0) L 01/05/25 14:58 ABG PO2/FiO2 Ratio 304 01/05/25 14:58 ABG HCO3 23.0 mmol/L (22-26) 01/05/25 14:58 ABG O2 Saturation 92.6 01/05/25 14:58 ABG Base Excess -1.7 mmol/L (-2.0-2.0) 01/05/25 14:58 Yasmany Test Pos 01/05/25 14:58 A-a O2 Gradient 4.9 mmHg (5-10) L 01/05/25 14:58 Hematocrit 41.5 % (42-52) L 01/05/25 14:58 Hgb O2 Saturation 91.0 % (95-100) L 01/05/25 14:58 Carboxyhemoglobin 1.6 %THgb (0.4-20.1) 01/05/25 14:58 Methemoglobin 0.1 % (0.4-1.5) L 01/05/25 14:58 Total Hemoglobin 13.5 g/dL (14-18) L 01/05/25 14:58 Sodium 133.0 mmol/L (131-143) 01/05/25 14:58 Potassium 4.4 mmol/L (3.5-5.0) 01/05/25 14:58 Glucose 203.0 mg/dL (70-115) H 01/05/25 14:58 Ionized Calcium 1.2 mmol/L (1.1-1.4) 01/05/25 14:58 O2 Delivery Device Room air 01/05/25 14:58 FiO2 21.0 % 01/05/25 14:58 Top Dyeing Machine Tender ID Cak 01/05/25 14:58 Sodium 133 mmol/L (136-145) L 01/05/25 15:16 Potassium 4.9 mmol/L (3.5-5.1) 01/05/25 15:16 Chloride 94 mmol/L (98-107) L 01/05/25 15:16 Carbon Dioxide 22 mmol/L (22-29) 01/05/25 15:16 Anion Gap 21.9 (5-19) H 01/05/25 15:16 BUN 19 mg/dL (8-23) 01/05/25 15:16 Creatinine 0.9 mg/dL (0.7-1.2) 01/05/25 15:16 GFR Calculation Not Reportable 01/05/25 15:16 Glucose 205 mg/dL (65-115) H 01/05/25 15:16 Calculated Osmolality 284 mOsm/kg (285-295) L 01/05/25 15:16 Calcium 9.1 mg/dL (8.5-10.5) 01/05/25 15:16 Total Bilirubin 1.5 mg/dL (0.15-1.2) H 01/05/25 15:16 AST 14 U/L (0-40) 01/05/25 15:16 ALT 14 U/L (0-41) 01/05/25 15:16 Alkaline Phosphatase 127 U/L (40-130) 01/05/25 15:16 Creatine Kinase 22 U/L (39-308) L 01/05/25 15:16 Troponin T Baseline 11 ng/L (0-15) 01/05/25 15:16 Troponin T 120 Minute 12.26 ng/L (0-15) 01/05/25 18:09 Delta Troponin T 1.26 ABS# (0-10) 01/05/25 18:09 C-Reactive Protein 66.5 mg/L (0.0-4.9) H 01/05/25 15:16 NT-Pro-B Natriuret Pep 144 pg/mL (0-450) 01/05/25 15:16 Total Protein 6.7 g/dL (6.6-8.7) 01/05/25 15:16 Albumin 4.1 g/dL (3.5-5.2) 01/05/25 15:16 Globulin 2.6 g/dL (1.3-4.6) 01/05/25 15:16 Urine Color Yellow (Yellow) 01/05/25 17:50 Urine Appearance Clear (CLEAR) 01/05/25 17:50 Urine pH 5.0 (5-7) 01/05/25 17:50 Ur Specific [place] 1.024 (1.005-1.030) 01/05/25 17:50 Urine Protein 1+ (Negative) A 01/05/25 17:50 Urine Glucose (UA) 1+ (Normal) H 01/05/25 17:50 Urine Ketones 2+ (Negative) H 01/05/25 17:50 Urine Blood Negative (Negative) 01/05/25 17:50 Urine Nitrate Negative (Negative) 01/05/25 17:50 Urine Bilirubin Negative (Negative) 01/05/25 17:50 Urine Urobilinogen 1.0 mg/dL (Negative) 01/05/25 17:50 Ur Leukocyte Esterase Negative (Negative) 01/05/25 17:50 Urine RBC 0-2 /hpf (0-2) 01/05/25 17:50 Urine WBC 0-5 /hpf (0-5) 01/05/25 17:50 Ur Squamous Epith Cells 0-5 /hpf (0-5) 01/05/25 17:50 Amorphous Sediment Not Reportable 01/05/25 17:50 Urine Bacteria None seen /hpf (NONE) 01/05/25 17:50 Hyaline Casts 3.30 /lpf 01/05/25 17:50 Influenza A (PCR) Negative (Negative) 01/05/25 15:45 Influenza Type B (PCR) Negative (Negative) 01/05/25 15:45 RSV (PCR) Positive (Negative) A 01/05/25 15:45 SARS-CoV-2 (PCR) Negative (Negative) 01/05/25 15:45 Discharge Plan Discharge Patient Disposition: Home Clinical Impression: Respiratory syncytial virus infection, Non-cardiac chest pain, Malaise Condition: Stable Prescriptions: New dexamethasone 6 mg tablet 6 mg PO DAILY 5 Days Qty: 5 0RF tramadol 50 mg tablet 50 mg PO Q8H PRN (Reason: pain) Qty: 10 0RF No Action glimepiride 4 mg tablet 4 mg PO BID metformin 500 mg tablet extended release 24 hr 500 mg PO TID Januvia 100 mg tablet 100 mg PO DAILY atorvastatin 40 mg Tablet 40 mg PO BEDTIME Qty: 60 4RF lisinopril 5 mg tablet 5 mg PO DAILY insulin glargine [Lantus Solostar U-100 Insulin] 100 unit/mL (3 mL) insulin pen 10 unit SUBCUT DAILY Discharge Orders: Discharge ED (Routine); Ordered 01/05/25 Ordered By: Enedina Asif Referrals: Gerry Khan MD [Primary Care Provider] - Discharge Diet: Usual diet Discharge Activity: Increase activity as tolerated Patient Instructions: Bronchiolitis (ED), Opioid Safety, Pain Management, Respiratory Syncytial Virus (RSV) Activity Restrictions/Additional Instructions: Please be very careful taking the tramadol it can make older individuals dizzy and off balance and sometimes confused. If any of these things happen please discontinue their use. Thank you for choosing [facility] for your healthcare needs today. Please realize this is an emergency room and that we are providing you with a medical screening exam and this may not be complete and all inclusive of all the testing and or work up that you may need to determine your ailment or severity of your illness. You have been screened and evaluated and felt safe for discharge. Health conditions do change or evolve sometimes and as such it is important that you follow up with your Primary Doctor to be re checked, 3-5 days is a general good time frame for follow up. You are always welcome to return to the ED for re assessment if your symptoms are worsening or you have new concerns Print Language: Italian Coding Level of Care Code ED Fine Artist for Chg Fwd Documented by User: Enedina Asif MD 01/05/25 23:09 HPI - SOB/Dyspnea 2 General: Chief Complaint: Shortness of Breath/Dyspnea Stated Complaint: chest pains, sob, L side tingling, states has gout Time Seen by Provider: 01/05/25 14:54 History of Present Illness: HPI Narrative: Patient care transitioned me at shift change. 84-year-old man with a history of chroni c kidney disease, CHF, coronary artery disease and diabetes who presents emergency room with malaise. He is complaining of some gout. Says his left knee is hurting. No other symptoms at this time. However he did report some chest pain and shortness of breath to Dr. Schofield. Related Data Home Medications ?Medication ?Instructions ?Recorded ?Confirmed glimepiride 4 mg tablet 4 mg PO BID 05/03/20 5 metformin 500 mg tablet,extended 500 mg PO TID 0 01/05/25 release 24 hr sitagliptin phosphate 100 mg 100 mg PO DAILY 05/03/20 01/05/25 tablet (Januvia) insulin glargine 100 unit/mL (3 10 unit SUBCUT DAILY 0 01/05/25 01/05/25 mL) subcutaneous pen (Lantus Solostar U-100 Insulin) lisinopril 5 mg tablet 5 mg PO DAILY 01/05/2501/05 Previous Rx's ?Medication ?Instructions ?Recorded atorvastatin 40 mg tablet 40 mg PO BEDTIME #60 tabs dexamethasone 6 mg tablet 6 mg PO DAILY 5 days #5 tabs 01/05/25 tramadol 50 mg tablet 50 mg PO Q8H PRN pain #10 ta bs 01/05/25 Allergies Allergy/AdvReac Type Severity Reaction Status Date / Time aspirin Allergy Unknown Verified 01/05/25 14:51 oxytetracycline (From Allergy ADR-Swelling Verified 01/05/25 14:51 Terramycin) of the Eye Penicillins Allergy ALGY-Difficulty Verified 01/05/25 14:51 Swallowing Review of Systems 2 Narrative: Constitutional symptoms: Negative except as documented in HPI. Skin symptoms: Negative except as documented in HPI. Eye symptoms: Negative except as documented in HPI. ENMT symptoms: Negative except as documented in HPI. Respiratory symptoms: Negative except as documented in HPI. Cardiovascular symptoms: Negative except as documented in HPI. Gastrointestinal symptoms: Negative except as documented in HPI. Genitourinary symptoms: Negative except as documented in HPI. Musculoskeletal symptoms: Negative except as documented in HPI. Neurologic symptoms: Negative except as documented in HPI. Psychiatric symptoms: Negative except as documented in HPI. Endocrine symptoms: Negative except as documented in HPI. PFSH ED 2 PFSH: Medical History Reactive airway disease Atypical chest pain Aortic valve stenosis, acquired Pseudogout Anemia Angina pectoris, unspecified Heart murmur Congestive heart failure Chronic kidney disease, stage III (moderate) Legionella infection 2007 Lung cancer chemotherapy and radiation, 1993 Asthma Hypertension Coronary artery disease stent years ago, here, maker Diabetes mellitus Surgical History S/P percutaneous transluminal angioplasty ([employer]) with stent placement History of arthroplasty of right knee Family History Brother Cancer brother Father Cancer Social History Smoking and tobacco/nicotine status: unknown if used tobacco/nicotine Alcohol intake: never Substance/Drug Use: never Household members: none Physical Exam 2 Narrative: EXAM NARRATIVE: General: Alert, no acute distress. Skin: Warm, dry. Head: Normocephalic, atraumatic. Neck: Supple, trachea midline. Eye: Extraocular movements are intact. Ears, nose, mouth and throat: mucosa moist. Cardiovascular: Regular, Normal peripheral perfusion. Respiratory: Lungs are clear to auscultation, respirations are non-labored, breath sounds are equal, Symmetrical chest wall expansion. Gastrointestinal: Soft, Nontender, Non distended Musculoskeletal: Normal ROM, no deformity. Neurological: Alert and oriented, No focal neurological deficit observed. Psychiatric: Cooperative, appropriate mood & affect. Course 2 Vital Signs: Vital signs: Vital Signs Temperature 98.1 F 01/05/25 14:43 Pulse Rate 92 01/05/25 20:20 Respiratory Rate 18 01/05/25 20:20 Blood Pressure 165/83 01/05/25 20:20 Pulse Oximetry 93 01/05/25 20:20 Oxygen Delivery Me thod Room Air 01/05/25 18:58 MDM - SOB/Dyspnea Medical Decision Making Patient care was transitioned me at shift change. Awaiting final troponin. No leukocytosis. No anemia. No renal failure. Serial troponins are negative. He is RSV positive. Patient is has no oxygen requirements. No other abnormal findings. He is complaining of malaise. Assessment and plan: RSV bronchiolitis Pseudogout ? IV Tylenol, IV Decadron in the emergency room. - Discharged home - Discussed plan with patient. Answered any questions. - Evaluation and treatment of this problem were appropriate in the emergency setting. Lab Data 01/05/25 15:16 01/05/25 15:16 Labs/Radiology: Radiology Impressions Chest X-Ray 01/05/25 14:54 IMPRESSION: No acute findings. Laboratory Results WBC 9.50 10^3/uL (3.29-11.43) 01/05/25 15:16 RBC 4.41 10^6/uL (3.85-5.65) 01/05/25 15:16 Hgb 13.10 g/dL (11.27-16.99) 01/05/25 15:16 Hct 40.9 % (37-53) 01/05/25 15:16 MCV 92.7 fl (82-101) 01/05/25 15:16 MCH 29.7 pg (27-33) 01/05/25 15:16 MCHC 32.0 g/dL (30-55) 01/05/25 15:16 RDW 13.2 % (12.1-15.1) 01/05/25 15:16 Plt Count 219 10^3/cmm (157-399) 01/05/25 15:16 MPV 9.8 fL (7.4-10.4) 01/05/25 15:16 Neut % (Auto) 79.6 % 01/05/25 15:16 Lymph % (Auto) 11.3 % 01/05/25 15:16 Lipscomb % (Auto) 8.1 % 01/05/25 15:16 Eos % (Auto) 0.1 % 01/05/25 15:16 Baso % (Auto) 0.2 % 01/05/25 15:16 Neut # (Auto) 7.56 10^3/uL (1.8-7.7) 01/05/25 15:16 Lymph # (Auto) 1.1 10^3/uL (0.8-4.8) 01/05/25 15:16 Lipscomb # (Auto) 0.8 10^3/uL (0.2-0.9) 01/05/25 15:16 Eos # (Auto) 0.0 10^3/uL (0.0-0.8) 01/05/25 15:16 Baso # (Auto) 0.0 10^3/uL (0.0-0.1) 01/05/25 15:16 Nucleated RBC % (auto) 0 % 01/05/25 15:16 Nucleated RBCs # 0.0 /100WBC 01/05/25 15:16 ESR 41 mm/hr (0-10) H 01/05/25 15:16 Specimen Type Arterial 01/05/25 14:58 Sample Site Brachial, left 01/05/25 14:58 ABG pH 7.39 (7.35-7.45) 01/05/25 14:58 ABG pCO2 38.2 mmHg (35-45) 01/05/25 14:58 ABG pO2 64.0 mmHg (80.0-100.0) L 01/05/25 14:58 ABG PO2/FiO2 Ratio 304 01/05/25 14:58 ABG HCO3 23.0 mmol/L (22-26) 01/05/25 14:58 ABG O2 Saturation 92.6 01/05/25 14:58 ABG Base Excess -1.7 mmol/L (-2.0-2.0) 01/05/25 14:58 Yasmany Test Pos 01/05/25 14:58 A-a O2 Gradient 4.9 mmHg (5-10) L 01/05/25 14:58 Hematocrit 41.5 % (42-52) L 01/05/25 14:58 Hgb O2 Saturation 91.0 % (95-100) L 01/05/25 14:58 Carboxyhemoglobin 1.6 %THgb (0.4-20.1) 01/05/25 14:58 Methemoglobin 0.1 % (0.4-1.5) L 01/05/25 14:58 Total Hemoglobin 13.5 g/dL (14-18) L 01/05/25 14:58 Sodium 133.0 mmol/L (131-143) 01/05/25 14:58 Potassium 4.4 mmol/L (3.5-5.0) 01/05/25 14:58 Glucose 203.0 mg/dL (70-115) H 01/05/25 14:58 Ionized Calcium 1.2 mmol/L (1.1-1.4) 01/05/25 14:58 O2 Delivery Device Room air 01/05/25 14:58 FiO2 21.0 % 01/05/25 14:58 Top Dyeing Machine Tender ID Cak 01/05/25 14:58 Sodium 133 mmol/L (136-145) L 01/05/25 15:16 Potassium 4.9 mmol/L (3.5-5.1) 01/05/25 15:16 Chloride 94 mmol/L (98-107) L 01/05/25 15:16 Carbon Dioxide 22 mmol/L (22-29) 01/05/25 15:16 Anion Gap 21.9 (5-19) H 01/05/25 15:16 BUN 19 mg/dL (8-23) 01/05/25 15:16 Creatinine 0.9 mg/dL (0.7-1.2) 01/05/25 15:16 GFR Calculation Not Reportable 01/05/25 15:16 Glucose 205 mg/dL (65-115) H 01/05/25 15:16 Calculated Osmolality 284 mOsm/kg (285-295) L 01/05/25 15:16 Calcium 9.1 mg/dL (8.5-10.5) 01/05/25 15:16 Total Bilirubin 1.5 mg/dL (0.15-1.2) H 01/05/25 15:16 AST 14 U/L (0-40) 01/05/25 15:16 ALT 14 U/L (0-41) 01/05/25 15:16 Alkaline Phosphatase 127 U/L (40-130) 01/05/25 15:16 Creatine Kinase 22 U/L (39-308) L 01/05/25 15:16 Troponin T Baseline 11 ng/L (0-15) 01/05/25 15:16 Troponin T 120 Minute 12.26 ng/L (0-15) 01/05/25 18:09 Delta Troponin T 1.26 ABS# (0-10) 01/05/25 18:09 C-Reactive Protein 66.5 mg/L (0.0-4.9) H 01/05/25 15:16 NT-Pro-B Natriuret Pep 144 pg/mL (0-450) 01/05/25 15:16 Total Protein 6.7 g/dL (6.6-8.7) 01/05/25 15:16 Albumin 4.1 g/dL (3.5-5.2) 01/05/25 15:16 Globulin 2.6 g/dL (1.3-4.6) 01/05/25 15:16 Urine Color Yellow (Yellow) 01/05/25 17:50 Urine Appearance Clear (CLEAR) 01/05/25 17:50 Urine pH 5.0 (5-7) 01/05/25 17:50 Ur Specific [place] 1.024 (1.005-1.030) 01/05/25 17:50 Urine Protein 1+ (Negative) A 01/05/25 17:50 Urine Glucose (UA) 1+ (Normal) H 01/05/25 17:50 Urine Ketones 2+ (Negative) H 01/05/25 17:50 Urine Blood Negative (Negative) 01/05/25 17:50 Urine Nitrate Negative (Negative) 01/05/25 17:50 Urine Bilirubin Negative (Negative) 01/05/25 17:50 Urine Urobilinogen 1.0 mg/dL (Negative) 01/05/25 17:50 Ur Leukocyte Esterase Negative (Negative) 01/05/25 17:50 Urine RBC 0-2 /hpf (0-2) 01/05/25 17:50 Urine WBC 0-5 /hpf (0-5) 01/05/25 17:50 Ur Squamous Epith Cells 0-5 /hpf (0-5) 01/05/25 17:50 Amorphous Sediment Not Reportable 01/05/25 17:50 Urine Bacteria None seen /hpf (NONE) 01/05/25 17:50 Hyaline Casts 3.30 /lpf 01/05/25 17:50 Influenza A (PCR) Negative (Negative) 01/05/25 15:45 Influenza Type B (PCR) Negative (Negative) 01/05/25 15:45 RSV (PCR) Positive (Negative) A 01/05/25 15:45 SARS-CoV-2 (PCR) Negative (Negative) 01/05/25 15:45 All radiology interpretation(s) finalized by discharge Discharge Plan Discharge Patient Disposition: Home Clinical Impression: Respiratory syncytial virus infection, Non-cardiac chest pain, Malaise Condition: Stable Prescriptions: New dexamethasone 6 mg tablet 6 mg PO DAILY 5 Days Qty: 5 0RF tramadol 50 mg tablet 50 mg PO Q8H PRN (Reason: pain) Qty: 10 0RF No Action glimepiride 4 mg tablet 4 mg PO BID metformin 500 mg tablet extended release 24 hr 500 mg PO TID Januvia 100 mg tablet 100 mg PO DAILY atorvastatin 40 mg Tablet 40 mg PO BEDTIME Qty: 60 4RF lisinopril 5 mg tablet 5 mg PO DAILY insulin glargine [Lantus Solostar U-100 Insulin] 100 unit/mL (3 mL) insulin pen 10 unit SUBCUT DAILY Discharge Orders: Discharge ED (Routine); Ordered 01/05/25 Ordered By: Enedina Asif Referrals: Gerry Khan MD [Primary Care Provider] - Discharge Diet: Usual diet Discharge Activity: Increase activity as tolerated Patient Instructions: Bronchiolitis (ED), Opioid Safety, Pain Management, Respiratory Syncytial Virus (RSV) Activity Restrictions/Additional Instructions: Please be very careful taking the tramadol it can make older individuals dizzy and off balance and sometimes confused. If any of these things happen please discontinue their use. Thank you for choosing [facility] for your healthcare needs today. Please realize this is an emergency room and that we are providing you with a medical screening exam and this may not be complete and all inclusive of all the testing and or work up that you may need to determine your ailment or severity of your illness. You have been screened and evaluated and felt safe for discharge. Health conditions do change or evolve sometimes and as such it is important that you follow up with your Primary Doctor to be re checked, 3-5 days is a general good time frame for follow up. You are always welcome to return to the ED for re assessment if your symptoms are worsening or you have new concerns Print Language: Italian Coding Level of Care Code ED Fine Artist for Jose Ahmadi
[2025-01-05 15:49] LABS: Basophils % 0.2 %; Eosinophils % 0.1 %; Hematocrit 40.9 % (37-53); Lymphocytes # 1.1 10^3/uL (0.8-4.8); Lymphocytes % 11.3 %; Mean Corpuscular Hemoglobin 29.7 pg (27-33); Mean Corpuscular Volume 92.7 fl (82-101); Mean Platelet Volume 9.8 fL (7.4-10.4); Monocytes # 0.8 10^3/uL (0.2-0.9); Monocytes % 8.1 %; Neutrophils # 7.56 10^3/uL (1.8-7.7); Neutrophils % 79.6 %; Nucleated Red Blood Cells % 0 %; Platelet Count 219 10^3/cmm (157-399); Red Blood Count 4.41 10^6/uL (3.85-5.65); Red Cell Distribution Width 13.2 % (12.1-15.1)
[2025-01-05 16:13] LABS: Troponin(5th) Baseline 11 ng/L (0-15)
[2025-01-05 16:20] LABS: Erythrocyte Sedimentation Rate 41 mm/hr (0-10)
[2025-01-05 16:23] LABS: Alanine Aminotransferase 14 U/L (0-41); Albumin Level 4.1 g/dL (3.5-5.2); Alkaline Phosphatase 127 U/L (40-130); Anion Gap 21.9 (5-19); Aspartate Amino Transferase 14 U/L (0-40); Blood Urea Nitrogen 19 mg/dL (8-23); Calcium 9.1 mg/dL (8.5-10.5); Carbon Dioxide 22 mmol/L (22-29); Chloride 94 mmol/L (98-107); Creatine Phosphokinase 22 U/L (39-308); Creatinine Clr Calc Pharmacy 67.1658; Globulin 2.6 g/dL (1.3-4.6); Glucose 205 mg/dL (65-115); NT Pro B Type Natriuretic Pept 144 pg/mL (0-450); Osmolality Calculated 284 mOsm/kg (285-295); Potassium 4.9 mmol/L (3.5-5.1); Sodium 133 mmol/L (136-145); Total Bilirubin 1.5 mg/dL (0.15-1.2); Total Protein 6.7 g/dL (6.6-8.7)
[2025-01-05 16:29] LABS: Influenza A NEGATIVE (Negative); Influenza B NEGATIVE (Negative); SARS-CoV-2 PCR NEGATIVE (Negative)
--- NOTE | 2025-01-05 16:33 | ECG_ITS ---
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1940 Requested By: Matthew Coyle Order Number: [id number] Reading MD: KARTIK VELÁZQUEZ Measurements Intervals [place] Rate: 89 P: 26 [place]: 165 QRS: 77 QRSD: 122 T: -28 QT: 346 QTc: 422 Interpretive Statements SINUS RHYTHM ANTEROSEPTAL MYOCARDIAL INFARCTION , OF INDETERMINATE AGE [40+ ms Q WAVE IN V1-V4] MODERATE T-WAVE ABNORMALITY, CONSIDER INFERIOR ISCHEMIA [-0.1+ mV T-WAVE IN II/aVF] Compared to ECG 01/05/2025 14:41:19 T-wave abnormality now present Possible ischemia now present Sinus tachycardia no longer present Left-axis deviation no longer present Myocardial infarct finding still present Electronically Signed On 01-05-2025 22:18:21 CDT by KARTIK VELÁZQUEZ [email or web address]
[2025-01-05 16:39] LABS: C Reactive Protein 66.5 mg/L (0.0-4.9)
[2025-01-05 16:58] LABS: Respiratory Syncytial Virus Ce POSITIVE (Negative)
[2025-01-05 18:16] LABS: Bilirubin Urine Negative (Negative); Blood Urine Negative (Negative); Glucose Urine UA 1+ (Normal); Ketones Urine 2+ (Negative); Leukocyte Esterase Urine Negative (Negative); Nitrate Urine Negative (Negative); Protein Urine 1+ (Negative); Specific Gravity, Urine 1.024 (1.005-1.030); Urine Appearance Clear (CLEAR); Urine Color Yellow (Yellow)
[2025-01-05 18:21] LABS: Add Urine Microscopic? YES; Bacteria Urine None Seen /hpf; RBC Urine 0-2 /hpf (0-2); Squamous Epithelial Cell Urine 0-5 /hpf (0-5); WBC Urine 0-5 /hpf (0-5)
[2025-01-05] MEDS: ketorolac 30 mg/mL INJ 15 MG IVP (18:53)
[2025-01-05 19:10] LABS: Troponin 5 2HR 12.26 ng/L (0-15); Troponin 5 2HR Delta 1.26 ABS# (0-10)
[2025-01-05] MEDS: acetaminophen 1,000 MG/100 ML PIGGYBACK 400 MG IV (19:30)
[2025-01-05] MEDS: dexamethasone 10 mg/mL INJ 6 MG IVP (19:30)
[2025-01-07 06:15] LABS: Bacillus cereus group Not Detected (NOT DETECT); Bacillus subtillis group Not Detected (NOT DETECT); Corynebacterium Not Detected (NOT DETECT); Cutibacterium acnes (P.acnes) Not Detected (NOT DETECT); Enterococcus Not Detected (NOT DETECT); Enterococcus faecalis Not Detected (NOT DETECT); Enterococcus faecium Not Detected (NOT DETECT); Lactobacillus species Not Detected (NOT DETECT); Listeria Not Detected (NOT DETECT); Listeria monocytogenes Not Detected (NOT DETECT); Micrococcus Not Detected (NOT DETECT); Pan Candida Not Detected (NOT DETECT); Pan Gram-Negative Not Detected (NOT DETECT); Staphylococcus epidermidis Not Detected (NOT DETECT); Staphylococcus lugdunensis Not Detected (NOT DETECT); Staphylococcus species Not Detected (NOT DETECT); Streptococcus agalactiae Not Detected (NOT DETECT); Streptococcus anginosus group Not Detected (NOT DETECT); Streptococcus pneumoniae Not Detected (NOT DETECT); Streptococcus pyogenes Not Detected (NOT DETECT); Streptococcus species Not Detected (NOT DETECT)
== END 2025-01-05 20:22 | disposition home or self-care (01) ==
PROVIDERS: Family Medicine; Emergency Provider Emergency Medicine; PCP Family Medicine
DX: R07.89 Other chest pain (principal); B33.8 Other specified viral diseases; R53.81 Other malaise; Z79.84 Long term (current) use of oral hypoglycemic drugs; Z79.4 Long term (current) use of insulin; Z11.52 Encounter for screening for COVID-19; I25.10 Atherosclerotic heart disease of native coronary artery without angina pectoris; E11.22 Type 2 diabetes mellitus with diabetic chronic kidney disease; I13.0 Hypertensive heart and chronic kidney disease with heart failure and stage 1 through stage 4 chronic kidney disease, or unspecified chronic kidney disease; N18.30 Chronic kidney disease, stage 3 unspecified; I50.9 Heart failure, unspecified
CPT/HCPCS: 36415; 36600; 71045; 80051; 80053; 81001; 82330; 82550; 82805; 83880; 84484; 85025; 85651; 86140; 87040; 87150; 87205; 87637; 93005; 96374; 96375; 99285; J0131; J1100; J1885

== ENCOUNTER 2025-01-09 17:43 | Inpatient (IN) | payer MEDICARE, SELFPAY ==
[2025-01-09] VITALS (8 sets, daily range): BP systolic 144–174; BP diastolic 96–118; PULSE 93–164; RESP 16–24; TEMP 36.7; O2SAT 90–98
[2025-01-09 18:09] LABS: Glucose Point of Care > 600 mg/dL (70-110)
--- NOTE | 2025-01-09 18:17 | PC.NURSE ---
glucose >/=: 600; glucometer states HI.
[2025-01-09 18:27] LABS: Basophils % 0.1 %; Lymphocytes # 0.9 10^3/uL (0.8-4.8); Lymphocytes % 5.7 %; Mean Corpuscular HGB Conc 33.1 g/dL (30-55); Mean Corpuscular Hemoglobin 29.5 pg (27-33); Mean Corpuscular Volume 89.1 fl (82-101); Monocytes # 1.2 10^3/uL (0.2-0.9); Monocytes % 7.8 %; Neutrophils # 13.35 10^3/uL (1.8-7.7); Neutrophils % 85.8 %; Nucleated Red Blood Cells % 0 %; Platelet Count 485 10^3/cmm (157-399); Red Blood Count 5.05 10^6/uL (3.85-5.65); Red Cell Distribution Width 13.2 % (12.1-15.1); White Blood Count 15.56 10^3/uL (3.29-11.43)
[2025-01-09 18:31] LABS: Bilirubin Urine Negative (Negative); Blood Urine Trace (Negative); Glucose Urine UA 2+ (Normal); Ketones Urine 2+ (Negative); Leukocyte Esterase Urine Negative (Negative); Nitrate Urine Negative (Negative); Protein Urine Trace (Negative); Urine Appearance Clear (CLEAR); Urine Color Yellow (Yellow); Urobilinogen Urine 0.2 mg/dL (Negative)
--- NOTE | 2025-01-09 18:32 | XRR_ITS ---
PROCEDURE INFORMATION: Exam: XR Chest Exam date and time: 01/09/2025 6:45 PM Age: 84 years old Clinical indication: Prior surgery; Surgery date: 6+ months; Surgery type: Coronary stents; EMS arrival for AMS. Rsv positive. History of lung cancer. ; Additional info: Altered mental status TECHNIQUE: Imaging protocol: Radiologic exam of the chest. Views: 1 view. COMPARISON: CR XR chest 1V portable [id number] 01/05/2025 3:05 PM FINDINGS: Lungs: Unremarkable. No consolidation. Pleural spaces: Unremarkable. No pleural effusion. No pneumothorax. Heart/Mediastinum: Prior TAVR. No cardiomegaly. Coronary stent material. Vasculature: Aortic arch atherosclerotic calcification. Bones/joints: Degenerative changes along the spine and shoulders. XR/XR chest 1V portable [id number] IMPRESSION: No acute findings.
[2025-01-09 18:33] LABS: Add Urine Microscopic? YES; Bacteria Urine None Seen /hpf; Hyaline Casts Urine 2.46 /lpf; RBC Urine 0-2 /hpf (0-2); Squamous Epithelial Cell Urine 0-5 /hpf (0-5); Universal Test for UA Present (0); WBC Urine 0-5 /hpf (0-5)
[2025-01-09 18:39] LABS: Alanine Aminotransferase 12 U/L (0-41); Albumin Level 4.2 g/dL (3.5-5.2); Alkaline Phosphatase 168 U/L (40-130); Anion Gap 29.6 (5-19); Aspartate Amino Transferase 20 U/L (0-40); Blood Urea Nitrogen 68 mg/dL (8-23); Calcium 10.8 mg/dL (8.5-10.5); Carbon Dioxide 21 mmol/L (22-29); Chloride 98 mmol/L (98-107); Globulin 3.4 g/dL (1.3-4.6); Osmolality Calculated 346 mOsm/kg (285-295); Sodium 142 mmol/L (136-145); Total Bilirubin 0.7 mg/dL (0.15-1.2); Total Protein 7.6 g/dL (6.6-8.7)
--- NOTE | 2025-01-09 18:39 | CTR_ITS ---
PROCEDURE INFORMATION: Exam: CT Abdomen And Pelvis Without Contrast Exam date and time: 01/09/2025 6:56 PM Age: 84 years old Clinical indication: C/O low back pain with dysuria. History of lung cancer. ; Additional info: Abdominal pain TECHNIQUE: Imaging protocol: Computed tomography of the abdomen and pelvis without contrast. Radiation optimization: All CT scans at this facility use at least one of these dose optimization techniques: automated exposure control; mA and/or kV adjustment per patient size (includes targeted exams where dose is matched to clinical indication); or iterative reconstruction. COMPARISON: 1. CT chest wo con [id number] 12/14/2023 12:33 PM 2. CR (CHEST, ) 01/09/2025 6:45 PM RADIATION DOSE METRICS: Total DLP (mGy-cm): 570.74 FINDINGS: Lungs: Minimal dependent atelectasis. Left basilar calcified granuloma. Heart: Prior TAVR. Coronary arteries: Coronary artery calcification. Liver: Diffuse hepatic hypoattenuation compatible with steatosis. Gallbladder and biliary ducts: Normal. No calcified stones. No ductal dilation. Pancreas: Diffuse fatty infiltration of the pancreas without ductal dilatation. Spleen: Normal. No splenomegaly. Adrenal glands: Normal. No mass. Kidneys and ureters: Normal. No hydronephrosis. Stomach and bowel: No bowel dilatation to suggest obstruction. Colonic diverticulosis without findings of diverticulitis. Appendix: No evidence of appendicitis. Intraperitoneal space: Unremarkable. No free air. No significant fluid collection. Vasculature: Heavy systemic atherosclerotic calcification without abdominal aortic aneurysm. Lymph nodes: Unremarkable. No enlarged lymph nodes. Urinary bladder: Adame catheter within decompressed urinary bladder. Reproductive: Unremarkable as visualized. Bones/joints: No acute fracture. Degenerative changes along the imaged axial skeletal system. Soft tissues: Unremarkable. CT/CT abdomen pelvis wo con [id number] IMPRESSION: 1. No acute findings. 2. Hepatic steatosis. 3. Additional chronic and incidental findings as above, to include atherosclerosis and colonic diverticulosis.
[2025-01-09 18:44] LABS: Glucose 678 mg/dL (65-115); Potassium 6.6 mmol/L (3.5-5.1)
[2025-01-09 19:00] LABS: Add Urine Culture? No; Amorphous Sediment Urine 1+ /hpf
[2025-01-09 19:04] LABS: Influenza A NEGATIVE (Negative); Influenza B NEGATIVE (Negative); SARS-CoV-2 PCR NEGATIVE (Negative)
[2025-01-09 19:06] LABS: Respiratory Syncytial Virus Ce POSITIVE (Negative)
[2025-01-09] MEDS: sodium chloride 0.9% 1,000 ML 999 ML IV ×2 (19:12→21:25)
[2025-01-09] MEDS: ondansetron 2 mg/ML SDV 2 mL 4 MG IVP (19:12)
[2025-01-09 19:48] LABS: ABG PCO2 41.6 mmHg (35-45); ABG PH Result 7.29 (7.35-7.45); Alveolar-Arterial Oxygen Gradi 2.1 mmHg (5-10); Arterial Blood Gas Hematocrit 44.5 % (42-52); Base Excess ABG -6.1 mmol/L (-2.0-2.0); Blood Gas Allen Test Pos; Blood Gas Operator Identificat gerca; Blood Gas Sample Site Radial, left; Blood Gas Sample Type Arterial; HCO3 ABG 20.2 mmol/L (22-26); Ionized Calcium Level - ABG 1.4 mmol/L (1.1-1.4); Methemoglobin 1.1 % (0.4-1.5); Oxygen Device NC; PO2 ABG 77.8 mmHg (80.0-100.0); Potassium Level - ABG 5.3 mmol/L (3.5-5.0); Total Hemoglobin 14.5 g/dL (14-18)
[2025-01-09 19:50] LABS: Lactic Sepsis W/Reflex 2.2 mmol/L (0.5-2.2)
[2025-01-09 19:54] LABS: Reflex Lactate Order REFLEX LACTIC ORDERD
--- NOTE | 2025-01-09 20:22 | ECG_ITS ---
[facility] Test Date: 2025-01-09 Pat Name: Son Cisneros Department: Room: Gender: Male Digital Specialist: : 1940 Requested By: Benji Goldman Order Number: [id number] Reading MD: KARTIK VELÁZQUEZ Measurements Intervals [place] Rate: 104 P: -24 AK: 170 QRS: -28 QRSD: 114 T: 105 QT: 331 QTc: 437 Interpretive Statements SINUS TACHYCARDIA SEPTAL MYOCARDIAL INFARCTION , OF INDETERMINATE AGE [40+ ms Q WAVE IN V1/V2] MODERATE T-WAVE ABNORMALITY, CONSIDER LATERAL ISCHEMIA [-0.1+ mV T-WAVE IN I/aVL/V5/V6] Compared to ECG 01/05/2025 16:33:55 Sinus rhythm no longer present Myocardial infarct finding still present T-wave abnormality still present Possible ischemia still present Electronically Signed On 01-12-2025 18:11:53 CDT by KARTIK VELÁZQUEZ [id number]
[2025-01-09] MEDS: insulin regular-human 100 units/1 mL 16 UNIT IVP (20:40)
[2025-01-09] MEDS: calcium gluconate 0.1 gm/mL 10% SDV 10mL 1 GM IVP (20:40)
[2025-01-09] MEDS: sodium bicarbonate 8.4% 1 mEq/mL 50mL Syr 50 MEQ IVP (20:40)
--- NOTE | 2025-01-09 20:44 | W.ED.FALL ---
HPI - Fall General: Chief Complaint: Fall Stated Complaint: stroke like symptoms Time Seen by Provider: 01/09/25 18:15 History of Present Illness: This patient is an 84-year-old white male who was found lying on the living room floor today by his son. Unknown how long he was lying there. His son states that he was evaluated here in the emergency department earlier this week and diagnosed with RSV. He has been confused for about 24 hours and has become very weak. He is an insulin-dependent diabetic. Patient's son also states that the patient states every time he tries to eat something he is having some abdominal pain with it. Related Data Home Medications ?Medication ?Instructions ?Recorded ?Confirmed glimepiride 4 mg tablet 4 mg PO BID 05/03/20 01/05/25 metformin 500 mg tablet,extended 500 mg PO TID 05/03/20 01/05/25 release 24 hr sitagliptin phosphate 100 mg 100 mg PO DAILY 05/03/20 01/05/25 tablet (Januvia) insulin glargine 100 unit/mL (3 10 unit SUBCUT DAILY 01/05/25 01/05/25 mL) subcutaneous pen (Lantus Solostar U-100 Insulin) lisinopril 5 mg tablet 5 mg PO DAILY 01/05/25 01/05/25 Previous Rx's ?Medication ?Instructions ?Recorded atorvastatin 40 mg tablet 40 mg PO BEDTIME #60 tabs 01/18/22 dexamethasone 6 mg tablet 6 mg PO DAILY 5 days #5 tabs 01/05/25 tramadol 50 mg tablet 50 mg PO Q8H PRN pain #10 tabs 01/05/25 Allergies Allergy/AdvReac Type Severity Reaction Status Date / Time aspirin Allergy Unknown Verified 01/05/25 14:51 oxytetracycline (From Allergy ADR-Swelling Verified 01/05/25 14:51 Terramycin) of the Eye Penicillins Allergy ALGY-Difficulty Verified 01/05/25 14:51 Swallowing Review of Systems General: Reports: 10 or more systems reviewed and unremarkable except in HPI and below Const: Reports: malaise and other (Weakness) [facility] PFSH: Medical History Reactive airway disease Atypical chest pain Aortic valve stenosis, acquired Pseudogout Anemia Angina pectoris, unspecified Heart murmur Congestive heart failure Chronic kidney disease, stage III (moderate) Legionella infection 2007 Lung cancer chemotherapy and radiation, 1993 Asthma Hypertension Coronary artery disease stent years ago, here, maker Diabetes mellitus Surgical History 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 History of arthroplasty of right knee Family History Brother Cancer brother Father Cancer Social History Smoking and tobacco/nicotine status: unknown if used tobacco/nicotine Alcohol intake: never Substance/Drug Use: never Household members: none Physical Exam Const: COMMON NORMALS: patient oriented x3 GENERAL APPEARANCE: lethargic and ill appearing ORIENTATION/CONSCIOUSNESS: Yes lethargic HENMT: COMMON NORMALS: normocephalic, atraumatic, Normal nasal mucous membranes and turbinates present and oropharynx normal HEAD & SCALP: normal to inspection, normocephalic and atraumatic FACE & SINUS: normal facial exam NOSE: Normal nasal mucous membranes and turbinates present MOUTH: Abnormal oral and palatal mucosa present (Dry mucous membranes) Eye: COMMON NORMALS: Equal, round and reactive pupils present, EOMs intact bilaterally and conjunctivae normal GENERAL EYE: appearance normal, both eyes and all related structures CONJUNCTIVA: Yes conjunctivae normal PUPIL: Yes Equal, round and reactive pupils present Neck/C-Spine: COMMON NORMALS: supple and no JVD Chest: COMMONS NORMALS: normal inspection of the chest Resp: COMMON NORMALS: normal respiratory effort and clear to auscultation bilaterally AUSCULTATION: clear to auscultation bilaterally Cardio: COMMON NORMALS: no JVD, regular rhythm, No gallops present (Cardio), No murmurs present (Cardio) and No rub (Cardio) RATE: tachycardic RHYTHM: regular rhythm GI: COMMON NORMALS: Normal to inspection, nondistended, normoactive bowel sounds present, Soft to palpation and non-tender AUSCULTATION: Yes normoactive bowel sounds PALPATION: Yes Soft to palpation and Yes Tenderness to palpation present (GI) (Mild diffuse tenderness.) : COMMON NORMALS: Yes no CVA tenderness BLADDER/KIDNEY EXAM: Yes no CVA tenderness Back/Pelvis: COMMON NORMALS: no CVA tenderness and thoracic and lumbar spine normal to inspection Extremity: COMMON NORMALS: normal to inspection Neuro: COMMON NORMALS: patient oriented x3 and CN's II-XII intact bilaterally SENSORIUM/ORIENTATION: Yes lethargic Psych: COMMON NORMALS: mental status grossly normal, Normal thought process present and cooperative THOUGHT PROCESS: Normal thought process present Skin: COMMON NORMALS: no rashes or lesions noted, turgor normal and no jaundice GENERAL SKIN EXAM: no rashes or lesions noted and turgor normal Course Vital Signs: Vital signs: Vital Signs Temperature 98.1 F 01/09/25 17:51 Pulse Rate 107 H 01/09/25 20:06 Respiratory Rate 18 01/09/25 20:06 Blood Pressure 155/104 01/09/25 20:06 Pulse Oximetry 93 01/09/25 20:06 Oxygen Delivery Me thod Nasal Cannula 01/09/25 20:06 Oxygen Flow Rate 2 01/09/25 20:06 MDM - Fall Medical Decision Making Patient appears to be very dehydrated. The initial glucometer was reading high. Immediately started some IV fluids, 1 L bolus of normal saline. Chest x-ray is normal. CT scan of the abdomen pelvis was read by the radiologist as normal. EKG revealed some mild sinus tachycardia otherwise normal. Arterial blood gases on room air revealed a pH of 7.29 with a pCO2 of 42 and a pO2 of 78. CBC revealed a white blood cell count of 15.6. CMP revealed a potassium of 6.6. BUN was 68 and creatinine of 1.4. Blood sugar 678. Urine analysis normal. Lactic acid 2.2. COVID, influenza negative. RSV positive. Anion gap is 30. Patient was given one gram of calcium gluconate, 1 amp of bicarb and 16 units of regular insulin for the hyperkalemia and hyperglycemia. Case was discussed with Dr. Ulloa, hospitalist. He has accepted the patient for admission. Patient will be admitted to the intensive care unit. He is stable at this time. Lab Data 01/09/25 18:12 01/09/25 18:12 Radiology Impressions Chest X-Ray 01/09/25 18:32 IMPRESSION: No acute findings. Abdomen/Pelvis CT 01/09/25 18:39 IMPRESSION: 1. No acute findings. 2. Hepatic steatosis. 3. Additional chronic and incidental findings as above, to include atherosclerosis and colonic diverticulosis. Laboratory Results WBC 15.56 10^3/uL (3.29-11.43) H 01/09/25 18:12 RBC 5.05 10^6/uL (3.85-5.65) 01/09/25 18:12 Hgb 14.90 g/dL (11.27-16.99) 01/09/25 18:12 Hct 45.0 % (37-53) 01/09/25 18:12 MCV 89.1 fl (82-101) 01/09/25 18:12 MCH 29.5 pg (27-33) 01/09/25 18:12 MCHC 33.1 g/dL (30-55) 01/09/25 18:12 RDW 13.2 % (12.1-15.1) 01/09/25 18:12 Plt Count 485 10^3/cmm (157-399) H 01/09/25 18:12 MPV 10.0 fL (7.4-10.4) 01/09/25 18:12 Neut % (Auto) 85.8 % 01/09/25 18:12 Lymph % (Auto) 5.7 % 01/09/25 18:12 [place] % (Auto) 7.8 % 01/09/25 18:12 Eos % (Auto) 0.0 % 01/09/25 18:12 Baso % (Auto) 0.1 % 01/09/25 18:12 Neut # (Auto) 13.35 10^3/uL (1.8-7.7) H 01/09/25 18:12 Lymph # (Auto) 0.9 10^3/uL (0.8-4.8) 01/09/25 18:12 [place] # (Auto) 1.2 10^3/uL (0.2-0.9) H 01/09/25 18:12 Eos # (Auto) 0.0 10^3/uL (0.0-0.8) 01/09/25 18:12 Baso # (Auto) 0.0 10^3/uL (0.0-0.1) 01/09/25 18:12 Nucleated RBC % (auto) 0 % 01/09/25 18:12 Nucleated RBCs # 0.0 /100WBC 01/09/25 18:12 Specimen Type Arterial 01/09/25 19:37 Sample Site Radial, left 01/09/25 19:37 ABG pH 7.29 (7.35-7.45) L 01/09/25 19:37 ABG pCO2 41.6 mmHg (35-45) 01/09/25 19:37 ABG pO2 77.8 mmHg (80.0-100.0) L 01/09/25 19:37 ABG HCO3 20.2 mmol/L (22-26) L 01/09/25 19:37 ABG O2 Saturation 94.0 01/09/25 19:37 ABG Base Excess -6.1 mmol/L (-2.0-2.0) L 01/09/25 19:37 [place] Test Pos 01/09/25 19:37 A-a O2 Gradient 2.1 mmHg (5-10) L 01/09/25 19:37 Hematocrit 44.5 % (42-52) 01/09/25 19:37 Hgb O2 Saturation 92.0 % (95-100) L 01/09/25 19:37 Carboxyhemoglobin 1.0 %THgb (0.4-20.1) 01/09/25 19:37 Methemoglobin 1.1 % (0.4-1.5) 01/09/25 19:37 Total Hemoglobin 14.5 g/dL (14-18) 01/09/25 19:37 Sodium 143.0 mmol/L (131-143) 01/09/25 19:37 Potassium 5.3 mmol/L (3.5-5.0) H 01/09/25 19:37 Glucose 633.0 mg/dL (70-115) H 01/09/25 19:37 Ionized Calcium 1.4 mmol/L (1.1-1.4) 01/09/25 19:37 O2 Delivery Device Nc 01/09/25 19:37 O2 Liters/Min 1.0 % 01/09/25 19:37 Material Analyst ID [email or web address] 01/09/25 19:37 Sodium 142 mmol/L (136-145) 01/09/25 18:12 Potassium 6.6 mmol/L (3.5-5.1) H* 01/09/25 18:12 Chloride 98 mmol/L (98-107) 01/09/25 18:12 Carbon Dioxide 21 mmol/L (22-29) L 01/09/25 18:12 Anion Gap 29.6 (5-19) H 01/09/25 18:12 BUN 68 mg/dL (8-23) H 01/09/25 18:12 Creatinine 1.4 mg/dL (0.7-1.2) H 01/09/25 18:12 GFR Calculation Not Reportable 01/09/25 18:12 Glucose 678 mg/dL (65-115) H* 01/09/25 18:12 POC Glucose > 600 mg/dL (70-110) H* 01/09/25 17:59 Calculated Osmolality 346 mOsm/kg (285-295) H 01/09/25 18:12 Lactic Acid 2.2 mmol/L (0.5-2.2) 01/09/25 19:11 Calcium 10.8 mg/dL (8.5-10.5) H 01/09/25 18:12 Total Bilirubin 0.7 mg/dL (0.15-1.2) 01/09/25 18:12 AST 20 U/L (0-40) 01/09/25 18:12 ALT 12 U/L (0-41) 01/09/25 18:12 Alkaline Phosphatase 168 U/L (40-130) H 01/09/25 18:12 Total Protein 7.6 g/dL (6.6-8.7) 01/09/25 18:12 Albumin 4.2 g/dL (3.5-5.2) 01/09/25 18:12 Globulin 3.4 g/dL (1.3-4.6) 01/09/25 18:12 Urine Color Yellow (Yellow) 01/09/25 18:12 Urine Appearance Clear (CLEAR) 01/09/25 18:12 Urine pH 5.0 (5-7) 01/09/25 18:12 Ur Specific [place] 1.030 (1.005-1.030) 01/09/25 18:12 Urine Protein Trace (Negative) A 01/09/25 18:12 Urine Glucose (UA) 2+ (Normal) H 01/09/25 18:12 Urine Ketones 2+ (Negative) H 01/09/25 18:12 Urine Blood Trace (Negative) A 01/09/25 18:12 Urine Nitrate Negative (Negative) 01/09/25 18:12 Urine Bilirubin Negative (Negative) 01/09/25 18:12 Urine Urobilinogen 0.2 mg/dL (Negative) 01/09/25 18:12 Ur Leukocyte Esterase Negative (Negative) 01/09/25 18:12 Urine RBC 0-2 /hpf (0-2) 01/09/25 18:12 Urine WBC 0-5 /hpf (0-5) 01/09/25 18:12 Ur Squamous Epith Cells 0-5 /hpf (0-5) 01/09/25 18:12 Amorphous Sediment 1+ /hpf 01/09/25 18:12 Urine Bacteria None seen /hpf (NONE) 01/09/25 18:12 Hyaline Casts 2.46 /lpf 01/09/25 18:12 Influenza A (PCR) Negative (Negative) 01/09/25 18:12 Influenza Type B (PCR) Negative (Negative) 01/09/25 18:12 RSV (PCR) Positive (Negative) A 01/09/25 18:12 SARS-CoV-2 (PCR) Negative (Negative) 01/09/25 18:12 All radiology interpretation(s) finalized by discharge Discharge Plan Discharge Condition: Stable Prescriptions: No Action glimepiride 4 mg tablet 4 mg PO BID metformin 500 mg tablet extended release 24 hr 500 mg PO TID Januvia 100 mg tablet 100 mg PO DAILY atorvastatin 40 mg Tablet 40 mg PO BEDTIME Qty: 60 4RF lisinopril 5 mg tablet 5 mg PO DAILY insulin glargine [Lantus Solostar U-100 Insulin] 100 unit/mL (3 mL) insulin pen 10 unit SUBCUT DAILY dexamethasone 6 mg tablet 6 mg PO DAILY 5 Days Qty: 5 0RF tramadol 50 mg tablet 50 mg PO Q8H PRN (Reason: pain) Qty: 10 0RF Referrals: Gerry Khan MD [Primary Care Provider] - Print Language: Swedish Coding Level of Care Code ED Merchandising Professor for Jose Ahmadi
--- NOTE | 2025-01-09 20:58 | PC.NURSE ---
pt bg read hi at 2058
[2025-01-09 21:03] LABS: Glucose Point of Care > 600 mg/dL (70-110)
--- NOTE | 2025-01-09 21:29 | ECG_ITS ---
[employer] Test Date: 2025-01-09 Pat Name: Son Cisneros Department: Room: [facility] Gender: Male Pan Shover: : 1940 Requested By: Benji Goldman Order Number: [id number] Reading MD: KARTIK VELÁZQUEZ Measurements Intervals [place] Rate: 166 P: 0 MT: 0 QRS: 88 QRSD: 122 T: -76 QT: 273 QTc: 455 Interpretive Statements ATRIAL FIBRILLATION WITH RAPID VENTRICULAR RESPONSE SEPTAL MYOCARDIAL INFARCTION , OF INDETERMINATE AGE [40+ ms Q WAVE IN V1/V2] Compared to ECG 01/09/2025 20:22:01 ST (T wave) deviation now present Sinus tachycardia no longer present T-wave abnormality no longer present Possible ischemia no longer present Myocardial infarct finding still present Electronically Signed On 01-12-2025 18:22:54 CDT by KARTIK VELÁZQUEZ [id number]
--- NOTE | 2025-01-09 21:35 | PM.HP ---
Providers/Chief Complaint Primary Care Provider: Gerry Khan MD Chief Complaint: stroke like symptoms History of Present Illness Son Cisneros Sr is a 84 year old male with history of type 2 diabetes, was recently diagnosed with RSV, lives alone, presented after sustaining a fall at home and confusion. Son checked on him today and he found him on the ground hence 911 was called. Patient was fatigued lethargic and confused as per the son and improved with IV fluids in the ER. No signs of stroke, he was diagnosed with DANI hyperkalemia hyperglycemia along RSV. I requested serum ketones which came back positive. Patient has leukocytosis with mild acidosis. Insulin drip requested with DKA protocol in the ICU. At the time of my evaluation patient is stating that he is not able to recall events from the morning, as per the son who is at the bedside that his father was sick for last 5 to 7 days, he has had very decreased p.o. intake and on top of that he has been vomiting every time he tried to eat. Endorsing subjective fevers, decreased urine output, nausea and abdominal discomfort. He has not been able to take his antihypertensive or antihyperglycemic agents. Patient in the ER received hyperkalemia cocktail, serum ketones came back positive I requested insulin drip for DKA protocol Transfer him to ICU As soon as he received potassium supplementation and calcium gluconate he went into A-fib with RVR heart rate 140s he was put on amiodarone drip, as per the son this has happened for he is not on any anticoagulating agent because of history of GI bleed requiring blood transfusion, Review of Systems Eyes: Denies: change in vision ENMT: Denies: throat pain Card: Denies: chest pain Resp: Reports: dyspnea GI: Reports: nausea and vomiting : Reports: difficulty urinating; Denies: flank pain Medications/Allergies Home Medications ?Medication ?Instructions ?Recorded ?Confirmed ?Last Taken ?Type glimepiride 4 mg tablet 4 mg PO BID 05/03/20 01/05/25 01/05/25 History metformin 500 mg tablet,extended 500 mg PO TID 05/03/20 01/05/25 01/05/25 08:00 History release 24 hr sitagliptin phosphate 100 mg 100 mg PO DAILY 05/03/20 01/05/25 09/04/22 History tablet (Januvia) atorvastatin 40 mg tablet 40 mg PO BEDTIME #60 tabs 01/18/22 01/05/25 01/04/25 Rx dexamethasone 6 mg tablet 6 mg PO DAILY 5 days #5 tabs 01/05/25 Unknown Rx insulin glargine 100 unit/mL (3 10 unit SUBCUT DAILY 01/05/25 01/05/25 Unknown History mL) subcutaneous pen (Lantus Solostar U-100 Insulin) lisinopril 5 mg tablet 5 mg PO DAILY 01/05/25 01/05/25 01/05/25 History tramadol 50 mg tablet 50 mg PO Q8H PRN pain #10 tabs 01/05/25 Unknown Rx Allergies Allergy/AdvReac Type Severity Reaction Status Date / Time aspirin Allergy Unknown Verified 01/05/25 14:51 oxytetracycline (From Allergy ADR-Swelling Verified 01/05/25 14:51 Terramycin) of the Eye Penicillins Allergy ALGY-Difficulty Verified 01/05/25 14:51 Swallowing PFSH Acute PFSH: Medical History Reactive airway disease Atypical chest pain Aortic valve stenosis, acquired Pseudogout Anemia Angina pectoris, unspecified Heart murmur Congestive heart failure Chronic kidney disease, stage III (moderate) Legionella infection 2007 Lung cancer chemotherapy and radiation, 1993 Asthma Hypertension Coronary artery disease stent years ago, here, maker Diabetes mellitus Surgical History 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 History of arthroplasty of right knee Family History Brother Cancer brother Father Cancer Social History Smoking and tobacco/nicotine status: unknown if used tobacco/nicotine Alcohol intake: never Substance/Drug Use: never Household members: none Vitals/I&O/Wt Last Vital Signs Temp 98.1 F 01/09/25 17:51 Pulse 164 H 01/09/25 21:21 Resp 16 01/09/25 21:21 BP 149/99 01/09/25 21:21 Pulse Ox 95 01/09/25 21:21 O2 Del Method Nasal Cannula 01/09/25 21:21 O2 Flow Rate 2 01/09/25 21:21 01/09/25 01/09/25 01/09/25 06:59 14:59 22:59 Intake Total 1000 / 1000 Balance 1000 / 1000 Physical Exam Narrative: Patient is awake, oriented to himself GCS 15 Able to move extremities S1, S2 A-fib with RVR heart rate 140s Clinical looks dehydrated Abdomen on clinical exam is benign, patient complaining of some discomfort along the palpation, no signs of active peritonitis Clinical signs of dehydration present No active joint redness of lower extremity Lower extremity no edema No active signs of meningitis Currently on 2 L nasal cannula Urinary Catheter Management: Adame: Cath Placed During This Visit: yes Urinary Catheter Date of Insertion: 01/09/25 Urinary Catheter Time of Insertion: 18:22 Sepsis: Date exam was performed: 01/09/25 Time exam was performed: 23:17 Data 01/09/25 18:12 01/09/25 18:12 Micro: Microbiology 01/09/25 19:11 Blood Culture - Preliminary Blood SPECIMEN COLLECTED 01/09/25 19:19 Blood Culture - Preliminary Blood SPECIMEN COLLECTED A&P Assessment and plan (1) Malaise: (2) Asthma: (3) RSV infection: Qualifiers: RSV infection type: pneumonia Qualified Code(s): J12.1 - Respiratory syncytial virus pneumonia (4) Acute hyperkalemia: (5) Acute dehydration: (6) Chronic kidney disease, stage III (moderate): (7) Anemia: (8) Lung cancer: (9) Acute hyperglycemia: (10) DKA (diabetic ketoacidosis): Plan DKA Underlying type 2 diabetes Patient has been vomiting for last 5 to 7 days, has not taken insulin Start DKA protocol with IV fluids and insulin drip Check BMP every 4 hours Will request another BMP now Hyperkalemia: Received hyperkalemia cocktail: Repeat BMP now A-fib RVR: Paroxysmal: As per the son patient has required blood transfusion for GI bleed patient has done investigation with capsule endoscopy as well, son and patient both do not want anticoagulating agent Patient is currently on amiodarone drip heart rate 140s DANI: Creatinine 1.4: Anticipate improvement with IV fluid hydration RSV pneumonia: Conservative management: Check procalcitonin Avoid antibiotics for now Sepsis related to RSV: Criteria met with tachypnea tachycardia high white count, endorgan damage and high lactic acid: Received septic bolus, not a candidate of antibiotics because of RSV DNR/DNI goals of care discussed with the patient and his son N.p.o. for now DVT prophylaxis: Heparin GI prophylaxis: Protonix PDMP PDMP Reviewed: Not Reviewed Attestations Medical Necessity Statement*: More than 2 midnights anticipated Diagnoses Malaise R53.81 Asthma J45.909 RSV infection J12.1 RSV infection type: pneumonia Acute hyperkalemia E87.5 Acute dehydration E86.0 Chronic kidney disease, stage III (moderate) N18.3 Anemia D64.9 Lung cancer C34.90 Acute hyperglycemia R73.9 DKA (diabetic ketoacidosis) E11.10
[2025-01-09] MEDS: amiodarone 50 mg/mL SDV 3 mL 150 MG IVP (21:48)
[2025-01-09 22:25] LABS: Ketone (Acetest) Serum Positive (Negative)
[2025-01-09] MEDS: sodium chloride 0.9% 1,000 ML 100 ML IV (22:49)
[2025-01-09] MEDS: heparin 5,000 unit/mL INJ 1 mL 5000 UNIT SUBCUT (22:49)
[2025-01-09 23:34] LABS: Bilirubin Urine Negative (Negative); Blood Urine 2+ (Negative); Glucose Urine UA 3+ (Normal); Ketones Urine 1+ (Negative); Leukocyte Esterase Urine 1+ (Negative); Nitrate Urine Negative (Negative); Protein Urine Trace (Negative); Specific Gravity, Urine 1.025 (1.005-1.030); Urine Appearance Clear (CLEAR); Urine Color Yellow (Yellow); Urobilinogen Urine 0.2 mg/dL (Negative)
[2025-01-09 23:39] LABS: Add Urine Microscopic? YES; Bacteria Urine None Seen /hpf; Hyaline Casts Urine 10.32 /lpf; Squamous Epithelial Cell Urine 0-5 /hpf (0-5); Universal Test for UA Present (0); WBC Urine 21-50 /hpf (0-5)
[2025-01-09 23:48] LABS: Lactic Acid level (Lactate) 1.8 mmol/L (0.5-2.2)
[2025-01-09 23:58] LABS: Add Urine Culture? Yes
[2025-01-10] VITALS (14 sets, daily range): BP systolic 113–166; BP diastolic 61–99; PULSE 54–83; RESP 13–18; O2SAT 94–99
[2025-01-10 00:05] LABS: Glucose Point of Care 391 mg/dL (70-110)
[2025-01-10] MEDS: INSULIN REGULAR IN 0.9 % NACL 100 UNIT/100 ML BAG 6.5 UNIT IV (00:16)
[2025-01-10 00:18] LABS: Blood Urea Nitrogen 57 mg/dL (8-23); Calcium 9.6 mg/dL (8.5-10.5); Carbon Dioxide 20 mmol/L (22-29); Chloride 109 mmol/L (98-107); Glucose 408 mg/dL (65-115); Osmolality Calculated 331 mOsm/kg (285-295); Sodium 144 mmol/L (136-145)
[2025-01-10 00:23] LABS: Procalcitonin 0.31 ng/mL (0-0.5)
[2025-01-10 01:42] LABS: Glucose Point of Care 365 mg/dL (70-110)
[2025-01-10 02:53] LABS: Glucose Point of Care 278 mg/dL (70-110)
[2025-01-10 04:17] LABS: Glucose Point of Care 215 mg/dL (70-110)
[2025-01-10 05:31] LABS: Glucose Point of Care 213 mg/dL (70-110)
[2025-01-10 05:58] LABS: Basophils % 0.1 %; Hematocrit 37.2 % (37-53); Lymphocytes # 1.3 10^3/uL (0.8-4.8); Mean Corpuscular HGB Conc 33.3 g/dL (30-55); Mean Corpuscular Hemoglobin 29.9 pg (27-33); Mean Corpuscular Volume 89.6 fl (82-101); Mean Platelet Volume 9.9 fL (7.4-10.4); Monocytes # 1.6 10^3/uL (0.2-0.9); Monocytes % 13.3 %; Neutrophils # 8.89 10^3/uL (1.8-7.7); Neutrophils % 75.1 %; Nucleated Red Blood Cells % 0 %; Platelet Count 330 10^3/cmm (157-399); Red Blood Count 4.15 10^6/uL (3.85-5.65); Red Cell Distribution Width 13.4 % (12.1-15.1); White Blood Count 11.83 10^3/uL (3.29-11.43)
[2025-01-10 06:01] LABS: Anion Gap 15.5 (5-19); Blood Urea Nitrogen 50 mg/dL (8-23); C Reactive Protein 33.8 mg/L (0.0-4.9); Calcium 9.6 mg/dL (8.5-10.5); Carbon Dioxide 27 mmol/L (22-29); Chloride 109 mmol/L (98-107); Glucose 224 mg/dL (65-115); Magnesium 2.1 mg/dL (1.7-2.3); Osmolality Calculated 324 mOsm/kg (285-295); Potassium 4.5 mmol/L (3.5-5.1); Sodium 147 mmol/L (136-145)
[2025-01-10] MEDS: insulin glargine 100 units/1 mL 10 UNIT SUBCUT (06:21)
[2025-01-10 07:50] LABS: Glucose Point of Care 262 mg/dL (70-110)
[2025-01-10] MEDS: levofloxacin-dextrose 5 % 500 MG/100 ML PREMIX 100 MG IV (08:00)
[2025-01-10] MEDS: insulin lispro 100 unit/1 mL SUBCUT ×4 (08:01→21:03)
[2025-01-10] MEDS: dilTIAZem ER (24HR) 120 mg Capsule PO (08:01)
[2025-01-10] MEDS: ondansetron 2 mg/ML SDV 2 mL 4 MG IVP ×3 (08:35→22:35)
--- NOTE | 2025-01-10 09:51 | PM.PN ---
Subjective Subjective: Patient is awake and alert. He reports overall he feels terrible but has no focal complaints. Denies nausea or vomiting. Agreeable to trying breakfast this morning. Transitioned off insulin drip this morning. He is not oriented to situation. Medications: Reviewed: Yes Vitals/I&O/Wt Last Vital Signs Temp 98.1 F 01/09/25 17:51 Pulse 74 01/10/25 05:19 Resp 17 01/09/25 22:21 BP 157/106 01/09/25 22:21 Pulse Ox 95 01/09/25 22:21 O2 Del Method Nasal Cannula 01/09/25 22:28 O2 Flow Rate 2 01/09/25 21:21 01/09/25 01/10/25 01/10/25 22:59 06:59 14:59 Intake Total 1000 / 1000 988.851 / 1988.851 150 / 150 Output Total 800 / 800 Balance 1000 / 1000 188.851 / 1188.851 150 / 150 Weight last 48 hrs Weight 67 kg Weight 68 kg Weight 68 kg Physical Exam Narrative: General: Patient is awake. Conversational. Appears fatigued. Head: Normocephalic. Atraumatic. EOM intact. Neck: No JVD. Cardiovascular: RRR. No gallops. No murmurs. Lungs: Clear to auscultation, no use of accessory muscles, no crackles or wheezes. Skin: No jaundice. No rashes. Abdomen: Normal bowel sounds, abdomen soft and nontender. Genito Urinary: Adame catheter Extremities: No cyanosis or clubbing. Musculoskeletal: No swollen or erythematous joints. Neurological: Moves all 4 extremities. No myoclonus. Urinary Catheter Management: Adame: Cath Placed During This Visit: yes Reason for Continuing Indwelling Catheter: Accurate Measurement of Urinary Output in Critically Ill Patients Urinary Catheter Date of Insertion: 01/09/25 Urinary Catheter Time of Insertion: 18:22 Data 01/10/25 05:37 01/10/25 05:37 Micro: Microbiology 01/09/25 19:11 Blood Culture - Preliminary Blood SPECIMEN COLLECTED 01/09/25 19:19 Blood Culture - Preliminary Blood SPECIMEN COLLECTED A&P Assessment and plan (1) Malaise: (2) Asthma: (3) RSV infection: Qualifiers: RSV infection type: pneumonia Qualified Code(s): J12.1 - Respiratory syncytial virus pneumonia (4) Acute hyperkalemia: (5) Acute dehydration: (6) Chronic kidney disease, stage III (moderate): (7) Anemia: (8) Lung cancer: (9) Acute hyperglycemia: (10) DKA (diabetic ketoacidosis): Plan Type 2 diabetes mellitus Diabetic ketoacidosis, resolved Hyperkalemia, resolved -Start Lantus -Sliding-scale insulin correction -Titrate insulin regimen as needed Hypernatremia -Discontinue NS infusion -Monitor oral intake today Paroxysmal atrial fibrillation with rapid ventricular rate -RVR is now resolved -Discontinue amiodarone drip -Start Cardizem -Family declines systemic anticoagulation due to history of GI bleed RSV pneumonia -Supportive care Sepsis Acute complicated urinary tract infection -Allergies noted -Start levofloxacin Acute encephalopathy -Suspect metabolic -Will need to clarify baseline mentation -Avoid sedating medications -Optimize metabolic status except for treat underlying infections Chronic pain -Restart home tramadol History of asthma -At risk for exacerbation -Breathing treatments as needed DVT prophylaxis: Heparin CODE STATUS: DNR/DNI PDMP PDMP Reviewed: Not Reviewed Attestations Medical Necessity Statement*: Patient requires ongoing hospitalization for IV antibiotics, glycemic control, heart rate monitoring, electrolyte monitoring, and supportive care. Coding Level of Care Code Acute Code for [facility] Diagnoses Malaise R53.81 Asthma J45.909 RSV infection J12.1 RSV infection type: pneumonia Acute hyperkalemia E87.5 Acute dehydration E86.0 Chronic kidney disease, stage III (moderate) N18.3 Anemia D64.9 Lung cancer C34.90 Acute hyperglycemia R73.9 DKA (diabetic ketoacidosis) E11.10
[2025-01-10] MEDS: TRAMadol 50 mg Tablet PO (09:52)
[2025-01-10] MEDS: heparin 5,000 unit/mL INJ 1 mL 5000 UNIT SUBCUT ×2 (09:53→22:35)
[2025-01-10] MEDS: pantoprazole 40 mg SDV IVP ×2 (11:53→22:35)
[2025-01-10] MEDS: sucralfate 1 gm/10 mL Oral Liq UDC PO ×3 (11:54→21:04)
[2025-01-10 12:09] LABS: Glucose Point of Care 329 mg/dL (70-110)
--- NOTE | 2025-01-10 13:37 | PC.NURSE ---
less nausea for lunch tolerated ice cream and part of soup without nausea , family at bedside medication given for generalized aches as family relates to gout .
[2025-01-10 17:29] LABS: Glucose Point of Care 302 mg/dL (70-110)
[2025-01-10] MEDS: lidocaine 2% jelly 1 APPLIC/6 ML TUBE TOPICAL (18:16)
[2025-01-10] MEDS: HYDROmorphone 0.5 MG/0.5 ML INJ 0.2 MG IVP (18:17)
--- NOTE | 2025-01-10 18:22 | PC.NURSE ---
pt upset calling out in pain that he needs to go pee , unable to assist with po medication and attempt to redirect doctor called orders noted alcaraz removed who intact and he continues to call out even after 45 min son in room concerned that pain doctor called and iv pain medication given and lidocaine used
[2025-01-10 21:00] LABS: Glucose Point of Care 179 mg/dL (70-110)
[2025-01-11] VITALS (41 sets, daily range): BP systolic 125–171; BP diastolic 56–76; PULSE 50–82; RESP 4–24; O2SAT 91–99
[2025-01-11] MEDS: ondansetron 2 mg/ML SDV 2 mL 4 MG IVP ×4 (05:05→21:07)
[2025-01-11 05:13] LABS: Basophils % 0.3 %; Eosinophils # 0.2 10^3/uL (0.0-0.8); Eosinophils % 2.2 %; Lymphocytes # 1.3 10^3/uL (0.8-4.8); Lymphocytes % 17.4 %; Mean Corpuscular HGB Conc 31.8 g/dL (30-55); Mean Corpuscular Hemoglobin 30.4 pg (27-33); Mean Corpuscular Volume 95.6 fl (82-101); Mean Platelet Volume 9.4 fL (7.4-10.4); Monocytes # 0.8 10^3/uL (0.2-0.9); Monocytes % 10.8 %; Neutrophils # 5.17 10^3/uL (1.8-7.7); Neutrophils % 68.2 %; Nucleated Red Blood Cells % 0 %; Platelet Count 216 10^3/cmm (157-399); Red Blood Count 4.08 10^6/uL (3.85-5.65); Red Cell Distribution Width 13.2 % (12.1-15.1); White Blood Count 7.58 10^3/uL (3.29-11.43)
[2025-01-11 05:37] LABS: Blood Urea Nitrogen 29 mg/dL (8-23); Calcium 9.2 mg/dL (8.5-10.5); Carbon Dioxide 25 mmol/L (22-29); Chloride 109 mmol/L (98-107); Glucose 181 mg/dL (65-115); Magnesium 1.9 mg/dL (1.7-2.3); Phosphorus 2.4 mg/dL (2.5-4.5); Sodium 144 mmol/L (136-145)
[2025-01-11 05:39] LABS: Anion Gap 14.8 (5-19); Potassium 4.8 mmol/L (3.5-5.1)
[2025-01-11] MEDS: sucralfate 1 gm/10 mL Oral Liq UDC PO ×4 (06:01→21:07)
[2025-01-11] MEDS: levofloxacin-dextrose 5 % 500 MG/100 ML PREMIX 100 MG IV (07:22)
[2025-01-11 07:30] LABS: Glucose Point of Care 258 mg/dL (70-110)
[2025-01-11] MEDS: dilTIAZem ER (24HR) 120 mg Capsule PO (08:29)
[2025-01-11] MEDS: insulin glargine 100 units/1 mL 10 UNIT SUBCUT (08:29)
[2025-01-11] MEDS: insulin lispro 100 unit/1 mL SUBCUT ×5 (08:31→21:08)
[2025-01-11] MEDS: heparin 5,000 unit/mL INJ 1 mL 5000 UNIT SUBCUT ×2 (09:53→23:23)
[2025-01-11] MEDS: pantoprazole 40 mg SDV IVP ×2 (09:54→23:23)
[2025-01-11 12:00] LABS: Glucose Point of Care 353 mg/dL (70-110)
--- NOTE | 2025-01-11 12:10 | P.PN_ITS ---
Subjective 2 Subjective: Patient reports he had an okay night. Denies shortness of breath, fevers or chills. Per [facility]TER, he continues to have some pain in his urethra but is overall improved since the catheter has been removed. He remains hyperglycemic without DKA. Discussed out of bed to chair today. He is in agreement. Medications: Reviewed: Yes Vitals/I&O/Wt Last Vital Signs Temp 98.1 F 01/09/25 17:51 Pulse 69 01/11/25 11:00 Resp 18 01/11/25 11:00 BP 141/56 01/11/25 09:30 Pulse Ox 97 01/11/25 11:00 O2 Del Method Nasal Cannula 01/11/25 11:00 O2 Flow Rate 2 01/11/25 11:00 01/10/25 01/11/25 01/11/25 22:59 06:59 14:59 Intake Total 625 / 825 240 / 1065 340 / 340 Output Total 1050 / 1850 100 / 1950 Balance -425 / -1025 140 / -885 340 / 340 Weight last 48 hrs Weight 71 kg Weight 67 kg Weight 68 kg Weight 68 kg Physical Exam 2 Narrative: General: Patient is awake. Alert. Pleasant. Head: Normocephalic. Atraumatic. EOM intact. Neck: No JVD. Cardiovascular: RRR. No gallops. No murmurs. Lungs: Clear to auscultation, no use of accessory muscles, no crackles or wheezes. Skin: No jaundice. No rashes. Abdomen: Normal bowel sounds, abdomen soft and nontender. Extremities: No cyanosis or clubbing. Musculoskeletal: No swollen or erythematous joints. Neurological: Moves all 4 extremities. No myoclonus. Urinary Catheter Management: Adame: Cath Placed During This Visit: yes, but has since been removed by the nurse Reason for Continuing Indwelling Catheter: Accurate Measurement of Urinary Output in Critically Ill Patients Urinary Catheter Date of Insertion: 01/09/25 Urinary Catheter Time of Insertion: 18:22 Date Urinary Catheter Removed: 01/10/25 Time Urinary Catheter Discontinued: 18:00 Data 01/11/25 04:56 01/11/25 04:56 Micro: Microbiology 01/09/25 19:11 Blood Culture - Preliminary Blood NEGATIVE TO DATE 01/09/25 19:19 Blood Culture - Preliminary Blood NEGATIVE TO DATE A&P Assessment and plan (1) Malaise: (2) Asthma: (3) RSV infection: Qualifiers: RSV infection type: pneumonia Qualified Code(s): J12.1 - Respiratory syncytial virus pneumonia (4) Acute hyperkalemia: (5) Acute dehydration: (6) Chronic kidney disease, stage III (moderate): (7) Anemia: (8) Lung cancer: (9) Acute hyperglycemia: (10) DKA (diabetic ketoacidosis): Plan Debility and physical deconditioning -Patient is medically improving, remains out of DKA -Encourage out of bed to chair today -Will place therapy consult Type 2 diabetes mellitus -Continue Lantus, dose has been increased due to elevated fasting glucose -Start low-dose scheduled lispro with high-dose sliding scale correction -Ongoing titration of insulin regimen Paroxysmal atrial fibrillation -RVR is now resolved -Continue Cardizem -Family declines systemic anticoagulation due to history of GI bleed RSV pneumonia -Supportive care Sepsis Acute complicated urinary tract infection -Ux pending -Continue levofloxacin (01/10-p) Acute encephalopathy -Nearly resolved, mentation seems close or at baseline -Avoid sedating medications -Optimize metabolic status except for treat underlying infections Chronic pain -Continue home tramadol History of asthma -At risk for exacerbation -Breathing treatments as needed Urethral pain -Associate with Adame catheter which has been removed -Analgesics as needed Diabetic ketoacidosis, resolved Hyperkalemia, resolved Hypernatremia, resolved Acute kidney injury, resolved DVT prophylaxis: Heparin CODE STATUS: DNR/DNI PDMP PDMP Reviewed: Not Reviewed Attestations 2 Medical Necessity Statement*: Patient requires ongoing hospitalization for IV antibiotics, glycemic control, and supportive care. Coding Level of Care Code Acute Code for [facility] Fwd Diagnoses Malaise R53.81 Asthma J45.909 RSV infection J12.1 RSV infection type: pneumonia Acute hyperkalemia E87.5 Acute dehydration E86.0 Chronic kidney disease, stage III (moderate) N18.3 Anemia D64.9 Lung cancer C34.90 Acute hyperglycemia R73.9 DKA (diabetic ketoacidosis) E11.10
[2025-01-11 16:57] LABS: Glucose Point of Care 270 mg/dL (70-110)
[2025-01-11 21:03] LABS: Glucose Point of Care 324 mg/dL (70-110)
[2025-01-11] MEDS: HYDROmorphone 0.5 MG/0.5 ML INJ 0.2 MG IVP (21:43)
[2025-01-12] VITALS (9 sets, daily range): BP systolic 120–159; BP diastolic 51–70; PULSE 57–95; RESP 16–23; TEMP 36.6; O2SAT 93–96
[2025-01-12] MEDS: ondansetron 2 mg/ML SDV 2 mL 4 MG IVP ×3 (03:10→15:49)
[2025-01-12] MEDS: HYDROmorphone 0.5 MG/0.5 ML INJ 0.2 MG IVP ×4 (03:10→17:20)
[2025-01-12 05:19] LABS: Basophils % 0.2 %; Eosinophils # 0.3 10^3/uL (0.0-0.8); Eosinophils % 2.9 %; Hematocrit 36.8 % (37-53); Lymphocytes # 1.8 10^3/uL (0.8-4.8); Lymphocytes % 19.8 %; Mean Corpuscular HGB Conc 32.3 g/dL (30-55); Mean Corpuscular Hemoglobin 29.7 pg (27-33); Mean Corpuscular Volume 91.8 fl (82-101); Mean Platelet Volume 10.5 fL (7.4-10.4); Monocytes # 0.6 10^3/uL (0.2-0.9); Monocytes % 6.8 %; Neutrophils # 6.31 10^3/uL (1.8-7.7); Neutrophils % 68.5 %; Nucleated Red Blood Cells % 0 %; Platelet Count 235 10^3/cmm (157-399); Red Blood Count 4.01 10^6/uL (3.85-5.65); Red Cell Distribution Width 13.1 % (12.1-15.1); White Blood Count 9.23 10^3/uL (3.29-11.43)
[2025-01-12 05:40] LABS: Albumin Level 2.8 g/dL (3.5-5.2); Blood Urea Nitrogen 20 mg/dL (8-23); Calcium 8.9 mg/dL (8.5-10.5); Carbon Dioxide 28 mmol/L (22-29); Chloride 102 mmol/L (98-107); Glucose 149 mg/dL (65-115); Magnesium 1.7 mg/dL (1.7-2.3); Phosphorus 2.5 mg/dL (2.5-4.5); Sodium 138 mmol/L (136-145)
[2025-01-12 05:45] LABS: Anion Gap 12.6 (5-19); Potassium 4.6 mmol/L (3.5-5.1)
[2025-01-12] MEDS: sucralfate 1 gm/10 mL Oral Liq UDC PO ×4 (06:00→20:49)
[2025-01-12] MEDS: insulin lispro 100 unit/1 mL SUBCUT ×6 (06:00→20:48)
--- NOTE | 2025-01-12 06:46 | P.PN_ITS ---
Subjective 2 Subjective: Patient endorsing feeling better, confusion and weakness improving gradually, patient still complaining of dysuria, patient is stating that he is hoping that he would not need any rehab correction stating he would like to go home once his dysuria would be improved, urine culture pending, he is afebrile without any significant leukocytosis, hyperglycemia noted increase the dose of Lantus Change IV levofloxacin to p.o. regimen Transfer out of ICU to [facility], blood cultures negative to date Vitals/I&O/Wt Last Vital Signs Temp 98.1 F 01/09/25 17:51 Pulse 57 L 01/12/25 06:34 Resp 18 01/11/25 11:00 BP 141/56 01/11/25 09:30 Pulse Ox 97 01/11/25 11:00 O2 Del Method Nasal Cannula 01/11/25 11:00 O2 Flow Rate 2 01/11/25 11:00 01/11/25 01/11/25 01/12/25 14:59 22:59 06:59 Intake Total 700 / 700 250 / 950 Output Total 150 / 150 100 / 250 Balance 700 / 700 100 / 800 -100 / 700 Weight last 48 hrs Weight 70.49 kg Weight 71 kg Physical Exam 2 Narrative: Awake and alert Euvolemic Pleasant and cooperative Currently on room air GCS 15 Nonfocal neuroexam Hemodynamic stable S1, S2 A-fib without RVR Lower extremity trace edema Abdomen soft No audible stridor or wheezing Urinary Catheter Management: Adame: Cath Placed During This Visit: yes, but has since been removed by the nurse Reason for Continuing Indwelling Catheter: Accurate Measurement of Urinary Output in Critically Ill Patients Urinary Catheter Date of Insertion: 01/09/25 Urinary Catheter Time of Insertion: 18:22 Date Urinary Catheter Removed: 01/10/25 Time Urinary Catheter Discontinued: 18:00 Data 01/12/25 04:47 01/12/25 04:47 Micro: Microbiology 01/09/25 22:55 Urine Culture - Preliminary Urine,Clean Catch A&P Assessment and plan (1) Malaise: (2) Asthma: (3) RSV infection: Qualifiers: RSV infection type: pneumonia Qualified Code(s): J12.1 - Respiratory syncytial virus pneumonia (4) Acute hyperkalemia: (5) Acute dehydration: (6) Chronic kidney disease, stage III (moderate): (7) Anemia: (8) Lung cancer: (9) Acute hyperglycemia: (10) DKA (diabetic ketoacidosis): Plan Debility and physical deconditioning Will follow-up with physical therapy recommendations patient stating that he would like to go home Transfer out of ICU to [facility] Lives alone, son checks on him Type 2 diabetes mellitus Hyperglycemia: Increase the dose of Lantus along with sliding scale DKA resolved Paroxysmal atrial fibrillation No signs of RVR, continue AV tr blocking agent, not a candidate of anticoagulating agent secondary to history of GI bleed RSV pneumonia -Supportive care Sepsis Resolved: Afebrile, blood cultures negative, urine culture pending: Change IV levofloxacin to p.o. regimen now 01/12 Acute metabolic encephalopathy related to UTI Resolved Chronic pain -Continue home tramadol History of asthma No acute exacerbation currently doing well on room air Urethral pain -Associate with Adame catheter which has been removed -Analgesics as needed Diabetic ketoacidosis, resolved Hyperkalemia, resolved Hypernatremia, resolved Acute kidney injury, resolved DVT prophylaxis: Heparin CODE STATUS: DNR/DNI Transfer out of ICU to [facility] Anticipating discharge in next 24 hours PDMP PDMP Reviewed: Not Reviewed Attestations 2 Medical Necessity Statement*: Transfer out of ICU to [facility], Urine culture pending, patient complaining of dysuria, Diagnoses Malaise R53.81 Asthma J45.909 RSV infection J12.1 RSV infection type: pneumonia Acute hyperkalemia E87.5 Acute dehydration E86.0 Chronic kidney disease, stage III (moderate) N18.3 Anemia D64.9 Lung cancer C34.90 Acute hyperglycemia R73.9 DKA (diabetic ketoacidosis) E11.10
[2025-01-12 07:44] LABS: Glucose Point of Care 212 mg/dL (70-110)
[2025-01-12] MEDS: levofloxacin-dextrose 5 % 500 MG/100 ML PREMIX 100 MG IV (08:13)
[2025-01-12] MEDS: dilTIAZem ER (24HR) 120 mg Capsule PO (08:13)
[2025-01-12] MEDS: insulin glargine 100 units/1 mL 20 UNIT SUBCUT (08:14)
[2025-01-12] MEDS: heparin 5,000 unit/mL INJ 1 mL 5000 UNIT SUBCUT ×2 (11:01→22:01)
[2025-01-12] MEDS: pantoprazole 40 mg SDV IVP ×2 (11:02→22:01)
[2025-01-12 11:20] LABS: Glucose Point of Care 275 mg/dL (70-110)
--- NOTE | 2025-01-12 12:54 | PC.SOCIAL ---
IMM Updated Updated pt on IMM. No questions voiced. Provided pt a copy. Initialed, dated, & timed a copy & placed in chart.
--- NOTE | 2025-01-12 13:04 | P.PN_ITS ---
Subjective 2 Subjective: seen today no acute events overnight complains of left shoudler pain Vitals/I&O/Wt Last Vital Signs Temp 97.8 F 01/12/25 11:50 Pulse 85 01/12/25 11:50 Resp 16 01/12/25 11:50 BP 122/59 01/12/25 11:50 Pulse Ox 96 01/12/25 11:50 O2 Del Method Nasal Cannula 01/12/25 11:50 O2 Flow Rate 4 01/12/25 11:50 01/11/25 01/12/25 01/12/25 22:59 06:59 14:59 Intake Total 250 / 950 820 / 820 Output Total 150 / 150 100 / 250 Balance 100 / 800 -100 / 700 820 / 820 Weight last 48 hrs Weight 70.49 kg Weight 71 kg Physical Exam 2 Urinary Catheter Management: Adame: Cath Placed During This Visit: yes, but has since been removed by the nurse Reason for Continuing Indwelling Catheter: Accurate Measurement of Urinary Output in Critically Ill Patients Urinary Catheter Date of Insertion: 01/09/25 Urinary Catheter Time of Insertion: 18:22 Date Urinary Catheter Removed: 01/10/25 Time Urinary Catheter Discontinued: 18:00 Data 01/12/25 04:47 01/12/25 04:47 Micro: Microbiology 01/09/25 22:55 Urine Culture - Final Urine,Clean Catch A&P PDMP PDMP Reviewed: Not Reviewed Coding Level of Care Code Acute Code for [facility]
--- NOTE | 2025-01-12 13:05 | CTR_ITS ---
PROCEDURE INFORMATION: Exam: CT Left Upper Extremity Without Contrast, Shoulder Exam date and time: 01/12/2025 4:44 PM Age: 84 years old Clinical indication: Injury or trauma; Fall; Blunt trauma (contusions or hematomas); Shoulder; Left; Additional info: Fall, unable to move shoulder TECHNIQUE: Imaging protocol: Computed tomography of the left upper extremity without contrast. Exam focused on the shoulder. Radiation optimization: All CT scans at this facility use at least one of these dose optimization techniques: automated exposure control; mA and/or kV adjustment per patient size (includes targeted exams where dose is matched to clinical indication); or iterative reconstruction. COMPARISON: CT cervical spin wo con* [id number] 06/28/2024 6:09 PM RADIATION DOSE METRICS: Total DLP (mGy-cm): 271.16 FINDINGS: Bones/joints: Severe glenohumeral osteoarthritis with prominent marginal osteophytes. No evidence of acute fracture or subluxation. There is chondrocalcinosis of the labrum and infraspinatus tendon. Moderate AC joint osteoarthritis without evidence of fracture or subluxation. Scapula is intact. Visualized left-sided ribs are intact. Small glenohumeral joint effusion. Soft tissues: There is attenuation of the distal supraspinatus tendon raising the question of tear. No evidence of fluid collection or hematoma. CT/CT shoulder LT wo con* [id number] IMPRESSION: 1. Severe osteoarthritis without evidence of acute fracture or subluxation.
[2025-01-12 17:14] LABS: Glucose Point of Care 465 mg/dL (70-110)
[2025-01-12] MEDS: TRAMadol 50 mg Tablet PO (19:25)
[2025-01-13] VITALS (15 sets, daily range): BP systolic 127–166; BP diastolic 53–73; PULSE 71–108; RESP 12–26; TEMP 36.4–36.6; O2SAT 87–96
[2025-01-13 00:04] LABS: Glucose Point of Care 417 mg/dL (70-110)
[2025-01-13] MEDS: TRAMadol 50 mg Tablet PO ×2 (03:38→14:52)
[2025-01-13 04:49] LABS: Basophils % 0.2 %; Eosinophils # 0.3 10^3/uL (0.0-0.8); Eosinophils % 2.6 %; Hematocrit 37.7 % (37-53); Lymphocytes # 2.1 10^3/uL (0.8-4.8); Lymphocytes % 16.9 %; Mean Corpuscular HGB Conc 32.6 g/dL (30-55); Mean Corpuscular Hemoglobin 29.9 pg (27-33); Mean Corpuscular Volume 91.7 fl (82-101); Mean Platelet Volume 10.6 fL (7.4-10.4); Monocytes # 1.1 10^3/uL (0.2-0.9); Monocytes % 8.9 %; Neutrophils # 8.53 10^3/uL (1.8-7.7); Neutrophils % 67.7 %; Nucleated Red Blood Cells % 0 %; Platelet Count 279 10^3/cmm (157-399); Red Blood Count 4.11 10^6/uL (3.85-5.65); Red Cell Distribution Width 13.2 % (12.1-15.1)
[2025-01-13 05:22] LABS: Anion Gap 12.2 (5-19); Blood Urea Nitrogen 18 mg/dL (8-23); Calcium 9.4 mg/dL (8.5-10.5); Carbon Dioxide 31 mmol/L (22-29); Chloride 99 mmol/L (98-107); Glucose 133 mg/dL (65-115); Magnesium 1.6 mg/dL (1.7-2.3); Osmolality Calculated 290 mOsm/kg (285-295); Potassium 4.2 mmol/L (3.5-5.1); Sodium 138 mmol/L (136-145)
[2025-01-13] MEDS: sucralfate 1 gm/10 mL Oral Liq UDC PO ×4 (05:48→21:12)
[2025-01-13 07:59] LABS: Glucose Point of Care 263 mg/dL (70-110)
[2025-01-13] MEDS: HYDROmorphone 0.5 MG/0.5 ML INJ 0.2 MG IVP (08:20)
[2025-01-13] MEDS: dilTIAZem ER (24HR) 120 mg Capsule PO (08:21)
[2025-01-13] MEDS: levoFLOXacin 750 mg Tablet PO (08:21)
[2025-01-13] MEDS: phenazopyridine 100 mg Tablet 200 MG PO ×2 (08:21→11:50)
[2025-01-13] MEDS: ondansetron 2 mg/ML SDV 2 mL 4 MG IVP ×3 (08:21→21:13)
[2025-01-13] MEDS: insulin lispro 100 unit/1 mL SUBCUT ×7 (08:21→21:12)
[2025-01-13] MEDS: pantoprazole 40 mg SDV IVP ×2 (08:22→22:06)
[2025-01-13] MEDS: heparin 5,000 unit/mL INJ 1 mL 5000 UNIT SUBCUT ×2 (08:22→21:12)
[2025-01-13] MEDS: insulin glargine 100 units/1 mL 20 UNIT SUBCUT (09:08)
[2025-01-13 11:14] LABS: Glucose Point of Care 428 mg/dL (70-110)
[2025-01-13] MEDS: magnesium sulfate premix 2 GM/50 ML PIGGYBACK IV (11:49)
[2025-01-13] MEDS: HYDROcodone-acetaminophen 5-325 mg Tablet 1 TAB PO ×2 (11:50→22:18)
[2025-01-13] MEDS: methylPREDNISolone sod succ 40 mg/mL INJ IVP (14:52)
[2025-01-13 16:26] LABS: Glucose Point of Care 361 mg/dL (70-110)
--- NOTE | 2025-01-13 16:28 | CTR_ITS ---
PROCEDURE INFORMATION: Exam: CT Left Upper Extremity Without Contrast, Elbow Exam date and time: 01/13/2025 4:52 PM Age: 84 years old Clinical indication: Pain; Elbow; Left; Additional info: Swelling TECHNIQUE: Imaging protocol: Computed tomography of the left upper extremity without contrast. Exam focused on the elbow. Radiation optimization: All CT scans at this facility use at least one of these dose optimization techniques: automated exposure control; mA and/or kV adjustment per patient size (includes targeted exams where dose is matched to clinical indication); or iterative reconstruction. COMPARISON: CT shoulder LT wo con* [id number] 01/12/2025 4:44 PM RADIATION DOSE METRICS: Total DLP (mGy-cm): 345.3 FINDINGS: Bones/joints: Acute-subacute nondisplaced radial head fracture with small-moderate joint effusion (images 25-26 of series 15). Radiocapitellar and ulnotrochlear articulations are intact. Moderate osteoarthritis. Soft tissues: Muscles and tendons are grossly intact. Soft tissue edema without evidence of fluid collection or hematoma. CT/CT elbow LT wo con* [id number] IMPRESSION: 1. Acute-subacute nondisplaced radial head fracture with joint effusion. 2. Moderate osteoarthritis.
--- NOTE | 2025-01-13 16:32 | P.PN_ITS ---
Subjective 2 Subjective: Seen this morning. Patient complains of significant left shoulder pain and left elbow pain with mild swelling around the elbow area. He was on steroids at home for arthritis. He is barely able to move his hand to even use a urinal at this time. Discussed case with orthopedic surgery over the phone who recommended sling at this time and to follow-up as an outpatient however secondary to significant pain I had a discussion with the patient and we will be continuing to hospitalize him at this time to treat for arthritis flare. Vitals/I&O/Wt Last Vital Signs Temp 97.9 F 01/13/25 12:59 Pulse 108 H 01/13/25 12:59 Resp 16 01/13/25 12:59 BP 135/70 01/13/25 12:59 Pulse Ox 87 L 01/13/25 16:30 O2 Del Method Nasal Cannula 01/13/25 11:24 O2 Flow Rate 2 01/13/25 16:30 01/13/25 01/13/25 01/13/25 06:59 14:59 22:59 Intake Total 90 / 1430 890 / 890 Balance 90 / 1280 890 / 890 Weight last 48 hrs Weight 73.346 kg Weight 70.49 kg Physical Exam 2 Narrative: Awake and alert Euvolemic Pleasant and cooperative Currently on room air GCS 15 Nonfocal neuroexam Hemodynamic stable S1, S2 A-fib without RVR Lower extremity trace edema Abdomen soft No audible stridor or wheezing Left shoulder pain reported?range of motion at left shoulder, mild erythema and swelling noted at left elbow area. Left hand also appears to have worsening swelling. Urinary Catheter Management: Adame: Cath Placed During This Visit: yes, but has since been removed by the nurse Reason for Continuing Indwelling Catheter: Accurate Measurement of Urinary Output in Critically Ill Patients Urinary Catheter Date of Insertion: 01/09/25 Urinary Catheter Time of Insertion: 18:22 Date Urinary Catheter Removed: 01/10/25 Time Urinary Catheter Discontinued: 18:00 Data 01/13/25 04:19 01/13/25 04:19 A&P Assessment and plan (1) Malaise: (2) Asthma: (3) RSV infection: Qualifiers: RSV infection type: pneumonia Qualified Code(s): J12.1 - Respiratory syncytial virus pneumonia (4) Acute hyperkalemia: (5) Acute dehydration: (6) Chronic kidney disease, stage III (moderate): (7) Anemia: (8) Lung cancer: (9) Acute hyperglycemia: (10) DKA (diabetic ketoacidosis): Plan Debility and physical deconditioning Will follow-up with physical therapy recommendations patient stating that he would like to go home Transfer out of ICU to [facility] Lives alone, son checks on him Type 2 diabetes mellitus Hyperglycemia: Increase the dose of Lantus along with sliding scale DKA resolved Paroxysmal atrial fibrillation No signs of RVR, continue AV tr blocking agent, not a candidate of anticoagulating agent secondary to history of GI bleed RSV pneumonia -Supportive care Sepsis Resolved: Afebrile, blood cultures negative, urine culture pending: Change IV levofloxacin to p.o. regimen now 01/12 Acute metabolic encephalopathy related to UTI Resolved Chronic pain -Continue home tramadol History of asthma No acute exacerbation currently doing well on room air Urethral pain -Associate with Adame catheter which has been removed -Analgesics as needed Diabetic ketoacidosis, resolved Hyperkalemia, resolved Hypernatremia, resolved Acute kidney injury, resolved DVT prophylaxis: Heparin CODE STATUS: DNR/DNI Transfer out of ICU to [facility] Anticipating discharge in next 24 hours 01/13/2025 CT left shoulder reviewed: Severe arthritis noted. Small glenohumeral joint effusion. Discussed with orthopedic surgery over the phone. Recommendation to place patient in sling and discharged home with pain medication to follow-up as an outpatient. However later had discussion with patient and secondary to the significant pain we will continue to hospitalize at this time. Will place on Solu-Medrol 40 IV twice daily to treat for arthritis flare at this time. Continue high dose intensity sliding scale insulin to manage blood sugars. Increase Lantus to 15 units twice daily. Check CT left elbow. Placed on vancomycin for cellulitis. Continue levofloxacin oral. Patient does have RSV pneumonia and receiving supportive care at this time. She did qualify for 2 L at discharge. He has a oxygen concentrator at home and uses oxygen around 2 L. He does have a history of asthma. If there is no clinical improvement will consult orthopedic surgery. PDMP PDMP Reviewed: Last Reviewed 01/13/25 13:20 EDT by Opal Mane MD Attestations 2 Medical Necessity Statement*: Will need hospitalization for severe arthritis flare left shoulder. He will be on IV steroids which will require inpatient glucose monitoring secondary to recent DKA episode. Diagnoses Malaise R53.81 Asthma J45.909 RSV infection J12.1 RSV infection type: pneumonia Acute hyperkalemia E87.5 Acute dehydration E86.0 Chronic kidney disease, stage III (moderate) N18.3 Anemia D64.9 Lung cancer C34.90 Acute hyperglycemia R73.9 DKA (diabetic ketoacidosis) E11.10
--- NOTE | 2025-01-13 16:39 | PHA.VACGOAL ---
Vancomycin Goal - Goal Vancomycin Goal:: 10-15 mg/L Vancomycin Indication:: SSTI - Therapy Current therapy:: Other Antibiotic (LEVOFLOXACIN PO) Day of therpy:: Day []of [] . Actual body weight (kg): 161 lb 11.2 oz - Data Labs: WBC 12.60 10^3/uL (3.29-11.43) H 01/13/25 04:19 RBC 4.11 10^6/uL (3.85-5.65) 01/13/25 04:19 Hgb 12.30 g/dL (11.27-16.99) 01/13/25 04:19 Hct 37.7 % (37-53) 01/13/25 04:19 MCV 91.7 fl (82-101) 01/13/25 04:19 MCH 29.9 pg (27-33) 01/13/25 04:19 MCHC 32.6 g/dL (30-55) 01/13/25 04:19 RDW 13.2 % (12.1-15.1) 01/13/25 04:19 Sodium 138 mmol/L (136-145) 01/13/25 04:19 Potassium 4.2 mmol/L (3.5-5.1) 01/13/25 04:19 Chloride 99 mmol/L (98-107) 01/13/25 04:19 Carbon Dioxide 31 mmol/L (22-29) H 01/13/25 04:19 Anion Gap 12.2 (5-19) 01/13/25 04:19 BUN 18 mg/dL (8-23) 01/13/25 04:19 Creatinine 0.8 mg/dL (0.7-1.2) 01/13/25 04:19 GFR Calculation Not Reportable 01/13/25 04:19 Last dialysis session:: N/A Treatment plan:: new consult Regimen:: LOADING DOSE OF 1000 MG PER DOSING PROTOCOL AND INDICATION. MAINTENANCE DOSE OF 750 MG Q12H Follow up:: WILL CONTINUE TO MONITOR AND FOLLOW UP DAILY
[2025-01-13] MEDS: VANCOMYCIN ADD-Vantage 1,000 MG in 0.9% NaCl ADD-Vantage 250 ML 250 MG IV (17:34)
[2025-01-13] MEDS: insulin glargine 100 units/1 mL 15 UNIT SUBCUT (17:38)
[2025-01-13 20:36] LABS: Glucose Point of Care 322 mg/dL (70-110)
[2025-01-14] VITALS (8 sets, daily range): BP systolic 127–163; BP diastolic 47–72; PULSE 66–92; RESP 18; TEMP 36.4–36.9; O2SAT 90–95
[2025-01-14] MEDS: methylPREDNISolone sod succ 40 mg/mL INJ IVP ×2 (01:21→14:41)
[2025-01-14] MEDS: ondansetron 2 mg/ML SDV 2 mL 4 MG IVP ×3 (03:09→14:41)
[2025-01-14] MEDS: VANCOMYCIN ADD-Vantage 750 MG in 0.9% NaCl ADD-Vantage 250 ML 250 MG IV ×2 (05:17→18:26)
[2025-01-14] MEDS: levoFLOXacin 750 mg Tablet PO (05:18)
[2025-01-14 05:43] LABS: Basophils % 0.1 %; Hematocrit 34.7 % (37-53); Lymphocytes # 0.7 10^3/uL (0.8-4.8); Lymphocytes % 4.2 %; Mean Corpuscular HGB Conc 31.7 g/dL (30-55); Mean Corpuscular Hemoglobin 29.3 pg (27-33); Mean Corpuscular Volume 92.3 fl (82-101); Monocytes # 0.7 10^3/uL (0.2-0.9); Monocytes % 3.8 %; Neutrophils # 15.27 10^3/uL (1.8-7.7); Neutrophils % 89.8 %; Nucleated Red Blood Cells % 0 %; Platelet Count 229 10^3/cmm (157-399); Red Blood Count 3.76 10^6/uL (3.85-5.65); Red Cell Distribution Width 13.3 % (12.1-15.1); White Blood Count 17.01 10^3/uL (3.29-11.43)
[2025-01-14 06:05] LABS: Anion Gap 12.9 (5-19); Blood Urea Nitrogen 19 mg/dL (8-23); Calcium 9.2 mg/dL (8.5-10.5); Carbon Dioxide 30 mmol/L (22-29); Chloride 93 mmol/L (98-107); Glucose 269 mg/dL (65-115); Osmolality Calculated 284 mOsm/kg (285-295); Potassium 4.9 mmol/L (3.5-5.1); Sodium 131 mmol/L (136-145)
[2025-01-14 06:20] LABS: Glucose Point of Care 335 mg/dL (70-110)
[2025-01-14] MEDS: insulin lispro 100 unit/1 mL SUBCUT ×7 (07:53→21:40)
[2025-01-14] MEDS: sucralfate 1 gm/10 mL Oral Liq UDC PO ×4 (08:15→21:40)
--- NOTE | 2025-01-14 08:16 | PC.NURSE ---
0700 carafate and 4units of humaolog administered by Elder Luna LPN at 0653. Medication not saved, verbal confirmation medication was given by Elder Luna LPN.
[2025-01-14] MEDS: dilTIAZem ER (24HR) 120 mg Capsule PO (09:43)
[2025-01-14] MEDS: insulin glargine 100 units/1 mL 15 UNIT SUBCUT ×2 (09:43→18:12)
--- NOTE | 2025-01-14 10:26 | PC.SOCIAL ---
IMM Update pg 2 of IMM Updated and reviewed w/ patient. Copy provided and copy dated, initialed and placed in chart.
[2025-01-14 11:26] LABS: Glucose Point of Care 463 mg/dL (70-110)
[2025-01-14] MEDS: pantoprazole 40 mg SDV IVP ×2 (11:43→22:55)
[2025-01-14] MEDS: heparin 5,000 unit/mL INJ 1 mL 5000 UNIT SUBCUT ×2 (11:43→22:55)
--- NOTE | 2025-01-14 11:46 | PC.SOCIAL ---
IMM Update pg 2 of IMM updated and reviewed w/ patient. Copy provided and copy dated, initialed and placed in chart.
--- NOTE | 2025-01-14 14:55 | PM.PN ---
Subjective Subjective: seen today ct elbow shows fracture radial head he can move his arm today and feels better can breath better, no longer requiring oxygen Vitals/I&O/Wt Last Vital Signs Temp 98.5 F 01/14/25 11:32 Pulse 85 01/14/25 11:32 Resp 18 01/14/25 11:32 BP 129/69 01/14/25 11:32 Pulse Ox 91 01/14/25 11:32 O2 Del Method Room Air 01/14/25 11:32 O2 Flow Rate 2 01/13/25 19:29 01/13/25 01/14/25 01/14/25 22:59 06:59 14:59 Intake Total 360 / 1250 500 / 1750 1740 / 1740 Balance 360 / 1250 500 / 1750 1740 / 1740 Weight last 48 hrs Weight 73.573 kg Weight 73.346 kg Physical Exam Narrative: Awake and alert Euvolemic Pleasant and cooperative Currently on room air GCS 15 Nonfocal neuroexam Hemodynamic stable S1, S2 A-fib without RVR Lower extremity trace edema Abdomen soft No audible stridor or wheezing Left shoulder pain improved, able to move arm , swelling improved, Urinary Catheter Management: Adame: Cath Placed During This Visit: yes, but has since been removed by the nurse Reason for Continuing Indwelling Catheter: Accurate Measurement of Urinary Output in Critically Ill Patients Urinary Catheter Date of Insertion: 01/09/25 Urinary Catheter Time of Insertion: 18:22 Date Urinary Catheter Removed: 01/10/25 Time Urinary Catheter Discontinued: 18:00 Data 01/14/25 04:43 01/14/25 04:43 A&P Assessment and plan (1) Malaise: (2) Asthma: (3) RSV infection: Qualifiers: RSV infection type: pneumonia Qualified Code(s): J12.1 - Respiratory syncytial virus pneumonia (4) Acute hyperkalemia: (5) Acute dehydration: (6) Chronic kidney disease, stage III (moderate): (7) Anemia: (8) Lung cancer: (9) Acute hyperglycemia: (10) DKA (diabetic ketoacidosis): Plan Debility and physical deconditioning Will follow-up with physical therapy recommendations patient stating that he would like to go home Transfer out of ICU to [facility] Lives alone, son checks on him Type 2 diabetes mellitus Hyperglycemia: Increase the dose of Lantus along with sliding scale DKA resolved Paroxysmal atrial fibrillation No signs of RVR, continue AV tr blocking agent, not a candidate of anticoagulating agent secondary to history of GI bleed RSV pneumonia -Supportive care Sepsis Resolved: Afebrile, blood cultures negative, urine culture pending: Change IV levofloxacin to p.o. regimen now 01/12 Acute metabolic encephalopathy related to UTI Resolved Chronic pain -Continue home tramadol History of asthma No acute exacerbation currently doing well on room air Urethral pain -Associate with Adame catheter which has been removed -Analgesics as needed Diabetic ketoacidosis, resolved Hyperkalemia, resolved Hypernatremia, resolved Acute kidney injury, resolved DVT prophylaxis: Heparin CODE STATUS: DNR/DNI Transfer out of ICU to [facility] Anticipating discharge in next 24 hours 01/13/2025 CT left shoulder reviewed: Severe arthritis noted. Small glenohumeral joint effusion. Discussed with orthopedic surgery over the phone. Recommendation to place patient in sling and discharged home with pain medication to follow-up as an outpatient. However later had discussion with patient and secondary to the significant pain we will continue to hospitalize at this time. Will place on Solu-Medrol 40 IV twice daily to treat for arthritis flare at this time. Continue high dose intensity sliding scale insulin to manage blood sugars. Increase Lantus to 15 units twice daily. Check CT left elbow. Placed on vancomycin for cellulitis. Continue levofloxacin oral. Patient does have RSV pneumonia and receiving supportive care at this time. She did qualify for 2 L at discharge. He has a oxygen concentrator at home and uses oxygen around 2 L. He does have a history of asthma. If there is no clinical improvement will consult orthopedic surgery. 01/14/2025 ct elbow reviewed: 1. Acute-subacute nondisplaced radial head fracture with joint effusion. 2. Moderate osteoarthritis. consult orthodepdic surgery for recommedations pt qualified for O2 to be set up for home levofloxacin continue continue solu medrol 40 q12h continue to manage blood glucose in hospital setting 2/2 to pt being on steroids possible dc in am. will require IV steroids today PDMP PDMP Reviewed: Last Reviewed 01/13/25 13:20 EDT by Opal Mane MD Attestations Medical Necessity Statement*: iv steroids for arthritis Coding Level of Care Code 57380 Diagnoses Malaise R53.81 Asthma J45.909 RSV infection J12.1 RSV infection type: pneumonia Acute hyperkalemia E87.5 Acute dehydration E86.0 Chronic kidney disease, stage III (moderate) N18.3 Anemia D64.9 Lung cancer C34.90 Acute hyperglycemia R73.9 DKA (diabetic ketoacidosis) E11.10
--- NOTE | 2025-01-14 16:14 | PM.CONSULT ---
Providers/Reason For Consult Consulting Physician/Specialty*: Ramon Solis DO/orthopedic surgery Reason for Consult*: Left elbow radial head fracture Requesting Physician: Dr. Mane Attending Physician: Opal Mane MD Primary Care Provider: Gerry Khan MD History of Present Illness History of Present Illness Son Cisneros Sr is a 84 year old male who sustained a fall at home and had confusion was admitted to the hospital in the ICU under DKA protocol. He since during his hospitalization after medical management's been performed started complaining of left shoulder and elbow pain workup after steroids his shoulder has moved much better but his elbow is still painful CT scan of the shoulder demonstrated severe arthritic changes CT of the elbow demonstrated a nondisplaced radial head fracture with joint effusion. Orthopedics was consulted at that time. Review of Systems General: Reports: 10 or more systems reviewed and unremarkable except in HPI and below Medications/Allergies Home Medications ?Medication ?Instructions ?Recorded ?Confirmed ?Last Taken ?Type glimepiride 4 mg tablet 4 mg PO BID 05/03/20 01/10/25 01/09/25 History metformin 500 mg tablet,extended 500 mg PO TID 05/03/20 01/10/25 01/09/25 History release 24 hr sitagliptin phosphate 100 mg 100 mg PO DAILY 05/03/20 01/10/25 09/04/22 History tablet (Januvia) atorvastatin 40 mg tablet 40 mg PO BEDTIME #60 tabs 01/18/22 01/10/25 01/09/25 Rx lisinopril 5 mg tablet 5 mg PO DAILY 01/05/25 01/10/25 01/09/25 History diltiazem HCl 120 mg 120 mg PO DAILY #30 caps 01/13/25 Unknown Rx capsule,extended release 24 hr insulin glargine 100 unit/mL (3 15 unit (0.15 mL) SUBCUT DAILY #15 01/13/25 01/10/25 Unknown Rx mL) subcutaneous pen (Lantus mL Solostar U-100 Insulin) levofloxacin 750 mg tablet 750 mg PO DAILY@0600 #3 tabs 01/13/25 Unknown Rx lisinopril 10 mg tablet 10 mg PO DAILY #30 tabs 01/13/25 Unknown Rx pantoprazole 40 mg tablet,delayed 40 mg PO DAILY #14 tabs 01/13/25 Unknown Rx release (Protonix) tramadol 50 mg tablet 50 mg PO Q8H PRN pain #12 tabs 01/13/25 Unknown Rx Allergies Allergy/AdvReac Type Severity Reaction Status Date / Time aspirin Allergy Unknown Verified 01/05/25 14:51 oxytetracycline (From Allergy ADR-Swelling Verified 01/05/25 14:51 Terramycin) of the Eye Penicillins Allergy ALGY-Difficulty Verified 01/05/25 14:51 Swallowing Current Medications Generic Name Dose Route Start Last Admin Trade Name Freq PRN Reason Stop Dose Admin Hydrocodone Bitart/Acetaminophen 1 tab 01/13/25 10:27 01/13/25 22:18 Hydrocodone-Acetaminophen 5-325 Mg Tablet PO 1 tab Q8H PRN Administration MODERATE PAIN Diltiazem HCl 120 mg 01/10/25 09:00 01/14/25 09:43 Diltiazem Er (24hr) 120 Mg Capsule PO 120 mg DAILY KUSH Administration Heparin Sodium (Porcine) 5,000 unit 01/09/25 22:30 01/14/25 11:43 Heparin 5,000 Unit/Ml Inj 1 Ml SUBCUT 5,000 unit Q12H KUSH Administration Vancomycin HCl 750 mg/ Sodium 250 mls @ 250 mls/hr 01/14/25 05:30 01/14/25 06:44 Chloride IV Infused Q12H KUSH Infusion Insulin Glargine 15 unit 01/13/25 18:00 01/14/25 09:43 Insulin Glargine 100 Units/1 Ml SUBCUT 15 unit BID KUSH Administration Insulin Human Lispro 0 unit 01/10/25 08:00 01/14/25 11:43 Insulin Lispro 100 Unit/1 Ml SUBCUT 22 unit WM&BEDTIME KUSH Administration Protocol Insulin Human Lispro 4 unit 01/11/25 17:00 01/14/25 11:43 Insulin Lispro 100 Unit/1 Ml SUBCUT 4 unit TIDAC KUSH Administration Levofloxacin 750 mg 01/13/25 09:00 01/14/25 05:18 Levofloxacin 750 Mg Tablet PO 750 mg DAILY@0600 [facility] Administration Protocol Lidocaine HCl 1 applic 01/10/25 17:55 01/10/25 18:16 Lidocaine 2% Jelly 1 Applic/6 Ml Tube TOPICAL 1 applic PRN PRN Administration penile pain Ondansetron HCl 4 mg 01/11/25 09:15 01/14/25 14:41 Ondansetron 2 Mg/Ml Sdv 2 Ml IVP 4 mg Q6H KUSH Administration Pantoprazole Sodium 40 mg 01/10/25 10:45 01/14/25 11:43 Pantoprazole 40 Mg Sdv IVP 40 mg Q12H KUSH Administration Sucralfate 1 gm 01/10/25 11:00 01/14/25 11:43 Sucralfate 1 Gm/10 Ml Oral Liq Udc PO 1 gm AC&BEDTIME KUSH Administration Tramadol HCl 50 mg 01/10/25 08:36 01/13/25 14:52 Tramadol 50 Mg Tablet PO 50 mg Q8H PRN Administration MODERATE PAIN PFSH Acute PFSH: Medical History Reactive airway disease Atypical chest pain Aortic valve stenosis, acquired Pseudogout Anemia Angina pectoris, unspecified Heart murmur Congestive heart failure Chronic kidney disease, stage III (moderate) Legionella infection 2007 Lung cancer chemotherapy and radiation, 1993 Asthma Hypertension Coronary artery disease stent years ago, here, maker Diabetes mellitus Surgical History S/P percutaneous transluminal angioplasty ([employer]) with stent placement History of arthroplasty of right knee Family History Brother Cancer brother Father Cancer Social History Smoking and tobacco/nicotine status: unknown if used tobacco/nicotine Alcohol intake: never Substance/Drug Use: never Household members: none Vitals/I&O/Wt Last Vital Signs Temp 97.7 F 01/14/25 16:00 Pulse 72 01/14/25 16:00 Resp 18 01/14/25 16:00 BP 127/47 01/14/25 16:00 Pulse Ox 90 01/14/25 16:00 O2 Del Method Room Air 01/14/25 16:00 O2 Flow Rate 2 01/13/25 19:29 01/14/25 01/14/25 01/14/25 06:59 14:59 22:59 Intake Total 500 / 1750 1740 / 1740 Balance 500 / 1750 1740 / 1740 Weight last 48 hrs Weight 162 lb 3.2 oz Weight 161 lb 11.2 oz Physical Exam Narrative: Examination left upper extremity: Examination left upper extremity patient can actively move the shoulder no significant pain or discomfort mild crepitus appreciated he is able to tolerate gentle shoulder range of motion. He does have mild tenderness about the left elbow. There is to palpation radial head pain with end range of motion of pronation and supination no tenderness along the distal humerus or olecranon. Can tolerate gentle elbow range of motion but decreased secondary to pain discomfort. Patient perform AIN/PIN/radial/ulnar/median nerves intact. IVs in place to the left upper arm. Left upper extremity warm well-perfused compartment soft compressible. Urinary Catheter Management: Adame: Cath Placed During This Visit: yes, but has since been removed by the nurse Reason for Continuing Indwelling Catheter: Accurate Measurement of Urinary Output in Critically Ill Patients Urinary Catheter Date of Insertion: 01/09/25 Urinary Catheter Time of Insertion: 18:22 Date Urinary Catheter Removed: 01/10/25 Time Urinary Catheter Discontinued: 18:00 Data 01/14/25 04:43 01/14/25 04:[address]: Radiologist's impression: Ordering Provider/Ordering MD: Opal Mane MD Date of Service: 01/13/25 Procedure(s): CT elbow LT wo con* [id number] Accession Number(s): [id number] Report Number: [id number] PROCEDURE INFORMATION: Exam: CT Left Upper Extremity Without Contrast, Elbow Exam date and time: 01/13/2025 4:52 PM Age: 84 years old Clinical indication: Pain; Elbow; Left; Additional info: Swelling TECHNIQUE: Imaging protocol: Computed tomography of the left upper extremity without contrast. Exam focused on the elbow. Radiation optimization: All CT scans at this facility use at least one of these dose optimization techniques: automated exposure control; mA and/or kV adjustment per patient size (includes targeted exams where dose is matched to clinical indication); or iterative reconstruction. COMPARISON: CT shoulder LT wo con* [id number] 01/12/2025 4:44 PM RADIATION DOSE METRICS: Total DLP (mGy-cm): 345.3 FINDINGS: Bones/joints: Acute-subacute nondisplaced radial head fracture with small-moderate joint effusion (images 25-26 of series 15). Radiocapitellar and ulnotrochlear articulations are intact. Moderate osteoarthritis. Soft tissues: Muscles and tendons are grossly intact. Soft tissue edema without evidence of fluid collection or hematoma. CT/CT elbow LT wo con* [id number] IMPRESSION: 1. Acute-subacute nondisplaced radial head fracture with joint effusion. 2. Moderate osteoarthritis. Ordering Provider/Ordering MD: Opal Mane MD Date of Service: 01/12/25 Procedure(s): CT shoulder LT wo con* [id number] Accession Number(s): [id number] Report Number: [id number] PROCEDURE INFORMATION: Exam: CT Left Upper Extremity Without Contrast, Shoulder Exam date and time: 01/12/2025 4:44 PM Age: 84 years old Clinical indication: Injury or trauma; Fall; Blunt trauma (contusions or hematomas); Shoulder; Left; Additional info: Fall, unable to move shoulder TECHNIQUE: Imaging protocol: Computed tomography of the left upper extremity without contrast. Exam focused on the shoulder. Radiation optimization: All CT scans at this facility use at least one of these dose optimization techniques: automated exposure control; mA and/or kV adjustment per patient size (includes targeted exams where dose is matched to clinical indication); or iterative reconstruction. COMPARISON: CT cervical spin wo con* [id number] 06/28/2024 6:09 PM RADIATION DOSE METRICS: Total DLP (mGy-cm): 271.16 FINDINGS: Bones/joints: Severe glenohumeral osteoarthritis with prominent marginal osteophytes. No evidence of acute fracture or subluxation. There is chondrocalcinosis of the labrum and infraspinatus tendon. Moderate AC joint osteoarthritis without evidence of fracture or subluxation. Scapula is intact. Visualized left-sided ribs are intact. Small glenohumeral joint effusion. Soft tissues: There is attenuation of the distal supraspinatus tendon raising the question of tear. No evidence of fluid collection or hematoma. CT/CT shoulder LT wo con* [id number] IMPRESSION: 1. Severe osteoarthritis without evidence of acute fracture or subluxation. A&P Assessment and plan (1) Left radial head fracture: (2) Degenerative arthritis of left shoulder region: Plan Imaging reviewed Plain left elbow x-ray films ordered just for baseline monitoring in the outpatient setting as we only have a CT scan at this time Recommend conservative treatment nonoperative for the left radial head fracture Pain control per primary Place left upper extremity into long-arm posterior splint?maintain until outpatient follow-up Ice as needed for pain and swelling Encourage shoulder range of motion as tolerated Follow-up in the orthopedic office in 1 to 2 weeks Strict no weightbearing to the left upper extremity Orthopedic surgery team will sign off at this time follow peripherally if there is any question pertaining patient care feel free to contact orthopedics on-call follow-up in 1 to 2 weeks. Patient at this point in time has a nondisplaced radial head fracture that can be treated nonoperatively we talked about this in detail with the patient and through shared decision-making elects proceed with this we will place him in a left long-arm splint will be nonweightbearing to left upper extremity we will obtain lying left elbow x-ray films just for baseline for outpatient x-ray monitoring. Pain control per primary follow-up in 1 to 2 weeks in orthopedic office. Patient understands agrees to current plan. Questions answered. PDMP PDMP Reviewed: Not Reviewed Coding Level of Care Code Acute Code for Chg Fwd Diagnoses Left radial head fracture S52.122A Degenerative arthritis of left shoulder region M19.012 Time Spent (min) 40
[2025-01-14 16:31] LABS: Glucose Point of Care 328 mg/dL (70-110)
--- NOTE | 2025-01-14 16:32 | XRR_ITS ---
PROCEDURE INFORMATION: Exam: XR Left Elbow Exam date and time: 01/14/2025 5:53 PM Age: 84 years old Clinical indication: Injury or trauma; Fall; Other: Pain; Additional info: Follow up left elbow pain after fall 2 days ago TECHNIQUE: Imaging protocol: Radiologic exam of the left elbow. Views: 1 or 2 views. COMPARISON: CT elbow LT wo con* [id number] 01/13/2025 4:52 PM FINDINGS: Bones/joints: Joint effusion at the elbow. No acute fracture. Soft tissues: Normal. XR/XR elbow LT 2V [id number] IMPRESSION: 1. No acute fracture. 2. Joint effusion at the elbow.
[2025-01-14 20:15] LABS: Glucose Point of Care 396 mg/dL (70-110)
[2025-01-15] MEDS: HYDROcodone-acetaminophen 5-325 mg Tablet 1 TAB PO (02:11)
[2025-01-15 04:00] VITALS: BP 136/59; PULSE 70; RESP 18; TEMP 36.6; O2SAT 94
[2025-01-15] MEDS: VANCOMYCIN ADD-Vantage 750 MG in 0.9% NaCl ADD-Vantage 250 ML 250 MG IV (05:35)
[2025-01-15] MEDS: levoFLOXacin 750 mg Tablet PO (05:36)
[2025-01-15] MEDS: insulin lispro 100 unit/1 mL SUBCUT ×2 (05:37→08:40)
[2025-01-15 05:44] LABS: Basophils % 0.2 %; Hematocrit 33.9 % (37-53); Lymphocytes # 0.7 10^3/uL (0.8-4.8); Lymphocytes % 4.1 %; Mean Corpuscular HGB Conc 32.4 g/dL (30-55); Mean Corpuscular Hemoglobin 30.2 pg (27-33); Mean Corpuscular Volume 93.1 fl (82-101); Mean Platelet Volume 11.4 fL (7.4-10.4); Monocytes # 0.8 10^3/uL (0.2-0.9); Monocytes % 5.2 %; Neutrophils # 14.24 10^3/uL (1.8-7.7); Neutrophils % 88.7 %; Nucleated Red Blood Cells % 0 %; Platelet Count 222 10^3/cmm (157-399); Red Blood Count 3.64 10^6/uL (3.85-5.65); Red Cell Distribution Width 13.2 % (12.1-15.1); White Blood Count 16.05 10^3/uL (3.29-11.43)
[2025-01-15] MEDS: sucralfate 1 gm/10 mL Oral Liq UDC PO (05:44)
[2025-01-15 06:10] LABS: Anion Gap 15.2 (5-19); Blood Urea Nitrogen 29 mg/dL (8-23); Calcium 9.5 mg/dL (8.5-10.5); Carbon Dioxide 28 mmol/L (22-29); Chloride 95 mmol/L (98-107); Glucose 202 mg/dL (65-115); Magnesium 1.8 mg/dL (1.7-2.3); Osmolality Calculated 290 mOsm/kg (285-295); Potassium 4.2 mmol/L (3.5-5.1); Sodium 134 mmol/L (136-145)
[2025-01-15 06:17] LABS: Glucose Point of Care 263 mg/dL (70-110)
[2025-01-15 07:25] VITALS: BP 154/68; PULSE 64; RESP 15; TEMP 36.6; O2SAT 96
[2025-01-15] MEDS: insulin glargine 100 units/1 mL 15 UNIT SUBCUT (08:40)
[2025-01-15] MEDS: ondansetron 2 mg/ML SDV 2 mL 4 MG IVP (08:40)
[2025-01-15] MEDS: dilTIAZem ER (24HR) 120 mg Capsule PO (08:41)
--- NOTE | 2025-01-15 09:08 | P.DS_ITS ---
Discharge Providers Date of Admission: 01/09/25 20:51 Date of Discharge: January 15, 2025 Attending Provider at Admission: Hilary Ulloa MD Attending Provider at Discharge: Opal Mane MD Primary Care Provider: Gerry Khan MD Diagnoses at Discharge Discharge Diagnosis (1) Left radial head fracture: Status: Acute (2) Degenerative arthritis of left shoulder region: Status: Acute Reason for Visit Reason for Visit: stroke like symptoms Hospital Course Hospital Course Patient was admitted for sepsis secondary to RSV UTI. Initially was in DKA and A-fib RVR which both resolved. He also sustained a fall before coming to the hospital and fell on his left side. Left shoulder pain persisted CT shoulder did not show any acute fractures however showed severe arthritis. CT elbow on the left side showed a radial head fracture. Orthopedics was consulted. Patient was set up with a sling. He was treated with IV steroids while managing his blood sugar in the hospital. Eventually discharged on Lantus 15 units daily. He was asked to stop glyburide. Discharge paperwork did show glyburide however we called the patient and his son over the phone and informed him not to take that. Also called his primary care doctor and updated him of patient's care and discharge medications. Dr. Khan will be seeing him in the clinic the next day after discharge. Patient's A1c was 9. At this time he will be discharged home in stable condition. PT OT also assessed patient during stay. Physical Exam Narrative: Awake and alert Euvolemic Pleasant and cooperative Currently on room air GCS 15 Nonfocal neuroexam Hemodynamic stable S1, S2 A-fib without RVR Lower extremity trace edema Abdomen soft No audible stridor or wheezing Left shoulder pain improved, able to move arm , swelling improved, Urinary Catheter Management: Adame: Cath Placed During This Visit: yes, but has since been removed by the nurse Reason for Continuing Indwelling Catheter: Accurate Measurement of Urinary Output in Critically Ill Patients Urinary Catheter Date of Insertion: 01/09/25 Urinary Catheter Time of Insertion: 18:22 Date Urinary Catheter Removed: 01/10/25 Time Urinary Catheter Discontinued: 18:00 Discharge Data Studies Completed and Pending Completed Studies During Hospitalization Category Date Time Status CT abdomen pelvis wo con 19690 Stat Cat Scan 01/09/25 18:[address] elbow LT wo con* [id number] Urgent Cat Scan 01/13/25 16:[address] shoulder LT wo con* [id number] Urgent Cat Scan 01/12/25 13:05 Completed CXRP [XR chest 1V portable [id number]] Stat Exams 01/09/25 18:32 Completed XR elbow LT 2V [id number] Urgent Exams 01/14/25 16:32 Completed Pending at discharge Category Date Time Status Vancomycin Trough Timed Lab 01/15/25 16:30 Ordered Radiology Impressions Chest X-Ray 01/09/25 18:32 IMPRESSION: No acute findings. Abdomen/Pelvis CT 01/09/25 18:39 IMPRESSION: 1. No acute findings. 2. Hepatic steatosis. 3. Additional chronic and incidental findings as above, to include atherosclerosis and colonic diverticulosis. Shoulder CT 01/12/25 13:05 IMPRESSION: 1. Severe osteoarthritis without evidence of acute fracture or subluxation. Elbow CT 01/13/25 16:28 IMPRESSION: 1. Acute-subacute nondisplaced radial head fracture with joint effusion. 2. Moderate osteoarthritis. Elbow X-Ray 01/14/25 16:32 IMPRESSION: 1. No acute fracture. 2. Joint effusion at the elbow. Laboratory Results WBC 16.05 10^3/uL (3.29-11.43) H 01/15/25 04:28 RBC 3.64 10^6/uL (3.85-5.65) L 01/15/25 04:28 Hgb 11.00 g/dL (11.27-16.99) L 01/15/25 04:28 Hct 33.9 % (37-53) L 01/15/25 04:28 MCV 93.1 fl (82-101) 01/15/25 04:28 MCH 30.2 pg (27-33) 01/15/25 04:28 MCHC 32.4 g/dL (30-55) 01/15/25 04:28 RDW 13.2 % (12.1-15.1) 01/15/25 04:28 Plt Count 222 10^3/cmm (157-399) 01/15/25 04:28 MPV 11.4 fL (7.4-10.4) H 01/15/25 04:28 Neut % (Auto) 88.7 % 01/15/25 04:28 Lymph % (Auto) 4.1 % 01/15/25 04:28 [place] % (Auto) 5.2 % 01/15/25 04:28 Eos % (Auto) 0.0 % 01/15/25 04:28 Baso % (Auto) 0.2 % 01/15/25 04:28 Neut # (Auto) 14.24 10^3/uL (1.8-7.7) H 01/15/25 04:28 Lymph # (Auto) 0.7 10^3/uL (0.8-4.8) L 01/15/25 04:28 [place] # (Auto) 0.8 10^3/uL (0.2-0.9) 01/15/25 04:28 Eos # (Auto) 0.0 10^3/uL (0.0-0.8) 01/15/25 04:28 Baso # (Auto) 0.0 10^3/uL (0.0-0.1) 01/15/25 04: Nucleated RBC % (auto) 0 % 01/15/25 04: Nucleated RBCs # 0.0 /100WBC 01/15/25 04:28 Specimen Type Arterial 01/09/25 19:37 Sample Site Radial, left 01/09/25 19:37 ABG pH 7.29 (7.35-7.45) L 01/09/25 19:37 ABG pCO2 41.6 mmHg (35-45) 01/09/25 19:37 ABG pO2 77.8 mmHg (80.0-100.0) L 01/09/25 19:37 ABG HCO3 20.2 mmol/L (22-26) L 01/09/25 19:37 ABG O2 Saturation 94.0 01/09/25 19:37 ABG Base Excess -6.1 mmol/L (-2.0-2.0) L 01/09/25 19:37 [place] Test Pos 01/09/25 19:37 A-a O2 Gradient 2.1 mmHg (5-10) L 01/09/25 19:37 Hematocrit 44.5 % (42-52) 01/09/25 19:37 Hgb O2 Saturation 92.0 % (95-100) L 01/09/25 19:37 Carboxyhemoglobin 1.0 %THgb (0.4-20.1) 01/09/25 19:37 Methemoglobin 1.1 % (0.4-1.5) 01/09/25 19:37 Total Hemoglobin 14.5 g/dL (14-18) 01/09/25 19:37 Sodium 143.0 mmol/L (131-143) 01/09/25 19:37 Potassium 5.3 mmol/L (3.5-5.0) H 01/09/25 19:37 Glucose 633.0 mg/dL (70-115) H 01/09/25 19:37 Ionized Calcium 1.4 mmol/L (1.1-1.4) 01/09/25 19:37 O2 Delivery Device Nc 01/09/25 19:37 O2 Liters/Min 1.0 % 01/09/25 19:37 Nuclear Physician ID [email or web address] 01/09/25 19:37 Sodium 134 mmol/L (136-145) L 01/15/25 04:28 Potassium 4.2 mmol/L (3.5-5.1) 01/15/25 04:28 Chloride 95 mmol/L (98-107) L 01/15/25 04:28 Carbon Dioxide 28 mmol/L (22-29) 01/15/25 04:28 Anion Gap 15.2 (5-19) 01/15/25 04:28 BUN 29 mg/dL (8-23) H 01/15/25 04:28 Creatinine 1.0 mg/dL (0.7-1.2) 01/15/25 04:28 GFR Calculation Not Reportable 01/15/25 04:28 Glucose 202 mg/dL (65-115) H 01/15/25 04:28 POC Glucose 263 mg/dL (70-110) H 01/15/25 06:13 Calculated Osmolality 290 mOsm/kg (285-295) 01/15/25 04:28 Lactic Acid 2.2 mmol/L (0.5-2.2) 01/09/25 19:11 Lactic Acid (Sepsis) 1.8 mmol/L (0.5-2.2) 01/09/25 23:00 Lactate 1.0 mmol/L (0.5-2.2) 01/10/25 08:13 Calcium 9.5 mg/dL (8.5-10.5) 01/15/25 04:28 Phosphorus 2.5 mg/dL (2.5-4.5) 01/12/25 04:47 Magnesium 1.8 mg/dL (1.7-2.3) 01/15/25 04:28 Total Bilirubin 0.7 mg/dL (0.15-1.2) 01/09/25 18:12 AST 20 U/L (0-40) 01/09/25 18:12 ALT 12 U/L (0-41) 01/09/25 18:12 Alkaline Phosphatase 168 U/L (40-130) H 01/09/25 18:12 C-Reactive Protein 33.8 mg/L (0.0-4.9) H 01/10/25 05:37 Total Protein 7.6 g/dL (6.6-8.7) 01/09/25 18:12 Albumin 2.8 g/dL (3.5-5.2) L 01/12/25 04:47 Globulin 3.4 g/dL (1.3-4.6) 01/09/25 18:12 Procalcitonin 0.31 ng/mL (0-0.5) 01/09/25 23:35 Urine Color Yellow (Yellow) 01/09/25 22:55 Urine Appearance Clear (CLEAR) 01/09/25 22:55 Urine pH 5.0 (5-7) 01/09/25 22:55 Ur Specific [place] 1.025 (1.005-1.030) 01/09/25 22:55 Urine Protein Trace (Negative) A 01/09/25 22:55 Urine Glucose (UA) 3+ (Normal) H 01/09/25 22:55 Urine Ketones 1+ (Negative) H 01/09/25 22:55 Urine Blood 2+ (Negative) A 01/09/25 22:55 Urine Nitrate Negative (Negative) 01/09/25 22:55 Urine Bilirubin Negative (Negative) 01/09/25 22:55 Urine Urobilinogen 0.2 mg/dL (Negative) 01/09/25 22:55 Ur Leukocyte Esterase 1+ (Negative) A 01/09/25 22:55 Urine RBC 11-20 /hpf (0-2) H 01/09/25 22:55 Urine WBC 21-50 /hpf (0-5) H 01/09/25 22:55 Ur Squamous Epith Cells 0-5 /hpf (0-5) 01/09/25 22:55 Amorphous Sediment Not Reportable 01/09/25 22:55 Urine Bacteria None seen /hpf (NONE) 01/09/25 22:55 Hyaline Casts 10.32 /lpf 01/09/25 22:55 Serum Ketones Positive (Negative) H 01/09/25 18:12 Influenza A (PCR) Negative (Negative) 01/09/25 18:12 Influenza Type B (PCR) Negative (Negative) 01/09/25 18:12 RSV (PCR) Positive (Negative) A 01/09/25 18:12 SARS-CoV-2 (PCR) Negative (Negative) 01/09/25 18:12 Vitals Last Vital Signs Temp 97.8 F 01/15/25 07:25 Pulse 64 01/15/25 07:25 Resp 15 01/15/25 07:25 BP 154/68 01/15/25 07:25 Pulse Ox 96 01/15/25 07:25 O2 Del Method Nasal Cannula 01/15/25 07:25 O2 Flow Rate 1.5 01/15/25 07:25 Discharge Plan Discharge Patient Disposition: Home Health Service Condition: Stable Prescriptions: New levofloxacin 750 mg Tablet 750 mg PO DAILY@0600 Qty: 3 0RF lisinopril 10 mg tablet 10 mg PO DAILY Qty: 30 4RF diltiazem HCl 120 mg Capsule,Extended Release 24hr 120 mg PO DAILY Qty: 30 0RF pantoprazole [Protonix] 40 mg tablet,delayed release (DR/EC) 40 mg PO DAILY Qty: 14 0RF insulin lispro [Humalog U-100 Insulin] 100 unit/mL Solution See Rx Instructions .ROUTE .COMPLEX Qty: 10 0RF Rx Instructions: as per sliding scale with meals Continued metformin 500 mg tablet extended release 24 hr 500 mg PO TID Januvia 100 mg tablet 100 mg PO DAILY atorvastatin 40 mg Tablet 40 mg PO BEDTIME Qty: 60 4RF tramadol 50 mg tablet 50 mg PO Q8H PRN (Reason: pain) Qty: 12 0RF Changed insulin glargine [Lantus Solostar U-100 Insulin] 100 unit/mL (3 mL) insulin pen 15 unit SUBCUT DAILY Qty: 15 3RF Discontinued glimepiride 4 mg tablet 4 mg PO BID lisinopril 5 mg tablet 5 mg PO DAILY dexamethasone 6 mg tablet 6 mg PO DAILY 5 Days Qty: 5 0RF Discharge Orders: Discharge Order (Routine); Ordered 01/15/25 Ordered By: Opal Mane Other Ambulatory Orders: DME: Cane/ Crutches (Order) Location: None Selected Ordered By: Opal Mane DME: Walker (Order) Location: None Selected Ordered By: Opal Mane Referrals: [facility] ([facility]) [Outside] Gerry Khan MD [Primary Care Provider] - 01/16/25 9:45 am Ramon Solis DO [Physician] - 02/03/25 3:00 pm (1-2 wks) Discharge Diet: Cardiac and Diabetic Discharge Activity: As per PT/OT instructions Patient Instructions: Diltiazem (By mouth), Lisinopril (By mouth), Prednisone (By mouth), Levofloxacin (By mouth), Pantoprazole (By mouth), Insulin Regular (By injection) (Novolin R, Humulin R, Humulin R..., Diabetic Ketoacidosis (DC), RSV (Respiratory Syncytial Virus) Infection (DC), Opioid Safety Activity Restrictions/Additional Instructions: Orthopedic discharge instructions: Maintain splint until follow-up to the left upper extremity Ice and elevate as needed for pain and swelling Encourage finger range of motion shoulder range of motion as tolerated Nonweightbearing left upper extremity Maintain splint until follow-up in the orthopedic office Follow-up in orthopedic office in 1 to 2 weeks upon discharge Contact orthopedic office for any questions or concerns Pain control per primary Moderate Dose Intensity Sliding Scale MEDIUM dose sliding scale. Less than/equal to 70 treat hypoglycemia. 71-119 No additional insulin. 120-150 -- 2 units. 151-200 -- 4 units. 201-250 -- 6 units. 251-300 -- 8 units. 301-350 -- 10 units. Greater than 351 -- 12 units. Please see your primary care doctor tomorrow 01/16/2025 and discuss your blood sugar values and blood glucose medications. Discharge Attestations Time Spent in Discharge Care*: greater than 30 min Quality Metrics Clinical Quality Measures [ No reported AMI, CVA or VTE this stay] Coding Level of Care Code Acute Code for Chg Fwd Diagnoses Left radial head fracture S52.122A Degenerative arthritis of left shoulder region M19.012
[2025-01-15 09:10] VITALS: PULSE 70; RESP 16; O2SAT 91
[2025-01-15 10:47] LABS: Glucose Point of Care 403 mg/dL (70-110)
[2025-01-15 11:53] VITALS: BP 154/68; PULSE 64; RESP 15; TEMP 36.6; O2SAT 96
--- NOTE | 2025-01-15 14:40 | PC.NURSE ---
Spoke with patient 's son and updated him to stop the Glimepiride completely. Explained the reasoning is because Dr. Mane wants the patient to use the sliding insulin scale instead along with all his other oral medications.
[2025-01-15 15:10] LABS: Estmated Average Glucose 240
== END 2025-01-15 11:15 | disposition home health service (06) | DRG 871 ==
LOC: ER 20:54 → ICU 21:59 → MEDSURG 01-13 07:29
PROVIDERS: Internal Medicine; Admitting Provider Internal Medicine; Emergency Provider Emergency Medicine; PCP Family Medicine; Visit Provider Internal Medicine
DX: A41.9 Sepsis, unspecified organism (principal); E11.10 Type 2 diabetes mellitus with ketoacidosis without coma; J12.1 Respiratory syncytial virus pneumonia; N39.0 Urinary tract infection, site not specified; N17.9 Acute kidney failure, unspecified; S52.125A Nondisplaced fracture of head of left radius, initial encounter for closed fracture; W01.0XXA Fall on same level from slipping, tripping and stumbling without subsequent striking against object, initial encounter; M19.012 Primary osteoarthritis, left shoulder; I48.0 Paroxysmal atrial fibrillation; Z79.84 Long term (current) use of oral hypoglycemic drugs; Z79.891 Long term (current) use of opiate analgesic; Z79.4 Long term (current) use of insulin; I12.9 Hypertensive chronic kidney disease with stage 1 through stage 4 chronic kidney disease, or unspecified chronic kidney disease; E11.22 Type 2 diabetes mellitus with diabetic chronic kidney disease; N18.30 Chronic kidney disease, stage 3 unspecified; Z92.21 Personal history of antineoplastic chemotherapy; Z92.3 Personal history of irradiation; I25.10 Atherosclerotic heart disease of native coronary artery without angina pectoris; Z95.5 Presence of coronary angioplasty implant and graft; Z85.118 Personal history of other malignant neoplasm of bronchus and lung; J45.909 Unspecified asthma, uncomplicated; Z66 Do not resuscitate; E87.5 Hyperkalemia; E86.0 Dehydration; D63.1 Anemia in chronic kidney disease
CPT/HCPCS: 36415; 36416; 36600; 51702; 71045; 73070; 73200; 74176; 80048; 80051; 80053; 80069; 81001; 82009; 82330; 82805; 82962; 83036; 83605; 83735; 84145; 85025; 86140; 87040; 87086; 87637; 93005; 94760; 96365; 96372; 96374; 96375; 96376; 97110; 97116; 97161; 97530; 97760; 99285; A4565; J0282; J0283; J0612; J1171; J1644; J1815; J1956; J2405; J2470; J2919; J3370; J3475; J7030; J7050; J7799; J9999

== ENCOUNTER → 2025-02-03 14:56 | Outpatient (BNVA) | payer MEDICARE, SELFPAY | PROVIDERS: PCP Family Medicine; Visit Provider Student in an Organized Health Care Education/Training Program | DX: S52.122A Displaced fracture of head of left radius, initial encounter for closed fracture (principal); W19.XXXA Unspecified fall, initial encounter | CPT/HCPCS: 24650; 73080; 99203 ==

== ENCOUNTER 2025-02-05 11:57 | Outpatient (RCR) | payer MEDICARE, SELFPAY | END 2025-02-25 23:59 | disposition home or self-care (01) | LOC: SOT 11:57 | PROVIDERS: Visit Provider Student in an Organized Health Care Education/Training Program | DX: S52.125 Nondisplaced fracture of head of left radius (principal); W19.XXXD Unspecified fall, subsequent encounter | CPT/HCPCS: 97110; 97140; 97166 ==